=== PATIENT | male | born 1965 | race Hispanic/Latino ===

== ENCOUNTER 2018-01-03 14:11 | Emergency (ER) | payer SELFPAY ==
[2018-01-03 15:03] VITALS: RESP 20
--- NOTE | 2018-01-03 16:05 | C.PDOC ---
History Of Present Illness 52 year old male presents to ED with complaints of itchy rash to legs for 1 week and rash is now spreading up his legs and has some on right arm and back. He states had same rash to right leg 2 weeks ago was seen at clinic and treated with Prednisone for 5 days and rash had improved, but then came back. He states rash is very itchy. The past 2 days he noticed swelling and redness to lower leg and now has pain, feels "leg is balloon that may pop". Denies any fever. Time Seen by Provider: 01/03/18 15:23 Chief Complaint (Nursing): Abnormal Skin Integrity History Per: Patient History/Exam Limitations: no limitations Onset/Duration Of Symptoms: Days Current Symptoms Are (Timing): Still Present Past Medical History Reviewed: Historical Data, Nursing Documentation, Vital Signs Vital Signs: Last Vital Signs Temp 98.3 F 01/03/18 16:25 Pulse 77 01/03/18 16:25 Resp 20 01/03/18 16:25 BP 167/95 H 01/03/18 16:25 Pulse Ox 95 01/03/18 16:25 Family History: States: No Known Family Hx - Social History Hx Alcohol Use: No Hx Substance Use: No - Immunization History Hx Tetanus Toxoid Vaccination: No Hx Influenza Vaccination: No Hx Pneumococcal Vaccination: No Review Of Systems Constitutional: Negative for: Fever, Chills Respiratory: Negative for: Shortness of Breath Gastrointestinal: Negative for: Nausea, Vomiting Skin: Positive for: Rash (arms, back and leg) Physical Exam - Physical Exam Appears: Well, Non-toxic, No Acute Distress Skin: Rash (scaly annular lesions and patches to right upper back and arm, and to bilateral lower extremities. Right lower leg has swelling to anterior tibial and calf area with bright erythematous base and weeping. Left lower leg mild swelling and erythema. No foul odor. ) Neck: Normal ROM Chest: Symmetrical Cardiovascular: Rhythm Regular, No Murmur Respiratory: Normal Breath Sounds, No Accessory Muscle Use Extremity: Normal ROM Neurological/Psych: Oriented x3, Normal Speech ED Course And Treatment O2 Sat by Pulse Oximetry: 96 (RA) Pulse Ox Interpretation: Normal Medical Decision Making Medical Decision Making: Patient with rash that appears to be fungal and legs have superimposed cellulitis. Case discussed with attending who also examined patient and agrees, recommends antifungal and antibiotics. Patient treated with ketoconazole and Clindamycin. Patient remained afebrile and in no distress. Advised patient to continue with medications and can also take Benadryl for itching. Patient stable for discharge and recommend derm follow up if symptoms persist Disposition Counseled Patient/Family Regarding: Diagnosis, Need For Followup, Rx Given - Disposition Referrals: Rachel Lynn MD [Staff Provider] - Disposition: HOME/ ROUTINE Disposition Time: 16:08 Condition: STABLE Additional Instructions: You have fungal infection to your skin and your lower leg has early cellulitis which is skin infection Apply anti-fungal cream to area twice a day for 2-4 weeks Take antibiotic as prescribed 3x a day Take Benadryl for any itching you may have Follow up with clinic and dermatology if symptoms do not improve or worsen after 2 weeks Return to the Emergency Room if you develop fever, purulent drainage or foul odor from your leg, or other concern. Prescriptions: Clindamycin [Cleocin] 300 mg PO TID #21 cap Ketoconazole 2% Cr [Nizoral] 15 applic EXT BID #1 tube Instructions: Cellulitis (Skin Infection), Adult (DC), Ringworm Forms: [employer] (Swiss) - POA Present On Arrival: None - Clinical Impression Clinical Impression: Tinea corporis, Cellulitis of leg, right - Scribe Statement The provider has reviewed the documentation as recorded by the Scribe (Maryam Bruno) All medical record entries made by the Scribe were at my direction and personally dictated by me. I have reviewed the chart and agree that the record accurately reflects my personal performance of the history, physical exam, medical decision making, and the department course for this patient. I have also personally directed, reviewed, and agree with the discharge instructions and disposition.
[2018-01-03 16:31] VITALS: BP 167/95; PULSE 77; TEMP 98.3
[2018-01-03 17:49] VITALS: O2SAT 96
== END 2018-01-03 16:25 | disposition home or self-care (01) ==
LOC: C.ER 14:11
DX: B35.4 Tinea corporis (principal); L03.115 Cellulitis of right lower limb

== ENCOUNTER 2018-01-13 16:39 | Emergency (ER) | payer SELFPAY ==
[2018-01-13 17:09] VITALS: RESP 18
[2018-01-13] MEDS ORDERED: Vancomycin 1 gm/NS 200 ml 1 GM/200 ML BAG IVPB STA (18:08)
--- NOTE | 2018-01-13 18:08 | C.PDOC ---
History Of Present Illness 89 y/o male presents with redness, weeping to legs. pt reports problem x apprx 2 weeks in lower legs; was seen initially for rash and prescribed cream and prednisone; being treated for scabies. pt seen in this ED on 01/03, and was treated for sa fungal infeciton with overlying cellulitis with clindamycn. pt reports compliance with medication and competed it, however, legs continue to get more swollen, more red and painful and now right lower leg is also weeping fluids. pt denies fever. pt reports new lesions to lateral thighs. pt reports hx of pcn allergy, unsure what reaction is. pt sts he has had MRSA in the past. Time Seen by Provider: 01/13/18 17:38 Chief Complaint (Nursing): Abnormal Skin Integrity History Per: Patient History/Exam Limitations: no limitations Onset/Duration Of Symptoms: Days (7) Current Symptoms Are (Timing): Worse Location Of Injury: Right: Leg, Left: Leg Quality Of Symptoms: Painful, Itching, Swollen, Draining Severity: Moderate Past Medical History Reviewed: Historical Data, Nursing Documentation, Vital Signs Vital Signs: Last Vital Signs Temp 97.4 F L 01/13/18 17:06 Pulse 84 01/13/18 17:06 Resp 18 01/13/18 17:06 BP 159/88 H 01/13/18 17:06 Pulse Ox 97 01/13/18 19:17 - Medical History PMH: No Chronic Diseases Family History: States: Unknown Family Hx - Social History Hx Alcohol Use: No Hx Substance Use: No - Immunization History Hx Tetanus Toxoid Vaccination: No Hx Influenza Vaccination: No Hx Pneumococcal Vaccination: No Review Of Systems Constitutional: Negative for: Fever, Chills Cardiovascular: Negative for: Chest Pain Respiratory: Negative for: Cough Gastrointestinal: Negative for: Abdominal Pain Skin: Positive for: Rash, Lesions Neurological: Negative for: Weakness, Numbness Physical Exam - Physical Exam Appears: Non-toxic, No Acute Distress Skin: Other (multiple areas scaly patches to lateral thighs with no surrounding erythema. ) Head: Atraumatic, Normacephalic Eye(s): bilateral: Normal Inspection Cardiovascular: Rhythm Regular Respiratory: No Decreased Breath Sounds, No Wheezing Gastrointestinal/Abdominal: Soft, No Tenderness Extremity: Other ( bilateral distal lower extremities with pitting blanchable edema, on bright red base wiht multiple scaly lesions present both legs. both legs mildly warm, left greater than right. +bilateral lower leg tenderness. +2 b /l dp pulses. from at both knees. weeping fron anterior right lower leg. ) Neurological/Psych: Oriented x3, Normal Speech, Normal Cognition, Normal Motor, Normal Sensation ED Course And Treatment O2 Sat by Pulse Oximetry: 97 Medical Decision Making Medical Decision Making: pt has failed outpatient treatment for cellulitis; should be admitted, labs and bc to be drawn, will give first dose of iv vancomycin. pt adamantly sts he is unable to stay in hospital, will go home ama with po bactrim AND fu for wound check in 2 days. Disposition - Disposition Referrals: [facility] [Outside] Disposition: AGAINST MEDICAL ADVICE Disposition Time: 19:18 Condition: STABLE Additional Instructions: Take antibiotics as prescribed. Follow up wiht your pmd, in medical clinic or return to ED in 2 days for a wound check or worsening of symptoms. Prescriptions: Sulfamethoxazole/Trimethoprim [Bactrim DS 800 mg-160 mg] 1 tab PO BID #20 tab Instructions: Cellulitis (Skin Infection), Adult (DC) Forms: [employer] (Pashto), General Discharge Instructions - Clinical Impression Clinical Impression: Bilateral cellulitis of lower leg Physician Patient Turnover Patient Signed Over To: Randall Hou Handoff Comments: discharge/ama pt after he receives iv vancomycin; pt unable to be admitted.
[2018-01-13 20:04] LABS: BASO # 0.1 K/uL (0.0-0.2); BASO % 0.9 % (0.0-2.0); EOS # 0.3 K/uL (0.0-0.7); EOS % 3.9 % (0.0-4.0); HEMOGLOBIN 12.4 g/dL (12.0-18.0); LYMPH # 1.9 K/uL (1.0-4.3); LYMPH % 23.7 % (20.0-40.0); MEAN CELL VOLUME 84.5 fL (80.0-94.0); MEAN CORPUSCULAR HEMOGLOBIN 28.6 pg (27.0-31.0); MEAN CORPUSCULAR HGB CONC 33.8 g/dL (33.0-37.0); MEAN PLATELET VOLUME 6.6 fL (7.2-11.7); MONO # 0.9 K/uL (0.0-0.8); NEUT # 4.9 K/uL (1.8-7.0); NEUT % 60.5 % (50.0-75.0); NRBC % 0.1 % (0.0-2.0); RBC 4.33 Mil/uL (4.40-5.90); RED CELL DISTRIBUTION WIDTH 13.9 % (11.5-14.5); WHITE BLOOD COUNT 8.1 K/uL (4.8-10.8)
[2018-01-13 20:15] LABS: ALB/GLOB RATIO 0.8 (1.0-2.1); ALBUMIN 3.5 g/dL (3.5-5.0); CALCIUM 8.5 mg/dl (8.6-10.4)
[2018-01-13 21:52] VITALS: BP 172/105; PULSE 85; TEMP 97.5; O2SAT 95
== END 2018-01-13 21:51 | disposition left against medical advice (07) ==
LOC: C.ER 16:39
DX: L03.115 Cellulitis of right lower limb (principal); L03.116 Cellulitis of left lower limb
CPT/HCPCS: 80053; 85025; 87040; 96365; 96366; 99284; J3370

== ENCOUNTER 2018-02-05 10:35 | Observation (INO) | payer OTHER ==
[2018-02-05] MEDS ORDERED: Sodium Chloride 0.9% 1,000 ML IV ONE (11:52)
[2018-02-05 12:35] LABS: BASO % 0.4 % (0.0-2.0); EOS # 0.2 K/uL (0.0-0.7); EOS % 2.7 % (0.0-4.0); HEMOGLOBIN 12.3 g/dL (12.0-18.0); LYMPH # 1.5 K/uL (1.0-4.3); LYMPH % 18.5 % (20.0-40.0); MEAN CELL VOLUME 85.6 fL (80.0-94.0); MEAN CORPUSCULAR HEMOGLOBIN 28.1 pg (27.0-31.0); MEAN CORPUSCULAR HGB CONC 32.8 g/dL (33.0-37.0); MEAN PLATELET VOLUME 7.1 fL (7.2-11.7); MONO # 0.7 K/uL (0.0-0.8); MONO % 8.9 % (0.0-10.0); NEUT # 5.7 K/uL (1.8-7.0); NEUT % 69.5 % (50.0-75.0); NRBC % 0.2 % (0.0-2.0); RBC 4.38 Mil/uL (4.40-5.90); RED CELL DISTRIBUTION WIDTH 14.5 % (11.5-14.5); WHITE BLOOD COUNT 8.2 K/uL (4.8-10.8)
[2018-02-05 12:39] LABS: SQUAMOUS EPITHIAL < 1 /hpf (0-5); URINE BACTERIA RARE (<OCC); URINE BILIRUBIN NEGATIVE (NEGATIVE); URINE BLOOD NEGATIVE (NEGATIVE); URINE CLARITY Hazy (Clear); URINE COLOR Yellow (YELLOW); URINE GLUCOSE (UA) 1+ mg/dL (Normal); URINE LEUKOCYTE ESTERASE NEG Leu/uL (Negative); URINE PROTEIN 3+ mg/dL (NEGATIVE)
[2018-02-05 12:42] LABS: INR 1.1; PROTHROMBIN TIME 12.4 SECONDS (9.7-12.2)
[2018-02-05 12:50] LABS: ALB/GLOB RATIO 0.8 (1.0-2.1); ALBUMIN 3.5 g/dL (3.5-5.0); ALT/SGPT 23 U/L (21-72); AST/SGOT 25 U/L (17-59); BLOOD UREA NITROGEN 29 mg/dL (9-20); CALCIUM 8.7 mg/dl (8.6-10.4); GFR AFRICAN-AMERICAN > 60; GFR NON-AFRICAN AMERICAN 58
[2018-02-05 13:00] LABS: B-TYPE NATRIURETIC PEPTIDE 1770 pg/mL (0-900)
[2018-02-05] MEDS ORDERED: Clindamycin 300 MG in Sodium Chloride 0.9% 50 ML IVPB STA (13:03)
--- NOTE | 2018-02-05 13:07 | C.PDOC ---
History Of Present Illness 52 year old male presents to the ED for evaluation of an infection to his bilateral lower legs which began 2 weeks ago. Patient reports he initially had a rash on lower legs starting around 3 months ago, was evaluated at [facility] treated for scabies and prescribed Prednisone. His symptoms improved but then worsened after he finished the course. He was seen in this ED for same problem and recently finished a 10-day course of antibiotics one week ago. He reports pain and swelling to his legs and states his symptoms are worsening and spreading up his legs. He noticed leaking from legs. Patient reports chills. He denies recent trauma/injury or extremity numbness. Patient does not have a PMD. Time Seen by Provider: 02/05/18 11:16 Chief Complaint (Nursing): Abnormal Skin Integrity History Per: Patient History/Exam Limitations: no limitations Onset/Duration Of Symptoms: Other (around 3 months ) Current Symptoms Are (Timing): Worse Quality Of Symptoms: Painful, Swollen Additional History Per: Patient Past Medical History Reviewed: Historical Data, Nursing Documentation, Vital Signs Vital Signs: Last Vital Signs Temp 98.0 F 02/05/18 14:57 Pulse 70 02/05/18 14:57 Resp 20 02/05/18 14:57 BP 167/85 H 02/05/18 14:57 Pulse Ox 98 02/05/18 15:13 - Medical History PMH: No Chronic Diseases Surgical History: No Surg Hx Family History: States: Unknown Family Hx - Social History Hx Alcohol Use: No Hx Substance Use: No - Immunization History Hx Tetanus Toxoid Vaccination: No Hx Influenza Vaccination: No (patient allergic to it) Hx Pneumococcal Vaccination: No Review Of Systems Constitutional: Positive for: Chills Musculoskeletal: Positive for: Leg Pain Neurological: Negative for: Numbness Physical Exam - Physical Exam Appears: Non-toxic, No Acute Distress Skin: Warm, Dry, Other (scaly patches to lateral thighs with no surrounding erythema) Head: Atraumatic, Normacephalic Eye(s): bilateral: Normal Inspection Oral Mucosa: Moist Neck: Supple Chest: Symmetrical, No Deformity, No Tenderness Cardiovascular: Rhythm Regular, No Murmur Respiratory: Normal Breath Sounds, No Rales, No Rhonchi, No Wheezing Extremity: Normal ROM, Pedal Edema, Capillary Refill (less than 2 seconds ), Other (bilateral distal lower extremities with pitting edema, blanching bright erythema, tactile warmth, maceration, scabs and weeping ; right leg worse. no odor, no pus. ) Pulses: Left Dorsalis Pedis: Normal, Right Dorsalis Pedis: Normal Neurological/Psych: Oriented x3, Normal Speech Gait: Steady ED Course And Treatment - Laboratory Results Result Diagrams: 02/05/18 12:29 02/05/18 12:29 O2 Sat by Pulse Oximetry: 98 (on RA ) Pulse Ox Interpretation: Normal Medical Decision Making Medical Decision Making: Impression: 52 year old male with infection to bilateral legs Prior records reviewed, patient evaluated twice for leg redness and treated with Clindamycin and Bactrim. Has failed outpatient treatment. Plan: * bloodwork * urinalysis * Cleocin IVP * IV Fluids Progress: Bloodwork and UA ordered and reviewed. Cleocin IVP and IV Fluids administered. 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 - Scribe Statement The provider has reviewed the documentation as recorded by the Scribe (Yola Valdez) All medical record entries made by the Scribe were at my direction and personally dictated by me. I have reviewed the chart and agree that the record accurately reflects my personal performance of the history, physical exam, medical decision making, and the department course for this patient. I have also personally directed, reviewed, and agree with the discharge instructions and disposition. Decision To Admit - Pt Status Changed To: Hospital Disposition Of: Observation - . Bed Request Type: Regular Admitting Physician: Negro Valdez Patient Diagnosis: Bilateral cellulitis of lower leg
[2018-02-05] MEDS ORDERED: Clindamycin 300 MG in Sodium Chloride 0.9% 100 ML IVPB STA (13:14)
--- NOTE | 2018-02-05 15:24 | CP.PCM.HP ---
<José Manuel Maribel YOU - Last Filed: 02/05/18 15:14> History of Present Illness - History of Present Illness History of Present Illness: CC: my legs are swollen Patient is a 52 year old male who denies past medical history who presents to the ED after failed outpatient treatment for lower extremity cellulitis. Patient states that he first noticed erythematous circular lesions on his right ankle in mid-November. He states at that time he went to [facility] for evaluation and was given treatment for scabies along with PO prednisone. He states the prednisone significantly improved the rash but that it worsened after completion of the course of steroids. He came to the [facility] ED on for re-evaluation of his rash. He states at that time the rash had worsened and was now on both legs. Patient was discharged from the ER with PO cleocin and ketaconazole topical for treatment of possible ringworm. Patient states that treatment did not help his rash and then went back to [facility] and was given a Medrol dose pack which did help the rash a little but it then worsened again after completion of dose pack. Patient returned to [facility] ED on 01/13/18 and was offered inpatient admission due to failed outpatient therapy and patient declined as he needed to take care of his grandmother. Patient was discharged with bactrim which he completed without improvement in symptoms. Patient returned to [facility] ED today with complaint of bilateral lower extremity swelling, pain, erythema, skin breakdown with clear exudate. He also reports chills at night for the past few nights. He admits to chronic cough related to smoking history. He denies recent travel, recent illness. 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 absent: Fever, Weakness - EENT Eyes: absent: Blurred Vision - Cardiovascular Cardiovascular: Leg Edema. absent: Chest Pain, Chest Pain at Rest, Diaphoresis , Dyspnea - Respiratory Respiratory: Cough - Gastrointestinal Gastrointestinal: absent: Abdominal Pain, Belching, Bloating, Nausea, Vomiting - Genitourinary Genitourinary: absent: Dysuria - Musculoskeletal Musculoskeletal: absent: Arthralgias - Integumentary Integumentary: Dry Skin, Erythema, Sores, Swelling, Wounds - Neurological Neurological: absent: Confusion, Dizziness, Numbness, Weakness - Psychiatric Psychiatric: Anxiety - Endocrine Endocrine: absent: Palpitations Past Patient History - Infectious Disease Hx of Infectious Diseases: None - Past Social History Smoking Status: Heavy Smoker > 10 Cigarettes Daily - HEMATOLOGICAL/ONCOLOGICAL Other/Comment: hx of ca to left eye corrected to surgery. with tranplant with hxof mrsa to it. - PSYCHIATRIC Hx Substance Use: No - SURGICAL HISTORY Hx Surgeries: Yes Other/Comment: left knee surgery 1994. left eye surgery 3 years ago - ANESTHESIA Hx Anesthesia: Yes Hx Anesthesia Reactions: No Hx Malignant Hyperthermia: No Meds Allergies/Adverse Reactions: Allergies Allergy/AdvReac Type Severity Reaction Status Date / Time Penicillins Allergy Verified 02/05/18 11:02 Physical Exam - Constitutional Appears: Non-toxic, No Acute Distress - Head Exam Head Exam: ATRAUMATIC, NORMOCEPHALIC - Eye Exam Eye Exam: EOMI - ENT Exam ENT Exam: Mucous Membranes Moist - Respiratory Exam Respiratory Exam: Rhonchi, Wheezes, NORMAL BREATHING PATTERN. absent: Respiratory Distress - Cardiovascular Exam Cardiovascular Exam: REGULAR RHYTHM, +S1, +S2. absent: JVD - GI/Abdominal Exam GI & Abdominal Exam: Distended, Normal Bowel Sounds, Soft. absent: Firm, Tenderness - Extremities Exam Extremities exam: Positive for: pedal edema - Neurological Exam Neurological exam: Alert, Oriented x3 - Psychiatric Exam Psychiatric exam: Normal Affect - Skin Skin Exam: Warm Additional comments: bilateral lower extremity erythema to level just below the knee raised skin rash below knees that is erythematous with rough texture from mid-galvez down the skin is taut with weeping skin lesions- clear exudate 1+ pitting edema bilateral feet upper thighs and stomach with circular and erythematous skin lesions Results - Vital Signs Recent Vital Signs: Last Vital Signs Temp 98.0 F 02/05/18 14:57 Pulse 70 02/05/18 14:57 Resp 20 02/05/18 14:57 BP 167/85 H 02/05/18 14:57 Pulse Ox 98 02/05/18 15:13 - Labs Result Diagrams: 02/05/18 12:29 02/05/18 12:29 Labs: Laboratory Results - last 24 hr 02/05/18 02/05/18 02/05/18 12:15 12:29 12:29 WBC 8.2 RBC 4.38 L Hgb 12.3 Hct 37.5 MCV 85.6 MCH 28.1 MCHC 32.8 L RDW 14.5 Plt Count 257 MPV 7.1 L Neut % (Auto) 69.5 Lymph % (Auto) 18.5 L [place] % (Auto) 8.9 Eos % (Auto) 2.7 Baso % (Auto) 0.4 Neut # (Auto) 5.7 Lymph # (Auto) 1.5 [place] # (Auto) 0.7 Eos # (Auto) 0.2 Baso # (Auto) 0.0 PT 12.4 H INR 1.1 APTT 33 Sodium Potassium Chloride Carbon Dioxide Anion Gap BUN Creatinine Est GFR ( Amer) Est GFR (Non-Af Amer) Random Glucose Calcium Total Bilirubin AST ALT Alkaline Phosphatase NT-Pro-B Natriuret Pep Total Protein Albumin Globulin Albumin/Globulin Ratio Urine Color Yellow Urine Clarity Hazy Urine pH 5.0 Ur Specific [place] 1.028 Urine Protein 3+ H Urine Glucose (UA) 1+ H Urine Ketones Trace Urine Blood Negative Urine Nitrate Negative Urine Bilirubin Negative Urine Urobilinogen 2.0 Ur Leukocyte Esterase Neg Urine WBC (Auto) 1 Urine RBC (Auto) 6 H Ur Squamous Epith Cells < 1 Urine Bacteria Rare 02/05/18 12:29 WBC RBC Hgb Hct MCV MCH MCHC RDW Plt Count MPV Neut % (Auto) Lymph % (Auto) [place] % (Auto) Eos % (Auto) Baso % (Auto) Neut # (Auto) Lymph # (Auto) [place] # (Auto) Eos # (Auto) Baso # (Auto) PT INR APTT Sodium 141 Potassium 4.5 Chloride 103 Carbon Dioxide 26 Anion Gap 16 BUN 29 H Creatinine 1.3 Est GFR ( Amer) > 60 Est GFR (Non-Af Amer) 58 Random Glucose 132 H Calcium 8.7 Total Bilirubin 0.6 AST 25 ALT 23 Alkaline Phosphatase 74 NT-Pro-B Natriuret Pep 1770 H Total Protein 7.8 Albumin 3.5 Globulin 4.2 H Albumin/Globulin Ratio 0.8 L Urine Color Urine Clarity Urine pH Ur Specific [place] Urine Protein Urine Glucose (UA) Urine Ketones Urine Blood Urine Nitrate Urine Bilirubin Urine Urobilinogen Ur Leukocyte Esterase Urine WBC (Auto) Urine RBC (Auto) Ur Squamous Epith Cells Urine Bacteria Assessment & Plan - Assessment and Plan (Free Text) Assessment: Lower extremity cellulitis patient failed outpatient therapy no leukocytosis will start aztreonam 2g IV q8h, vancomycin 1g IV q12h patient received IV clindamycin in ER will check xrays b/l feet will check venous dopplers lower extremities wound care referral blood culture pending Elevated BNP 1770 on admission will check echo as patient also noted to have elevated BP 177/100, possible hypertensive heart disease will start lasix 40mg IV q12 will check chest xray to rule out pleural effusions will check EKG HTN will start lasix 40mg IV q12h will start metoprolol 12.5 PO BID will start lisinopril 10mg PO daily Elevated glucose will check A1c glucose also noted in urine on UA start moderate consistent carb diet Tobacco use cessation encouraged patient offered nicotine patch, declined Prophylactic measure heparin 5,000 SC q8h pepcid 20mg PO BID PT/ OT <Oc Gutierrez H - Last Filed: 02/05/18 16:01> Results - Vital Signs Recent Vital Signs: Last Vital Signs Temp 98.0 F 02/05/18 14:57 Pulse 70 02/05/18 14:57 Resp 20 02/05/18 14:57 BP 167/85 H 02/05/18 14:57 Pulse Ox 98 02/05/18 15:15 - Labs Result Diagrams: 02/05/18 12:29 02/05/18 12:29 Labs: Laboratory Results - last 24 hr 02/05/18 02/05/18 02/05/18 12:15 12:29 12:29 WBC 8.2 RBC 4.38 L Hgb 12.3 Hct 37.5 MCV 85.6 MCH 28.1 MCHC 32.8 L RDW 14.5 Plt Count 257 MPV 7.1 L Neut % (Auto) 69.5 Lymph % (Auto) 18.5 L [place] % (Auto) 8.9 Eos % (Auto) 2.7 Baso % (Auto) 0.4 Neut # (Auto) 5.7 Lymph # (Auto) 1.5 [place] # (Auto) 0.7 Eos # (Auto) 0.2 Baso # (Auto) 0.0 PT 12.4 H INR 1.1 APTT 33 Sodium Potassium Chloride Carbon Dioxide Anion Gap BUN Creatinine Est GFR ( Amer) Est GFR (Non-Af Amer) Random Glucose Calcium Total Bilirubin AST ALT Alkaline Phosphatase NT-Pro-B Natriuret Pep Total Protein Albumin Globulin Albumin/Globulin Ratio Urine Color Yellow Urine Clarity Hazy Urine pH 5.0 Ur Specific [place] 1.028 Urine Protein 3+ H Urine Glucose (UA) 1+ H Urine Ketones Trace Urine Blood Negative Urine Nitrate Negative Urine Bilirubin Negative Urine Urobilinogen 2.0 Ur Leukocyte Esterase Neg Urine WBC (Auto) 1 Urine RBC (Auto) 6 H Ur Squamous Epith Cells < 1 Urine Bacteria Rare 02/05/18 12:29 WBC RBC Hgb Hct MCV MCH MCHC RDW Plt Count MPV Neut % (Auto) Lymph % (Auto) [place] % (Auto) Eos % (Auto) Baso % (Auto) Neut # (Auto) Lymph # (Auto) [place] # (Auto) Eos # (Auto) Baso # (Auto) PT INR APTT Sodium 141 Potassium 4.5 Chloride 103 Carbon Dioxide 26 Anion Gap 16 BUN 29 H Creatinine 1.3 Est GFR ( Amer) > 60 Est GFR (Non-Af Amer) 58 Random Glucose 132 H Calcium 8.7 Total Bilirubin 0.6 AST 25 ALT 23 Alkaline Phosphatase 74 NT-Pro-B Natriuret Pep 1770 H Total Protein 7.8 Albumin 3.5 Globulin 4.2 H Albumin/Globulin Ratio 0.8 L Urine Color Urine Clarity Urine pH Ur Specific [place] Urine Protein Urine Glucose (UA) Urine Ketones Urine Blood Urine Nitrate Urine Bilirubin Urine Urobilinogen Ur Leukocyte Esterase Urine WBC (Auto) Urine RBC (Auto) Ur Squamous Epith Cells Urine Bacteria Attending/Attestation - Attestation I have personally seen and examined this patient.: Yes I have fully participated in the care of the patient.: Yes I have reviewed all pertinent clinical information: Yes Notes (Text): 02/05/18 15:50 Medical attending : Patient was seen and examined by me. Agree with the above note by the resident Patient has been comming back and forth between [facility] and here at [facility]. He has denied fever and chills Per exam, bilaterally anteioer mid galvez area with erethematous skin color, warm to touch as well as weeping seen. He will be on IV abx, IVF, as well as XRAY imaging of bilaterally extremities as well as Because of the elevated BNP as well as lower eztremity bilateral edema. Will also check 2 decho, CXRAY as well. Sammy SCHROEDER thank you Oc Gutierrez 02/05/18 15:59
[2018-02-05] MEDS ORDERED: Aztreonam 2 GM in Sodium Chloride 0.9% 100 ML IVPB SCH (16:00)
--- NOTE | 2018-02-05 16:49 | RAD ---
HISTORY: COMPARISON: No prior. TECHNIQUE: Chest PA and lateral FINDINGS: LINES AND TUBES: None. LUNG AND PLEURA: There is mild pulmonary hyperinflation and peribronchial cuffing. No focal consolidation. There are no pleural effusions or pneumothorax. HEART AND MEDIASTINUM: The heart is not enlarged. The hilar and mediastinal contours are within normal limits. SKELETAL STRUCTURES: The bony structures are within normal limits for the patient's age. VISUALIZED UPPER ABDOMEN: Normal. OTHER FINDINGS: None. IMPRESSION: No active pulmonary disease. COPD.
--- NOTE | 2018-02-05 17:08 | RAD ---
PROCEDURE: Bilateral Feet Radiographs. HISTORY: lower extremity swelling COMPARISON: None. FINDINGS: BONES: Right Foot: Plantar and Achilles Tendon insertion calcaneal spurs. Left Foot: Plantar and Achilles Tendon insertion calcaneal spurs. JOINTS: Right Foot: Normal. No osteoarthritis. Left Foot: Normal. No osteoarthritis. SOFT TISSUES: Right Foot: Normal. Left Foot: Normal. OTHER FINDINGS: None. IMPRESSION: No acute findings related to/accounting for the clinical presentation.
[2018-02-05 18:17] LABS: T3 1.42 nmol/L (1.49-2.60)
[2018-02-05] MEDS: Vancomycin 1 gm/NS 200 ml 1 GM/200 ML BAG IVPB SCH (20:14)
[2018-02-06 01:19] VITALS: RESP 20
[2018-02-06] MEDS: Vancomycin 1 gm/NS 200 ml 1 GM/200 ML BAG IVPB SCH ×2 (05:10→17:16)
[2018-02-06 07:44] LABS: BASO % 0.5 % (0.0-2.0); EOS # 0.3 K/uL (0.0-0.7); EOS % 3.7 % (0.0-4.0); HEMOGLOBIN 11.2 g/dL (12.0-18.0); LYMPH # 1.1 K/uL (1.0-4.3); LYMPH % 13.9 % (20.0-40.0); MEAN CORPUSCULAR HGB CONC 33.3 g/dL (33.0-37.0); MEAN PLATELET VOLUME 7.2 fL (7.2-11.7); MONO # 0.8 K/uL (0.0-0.8); NEUT # 5.6 K/uL (1.8-7.0); NEUT % 71.9 % (50.0-75.0); RBC 3.99 Mil/uL (4.40-5.90); RED CELL DISTRIBUTION WIDTH 14.2 % (11.5-14.5); WHITE BLOOD COUNT 7.9 K/uL (4.8-10.8)
[2018-02-06 08:20] LABS: ALB/GLOB RATIO 0.8 (1.0-2.1); ALBUMIN 2.9 g/dL (3.5-5.0); ALT/SGPT 21 U/L (21-72); AST/SGOT 13 U/L (17-59); BLOOD UREA NITROGEN 27 mg/dL (9-20); CALCIUM 8.2 mg/dl (8.6-10.4); GFR AFRICAN-AMERICAN > 60; GFR NON-AFRICAN AMERICAN 53; HDL CHOLESTEROL 29 mg/dL (30-70)
[2018-02-06 08:30] LABS: LDL CHOLESTEROL 128 mg/dL (0-129)
--- NOTE | 2018-02-06 09:08 | CP.PCM.PN ---
<Analy Wellington - Last Filed: 02/06/18 10:15> Subjective - Date & Time of Evaluation Date of Evaluation: 02/06/18 Time of Evaluation: 09:11 - Subjective Subjective: Progress note Patient states he has things to take care of tomorrow and wants to leave tomorrow. It was advised to wait for the results from today's exams to see what the updated plan is. Patient states he's had this problem for 2 months and it initially started as small raised lesions that were originally considered to be ringworm. Patient denies fever, chills, nausea vomiting, leg pain. With my attending, we had an extensive conversation with the patient who stated that he does not want any blood pressure medications and states that he will not be taking the blood pressure medication at home. Patient also denied blood thinner because he saw an advertisement on the television about warfarin. Patient was told heparin was ordered for him but he still refused Objective - Vital Signs/Intake and Output Vital Signs (last 24 hours): Temp Pulse Resp BP Pulse Ox 97.5 F L 81 20 158/92 H 97 02/06/18 08:00 02/06/18 08:00 02/06/18 08:00 02/06/18 08:00 02/06/18 08:00 Intake and Output: 02/06/18 02/06/18 06:59 18:59 Intake Total 500 440 Balance 500 440 - Medications Medications: Current Medications Famotidine (Pepcid) 20 mg PO BID [facility] Last Admin: 02/05/18 19:51 Dose: 20 mg Furosemide (Lasix) 40 mg IVP Q12 [facility] Last Admin: 02/05/18 22:43 Dose: 40 mg Heparin Sodium (Porcine) (Heparin) 5,000 units SC Q8 [facility] Last Admin: 02/05/18 22:42 Dose: 5,000 units Vancomycin/Sodium Chloride (Vancomycin 1 Gm/Ns 200 Ml) 1 gm in 200 mls @ 133.333 mls/hr IVPB Q12H [facility] PRN Reason: Protocol Stop: 02/10/18 17:31 Last Admin: 02/06/18 05:10 Dose: 133.333 mls/hr Aztreonam 2 gm/ Sodium (Chloride) 100 mls @ 200 mls/hr IVPB Q8H [facility] PRN Reason: Protocol Last Admin: 02/05/18 17:25 Dose: 200 mls/hr Lisinopril (Zestril) 10 mg PO DAILY [facility] Last Admin: 02/05/18 14:55 Dose: 10 mg Metoprolol Tartrate (Lopressor) 12.5 mg PO BID [facility] Last Admin: 02/05/18 19:52 Dose: 12.5 mg Pneumococcal Polyvalent Vaccine (Pneumovax 23 Vaccine) 0.5 ml IM .ONCE ONE Stop: 02/06/18 10:01 - Labs Labs: 02/06/18 07:18 02/06/18 07:18 PT 12.4 SECONDS (9.7-12.2) H 02/05/18 12:29 INR 1.1 02/05/18 12:29 APTT 33 SECONDS (21-34) 02/05/18 12:29 - Constitutional Appears: Non-toxic, No Acute Distress - Head Exam Head Exam: ATRAUMATIC, NORMAL INSPECTION, NORMOCEPHALIC - Eye Exam Eye Exam: EOMI, Normal appearance Pupil Exam: NORMAL ACCOMODATION - ENT Exam ENT Exam: Mucous Membranes Moist, Normal Exam - Respiratory Exam Respiratory Exam: Clear to Ausculation Bilateral, NORMAL BREATHING PATTERN - Cardiovascular Exam Cardiovascular Exam: REGULAR RHYTHM, +S1, +S2 - GI/Abdominal Exam GI & Abdominal Exam: Soft, Normal Bowel Sounds. absent: Tenderness - Extremities Exam Extremities Exam: Full ROM Additional comments: bilateral lower extremity erythema to 3/4 galvez bilateral. Raised skin rash below knees that is erythematous with rough texture, Weeping skin lesions- yellow, clear exudate, 1+ pitting edema bilateral feet, PT pulses palpated bilaterally upper thighs and stomach with circular and erythematous skin lesions - Back Exam Back Exam: Full ROM, NORMAL INSPECTION - Neurological Exam Neurological Exam: Alert, Awake, CN II-XII Intact, Oriented x3 - Psychiatric Exam Psychiatric exam: Normal Affect, Normal Mood - Skin Skin Exam: Dry, Intact, Normal Color, Warm Assessment and Plan - Assessment and Plan (Free Text) Assessment: Lower extremity cellulitis patient failed outpatient therapy no leukocytosis aztreonam 2g IV q8h 02/06/18 vancomycin 1g IV q12h 02/06/18 patient received IV clindamycin in ER and another stat dose today f/u xrays b/l feet f/u venous dopplers lower extremities blood culture pending wound care consult Elevated BNP 1770 on admission will check echo as patient also noted to have elevated BP 177/100, possible hypertensive heart disease will start lasix 40mg IV q12 CXR: COPD, no cardiomegaly will check EKG HTN will start lasix 40mg IV q12h will start metoprolol 12.5 PO BID will start lisinopril 10mg PO daily Elevated glucose A1c 7.5 glucose also noted in urine on UA start moderate consistent carb diet Tobacco use cessation encouraged patient offered nicotine patch, declined Prophylactic measure heparin 5,000 SC q8h pepcid 20mg PO BID PT/ OT Analy Wellington, DO PGY1 <Oc Gutierrez H - Last Filed: 02/06/18 12:01> Objective - Vital Signs/Intake and Output Vital Signs (last 24 hours): Temp Pulse Resp BP Pulse Ox 97.5 F L 81 20 158/92 H 97 02/06/18 08:00 02/06/18 08:00 02/06/18 08:00 02/06/18 09:45 02/06/18 08:00 Intake and Output: 02/06/18 02/06/18 06:59 18:59 Intake Total 500 440 Balance 500 440 - Medications Medications: Current Medications Famotidine (Pepcid) 20 mg PO BID [facility] Last Admin: 02/06/18 09:45 Dose: 20 mg Furosemide (Lasix) 40 mg IVP Q12 [facility] Last Admin: 02/06/18 09:45 Dose: 40 mg Heparin Sodium (Porcine) (Heparin) 5,000 units SC Q8 [facility] Last Admin: 02/05/18 22:42 Dose: 5,000 units Vancomycin/Sodium Chloride (Vancomycin 1 Gm/Ns 200 Ml) 1 gm in 200 mls @ 133.333 mls/hr IVPB Q12H [facility] PRN Reason: Protocol Stop: 02/10/18 17:31 Last Admin: 02/06/18 05:10 Dose: 133.333 mls/hr Aztreonam 2 gm/ Sodium (Chloride) 100 mls @ 200 mls/hr IVPB Q8H [facility] PRN Reason: Protocol Last Admin: 02/05/18 17:25 Dose: 200 mls/hr Lisinopril (Zestril) 10 mg PO DAILY [facility] Last Admin: 02/06/18 09:45 Dose: 10 mg Metoprolol Tartrate (Lopressor) 12.5 mg PO BID [facility] Last Admin: 02/06/18 09:45 Dose: Not Given - Labs Labs: 02/06/18 07:18 02/06/18 07:18 PT 12.4 SECONDS (9.7-12.2) H 02/05/18 12:29 INR 1.1 02/05/18 12:29 APTT 33 SECONDS (21-34) 02/05/18 12:29 Attending/Attestation - Attestation I have personally seen and examined this patient.: Yes I have fully participated in the care of the patient.: Yes I have reviewed all pertinent clinical information, including history, physical exam and plan: Yes Notes (Text): 02/06/18 12:01 Medical attending: Patient was seen and examined by me, agrees the above note by medical coding technician. Today when we saw the patient he was not in any acute distress. According to the patient he thinks that the legs looks somewhat better to him. There is still warm to palpation. He's been getting IV Lasix, were still pending a 2-D echo at this moment. And were also continue with IV antibiotics as well. The x- rays did not show any bony abnormality of his foot or ankles The patient did not want to get any Lovenox/heparin for DVT prophylaxis as he is concerned about bleeding risk. His blood pressure remains elevated, per my discussion with the patient he remains adamant that he does not want to take any blood pressure medication. He says he does not believe in blood pressure medication. So at this time were continue to monitor the patient's bilateral lower extremities, will continue with Lasix as well as IV antibiotics Thank you very much, Oc Gutierrez
[2018-02-06] MEDS ORDERED: Pneumococcal 23-Valent Vaccine IM ONE (10:00)
--- NOTE | 2018-02-06 23:32 | CARD ---
APPROVED REPORT EKG Measurement Heart [id number] <Conclusion> Normal sinus rhythm ST & T wave abnormality, consider inferolateral ischemia Prolonged QT Abnormal ECG
[2018-02-07] MEDS: Vancomycin 1 gm/NS 200 ml 1 GM/200 ML BAG IVPB SCH (05:17)
[2018-02-07 06:23] LABS: BASO % 0.6 % (0.0-2.0); EOS # 0.3 K/uL (0.0-0.7); EOS % 3.8 % (0.0-4.0); HEMOGLOBIN 11.4 g/dL (12.0-18.0); LYMPH # 1.1 K/uL (1.0-4.3); LYMPH % 14.8 % (20.0-40.0); MEAN CELL VOLUME 83.5 fL (80.0-94.0); MEAN CORPUSCULAR HEMOGLOBIN 27.8 pg (27.0-31.0); MEAN CORPUSCULAR HGB CONC 33.3 g/dL (33.0-37.0); MEAN PLATELET VOLUME 7.1 fL (7.2-11.7); MONO # 0.7 K/uL (0.0-0.8); MONO % 9.7 % (0.0-10.0); NEUT # 5.2 K/uL (1.8-7.0); NEUT % 71.1 % (50.0-75.0); RBC 4.09 Mil/uL (4.40-5.90); RED CELL DISTRIBUTION WIDTH 14.3 % (11.5-14.5); WHITE BLOOD COUNT 7.3 K/uL (4.8-10.8)
[2018-02-07 07:11] LABS: ALB/GLOB RATIO 0.8 (1.0-2.1); ALT/SGPT 22 U/L (21-72); AST/SGOT 12 U/L (17-59); BLOOD UREA NITROGEN 23 mg/dL (9-20); CALCIUM 8.3 mg/dl (8.6-10.4); GFR AFRICAN-AMERICAN > 60; GFR NON-AFRICAN AMERICAN 58
[2018-02-07 08:14] VITALS: BP 176/92; PULSE 81; TEMP 97.6; O2SAT 97
--- NOTE | 2018-02-07 11:22 | CP.PCM.DIS ---
<Rachid Scruggs - Last Filed: 02/07/18 13:10> Provider - Provider Date of Admission: 02/05/18 13:07 Attending physician: Oc Gutierrez DO Time Spent in preparation of Discharge (in minutes): 40 Diagnosis - Discharge Diagnosis (1) Bilateral cellulitis of lower leg Status: Acute Priority: High (2) Newly diagnosed diabetes Status: Acute Priority: High (3) Hypertension Status: Acute Priority: High Hospital Course - Lab Results Lab Results: Micro Results 02/05/18 12:30 Blood Blood Culture - Preliminary NO GROWTH AFTER 24 HOURS 02/05/18 12:15 Blood Blood Culture - Preliminary NO GROWTH AFTER 24 HOURS 02/05/18 11:52 Urine Urine Culture - Final No Growth (<1,000 CFU/ML) Most Recent Lab Values WBC 7.3 K/uL (4.8-10.8) 02/07/18 06:18 RBC 4.09 Mil/uL (4.40-5.90) L 02/07/18 06:18 Hgb 11.4 g/dL (12.0-18.0) L 02/07/18 06:18 Hct 34.1 % (35.0-51.0) L 02/07/18 06:18 MCV 83.5 fL (80.0-94.0) 02/07/18 06:18 MCH 27.8 pg (27.0-31.0) 02/07/18 06:18 MCHC 33.3 g/dL (33.0-37.0) 02/07/18 06:18 RDW 14.3 % (11.5-14.5) 02/07/18 06:18 Plt Count 253 K/uL (130-400) 02/07/18 06:18 MPV 7.1 fL (7.2-11.7) L 02/07/18 06:18 Neut % (Auto) 71.1 % (50.0-75.0) 02/07/18 06:18 Lymph % (Auto) 14.8 % (20.0-40.0) L 02/07/18 06:18 Meade % (Auto) 9.7 % (0.0-10.0) 02/07/18 06:18 Eos % (Auto) 3.8 % (0.0-4.0) 02/07/18 06:18 Baso % (Auto) 0.6 % (0.0-2.0) 02/07/18 06:18 Neut # (Auto) 5.2 K/uL (1.8-7.0) 02/07/18 06:18 Lymph # (Auto) 1.1 K/uL (1.0-4.3) 02/07/18 06:18 Meade # (Auto) 0.7 K/uL (0.0-0.8) 02/07/18 06:18 Eos # (Auto) 0.3 K/uL (0.0-0.7) 02/07/18 06:18 Baso # (Auto) 0.0 K/uL (0.0-0.2) 02/07/18 06:18 PT 12.4 SECONDS (9.7-12.2) H 02/05/18 12:29 INR 1.1 02/05/18 12:29 APTT 33 SECONDS (21-34) 02/05/18 12:29 Sodium 142 mmol/L (132-148) 02/07/18 06:18 Potassium 3.7 mmol/L (3.6-5.2) 02/07/18 06:18 Chloride 102 mmol/L (98-107) 02/07/18 06:18 Carbon Dioxide 28 mmol/L (22-30) 02/07/18 06:18 Anion Gap 15 (10-20) 02/07/18 06:18 BUN 23 mg/dL (9-20) H 02/07/18 06:18 Creatinine 1.3 mg/dL (0.8-1.5) 02/07/18 06:18 Est GFR ( Amer) > 60 02/07/18 06:18 Est GFR (Non-Af Amer) 58 02/07/18 06:18 Random Glucose 120 mg/dL (75-110) H 02/07/18 06:18 Hemoglobin A1c 7.5 % (4.2-6.5) H 02/05/18 17:13 Calcium 8.3 mg/dl (8.6-10.4) L 02/07/18 06:18 Phosphorus 3.7 mg/dL (2.5-4.5) 02/07/18 06:18 Magnesium 1.8 mg/dL (1.6-2.3) 02/07/18 06:18 Total Bilirubin 0.4 mg/dL (0.2-1.3) 02/07/18 06:18 AST 12 U/L (17-59) L 02/07/18 06:18 ALT 22 U/L (21-72) 02/07/18 06:18 Alkaline Phosphatase 70 U/L (38-126) 02/07/18 06:18 NT-Pro-B Natriuret Pep 1770 pg/mL (0-900) H 02/05/18 12:29 Total Protein 6.7 g/dL (6.3-8.3) 02/07/18 06:18 Albumin 3.0 g/dL (3.5-5.0) L 02/07/18 06:18 Globulin 3.6 gm/dL (2.2-3.9) 02/07/18 06:18 Albumin/Globulin Ratio 0.8 (1.0-2.1) L 02/07/18 06:18 Triglycerides 172 mg/dL (0-149) H 02/06/18 07:18 Cholesterol 180 mg/dL (0-199) 02/06/18 07:18 LDL Cholesterol Direct 128 mg/dL (0-129) 02/06/18 07:18 HDL Cholesterol 29 mg/dL (30-70) L 02/06/18 07:18 Total T3 1.42 nmol/L (1.49-2.60) L 02/05/18 17:13 TSH 3rd Generation 0.93 mIU/L (0.46-4.68) 02/05/18 17:13 Urine Color Yellow (YELLOW) 02/05/18 12:15 Urine Clarity Hazy (Clear) 02/05/18 12:15 Urine pH 5.0 (5.0-8.0) 02/05/18 12:15 Ur Specific [place] 1.028 (1.003-1.030) 02/05/18 12:15 Urine Protein 3+ mg/dL (NEGATIVE) H 02/05/18 12:15 Urine Glucose (UA) 1+ mg/dL (Normal) H 02/05/18 12:15 Urine Ketones Trace mg/dL (NEGATIVE) 02/05/18 12:15 Urine Blood Negative (NEGATIVE) 02/05/18 12:15 Urine Nitrate Negative (NEGATIVE) 02/05/18 12:15 Urine Bilirubin Negative (NEGATIVE) 02/05/18 12:15 Urine Urobilinogen 2.0 mg/dL (0.2-1.0) 02/05/18 12:15 Ur Leukocyte Esterase Neg Belinda/uL (Negative) 02/05/18 12:15 Urine WBC (Auto) 1 /hpf (0-5) 02/05/18 12:15 Urine RBC (Auto) 6 /hpf (0-3) H 02/05/18 12:15 Ur Squamous Epith Cells < 1 /hpf (0-5) 02/05/18 12:15 Urine Bacteria Rare (<OCC) 02/05/18 12:15 - Hospital Course Hospital Course: Initial note: "Patient is a 52 year old male who denies past medical history who presents to the ED after failed outpatient treatment for lower extremity cellulitis. Patient states that he first noticed erythematous circular lesions on his right ankle in mid-November. He states at that time he went to [place] ER for evaluation and was given treatment for scabies along with PO prednisone. He states the prednisone significantly improved the rash but that it worsened after completion of the course of steroids. He came to the [facility] ED on for re-evaluation of his rash. He states at that time the rash had worsened and was now on both legs. Patient was discharged from the ER with PO cleocin and ketaconazole topical for treatment of possible ringworm. Patient states that treatment did not help his rash and then went back to [place] ER and was given a Medrol dose pack which did help the rash a little but it then worsened again after completion of dose pack. Patient returned to [facility] ED on 01/13/18 and was offered inpatient admission due to failed outpatient therapy and patient declined as he needed to take care of his grandmother. Patient was discharged with bactrim which he completed without improvement in symptoms. Patient returned to [facility] ED today with complaint of bilateral lower extremity swelling, pain, erythema, skin breakdown with clear exudate. He also reports chills at night for the past few nights. He admits to chronic cough related to smoking history. He denies recent travel, recent illness." Hospital Course: Patient admitted for treatment of bilateral leg cellulitis. Blood cultures have been negative thus far. Bilateral venous dopplers negative for DVT per preliminary report; however, full assessment could not be obtained due to leg edema. Patient found to have hypertension and diabetes but refuses medications for both of these conditions despite carefully explaining the risks of uncontrolled disease. Patient initially treated with Aztreonam but then developed a rash. He was switched to Vancomycin after that. Patient discharged with instructions to follow up in the [facility] and was discharged on Clindamycin. On rounds, he walked with us without difficulty. Patient was amenable to a short course of oral Lasix to aid in the leg edema. This is a summary of the hospital course. For more information, refer to the medical records. Discharge Exam - Additional Findings Additional findings: - Constitutional Appears: Non-toxic, No Acute Distress - Head Exam Head Exam: ATRAUMATIC, NORMAL INSPECTION, NORMOCEPHALIC - Eye Exam Eye Exam: EOMI, Normal appearance Pupil Exam: NORMAL ACCOMODATION - ENT Exam ENT Exam: Mucous Membranes Moist, Normal Exam - Respiratory Exam Respiratory Exam: Clear to Ausculation Bilateral, NORMAL BREATHING PATTERN - Cardiovascular Exam Cardiovascular Exam: REGULAR RHYTHM, +S1, +S2 - GI/Abdominal Exam GI & Abdominal Exam: Soft, Normal Bowel Sounds. absent: Tenderness - Extremities Exam Extremities Exam: Full ROM Additional comments: bilateral lower extremity erythema to 3/4 galvez bilateral. Raised skin rash below knees that is erythematous with rough texture, Weeping skin lesions- yellow, clear exudate, 1+ pitting edema bilateral feet, PT pulses palpated bilaterally upper thighs and stomach with circular and erythematous skin lesions - Back Exam Back Exam: Full ROM, NORMAL INSPECTION - Neurological Exam Neurological Exam: Alert, Awake, CN II-XII Intact, Oriented x3 - Psychiatric Exam Psychiatric exam: Normal Affect, Normal Mood - Skin Skin Exam: Dry, Intact, Normal Color, Warm Discharge Plan - Discharge Medications Prescriptions: Clindamycin [Cleocin] 300 mg PO TID #21 cap Furosemide [Lasix] 20 mg PO DAILY #14 tab - Follow Up Plan Condition: STABLE Disposition: HOME/ ROUTINE Instructions: Heart Healthy Diet, Clindamycin (Systemic), Furosemide, Cellulitis (DC) Additional Instructions: Please take the antibiotic Clindamycin 300 mg three times daily for 1 week. Please purchase an over the counter pro-biotic and take this as well. Please take the water pill Lasix 20 mg once daily for the next 14 days. Please follow up in the [facility] within 1-2 weeks. If there are any new or worsening symptoms, please go to the nearest emergency room. Referrals: [facility] [Outside] <Oc Gutierrez - Last Filed: 02/07/18 15:49> Provider - Provider Date of Admission: 02/05/18 13:07 Attending physician: Oc Gutierrez DO Hospital Course - Lab Results Lab Results: Micro Results 02/05/18 12:30 Blood Blood Culture - Preliminary NO GROWTH AFTER 48 HOURS 02/05/18 12:15 Blood Blood Culture - Preliminary NO GROWTH AFTER 48 HOURS 02/05/18 11:52 Urine Urine Culture - Final No Growth (<1,000 CFU/ML) Most Recent Lab Values WBC 7.3 K/uL (4.8-10.8) 02/07/18 06:18 RBC 4.09 Mil/uL (4.40-5.90) L 02/07/18 06:18 Hgb 11.4 g/dL (12.0-18.0) L 02/07/18 06:18 Hct 34.1 % (35.0-51.0) L 02/07/18 06:18 MCV 83.5 fL (80.0-94.0) 02/07/18 06:18 MCH 27.8 pg (27.0-31.0) 02/07/18 06:18 MCHC 33.3 g/dL (33.0-37.0) 02/07/18 06:18 RDW 14.3 % (11.5-14.5) 02/07/18 06:18 Plt Count 253 K/uL (130-400) 02/07/18 06:18 MPV 7.1 fL (7.2-11.7) L 02/07/18 06:18 Neut % (Auto) 71.1 % (50.0-75.0) 02/07/18 06:18 Lymph % (Auto) 14.8 % (20.0-40.0) L 02/07/18 06:18 Meade % (Auto) 9.7 % (0.0-10.0) 02/07/18 06:18 Eos % (Auto) 3.8 % (0.0-4.0) 02/07/18 06:18 Baso % (Auto) 0.6 % (0.0-2.0) 02/07/18 06:18 Neut # (Auto) 5.2 K/uL (1.8-7.0) 02/07/18 06:18 Lymph # (Auto) 1.1 K/uL (1.0-4.3) 02/07/18 06:18 Meade # (Auto) 0.7 K/uL (0.0-0.8) 02/07/18 06:18 Eos # (Auto) 0.3 K/uL (0.0-0.7) 02/07/18 06:18 Baso # (Auto) 0.0 K/uL (0.0-0.2) 02/07/18 06:18 PT 12.4 SECONDS (9.7-12.2) H 02/05/18 12:29 INR 1.1 02/05/18 12:29 APTT 33 SECONDS (21-34) 02/05/18 12:29 Sodium 142 mmol/L (132-148) 02/07/18 06:18 Potassium 3.7 mmol/L (3.6-5.2) 02/07/18 06:18 Chloride 102 mmol/L (98-107) 02/07/18 06:18 Carbon Dioxide 28 mmol/L (22-30) 02/07/18 06:18 Anion Gap 15 (10-20) 02/07/18 06:18 BUN 23 mg/dL (9-20) H 02/07/18 06:18 Creatinine 1.3 mg/dL (0.8-1.5) 02/07/18 06:18 Est GFR ( Amer) > 60 02/07/18 06:18 Est GFR (Non-Af Amer) 58 02/07/18 06:18 Random Glucose 120 mg/dL (75-110) H 02/07/18 06:18 Hemoglobin A1c 7.5 % (4.2-6.5) H 02/05/18 17:13 Calcium 8.3 mg/dl (8.6-10.4) L 02/07/18 06:18 Phosphorus 3.7 mg/dL (2.5-4.5) 02/07/18 06:18 Magnesium 1.8 mg/dL (1.6-2.3) 02/07/18 06:18 Total Bilirubin 0.4 mg/dL (0.2-1.3) 02/07/18 06:18 AST 12 U/L (17-59) L 02/07/18 06:18 ALT 22 U/L (21-72) 02/07/18 06:18 Alkaline Phosphatase 70 U/L (38-126) 02/07/18 06:18 NT-Pro-B Natriuret Pep 1770 pg/mL (0-900) H 02/05/18 12:29 Total Protein 6.7 g/dL (6.3-8.3) 02/07/18 06:18 Albumin 3.0 g/dL (3.5-5.0) L 02/07/18 06:18 Globulin 3.6 gm/dL (2.2-3.9) 02/07/18 06:18 Albumin/Globulin Ratio 0.8 (1.0-2.1) L 02/07/18 06:18 Triglycerides 172 mg/dL (0-149) H 02/06/18 07:18 Cholesterol 180 mg/dL (0-199) 02/06/18 07:18 LDL Cholesterol Direct 128 mg/dL (0-129) 02/06/18 07:18 HDL Cholesterol 29 mg/dL (30-70) L 02/06/18 07:18 Total T3 1.42 nmol/L (1.49-2.60) L 02/05/18 17:13 TSH 3rd Generation 0.93 mIU/L (0.46-4.68) 02/05/18 17:13 Urine Color Yellow (YELLOW) 02/05/18 12:15 Urine Clarity Hazy (Clear) 02/05/18 12:15 Urine pH 5.0 (5.0-8.0) 02/05/18 12:15 Ur Specific [place] 1.028 (1.003-1.030) 02/05/18 12:15 Urine Protein 3+ mg/dL (NEGATIVE) H 02/05/18 12:15 Urine Glucose (UA) 1+ mg/dL (Normal) H 02/05/18 12:15 Urine Ketones Trace mg/dL (NEGATIVE) 02/05/18 12:15 Urine Blood Negative (NEGATIVE) 02/05/18 12:15 Urine Nitrate Negative (NEGATIVE) 02/05/18 12:15 Urine Bilirubin Negative (NEGATIVE) 02/05/18 12:15 Urine Urobilinogen 2.0 mg/dL (0.2-1.0) 02/05/18 12:15 Ur Leukocyte Esterase Neg Belinda/uL (Negative) 02/05/18 12:15 Urine WBC (Auto) 1 /hpf (0-5) 02/05/18 12:15 Urine RBC (Auto) 6 /hpf (0-3) H 02/05/18 12:15 Ur Squamous Epith Cells < 1 /hpf (0-5) 02/05/18 12:15 Urine Bacteria Rare (<OCC) 02/05/18 12:15 Attending/Attestation - Attestation I have personally seen and examined this patient.: Yes I have fully participated in the care of the patient.: Yes I have reviewed all pertinent clinical information, including history, physical exam and plan: Yes Notes (Text): 02/07/18 15:49 Medical attending: Patient was seen and examined by me, agrees the above note by the medical economics consultant. The patient was very insistent on being discharged today. He was not in any acute distress, we talked about his legs. He stated to us that he felt that the swelling of his legs has decreased significantly however it must be stated on exam that he still has edema there. The skin still appears to be read as well. He reports that the erythema has decreased substantially. It still appears to have a lot of dryness and flaky skin. However there is no weeping moisture like there were before. I explained to him that discharging him now would not twice a day all that I prefer that he wait a little bit longer however he reported that he felt well enough to go home and is very insistent on this. Were given discharge him on clindamycin as well as Lasix. With regards to his blood pressure his blood pressure is high, we told him this and that we are concerned about his blood pressure however he explained to us that he DOES NOT want to take any blood pressure medication even though it can contribute to heart problems that could lead to lower extremity swelling. So we had a long conversation about this and he was very polite about it but he does not want to take any blood pressure medication. We encouraged the patient to follow-up at [facility]. I can only hope that in the future a lot of changes mind with regards to blood pressure control and diabetes control - or that he'll make very radical lifestyle modifications to control his blood pressure and diabetes without medication Thank you very much, Oc Gutierrez
--- NOTE | 2018-02-07 11:32 | VASCLAB ---
PROCEDURE: Bilateral Lower Extremity Venous Duplex Exam. HISTORY: Lower extremity swelling PRIORS: None. TECHNIQUE: Bilateral common femoral, femoral, popliteal and posterior tibial, peroneal and great saphenous veins were evaluated. Flow was assessed with color Doppler, compressibility, assessment of phasic flow and augmentation response. Report prepared by HARMEET Cornelius FINDINGS: RIGHT: 1. Common Femoral Vein: 1.1. Compressibility - Fully compressible: Thrombus - None : Flow - Phasic: Augmentation -Normal: Reflux - None. 2. Femoral Vein: 2.1. Compressibility - Fully compressible: Thrombus - None : Flow - Phasic: Augmentation -Normal: Reflux - None. 3. Popliteal Vein: 3.1. Compressibility - Fully compressible: Thrombus - None : Flow - Phasic: Augmentation -Normal: Reflux - None. 4. Great Saphenous Vein: 4.1. Compressibility - Fully compressible: Thrombus - None: Flow - Phasic: Augmentation - Normal: Reflux - None. LEFT: 1. Common Femoral Vein: 1.1. Compressibility - Fully compressible: Thrombus - None: Flow - Phasic: Augmentation -Normal: Reflux - None. 2. Femoral Vein: 2.1. Compressibility - Fully compressible: Thrombus - None: Flow - Phasic: Augmentation -Normal: Reflux - None. 3. Popliteal Vein: 3.1. Compressibility - Fully compressible: Thrombus - None : Flow - Phasic: Augmentation -Normal: Reflux - None. 4. Great Saphenous Vein: 4.1. Compressibility - Fully compressible: Thrombus - None: Flow - Phasic: Augmentation - Normal: Reflux - None. OTHER FINDINGS: Multiple lymph nodes right groin. IMPRESSION: 1. Bilateral posterior tibial and peroneal veins were not visualized, due to edema. 2. No evidence of venous thrombosis in bilateral common femoral, femoral, popliteal and great saphenous veins, with normal phasic venous flow.
--- NOTE | 2018-02-08 00:47 | CARD ---
APPROVED REPORT EXAM: Two-dimensional and M-mode echocardiogram with Doppler and color Doppler. Other Information Quality : Good[employer] : INDICATION LEG EDEMA RISK FACTORS Hypertension 2D DIMENSIONS IVSd1.4 (0.7-1.1cm)LVDd5.5 (3.9-5.9cm) PWd1.4 (0.7-1.1cm)LVDs4.5 (2.5-4.0cm) FS (%) 19.1 %LVEF (%)45.0 (>50%) M-Mode DIMENSIONS Left Atrium (MM)5.63 (2.5-4.0cm)Aortic Root3.52 (2.2-3.7cm) Aortic Cusp Exc.2.23 (1.5-2.0cm) Mitral Valve MV E Smwraxeq802.1cm/sMV A Pgqsizhi44.1cm/sE/A ratio1.9 TDI E/Lateral E'0.0E/Medial E'0.0 Tricuspid Valve TR Peak Ntbsyszk759pb/sTR Peak Gr.8mmHg LEFT VENTRICLE The left ventricle is normal size. There is mild concentric left ventricular hypertrophy. Left ventricle systolic function is mildly impaired. The Ejection Fraction is 45-50%. There is mild global hypokinesis of the left ventricle. The left ventricular diastolic function is normal. RIGHT VENTRICLE The right ventricle is normal size. There is normal right ventricular wall thickness. Systolic function is mildly reduced. ATRIA The left atrium is moderately dilated. The right atrium size is normal. The interatrial septum is intact with no evidence for an atrial septal defect. AORTIC VALVE The aortic valve is normal in structure. No aortic regurgitation is present. There is no aortic valvular stenosis. MITRAL VALVE The mitral valve is normal in structure. There is no evidence of mitral valve prolapse. There is no mitral valve stenosis. Mitral regurgitation is mild. TRICUSPID VALVE The tricuspid valve is normal in structure. There is trace tricuspid regurgitation. Right ventricular systolic pressure is estimated at less than 30 mmHg. There is no pulmonary hypertension. PULMONIC VALVE The pulmonic valve is not well visualized. There is no pulmonic valvular regurgitation. GREAT VESSELS The aortic root is normal in size. PERICARDIAL EFFUSION There is no significant pericardial effusion. <Conclusion> Left ventricle systolic function is mildly impaired. The Ejection Fraction is 45-50%. Hypertensive heart disease. No aortic regurgitation is present. Mitral regurgitation is mild. There is trace tricuspid regurgitation. There is no pulmonary hypertension. There is no pulmonic valvular regurgitation.
== END 2018-02-07 10:15 | disposition home or self-care (01) ==
LOC: C.ER 10:35 → C.9E 13:07 → C.3T 13:35
PROVIDERS: ADMIT Hospitalist; ATTEND Hospitalist
DX: L03.116 Cellulitis of left lower limb (principal); L03.115 Cellulitis of right lower limb; I10 Essential (primary) hypertension; F17.210 Nicotine dependence, cigarettes, uncomplicated; E11.65 Type 2 diabetes mellitus with hyperglycemia; J44.9 Chronic obstructive pulmonary disease, unspecified; L25.8 Unspecified contact dermatitis due to other agents; T36.1X5A Adverse effect of cephalosporins and other beta-lactam antibiotics, initial encounter
CPT/HCPCS: 36415; 71046; 73630; 80053; 80061; 81001; 83036; 83735; 83880; 84100; 84443; 84480; 85025; 85610; 85730; 87040; 87086; 93005; 93306; 93970; 96360; 96365; 97116; 97162; 97165; 97530; 99284; G0378; G8978; G8979; G8987; G8988; G8989; J1644; J1940; J3370; J7040

== ENCOUNTER 2018-07-31 14:08 | Inpatient (IN) | payer OTHER ==
[2018-07-31] MEDS: Albuterol-Ipratrop 3 mg / 0.5 (3 ml) UD IH SCH ×3 (15:00→15:30)
--- NOTE | 2018-07-31 15:02 | C.PDOC ---
History Of Present Illness <Vianney Norton - Last Filed: 07/31/18 18:45> <HarmonyMaximo - Last Filed: 07/31/18 20:52> 52 year old male presents to the ER with new onset SOB, dyspnea on exertion, worsening pedal edema, increasing abdominal distention and weight gain, and increasing redness to the bilateral legs for the past week. Patient states he was on 10mg of prednisone for a skin condition but the Rx ran out and he has not been on it for 3 weeks. Patient is not compliant with his lasix and has a Hx of COPD but takes no medication for it. Denies chest pain or fever. (Vianney Norton ) History Per: Patient History/Exam Limitations: no limitations Onset/Duration Of Symptoms: Days Current Symptoms Are (Timing): Still Present Initiating Event: Other (Not known) Exacerbating Factor(s): Exertion Associated Symptoms: Other (SOB, dyspnea on exertion, worsening pedal edema, increasing abdominal distention and weight gain, and increasing redness to the bilateral legs). denies: Fever, Chills, Chest Pain Recent travel outside of the [place]: No <Vianney Norton - Last Filed: 07/31/18 18:45> <HarmonyMaximo - Last Filed: 07/31/18 20:52> Time Seen by Provider: 07/31/18 14:43 Chief Complaint (Nursing): Shortness Of Breath Past Medical History Reviewed: Historical Data, Nursing Documentation, Vital Signs - Medical History PMH: CHF, COPD Family History: States: Unknown Family Hx - Social History Hx Alcohol Use: No Hx Substance Use: No - Immunization History Hx Tetanus Toxoid Vaccination: No Hx Influenza Vaccination: No Hx Pneumococcal Vaccination: No <Vianney Norton - Last Filed: 07/31/18 18:45> Vital Signs: Last Vital Signs Temp 98.0 F 07/31/18 14:50 Pulse 112 H 07/31/18 20:00 Resp 16 07/31/18 19:56 BP 150/94 H 07/31/18 19:56 Pulse Ox 95 07/31/18 20:00 Review Of Systems Constitutional: Negative for: Fever Cardiovascular: Negative for: Chest Pain Respiratory: Positive for: Shortness of Breath, SOB with Excertion Gastrointestinal: Positive for: Other (Abdominal weight gain and distention) Genitourinary: Negative for: Dysuria, Hematuria Musculoskeletal: Positive for: Other (Worseing pedal edema) Skin: Positive for: Other (Bilateral leg redness) Neurological: Negative for: Weakness, Numbness <Vianney Norton - Last Filed: 07/31/18 18:45> Physical Exam - Physical Exam Appears: Non-toxic, Other (Mild distress) Skin: Warm, Dry, Other (Chronic skin changes to bilateral lower legs with mottled erythema extending above the knees. Skin weeping to bilateral lower legs ) Head: Atraumatic, Normacephalic Eye(s): bilateral: Normal Inspection Oral Mucosa: Moist Neck: Normal, Supple Chest: Symmetrical, No Tenderness Cardiovascular: Rhythm Irregular (Tachycardic) Respiratory: Accessory Muscle Use, Rales (Bilateral), Rhonchi (Bilateral), Other (Bronchocongestion) Gastrointestinal/Abdominal: Soft, No Tenderness, Distention (Moderate) Back: No CVA Tenderness Extremity: Other (1+ pitting edema up to mid thigh) Pulses: Left Dorsalis Pedis: Normal, Right Dorsalis Pedis: Normal Neurological/Psych: Oriented x3, Normal Speech, Normal Motor, Normal Sensation <Vianney Norton - Last Filed: 07/31/18 18:45> ED Course And Treatment - Laboratory Results Result Diagrams: 07/31/18 16:02 07/31/18 16:02 ECG: Interpreted By Me, Viewed By Me ECG Rhythm: Atrial Fibrillation (Rapid) Rate From EC O2 Sat by Pulse Oximetry: 94 (Room air) Pulse Ox Interpretation: Normal - Radiology CXR: Interpreted by Me, Viewed By Me CXR Interpretation: Yes: Other (CHF) <ErrolVianney - Last Filed: 07/31/18 18:45> - Laboratory Results Result Diagrams: 07/31/18 16:02 07/31/18 16:02 Pulse Ox Interpretation: Normal Progress Note: dr keenan, icu, accepted the pt for icu admit <Maximo Antunez - Last Filed: 07/31/18 20:52> Critical Care Time - Critical Care Note Total Time (in mins): 90 Documented critical care: time excludes all time spent performing seperately billable procedures. <Vianney Norton - Last Filed: 07/31/18 18:45> Progress - Data Reviewed Data Reviewed: Lab, Diagnostic imaging, EKG, Old records - Critical Care Citical Care: Excluding Proc Time Critical Care Time: 90 minutes <Vianney Norton - Last Filed: 07/31/18 18:45> <Maximo Antunez - Last Filed: 07/31/18 20:52> - Re-Evaluation Re-evaluation Note: 07/31/18 17:06 PERSIST RAPID AFIB SP CARDIZEM 10 MG BOLUS. NO CP. WILL CONT ADDL CARDIZEM, CONSIDER POSSIBLE DRIP. PENDING ICU CALLBACK. 07/31/18 17:25 D/W DR WILKES WILL EVAL IN ER D/W DR DIAMOND: ADMIT TO HOSP SINCE PT HAS [facility] CARE D/W DR BERGERON WILL ADMIT 07/31/18 17:35 PERSIST RAPID AFIB S/P CARDIZEM BOLUS X 2. EXAM UNCH. REPEAT EKG AFIB @ 110 07/31/18 18:44 PENDING ICU EVAL, TO BE EVAL BY DR CROFT AFTER [address] WILKES (ErrolVianney) Medical Decision Making <Vianney Norton - Last Filed: 07/31/18 18:45> <Maximo Antunez - Last Filed: 07/31/18 20:52> Medical Decision Making: Plan: * Blood work * EKG * CXR * Urinalysis * Cardizem * Duoneb * Lasix * Solumedrol (Vianney Norton) Disposition Counseled Patient/Family Regarding: Studies Performed, Diagnosis - Disposition Disposition Time: 17:08 - POA Present On Arrival: Poor Glycemic Control <ErrolVianney - Last Filed: 07/31/18 18:45> Discussed With DrBarbara: Shirin Gomes Comment: accepted the pt on her service and took over the care at 7 PM Doctor Will See Patient In The: ED Counseled Patient/Family Regarding: Studies Performed, Diagnosis - POA Present On Arrival: Poor Glycemic Control <Maximo Antunez - Last Filed: 07/31/18 20:52> - Disposition Disposition: HOSPITALIZED Condition: SERIOUS Forms: [facility] ([place]) - Clinical Impression Clinical Impression: New onset atrial fibrillation, Rapid atrial fibrillation, NSTEMI (non-ST elevated myocardial infarction), CHF exacerbation - Scribe Statement The provider has reviewed the documentation as recorded by the Scribe <ErrolVianney - Last Filed: 07/31/18 18:45> <Maximo Antunez - Last Filed: 07/31/18 20:52> - Scribe Statement Wilfredo Cronin All medical record entries made by the Scribe were at my direction and personally dictated by me. I have reviewed the chart and agree that the record accurately reflects my personal performance of the history, physical exam, medical decision making, and the department course for this patient. I have also personally directed, reviewed, and agree with the discharge instructions and disposition. (Vianney Norton) Physician Patient Turnover Patient Signed Over To: Maximo Antunez Handoff Comments: FU ICU, DISPO <Vianney Norton - Last Filed: 07/31/18 18:45> Decision To Admit <Vianney Norton - Last Filed: 07/31/18 18:45> - Pt Status Changed To: Hospital Disposition Of: Inpatient - Admit Certification Admit to Inpatient:: After my assessment, the patient will require hospitalization for at least two midnights. This is because of the severity of symptoms shown, intensity of services needed, and/or the medical risk in this patient being treated as an outpatient. - InPatient: Physician Admission Certification: I certify that this patient requires 2 or more midnights of care for the following reason:: After my assessment, the patient will require hospitalization for at least two midnights. This is because of the severity of symptoms shown, intensity of services needed, and/or the medical risk in this patient being treated as an outpatient. - . Bed Request Type: ICU Admitting Physician: Shirin Gomes <Maximo Antunez - Last Filed: 07/31/18 20:52> - . Patient Diagnosis: New onset atrial fibrillation, Rapid atrial fibrillation, NSTEMI (non-ST elevated myocardial infarction), CHF exacerbation
[2018-07-31 16:04] LABS: VENOUS BLOOD GAS BASE EXCESS 3.3 mmol/L (0.0-2.0); VENOUS BLOOD GAS PCO2 48 mmHg (40-60); VENOUS BLOOD GAS PO2 31 mm/Hg (30-55); VENOUS BLOOD PH 7.39 (7.32-7.43)
[2018-07-31 16:10] LABS: BASO # 0.1 K/uL (0.0-0.2); BASO % 0.7 % (0.0-2.0); EOS # 0.2 K/uL (0.0-0.7); EOS % 2.1 % (0.0-4.0); HEMOGLOBIN 11.9 g/dL (12.0-18.0); LYMPH # 0.9 K/uL (1.0-4.3); LYMPH % 13.1 % (20.0-40.0); MEAN CELL VOLUME 81.4 fL (80.0-94.0); MEAN CORPUSCULAR HEMOGLOBIN 27.5 pg (27.0-31.0); MEAN CORPUSCULAR HGB CONC 33.7 g/dL (33.0-37.0); MEAN PLATELET VOLUME 6.9 fL (7.2-11.7); MONO # 0.6 K/uL (0.0-0.8); MONO % 8.7 % (0.0-10.0); NEUT # 5.4 K/uL (1.8-7.0); NEUT % 75.4 % (50.0-75.0); NRBC % 0.1 % (0.0-2.0); RBC 4.33 Mil/uL (4.40-5.90); RED CELL DISTRIBUTION WIDTH 14.9 % (11.5-14.5); WHITE BLOOD COUNT 7.2 K/uL (4.8-10.8)
--- NOTE | 2018-07-31 16:13 | RAD ---
HISTORY: SOB COMPARISON: Chest x-ray performed 07/31/18 TECHNIQUE: Chest PA and lateral FINDINGS: LUNGS: Mild pulmonary venous congestion. Mild bibasilar atelectasis and probable tiny pleural effusions. No definite pneumothorax. Please note that chest x-ray has limited sensitivity for the detection of pulmonary masses. CARDIOVASCULAR: Cardiomegaly. OSSEOUS STRUCTURES: Degenerative changes. VISUALIZED UPPER ABDOMEN: Unremarkable. OTHER FINDINGS: None. IMPRESSION: Mild pulmonary venous congestion. Mild bibasilar atelectasis and probable tiny pleural effusions. No definite pneumothorax. Cardiomegaly. Study marked for PA review.
[2018-07-31 16:19] LABS: INR 1.4; PROTHROMBIN TIME 15.2 SECONDS (9.7-12.2)
[2018-07-31 16:20] LABS: ALB/GLOB RATIO 1.1 (1.0-2.1); ALBUMIN 3.3 g/dL (3.5-5.0); CALCIUM 8.9 mg/dl (8.6-10.4)
[2018-07-31] MEDS ORDERED: MethylPREDNISolone 40 mg Vial ONE ×2 (16:21→20:58)
[2018-07-31] MEDS ORDERED: Albuterol-Ipratrop 3 mg / 0.5 (3 ml) UD ONE ×2 (16:21→20:11)
[2018-07-31 17:00] LABS: TROPONIN I 0.306 ng/mL (0.00-0.120)
[2018-07-31] MEDS ORDERED: Enoxaparin 80 mg Syringe SC STA (17:04)
[2018-07-31] MEDS ORDERED: Heparin25000 units/250ml 1/2NS 25,000 UNITS/250 ML BAG IV PRN (17:37)
[2018-07-31] MEDS ORDERED: Enoxaparin 100 mg Syringe ONE (17:42)
[2018-07-31] MEDS ORDERED: Enoxaparin 60 mg Syringe ONE (17:42)
--- NOTE | 2018-07-31 18:01 | CP.PCM.HP ---
<Leah Bradley - Last Filed: 08/01/18 06:18> History of Present Illness - History of Present Illness History of Present Illness: Medicine Note for Hospitalist Service CC: shortness of breath, chest pain, lower leg swelling HPI: This is a 52 year old male with PMHx of HTN, T2DM, Systolic Heart Failure, COPD, Tobacco Use Disorder, Alcohol Use Disorder who presents to the ED with shortness of breath and chest pain x 2 weeks which has been getting progressively worse. He admits he was able to ambulate, lay down flat, walk up stairs, but up until the last 2 weeks, he was unable to perform these tasks. Patient now sleeps sitting in a chair due to the shortness of breath. On day of admission, the chest tightness and palpitations where the worst he's felt since their onset. He did not take any medications for the pain. Patient reports he has has bilateral lower extremity infections, swelling, and discoloration since November. He was admitted in January to our service for cellulitis but signed out AMA because he didn't want to miss work. He admits the past 1-2 weeks his legs have been wheeping, becoming more discolored, and painful to touch. Denied fever , chills, headache, n/v/d/c, or urinary symptoms. PMD: denies PMHx: HTN, T2DM, Systolic Heart Failure, COPD, Tobacco Use Disorder, Alcohol Use Disorder PSHx: right knee arthroscopy in 1993, left eye sarcoma 1994, left eye MRSA infection 2014, left eye lens transplant 2014 Meds: Lasix 40mg when he remembers to take it Allergies: penicillin- does not know reaction Social Hx: smokes 1 pack/day for 40+ years, occasional alcohol consumption, denies daily use; denies current drug use used to use cocaine >20 years ago; works as [employer] FamHx: mother had stroke age 40, grandmother with psoriasis Present on Admission - Present on Admission Any Indicators Present on Admission: No Past Patient History - Infectious Disease Hx of Infectious Diseases: None - Past Social History Smoking Status: Heavy Smoker > 10 Cigarettes Daily - CARDIAC Hx Congestive Heart Failure: Yes - PULMONARY Hx Chronic Obstructive Pulmonary Disease (COPD): Yes - HEMATOLOGICAL/ONCOLOGICAL Other/Comment: hx of ca to left eye corrected to surgery. with tranplant with hxof mrsa to it. - PSYCHIATRIC Hx Substance Use: No - SURGICAL HISTORY Hx Surgeries: Yes Hx Cataract Extraction: Yes Hx Eye Surgery: Yes Hx Orthopedic Surgery: Yes (right knee) - ANESTHESIA Hx Anesthesia: Yes Hx Anesthesia Reactions: No Hx Malignant Hyperthermia: No Meds Allergies/Adverse Reactions: Allergies Allergy/AdvReac Type Severity Reaction Status Date / Time aztreonam [From Azactam] Allergy RASH Verified 02/06/18 00:06 egg Allergy RASH Verified 02/06/18 00:06 Penicillins Allergy RASH Verified 02/06/18 00:06 Physical Exam - Constitutional Appears: No Acute Distress - Head Exam Head Exam: NORMAL INSPECTION, NORMOCEPHALIC - Eye Exam Eye Exam: EOMI, Normal appearance, PERRL. absent: Nystagmus, Scleral icterus Pupil Exam: NORMAL ACCOMODATION - ENT Exam ENT Exam: Mucous Membranes Moist, Normal Exam - Neck Exam Neck exam: Positive for: Normal Inspection. Negative for: Lymphadenopathy, Tenderness, Thyromegaly - Respiratory Exam Respiratory Exam: Rales (faint rales noted on bilateral lung bases ), Wheezes, NORMAL BREATHING PATTERN - Cardiovascular Exam Cardiovascular Exam: Tachycardia, Irregular Rhythm - GI/Abdominal Exam GI & Abdominal Exam: Distended, Firm, Normal Bowel Sounds. absent: Tenderness Additional comments: erthymatous skin changes noted on abdomen, obese abdomen, difficult to assess if fluid wave shift due to patient unable to lie flat - Rectal Exam Rectal Exam: Deferred - Extremities Exam Extremities exam: Positive for: pedal edema, tenderness, pedal pulses present Additional comments: bilateral lower extremity swelling, weeping, oozing, skin changes noted below both knees bilaterally. - Neurological Exam Neurological exam: Alert, CN II-XII Intact, Oriented x3 - Psychiatric Exam Psychiatric exam: Normal Affect, Normal Mood Results - Vital Signs Recent Vital Signs: Last Vital Signs Temp 98.0 F 07/31/18 14:50 Pulse 115 H 07/31/18 17:33 Resp 14 07/31/18 17:33 BP 142/91 H 07/31/18 17:33 Pulse Ox 94 L 07/31/18 17:45 - Labs Result Diagrams: 08/01/18 02:07 08/01/18 02:07 Labs: Laboratory Results - last 24 hr 07/31/18 07/31/18 07/31/18 15:50 16:02 16:02 WBC 7.2 RBC 4.33 L Hgb 11.9 L Hct 35.2 MCV 81.4 D MCH 27.5 MCHC 33.7 RDW 14.9 H Plt Count 299 MPV 6.9 L Neut % (Auto) 75.4 H Lymph % (Auto) 13.1 L Holt % (Auto) 8.7 Eos % (Auto) 2.1 Baso % (Auto) 0.7 Neut # (Auto) 5.4 Lymph # (Auto) 0.9 L Holt # (Auto) 0.6 Eos # (Auto) 0.2 Baso # (Auto) 0.1 PT INR APTT pO2 31 VBG pH 7.39 VBG pCO2 48 VBG HCO3 26.5 VBG Total CO2 30.6 H VBG O2 Sat (Calc) 59.4 VBG Base Excess 3.3 H VBG Potassium 3.9 Sodium 138.0 139 Chloride 102.0 98 Glucose 130 H Lactate 1.2 FiO2 21.0 Potassium 4.2 Carbon Dioxide 30 Anion Gap 15 BUN 29 H Creatinine 1.7 H Est GFR ( Amer) 51 Est GFR (Non-Af Amer) 43 Random Glucose 142 H Calcium 8.9 Magnesium 1.9 Total Bilirubin 0.7 AST 18 ALT 24 Alkaline Phosphatase 127 H D Troponin I 0.3060 H* NT-Pro-B Natriuret Pep 32573 H Total Protein 6.5 Albumin 3.3 L Globulin 3.1 Albumin/Globulin Ratio 1.1 Venous Blood Potassium 3.9 Blood Type Antibody Screen 07/31/18 07/31/18 16:02 16:02 WBC RBC Hgb Hct MCV MCH MCHC RDW Plt Count MPV Neut % (Auto) Lymph % (Auto) Holt % (Auto) Eos % (Auto) Baso % (Auto) Neut # (Auto) Lymph # (Auto) Holt # (Auto) Eos # (Auto) Baso # (Auto) PT 15.2 H INR 1.4 APTT 33 pO2 VBG pH VBG pCO2 VBG HCO3 VBG Total CO2 VBG O2 Sat (Calc) VBG Base Excess VBG Potassium Sodium Chloride Glucose Lactate FiO2 Potassium Carbon Dioxide Anion Gap BUN Creatinine Est GFR ( Amer) Est GFR (Non-Af Amer) Random Glucose Calcium Magnesium Total Bilirubin AST ALT Alkaline Phosphatase Troponin I NT-Pro-B Natriuret Pep Total Protein Albumin Globulin Albumin/Globulin Ratio Venous Blood Potassium Blood Type A POSITIVE Antibody Screen Negative Assessment & Plan - Assessment and Plan (Free Text) Assessment: This is a 52 year old male with PMHx of HTN, T2DM, Systolic Heart Failure, COPD , Tobacco Use Disorder, Alcohol Use Disorder who presents to the ED with shortness of breath and chest pain x 2 weeks which has been getting progressively worse. Patient admitted for New Onset Atriall Fibrillation, NSTEMI , Acute on Chronic Systolic Heart Failure Exacerbation, Bilateral Lower Extremity Cellulitis, and CINDY. Plan: DW Leah Alford DO, PGY2 <Shirin Gomes - Last Filed: 08/01/18 07:50> Results - Vital Signs Recent Vital Signs: Last Vital Signs Temp 97.9 F 08/01/18 04:00 Pulse 86 08/01/18 06:20 Resp 22 08/01/18 06:20 BP 111/77 08/01/18 05:58 Pulse Ox 92 L 07/31/18 23:20 - Labs Result Diagrams: 08/01/18 02:07 08/01/18 02:07 Labs: Laboratory Results - last 24 hr 07/31/18 07/31/18 07/31/18 15:50 16:02 16:02 WBC 7.2 RBC 4.33 L Hgb 11.9 L Hct 35.2 MCV 81.4 D MCH 27.5 MCHC 33.7 RDW 14.9 H Plt Count 299 MPV 6.9 L Neut % (Auto) 75.4 H Lymph % (Auto) 13.1 L Holt % (Auto) 8.7 Eos % (Auto) 2.1 Baso % (Auto) 0.7 Neut # (Auto) 5.4 Lymph # (Auto) 0.9 L Holt # (Auto) 0.6 Eos # (Auto) 0.2 Baso # (Auto) 0.1 Neutrophils % (Manual) Lymphocytes % (Manual) Monocytes % (Manual) Platelet Estimate Anisocytosis (manual) PT INR APTT pO2 31 VBG pH 7.39 VBG pCO2 48 VBG HCO3 26.5 VBG Total CO2 30.6 H VBG O2 Sat (Calc) 59.4 VBG Base Excess 3.3 H VBG Potassium 3.9 Sodium 138.0 139 Chloride 102.0 98 Glucose 130 H Lactate 1.2 FiO2 21.0 Potassium 4.2 Carbon Dioxide 30 Anion Gap 15 BUN 29 H Creatinine 1.7 H Est GFR ( Amer) 51 Est GFR (Non-Af Amer) 43 POC Glucose (mg/dL) Random Glucose 142 H Hemoglobin A1c Calcium 8.9 Phosphorus Magnesium 1.9 Total Bilirubin 0.7 AST 18 ALT 24 Alkaline Phosphatase 127 H D Total Creatine Kinase CK-MB (Mass) Troponin I 0.3060 H* NT-Pro-B Natriuret Pep 72775 H Total Protein 6.5 Albumin 3.3 L Globulin 3.1 Albumin/Globulin Ratio 1.1 Triglycerides Cholesterol LDL Cholesterol Direct HDL Cholesterol Free T4 TSH 3rd Generation Venous Blood Potassium 3.9 Urine Color Urine Clarity Urine pH Ur Specific [place] Urine Protein Urine Glucose (UA) Urine Ketones Urine Blood Urine Nitrate Urine Bilirubin Urine Urobilinogen Ur Leukocyte Esterase Urine WBC (Auto) Urine RBC (Auto) Random Vancomycin Urine Opiates Screen Urine Methadone Screen Ur Barbiturates Screen Ur Phencyclidine Scrn Ur Amphetamines Screen U Benzodiazepines Scrn U Oth Cocaine Metabols U Cannabinoids Screen Hepatitis A IgM Ab Hep Bs Antigen Hep B Core IgM Ab Hepatitis C Antibody Blood Type Antibody Screen 07/31/18 07/31/18 07/31/18 16:02 16:02 18:27 WBC RBC Hgb Hct MCV MCH MCHC RDW Plt Count MPV Neut % (Auto) Lymph % (Auto) Holt % (Auto) Eos % (Auto) Baso % (Auto) Neut # (Auto) Lymph # (Auto) Holt # (Auto) Eos # (Auto) Baso # (Auto) Neutrophils % (Manual) Lymphocytes % (Manual) Monocytes % (Manual) Platelet Estimate Anisocytosis (manual) PT 15.2 H INR 1.4 APTT 33 pO2 VBG pH VBG pCO2 VBG HCO3 VBG Total CO2 VBG O2 Sat (Calc) VBG Base Excess VBG Potassium Sodium Chloride Glucose Lactate FiO2 Potassium Carbon Dioxide Anion Gap BUN Creatinine Est GFR ( Amer) Est GFR (Non-Af Amer) POC Glucose (mg/dL) Random Glucose Hemoglobin A1c Calcium Phosphorus Magnesium Total Bilirubin AST ALT Alkaline Phosphatase Total Creatine Kinase CK-MB (Mass) Troponin I NT-Pro-B Natriuret Pep Total Protein Albumin Globulin Albumin/Globulin Ratio Triglycerides Cholesterol LDL Cholesterol Direct HDL Cholesterol Free T4 TSH 3rd Generation Venous Blood Potassium Urine Color Straw Urine Clarity Clear Urine pH 6.0 Ur Specific [place] 1.004 Urine Protein 1+ H Urine Glucose (UA) Normal Urine Ketones Negative Urine Blood Trace H Urine Nitrate Negative Urine Bilirubin Negative Urine Urobilinogen Normal Ur Leukocyte Esterase Neg Urine WBC (Auto) < 1 Urine RBC (Auto) < 1 Random Vancomycin Urine Opiates Screen Urine Methadone Screen Ur Barbiturates Screen Ur Phencyclidine Scrn Ur Amphetamines Screen U Benzodiazepines Scrn U Oth Cocaine Metabols U Cannabinoids Screen Hepatitis A IgM Ab Hep Bs Antigen Hep B Core IgM Ab Hepatitis C Antibody Blood Type A POSITIVE Antibody Screen Negative 07/31/18 07/31/18 07/31/18 18:27 18:46 18:46 WBC RBC Hgb Hct MCV MCH MCHC RDW Plt Count MPV Neut % (Auto) Lymph % (Auto) Holt % (Auto) Eos % (Auto) Baso % (Auto) Neut # (Auto) Lymph # (Auto) Holt # (Auto) Eos # (Auto) Baso # (Auto) Neutrophils % (Manual) Lymphocytes % (Manual) Monocytes % (Manual) Platelet Estimate Anisocytosis (manual) PT INR APTT pO2 VBG pH VBG pCO2 VBG HCO3 VBG Total CO2 VBG O2 Sat (Calc) VBG Base Excess VBG Potassium Sodium Chloride Glucose Lactate FiO2 Potassium Carbon Dioxide Anion Gap BUN Creatinine Est GFR ( Amer) Est GFR (Non-Af Amer) POC Glucose (mg/dL) Random Glucose Hemoglobin A1c 7.9 H Calcium Phosphorus Magnesium Total Bilirubin AST ALT Alkaline Phosphatase Total Creatine Kinase CK-MB (Mass) Troponin I NT-Pro-B Natriuret Pep Total Protein Albumin Globulin Albumin/Globulin Ratio Triglycerides 127 D Cholesterol 170 LDL Cholesterol Direct 110 HDL Cholesterol 36 Free T4 TSH 3rd Generation 0.98 Venous Blood Potassium Urine Color Urine Clarity Urine pH Ur Specific [place] Urine Protein Urine Glucose (UA) Urine Ketones Urine Blood Urine Nitrate Urine Bilirubin Urine Urobilinogen Ur Leukocyte Esterase Urine WBC (Auto) Urine RBC (Auto) Random Vancomycin Urine Opiates Screen Negative Urine Methadone Screen Negative Ur Barbiturates Screen Negative Ur Phencyclidine Scrn Negative Ur Amphetamines Screen Negative U Benzodiazepines Scrn Negative U Oth Cocaine Metabols Negative U Cannabinoids Screen Negative Hepatitis A IgM Ab Hep Bs Antigen Hep B Core IgM Ab Hepatitis C Antibody Blood Type Antibody Screen 07/31/18 07/31/18 08/01/18 18:46 20:48 02:07 WBC RBC Hgb Hct MCV MCH MCHC RDW Plt Count MPV Neut % (Auto) Lymph % (Auto) Holt % (Auto) Eos % (Auto) Baso % (Auto) Neut # (Auto) Lymph # (Auto) Holt # (Auto) Eos # (Auto) Baso # (Auto) Neutrophils % (Manual) Lymphocytes % (Manual) Monocytes % (Manual) Platelet Estimate Anisocytosis (manual) PT INR APTT pO2 VBG pH VBG pCO2 VBG HCO3 VBG Total CO2 VBG O2 Sat (Calc) VBG Base Excess VBG Potassium Sodium Chloride Glucose Lactate FiO2 Potassium Carbon Dioxide Anion Gap BUN Creatinine Est GFR ( Amer) Est GFR (Non-Af Amer) POC Glucose (mg/dL) 187 H Random Glucose Hemoglobin A1c Calcium Phosphorus Magnesium Total Bilirubin AST ALT Alkaline Phosphatase Total Creatine Kinase CK-MB (Mass) Troponin I NT-Pro-B Natriuret Pep Total Protein Albumin Globulin Albumin/Globulin Ratio Triglycerides Cholesterol LDL Cholesterol Direct HDL Cholesterol Free T4 1.55 TSH 3rd Generation Venous Blood Potassium Urine Color Urine Clarity Urine pH Ur Specific [place] Urine Protein Urine Glucose (UA) Urine Ketones Urine Blood Urine Nitrate Urine Bilirubin Urine Urobilinogen Ur Leukocyte Esterase Urine WBC (Auto) Urine RBC (Auto) Random Vancomycin 8.1 Urine Opiates Screen Urine Methadone Screen Ur Barbiturates Screen Ur Phencyclidine Scrn Ur Amphetamines Screen U Benzodiazepines Scrn U Oth Cocaine Metabols U Cannabinoids Screen Hepatitis A IgM Ab Hep Bs Antigen Hep B Core IgM Ab Hepatitis C Antibody Blood Type Antibody Screen 08/01/18 08/01/18 08/01/18 02:07 02:07 02:07 WBC 5.2 RBC 4.32 L Hgb 11.5 L Hct 35.7 MCV 82.6 MCH 26.7 L MCHC 32.3 L RDW 14.8 H Plt Count 286 MPV 7.5 Neut % (Auto) 93.9 H Lymph % (Auto) 4.5 L Holt % (Auto) 0.8 Eos % (Auto) 0.1 Baso % (Auto) 0.7 Neut # (Auto) 4.9 Lymph # (Auto) 0.2 L Holt # (Auto) 0.0 Eos # (Auto) 0.0 Baso # (Auto) 0.0 Neutrophils % (Manual) 92 H Lymphocytes % (Manual) 6 L Monocytes % (Manual) 2 Platelet Estimate Normal Anisocytosis (manual) Slight PT INR APTT pO2 VBG pH VBG pCO2 VBG HCO3 VBG Total CO2 VBG O2 Sat (Calc) VBG Base Excess VBG Potassium Sodium 139 Chloride 102 Glucose Lactate FiO2 Potassium 4.6 Carbon Dioxide 26 Anion Gap 16 BUN 33 H Creatinine 1.6 H Est GFR ( Amer) 55 Est GFR (Non-Af Amer) 46 POC Glucose (mg/dL) Random Glucose 265 H Hemoglobin A1c Calcium 8.8 Phosphorus 4.2 Magnesium 1.9 Total Bilirubin 0.4 AST 21 ALT 22 Alkaline Phosphatase 113 Total Creatine Kinase 202 H CK-MB (Mass) 2.14 Troponin I 0.3470 H* NT-Pro-B Natriuret Pep Total Protein 6.6 Albumin 3.4 L Globulin 3.2 Albumin/Globulin Ratio 1.1 Triglycerides Cholesterol LDL Cholesterol Direct HDL Cholesterol Free T4 TSH 3rd Generation Venous Blood Potassium Urine Color Urine Clarity Urine pH Ur Specific [place] Urine Protein Urine Glucose (UA) Urine Ketones Urine Blood Urine Nitrate Urine Bilirubin Urine Urobilinogen Ur Leukocyte Esterase Urine WBC (Auto) Urine RBC (Auto) Random Vancomycin Urine Opiates Screen Urine Methadone Screen Ur Barbiturates Screen Ur Phencyclidine Scrn Ur Amphetamines Screen U Benzodiazepines Scrn U Oth Cocaine Metabols U Cannabinoids Screen Hepatitis A IgM Ab Negative Hep Bs Antigen Negative Hep B Core IgM Ab Negative Hepatitis C Antibody Negative Blood Type Antibody Screen 08/01/18 02:07 WBC RBC Hgb Hct MCV MCH MCHC RDW Plt Count MPV Neut % (Auto) Lymph % (Auto) Holt % (Auto) Eos % (Auto) Baso % (Auto) Neut # (Auto) Lymph # (Auto) Holt # (Auto) Eos # (Auto) Baso # (Auto) Neutrophils % (Manual) Lymphocytes % (Manual) Monocytes % (Manual) Platelet Estimate Anisocytosis (manual) PT 15.8 H INR 1.4 APTT 75 H D pO2 VBG pH VBG pCO2 VBG HCO3 VBG Total CO2 VBG O2 Sat (Calc) VBG Base Excess VBG Potassium Sodium Chloride Glucose Lactate FiO2 Potassium Carbon Dioxide Anion Gap BUN Creatinine Est GFR ( Amer) Est GFR (Non-Af Amer) POC Glucose (mg/dL) Random Glucose Hemoglobin A1c Calcium Phosphorus Magnesium Total Bilirubin AST ALT Alkaline Phosphatase Total Creatine Kinase CK-MB (Mass) Troponin I NT-Pro-B Natriuret Pep Total Protein Albumin Globulin Albumin/Globulin Ratio Triglycerides Cholesterol LDL Cholesterol Direct HDL Cholesterol Free T4 TSH 3rd Generation Venous Blood Potassium Urine Color Urine Clarity Urine pH Ur Specific [place] Urine Protein Urine Glucose (UA) Urine Ketones Urine Blood Urine Nitrate Urine Bilirubin Urine Urobilinogen Ur Leukocyte Esterase Urine WBC (Auto) Urine RBC (Auto) Random Vancomycin Urine Opiates Screen Urine Methadone Screen Ur Barbiturates Screen Ur Phencyclidine Scrn Ur Amphetamines Screen U Benzodiazepines Scrn U Oth Cocaine Metabols U Cannabinoids Screen Hepatitis A IgM Ab Hep Bs Antigen Hep B Core IgM Ab Hepatitis C Antibody Blood Type Antibody Screen Attending/Attestation - Attestation I have personally seen and examined this patient.: Yes I have fully participated in the care of the patient.: Yes I have reviewed all pertinent clinical information: Yes Notes (Text): Patient was seen and examined by me with the resident. History taken from the patient. He is a obese 52 year old male with PMHx of HTN, T2DM, Systolic Heart Failure, COPD, Tobacco Use Disorder, Alcohol use came to ER for shortness of breath and chest pain x 2 weeks. He also noted increasing leg edema. Has bilateral cellulites and chronic dermatitis. Denies fever.In the ER he was in afib with RVR. 1. New Onset Rapid Atrial Fibrillation-on Cardizem drip for rate control Started on heparin. Treater Helper Dr Candelaria will be consulted 2.NSTEMI-Continue heparin,start on plavix,asprin and statin.follow vamp liner recommendation Follow troponin 3.Acute on Chronic Systolic Heart Failure Exacerbation ( ECHO 01/2018: Systolic Heart Failure with LVEF 45-50%, LVH, mild global hypokinesis Repeat ECHO. Had lasix at ER.Elevated creatinine ,Not congested.repeat ECHO and follow 4.Bilateral Lower Extremity Cellulitis Antibiotics and rule out dvt,wound care 5. CINDY-Monitor creatinine Lasix as needed,hold for now 6.HTN 7. T2DM 8.COPD-Mild wheezing 9.Tobacco Use Disorder -Nicotine Patchy daily 10.Alcohol Use Disorder-Cessation strongly encouraged 11.Distended abdomen(nontender)-US abdomen 12 Prophylactic Measures Assessment and the plan discussed with the resident in detail and I agree with the documentation Disposition: Pending ICU evaluation. He is on cardizem drip /afib with rvr
[2018-07-31] MEDS ORDERED: Glucagon Recombinant 1 mg Inj IM PRN (18:03)
[2018-07-31] MEDS ORDERED: Dextrose 50% SYRINGE Inj (50 ml) IV PRN (18:03)
[2018-07-31] MEDS ORDERED: Vancomycin 1 gm/NS 200 ml 1 GM/200 ML BAG IVPB STA (18:15)
[2018-07-31 18:38] LABS: URINE BILIRUBIN NEGATIVE (NEGATIVE); URINE CLARITY Clear (Clear); URINE COLOR Straw (YELLOW); URINE GLUCOSE (UA) NORMAL (Normal); URINE LEUKOCYTE ESTERASE NEG Leu/uL (Negative); URINE PROTEIN 1+ mg/dL (NEGATIVE); URINE UROBILINOGEN NORMAL mg/dL (0.2-1.0)
[2018-07-31 18:41] LABS: URINE BLOOD TRACE (NEGATIVE)
--- NOTE | 2018-07-31 19:16 | CP.PCM.CON ---
History of Present Illness - History of Present Illness History of Present Illness: Critical Care Consult Note CC: shortness of breath, chest pain, lower leg swelling HPI: This is a 52 year old male with PMHx of HTN, T2DM, Systolic Heart Failure, COPD, Tobacco Use Disorder, Alcohol Use Disorder who presents to the ED with shortness of breath and chest pain x 2 weeks which has been getting progressively worse. He admits he was able to ambulate, lay down flat, walk up stairs, but up until the last 2 weeks, he was unable to perform these tasks. Patient now sleeps sitting in a chair due to the shortness of breath. On day of admission, the chest tightness and palpitations where the worst he's felt since their onset. He did not take any medications for the pain. Patient reports he has has bilateral lower extremity infections, swelling, and discoloration since November. He was admitted in January to our service for cellulitis but signed out AMA because he didn't want to miss work. He admits the past 1-2 weeks his legs have been wheeping, becoming more discolored, and painful to touch. Denied fever , chills, headache, n/v/d/c, or urinary symptoms. 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 with tranplant with hxof mrsa to it. - PSYCHIATRIC Hx Substance Use: No - SURGICAL HISTORY Hx Surgeries: Yes Hx Cataract Extraction: Yes Hx Eye Surgery: Yes Hx Orthopedic Surgery: Yes (right knee) - ANESTHESIA Hx Anesthesia: Yes Hx Anesthesia Reactions: No Hx Malignant Hyperthermia: No Meds Allergies/Adverse Reactions: Allergies Allergy/AdvReac Type Severity Reaction Status Date / Time aztreonam [From Azactam] Allergy RASH Verified 02/06/18 00:06 egg Allergy RASH Verified 02/06/18 00:06 Penicillins Allergy RASH Verified 02/06/18 00:06 - Medications Medications: Current Medications Albuterol/Ipratropium (Duoneb 3 Mg/0.5 Mg (3 Ml) Ud) 3 ml INH RQ4 DANIE Aspirin (Aspirin Chewable) 81 mg PO DAILY DANIE Dextrose (Dextrose 50% Inj) 0 ml IV STAT PRN; Protocol PRN Reason: Hypoglycemia Protocol Dextrose (Glutose 15) 0 gm PO ONCE PRN; Protocol PRN Reason: Hypoglycemia Protocol Famotidine (Pepcid) 20 mg PO DAILY DANIE Glucagon (Glucagen Diagnostic Kit) 0 mg IM STAT PRN; Protocol PRN Reason: Hypoglycemia Protocol Diltiazem HCl 125 mg/ Sodium (Chloride) 125 mls @ 5 mls/hr IV .Q24H DANIE; 5 MG/ HR PRN Reason: Protocol Last Admin: 07/31/18 18:38 Dose: 5 mls/hr Heparin Sodium/Sodium Chloride (Heparin 08625 Units/250ml 1/2 Normal Saline) 25 ,000 units in 250 mls @ 14.152 mls/hr IV .[id number] PRN; Protocol; 12 UNITS/KG/HR PRN Reason: ADJUST RATE PER PROTOCOL Dextrose (Dextrose 5% In Water 1000 Ml) 1,000 mls @ 0 mls/hr IV .Q0M PRN; Protocol; Per Protocol PRN Reason: Hypoglycemia Protocol Vancomycin/Sodium Chloride (Vancomycin 1 Gm/Ns 200 Ml) 1 gm in 200 mls @ 133 mls/hr IVPB STAT STA PRN Reason: Protocol Stop: 07/31/18 19:45 Clindamycin Phosphate 300 mg/ (Sodium Chloride) 52 mls @ 104 mls/hr IVPB Q6H DANIE PRN Reason: Protocol Insulin Human Regular (Novolin R) 0 unit SC ACHS DANIE PRN Reason: Protocol Methylprednisolone (Solu-Medrol) 40 mg IVP Q12 DANIE Nicotine (Nicoderm Cq) 1 patch TD DAILY DANIE Rosuvastatin Calcium (Crestor) 10 mg PO HS DANIE Saccharomyces Boulardii (Florastor) 250 mg PO Q12 DANIE Physical Exam - Additional Findings Additional findings: - Constitutional Appears: No Acute Distress - Head Exam Head Exam: NORMAL INSPECTION, NORMOCEPHALIC - Eye Exam Eye Exam: EOMI, Normal appearance, PERRL. absent: Nystagmus, Scleral icterus Pupil Exam: NORMAL ACCOMODATION - ENT Exam ENT Exam: Mucous Membranes Moist, Normal Exam - Neck Exam Neck exam: Positive for: Normal Inspection. Negative for: Lymphadenopathy, Tenderness, Thyromegaly - Respiratory Exam Respiratory Exam: Rales (faint rales noted on bilateral lung bases ), Wheezes, NORMAL BREATHING PATTERN - Cardiovascular Exam Cardiovascular Exam: Tachycardia, Irregular Rhythm - GI/Abdominal Exam GI & Abdominal Exam: Distended, Firm, Normal Bowel Sounds. absent: Tenderness Additional comments: erthymatous skin changes noted on abdomen, obese abdomen, difficult to assess if fluid wave shift due to patient unable to lie flat - Rectal Exam Rectal Exam: Deferred - Extremities Exam Extremities exam: Positive for: pedal edema, tenderness, pedal pulses present Additional comments: bilateral lower extremity swelling, weeping, oozing, skin changes noted below both knees bilaterally. - Neurological Exam Neurological exam: Alert, CN II-XII Intact, Oriented x3 - Psychiatric Exam Psychiatric exam: Normal Affect, Normal Mood Results - Vital Signs Recent Vital Signs: Last Vital Signs Temp 98.0 F 07/31/18 14:50 Pulse 124 H 07/31/18 18:33 Resp 24 07/31/18 18:33 BP 135/93 H 07/31/18 18:33 Pulse Ox 94 L 07/31/18 18:45 - Labs Result Diagrams: 07/31/18 16:02 07/31/18 16:02 Labs: Laboratory Results - last 24 hr 07/31/18 07/31/18 07/31/18 15:50 16:02 16:02 WBC 7.2 RBC 4.33 L Hgb 11.9 L Hct 35.2 MCV 81.4 D MCH 27.5 MCHC 33.7 RDW 14.9 H Plt Count 299 MPV 6.9 L Neut % (Auto) 75.4 H Lymph % (Auto) 13.1 L [place] % (Auto) 8.7 Eos % (Auto) 2.1 Baso % (Auto) 0.7 Neut # (Auto) 5.4 Lymph # (Auto) 0.9 L [place] # (Auto) 0.6 Eos # (Auto) 0.2 Baso # (Auto) 0.1 PT INR APTT pO2 31 VBG pH 7.39 VBG pCO2 48 VBG HCO3 26.5 VBG Total CO2 30.6 H VBG O2 Sat (Calc) 59.4 VBG Base Excess 3.3 H VBG Potassium 3.9 Sodium 138.0 139 Chloride 102.0 98 Glucose 130 H Lactate 1.2 FiO2 21.0 Potassium 4.2 Carbon Dioxide 30 Anion Gap 15 BUN 29 H Creatinine 1.7 H Est GFR ( Amer) 51 Est GFR (Non-Af Amer) 43 Random Glucose 142 H Calcium 8.9 Magnesium 1.9 Total Bilirubin 0.7 AST 18 ALT 24 Alkaline Phosphatase 127 H D Troponin I 0.3060 H* NT-Pro-B Natriuret Pep 23282 H Total Protein 6.5 Albumin 3.3 L Globulin 3.1 Albumin/Globulin Ratio 1.1 Triglycerides Cholesterol HDL Cholesterol Venous Blood Potassium 3.9 Urine Color Urine Clarity Urine pH Ur Specific [place] Urine Protein Urine Glucose (UA) Urine Ketones Urine Blood Urine Nitrate Urine Bilirubin Urine Urobilinogen Ur Leukocyte Esterase Urine WBC (Auto) Urine RBC (Auto) Blood Type Antibody Screen 07/31/18 07/31/18 07/31/18 16:02 16:02 18:27 WBC RBC Hgb Hct MCV MCH MCHC RDW Plt Count MPV Neut % (Auto) Lymph % (Auto) [place] % (Auto) Eos % (Auto) Baso % (Auto) Neut # (Auto) Lymph # (Auto) [place] # (Auto) Eos # (Auto) Baso # (Auto) PT 15.2 H INR 1.4 APTT 33 pO2 VBG pH VBG pCO2 VBG HCO3 VBG Total CO2 VBG O2 Sat (Calc) VBG Base Excess VBG Potassium Sodium Chloride Glucose Lactate FiO2 Potassium Carbon Dioxide Anion Gap BUN Creatinine Est GFR ( Amer) Est GFR (Non-Af Amer) Random Glucose Calcium Magnesium Total Bilirubin AST ALT Alkaline Phosphatase Troponin I NT-Pro-B Natriuret Pep Total Protein Albumin Globulin Albumin/Globulin Ratio Triglycerides Cholesterol HDL Cholesterol Venous Blood Potassium Urine Color Straw Urine Clarity Clear Urine pH 6.0 Ur Specific [place] 1.004 Urine Protein 1+ H Urine Glucose (UA) Normal Urine Ketones Negative Urine Blood Trace H Urine Nitrate Negative Urine Bilirubin Negative Urine Urobilinogen Normal Ur Leukocyte Esterase Neg Urine WBC (Auto) < 1 Urine RBC (Auto) < 1 Blood Type A POSITIVE Antibody Screen Negative 07/31/18 18:46 WBC RBC Hgb Hct MCV MCH MCHC RDW Plt Count MPV Neut % (Auto) Lymph % (Auto) [place] % (Auto) Eos % (Auto) Baso % (Auto) Neut # (Auto) Lymph # (Auto) [place] # (Auto) Eos # (Auto) Baso # (Auto) PT INR APTT pO2 VBG pH VBG pCO2 VBG HCO3 VBG Total CO2 VBG O2 Sat (Calc) VBG Base Excess VBG Potassium Sodium Chloride Glucose Lactate FiO2 Potassium Carbon Dioxide Anion Gap BUN Creatinine Est GFR ( Amer) Est GFR (Non-Af Amer) Random Glucose Calcium Magnesium Total Bilirubin AST ALT Alkaline Phosphatase Troponin I NT-Pro-B Natriuret Pep Total Protein Albumin Globulin Albumin/Globulin Ratio Triglycerides 127 D Cholesterol 170 HDL Cholesterol 36 Venous Blood Potassium Urine Color Urine Clarity Urine pH Ur Specific [place] Urine Protein Urine Glucose (UA) Urine Ketones Urine Blood Urine Nitrate Urine Bilirubin Urine Urobilinogen Ur Leukocyte Esterase Urine WBC (Auto) Urine RBC (Auto) Blood Type Antibody Screen Assessment & Plan - Assessment and Plan (Free Text) Assessment: This is a 52 year old male with PMHx of HTN, T2DM, Systolic Heart Failure, COPD , Tobacco Use Disorder, Alcohol Use Disorder who presents to the ED with shortness of breath and chest pain x 2 weeks which has been getting progressively worse. Patient admitted for New Onset Atriall Fibrillation, NSTEMI , Acute on Chronic Systolic Heart Failure Exacerbation, Bilateral Lower Extremity Cellulitis, and CINDY. Plan: New Onset Rapid Atrial Fibrillation ---Cardiology consulted - Dr. Krause - Initial EKG: rapid atrial fibrillation @ 122 - Refractory to Cardizem IVP, started on Cardizem drip NSTEMI ---Cardiology consulted - Dr. Krause - Initial troponin: 0.3060, f/u serial troponins - Initial EKG: rapid atrial fibrillation @ 122, f/u serial EKGs - Pending Cardio reccs - Started heparin drip, Plavix daily, no aspirin as per Cardio Acute on Chronic Systolic Heart Failure Exacerbation ---Cardiology consulted - Dr. Krause - Previous ECHO 01/2018: Systolic Heart Failure with LVEF 45-50%, LVH, mild global hypokinesis - Pending Cardio reccs - Pending repeat ECHO Management: - Started Coreg 3.125mg PO BID, Crestor - Pending CINDY to resolve to start lasix Bilateral Lower Extremity Cellulitis - Previous admission 01/2018 treated with Vanco and Clinda Imaging: - Venous dopplers to rule out DVTs - May need arterial dopplers, underlying PVD? Management: - Vanco x 1 dose (due to CINDY), f/u random vanco level - Started Clinda 300mg Q6H, Florastor - Wound care to follow patient - F/U wound culture, blood culture CINDY - New onset, baseline is normal - 1.7 on admission - Will hold ACEi and Lasix and other nephrotoxic agents - Continue to monitor HTN - Started Coreg due to Hx of Systolic HF - Will add Lisinopril 10mg once CINDY resolves - Will adjust accordingly as patient will also need to be placed on Lasix once renal function improves T2DM - Accuchecks - ISS - medium, will DC with metformin (not during admission) - Last A1C in 01/2018 was 7.5 - Lipid panel - WNL - F/U A1C COPD - Audible wheezing on physical exam - Duonebs Q4H, Solumedrol 40mg Q12 (will taper as patient clinically improves) Tobacco Use Disorder Alcohol Use Disorder - Cessation strongly encouraged - Nicotine Patchy daily - UDS negative - Concern for ascites/ ?? cirrhosis - abdominal ultrasound ordered - F/U hepatitis panel, HIV Prophylactic Measures - GI PPX: Pepcid daily - DVT PPX: Heparin Drip, SCDs c/i due to cellulitis - PT Eval - [employer] Coordinator and Diabetic Referrals - Wound Care Disposition: Pending ICU EVAL for admission, patient is currently on Cardizem drip. Will discuss case with Dr. Lemus, Leah Bradley DO, PGY2
[2018-07-31 19:17] LABS: BARBITURATES, UR NEGATIVE (NEGATIVE); BENZODIAZEPINES, UR NEGATIVE (NEGATIVE); OPIATES, UR NEGATIVE (NEGATIVE); PHENCYCLIDINE, UR NEGATIVE (NEGATIVE)
--- NOTE | 2018-07-31 19:58 | CP.PCM.CON ---
History of Present Illness - History of Present Illness History of Present Illness: I was asked to evaluate patient by the medical team. Patient is a 52 year old male with PMH HTN, hypercholesteroelmia, venous insufficiency who presents with dyspnea. Symptoms have occurred over the last 2 weeks,and have gotten progressively worse.The patient states he has developed orthopnea. He was found to be in atrial fibrillation with rapid ventricular response. He denies chest pain. Review of Systems - Constitutional Constitutional: absent: As Per HPI, Anorexia, Chills, Daytime Sleepiness, Excessive Sweating, Fatigue, Fever, Frequent Falls, Headache, Increased Appetite , Lethargy, Malaise, Night Sweats, Snoring, Sleep Apnea, Weight Gain, Weight Loss, Weakness, Other - EENT Eyes: absent: As Per HPI, Blind Spots, Blurred Vision, Change in Vision, Decreased Night Vision, Diplopia, Discharge, Dry Eye, Exophthalmos, Floaters, Irritation, Itchy Eyes, Loss of Peripheral Vision, Pain, Photophobia, Requires Corrective Lenses, Sees Flashes, Spots in Vision, Tunnel Vision, Other Visual Disturbances, Loss of Vision, Other Ears: absent: As Per HPI, Decreased Hearing, Ear Discharge, Ear Pain, Tinnitus, Abnormal Hearing, Disequilibrium, Dizziness, Other Nose/Mouth/Throat: absent: As Per HPI, Epistaxis, Nasal Congestion, Nasal Discharge, Nasal Obstruction, Nasal Trauma, Nose Pain, Post Nasal Drip, Sinus Pain, Sinus Pressure, Bleeding Gums, Change in Voice, Dental Pain, Dry Mouth, Dysphagia, Halitosis, Hoarsness, Lip Swelling, Mouth Lesions, Mouth Pain, Odynophagia, Sore Throat, Throat Swelling, Tongue Swelling, Facial Pain, Neck Pain, Neck Mass, Other - Cardiovascular Cardiovascular: Dyspnea, Pedal Edema - Respiratory Respiratory: Dyspnea - Gastrointestinal Gastrointestinal: absent: As Per HPI, Abdominal Pain, Belching, Bloating, Change in Bowel Habits, Change in Stool Character, Coffee Ground Emesis, Constipation, Cramping, Diarrhea, Dyspepsia, Dysphagia, Early Satiety, Excessive Flatus, Fecal Incontinence, Heartburn, Hematemesis, Hematochezia, Loose Stools, Melena, Nausea, Odynophagia, Temesmus, Vomiting, Other - Genitourinary Genitourinary: absent: As Per HPI, Change in Urinary Stream, Difficulty Urinating, Dysuria, Flank Pain, Hematuria, Pyuria, Nocturia, Urinary Incontinence, Urinary Frequency, Urinary Hesitance, Urinary Urgency, Voiding Freq/Small Amts, Freq UTI, Hx Renal/Bladder Calculi, Hx /Renal Surgery, Bladder Distension, Other - Musculoskeletal Musculoskeletal: absent: As Per HPI, Abnormal Gait, Arthralgias, Atrophy, Back Pain, Deformity, Joint Swelling, Limited Range of Motion, Loss of Height, Muscle Cramps, Muscle Weakness, Myalgias, Neck Pain, Numbness, Radiating Pain into Limb, Stiffness, Tingling, Other - Integumentary Integumentary: absent: As Per HPI, Acne, Alopecia, Bleeding Lesions, Change in Hair, Change in Nails, Change in Pigmentation, Changing Lesions, Dry Skin, Erythema, Furuncle, Hirsutism, Lesions, New Lesions, Non-Healing Lesions, Photosensitivity, Pruritus, Rash, Skin Pain, Skin Ulcer, Sores, Striae, Swelling , Unusual Bruising, Wounds, Jaundice, Other - Neurological Neurological: absent: As Per HPI, Abnormal Gait, Abnormal Hearing, Abnormal Movements, Abnormal Speech, Behavioral Changes, Burning Sensations, Confusion, Convulsions, Disequilibrium, Dizziness, Numbness, Focal Weakness, Frequent Falls , Headaches, Lack of Coordination, Loss of Vision, Memory Loss, Paresthesias, Radicular Pain, Restless Legs, Sensory Deficit, Syncope, Tingling, Tremor, Vertigo, Weakness, Other Visual Disturbances, Other - Psychiatric Psychiatric: absent: As Per HPI, Abnormal Sleep Pattern, Anhedonia, Anxiety, Auditory Hallucinations, Behavioral Changes, Change in Appetite, Change in Libido, Confusion, Depression, Difficulty Concentrating, Hallucinations, Homicidal Ideation, Hopelessness, Irritability, Memory Loss, Mood Swings, Panic Attacks, Paranoia, Suicidal Ideation, Visual Hallucinations, Tactile Hallucinations, Other - Endocrine Endocrine: absent: As Per HPI, Change in Body Appearance, Change in Libido, Cold Intolorance, Deepening of Voice, Excessive Sweating, Fatigue, Flushing, Heat Intolorance, Increase in Ring/Shoe/Hat Size, Palpitations, Polydipsia, Polyphagia, Polyuria, Other - Hematologic/Lymphatic Hematologic: absent: As Per HPI, Easy Bleeding, Easy Bruising, Lymphadenopathy, Other Past Patient History - Infectious Disease Hx of Infectious Diseases: None - Past Social History Smoking Status: Heavy Smoker > 10 Cigarettes Daily - CARDIAC Hx Congestive Heart Failure: Yes - PULMONARY Hx Chronic Obstructive Pulmonary Disease (COPD): Yes - HEMATOLOGICAL/ONCOLOGICAL Other/Comment: hx of ca to left eye corrected to surgery. with tranplant with hxof mrsa to it. - PSYCHIATRIC Hx Substance Use: No - SURGICAL HISTORY Hx Surgeries: Yes Hx Cataract Extraction: Yes Hx Eye Surgery: Yes Hx Orthopedic Surgery: Yes (right knee) - ANESTHESIA Hx Anesthesia: Yes Hx Anesthesia Reactions: No Hx Malignant Hyperthermia: No Meds Allergies/Adverse Reactions: Allergies Allergy/AdvReac Type Severity Reaction Status Date / Time aztreonam [From Azactam] Allergy RASH Verified 02/06/18 00:06 egg Allergy RASH Verified 02/06/18 00:06 Penicillins Allergy RASH Verified 02/06/18 00:06 - Medications Medications: Current Medications Albuterol/Ipratropium (Duoneb 3 Mg/0.5 Mg (3 Ml) Ud) 3 ml INH RQ4 DANIE Carvedilol (Coreg) 3.125 mg PO BID DANIE Clopidogrel Bisulfate (Plavix) 75 mg PO DAILY [facility] Dextrose (Dextrose 50% Inj) 0 ml IV STAT PRN; Protocol PRN Reason: Hypoglycemia Protocol Dextrose (Glutose 15) 0 gm PO ONCE PRN; Protocol PRN Reason: Hypoglycemia Protocol Famotidine (Pepcid) 20 mg PO DAILY DANIE Glucagon (Glucagen Diagnostic Kit) 0 mg IM STAT PRN; Protocol PRN Reason: Hypoglycemia Protocol Diltiazem HCl 125 mg/ Sodium (Chloride) 125 mls @ 5 mls/hr IV .Q24H DANIE; 5 MG/ HR PRN Reason: Protocol Last Admin: 07/31/18 18:38 Dose: 5 mls/hr Heparin Sodium/Sodium Chloride (Heparin 09097 Units/250ml 1/2 Normal Saline) 25 ,000 units in 250 mls @ 14.152 mls/hr IV .[id number] PRN; Protocol; 12 UNITS/KG/HR PRN Reason: ADJUST RATE PER PROTOCOL Dextrose (Dextrose 5% In Water 1000 Ml) 1,000 mls @ 0 mls/hr IV .Q0M PRN; Protocol; Per Protocol PRN Reason: Hypoglycemia Protocol Clindamycin Phosphate 300 mg/ (Sodium Chloride) 52 mls @ 104 mls/hr IVPB Q6H DANIE PRN Reason: Protocol Insulin Human Regular (Novolin R) 0 unit SC ACHS DANIE PRN Reason: Protocol Methylprednisolone (Solu-Medrol) 40 mg IVP Q12 DANIE Nicotine (Nicoderm Cq) 1 patch TD DAILY DANIE Rosuvastatin Calcium (Crestor) 10 mg PO HS DANIE Saccharomyces Boulardii (Florastor) 250 mg PO Q12 DANIE Physical Exam - Constitutional Appears: Non-toxic - Head Exam Head Exam: NORMAL INSPECTION - Eye Exam Eye Exam: Normal appearance - ENT Exam ENT Exam: Mucous Membranes Moist - Neck Exam Neck exam: Positive for: Full Rom - Respiratory Exam Respiratory Exam: Decreased Breath Sounds - Cardiovascular Exam Cardiovascular Exam: Irregular Rhythm - GI/Abdominal Exam GI & Abdominal Exam: Normal Bowel Sounds - Rectal Exam Rectal Exam: Deferred - Extremities Exam Extremities exam: Positive for: pedal edema - Back Exam Back exam: NORMAL INSPECTION - Neurological Exam Neurological exam: Alert, Oriented x3 - Psychiatric Exam Psychiatric exam: Normal Affect - Skin Skin Exam: Normal Color Results - Vital Signs Recent Vital Signs: Last Vital Signs Temp 98.0 F 07/31/18 14:50 Pulse 124 H 07/31/18 18:33 Resp 24 07/31/18 18:33 BP 135/93 H 07/31/18 18:33 Pulse Ox 94 L 07/31/18 18:45 - Labs Result Diagrams: 07/31/18 16:02 07/31/18 16:02 Labs: Laboratory Results - last 24 hr 07/31/18 07/31/18 07/31/18 15:50 16:02 16:02 WBC 7.2 RBC 4.33 L Hgb 11.9 L Hct 35.2 MCV 81.4 D MCH 27.5 MCHC 33.7 RDW 14.9 H Plt Count 299 MPV 6.9 L Neut % (Auto) 75.4 H Lymph % (Auto) 13.1 L [place] % (Auto) 8.7 Eos % (Auto) 2.1 Baso % (Auto) 0.7 Neut # (Auto) 5.4 Lymph # (Auto) 0.9 L [place] # (Auto) 0.6 Eos # (Auto) 0.2 Baso # (Auto) 0.1 PT INR APTT pO2 31 VBG pH 7.39 VBG pCO2 48 VBG HCO3 26.5 VBG Total CO2 30.6 H VBG O2 Sat (Calc) 59.4 VBG Base Excess 3.3 H VBG Potassium 3.9 Sodium 138.0 139 Chloride 102.0 98 Glucose 130 H Lactate 1.2 FiO2 21.0 Potassium 4.2 Carbon Dioxide 30 Anion Gap 15 BUN 29 H Creatinine 1.7 H Est GFR ( Amer) 51 Est GFR (Non-Af Amer) 43 Random Glucose 142 H Calcium 8.9 Magnesium 1.9 Total Bilirubin 0.7 AST 18 ALT 24 Alkaline Phosphatase 127 H D Troponin I 0.3060 H* NT-Pro-B Natriuret Pep 15823 H Total Protein 6.5 Albumin 3.3 L Globulin 3.1 Albumin/Globulin Ratio 1.1 Triglycerides Cholesterol LDL Cholesterol Direct HDL Cholesterol Free T4 Venous Blood Potassium 3.9 Urine Color Urine Clarity Urine pH Ur Specific [place] Urine Protein Urine Glucose (UA) Urine Ketones Urine Blood Urine Nitrate Urine Bilirubin Urine Urobilinogen Ur Leukocyte Esterase Urine WBC (Auto) Urine RBC (Auto) Urine Opiates Screen Urine Methadone Screen Ur Barbiturates Screen Ur Phencyclidine Scrn Ur Amphetamines Screen U Benzodiazepines Scrn U Oth Cocaine Metabols U Cannabinoids Screen Blood Type Antibody Screen 07/31/18 07/31/18 07/31/18 16:02 16:02 18:27 WBC RBC Hgb Hct MCV MCH MCHC RDW Plt Count MPV Neut % (Auto) Lymph % (Auto) [place] % (Auto) Eos % (Auto) Baso % (Auto) Neut # (Auto) Lymph # (Auto) [place] # (Auto) Eos # (Auto) Baso # (Auto) PT 15.2 H INR 1.4 APTT 33 pO2 VBG pH VBG pCO2 VBG HCO3 VBG Total CO2 VBG O2 Sat (Calc) VBG Base Excess VBG Potassium Sodium Chloride Glucose Lactate FiO2 Potassium Carbon Dioxide Anion Gap BUN Creatinine Est GFR ( Amer) Est GFR (Non-Af Amer) Random Glucose Calcium Magnesium Total Bilirubin AST ALT Alkaline Phosphatase Troponin I NT-Pro-B Natriuret Pep Total Protein Albumin Globulin Albumin/Globulin Ratio Triglycerides Cholesterol LDL Cholesterol Direct HDL Cholesterol Free T4 Venous Blood Potassium Urine Color Straw Urine Clarity Clear Urine pH 6.0 Ur Specific [place] 1.004 Urine Protein 1+ H Urine Glucose (UA) Normal Urine Ketones Negative Urine Blood Trace H Urine Nitrate Negative Urine Bilirubin Negative Urine Urobilinogen Normal Ur Leukocyte Esterase Neg Urine WBC (Auto) < 1 Urine RBC (Auto) < 1 Urine Opiates Screen Urine Methadone Screen Ur Barbiturates Screen Ur Phencyclidine Scrn Ur Amphetamines Screen U Benzodiazepines Scrn U Oth Cocaine Metabols U Cannabinoids Screen Blood Type A POSITIVE Antibody Screen Negative 07/31/18 07/31/18 07/31/18 18:27 18:46 18:46 WBC RBC Hgb Hct MCV MCH MCHC RDW Plt Count MPV Neut % (Auto) Lymph % (Auto) [place] % (Auto) Eos % (Auto) Baso % (Auto) Neut # (Auto) Lymph # (Auto) [place] # (Auto) Eos # (Auto) Baso # (Auto) PT INR APTT pO2 VBG pH VBG pCO2 VBG HCO3 VBG Total CO2 VBG O2 Sat (Calc) VBG Base Excess VBG Potassium Sodium Chloride Glucose Lactate FiO2 Potassium Carbon Dioxide Anion Gap BUN Creatinine Est GFR ( Amer) Est GFR (Non-Af Amer) Random Glucose Calcium Magnesium Total Bilirubin AST ALT Alkaline Phosphatase Troponin I NT-Pro-B Natriuret Pep Total Protein Albumin Globulin Albumin/Globulin Ratio Triglycerides 127 D Cholesterol 170 LDL Cholesterol Direct 110 HDL Cholesterol 36 Free T4 1.55 Venous Blood Potassium Urine Color Urine Clarity Urine pH Ur Specific [place] Urine Protein Urine Glucose (UA) Urine Ketones Urine Blood Urine Nitrate Urine Bilirubin Urine Urobilinogen Ur Leukocyte Esterase Urine WBC (Auto) Urine RBC (Auto) Urine Opiates Screen Negative Urine Methadone Screen Negative Ur Barbiturates Screen Negative Ur Phencyclidine Scrn Negative Ur Amphetamines Screen Negative U Benzodiazepines Scrn Negative U Oth Cocaine Metabols Negative U Cannabinoids Screen Negative Blood Type Antibody Screen - EKG Data EKG Interpreted by: Myself Assessment & Plan - Assessment and Plan (Free Text) Assessment: atrial fibrillation new onset. recommend cardizem for rate control. recommend anticoagulation, can give lovenox 1 mg/kg BID. check echocardiogram to assess LV function. I discussed risk of CVA with the patient.
[2018-07-31] MEDS: Albuterol-Ipratrop 3 mg / 0.5 (3 ml) UD INH SCH (20:35)
[2018-07-31] MEDS: MethylPREDNISolone 40 mg Vial IVP SCH (21:22)
[2018-07-31] MEDS: (Novolin R) Insulin Human Regular 100 units/ml vial SC SCH (21:27)
[2018-07-31] MEDS ORDERED: (Novolin R) Insulin Human Regular 100 units/ml vial ONE (21:29)
[2018-07-31] MEDS: Clindamycin 300 MG in Sodium Chloride 0.9% 50 ML IVPB SCH (22:03)
[2018-07-31] MEDS: Saccharomyces Boulardi 250 mg Cap PO SCH (22:12)
[2018-08-01] MEDS: Albuterol-Ipratrop 3 mg / 0.5 (3 ml) UD INH SCH ×7 (01:49→23:55)
[2018-08-01 02:13] LABS: BASO % 0.7 % (0.0-2.0); EOS % 0.1 % (0.0-4.0); HEMOGLOBIN 11.5 g/dL (12.0-18.0); LYMPH # 0.2 K/uL (1.0-4.3); LYMPH % 4.5 % (20.0-40.0); MEAN CELL VOLUME 82.6 fL (80.0-94.0); MEAN CORPUSCULAR HEMOGLOBIN 26.7 pg (27.0-31.0); MEAN CORPUSCULAR HGB CONC 32.3 g/dL (33.0-37.0); MEAN PLATELET VOLUME 7.5 fL (7.2-11.7); MONO % 0.8 % (0.0-10.0); NEUT # 4.9 K/uL (1.8-7.0); NEUT % 93.9 % (50.0-75.0); PLATELET COUNT 286 K/uL (130-400); RBC 4.32 Mil/uL (4.40-5.90); RED CELL DISTRIBUTION WIDTH 14.8 % (11.5-14.5); WHITE BLOOD COUNT 5.2 K/uL (4.8-10.8)
[2018-08-01] MEDS: Heparin25000 units/250ml 1/2NS 25,000 UNITS/250 ML BAG IV PRN ×2 (02:15→11:48)
[2018-08-01 02:20] LABS: INR 1.4; PROTHROMBIN TIME 15.8 SECONDS (9.7-12.2)
[2018-08-01] MEDS ORDERED: Heparin25000 units/250ml 1/2NS 25,000 UNITS/250 ML BAG IV PRN (02:22)
[2018-08-01 02:28] LABS: ALB/GLOB RATIO 1.1 (1.0-2.1); ALBUMIN 3.4 g/dL (3.5-5.0); CALCIUM 8.8 mg/dl (8.6-10.4)
[2018-08-01 02:41] LABS: ANISOCYTOSIS SLIGHT; LYMPHOCYTE 6 % (20-40); MONOCYTE 2 % (0-10); NEUTROPHIL 92 % (50-75); PLATELET ESTIMATE NORMAL (NORMAL); TOTAL CELLS COUNTED 100
[2018-08-01 02:59] LABS: HEPATITIS B SURFACE AG Negative (NEGATIVE)
[2018-08-01] MEDS: Clindamycin 300 MG in Sodium Chloride 0.9% 50 ML IVPB SCH ×4 (03:00→21:30)
[2018-08-01 03:05] LABS: HEPATITIS A IGM NEGATIVE (NEGATIVE); HEPATITIS B CORE AB NEGATIVE (NEGATIVE)
[2018-08-01 03:16] LABS: CK-MB 2.14 ng/mL (0.0-3.38); HEPATITIS C ANTIBODY NEGATIVE (NEGATIVE); TROPONIN I 0.347 ng/mL (0.00-0.120)
[2018-08-01] MEDS: (Novolin R) Insulin Human Regular 100 units/ml vial SC SCH ×4 (08:09→22:00)
[2018-08-01 08:59] LABS: CK-MB 1.98 ng/mL (0.0-3.38); TROPONIN I 0.369 ng/mL (0.00-0.120)
[2018-08-01] MEDS: MethylPREDNISolone 40 mg Vial IVP SCH ×2 (09:27→22:39)
[2018-08-01] MEDS: Saccharomyces Boulardi 250 mg Cap PO SCH ×2 (09:27→22:39)
--- NOTE | 2018-08-01 10:04 | CP.PCM.PN ---
Subjective - Date & Time of Evaluation Date of Evaluation: 08/01/18 Time of Evaluation: 09:50 - Subjective Subjective: Medical Attending Note: Patient reports he needs to sit upright. He reports choking sensation. Patient reports he feels short of breathe at rest and exertion. patient reports he can only tolerate a block. Patient reports he has gained 3 pant sizes in 3 weeks. 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 Patient reports history of venous insuffiency used to see Dr. Barrera (does not have insurance) and improved with steroids. Patient denies prior medical history except for 40 year smoking history. Objective - Vital Signs/Intake and Output Vital Signs (last 24 hours): Temp Pulse Resp BP Pulse Ox 97.9 F 100 H 18 130/76 92 L 08/01/18 04:00 08/01/18 09:30 08/01/18 09:30 08/01/18 08:58 07/31/18 23:20 Intake and Output: 08/01/18 08/01/18 06:59 18:59 Intake Total 284.1 173.9 Output Total 1000 Balance -715.9 173.9 - Medications Medications: Current Medications Albuterol/Ipratropium (Duoneb 3 Mg/0.5 Mg (3 Ml) Ud) 3 ml INH RQ4 [facility] Last Admin: 08/01/18 08:00 Dose: 3 ml Clopidogrel Bisulfate (Plavix) 75 mg PO DAILY [facility] Last Admin: 08/01/18 09:26 Dose: 75 mg Dextrose (Dextrose 50% Inj) 0 ml IV STAT PRN; Protocol PRN Reason: Hypoglycemia Protocol Dextrose (Glutose 15) 0 gm PO ONCE PRN; Protocol PRN Reason: Hypoglycemia Protocol Famotidine (Pepcid) 20 mg PO DAILY [facility] Last Admin: 08/01/18 09:26 Dose: 20 mg Glucagon (Glucagen Diagnostic Kit) 0 mg IM STAT PRN; Protocol PRN Reason: Hypoglycemia Protocol Dextrose (Dextrose 5% In Water 1000 Ml) 1,000 mls @ 0 mls/hr IV .Q0M PRN; Protocol; Per Protocol PRN Reason: Hypoglycemia Protocol Clindamycin Phosphate 300 mg/ (Sodium Chloride) 52 mls @ 104 mls/hr IVPB Q6H DANIE PRN Reason: Protocol Last Admin: 08/01/18 09:52 Dose: 104 mls/hr Diltiazem HCl 125 mg/ Sodium (Chloride) 125 mls @ 5 mls/hr IV .Q24H PRN; 5 MG/ HR PRN Reason: Protocol Last Admin: 08/01/18 06:45 Dose: 10 mg/hr, 10 mls/hr Heparin Sodium/Sodium Chloride (Heparin 13316 Units/250ml 1/2 Normal Saline) 25 ,000 units in 250 mls @ 16.356 mls/hr IV .[id number] PRN; Protocol; 12 UNITS/KG/HR PRN Reason: PROTOCOL Last Admin: 08/01/18 02:15 Dose: 12 units/kg/hr, 16.356 mls/hr Insulin Human Regular (Novolin R) 0 unit SC ACHS DANIE PRN Reason: Protocol Last Admin: 08/01/18 08:09 Dose: 3 units Methylprednisolone (Solu-Medrol) 40 mg IVP Q12 [facility] Last Admin: 08/01/18 09:27 Dose: 40 mg Nicotine (Nicoderm Cq) 1 patch TD DAILY [facility] Last Admin: 08/01/18 09:53 Dose: 1 patch Nicotine (Nicoderm Cq) 1 patch TD DAILY [facility] Rosuvastatin Calcium (Crestor) 5 mg PO HS [facility] Last Admin: 07/31/18 21:22 Dose: 5 mg Saccharomyces Boulardii (Florastor) 250 mg PO Q12 [facility] Last Admin: 08/01/18 09:27 Dose: 250 mg - Labs Labs: 08/01/18 02:07 08/01/18 02:07 PT 15.8 SECONDS (9.7-12.2) H 08/01/18 02:07 INR 1.4 08/01/18 02:07 APTT 60 SECONDS (21-34) H D 08/01/18 08:19 - Constitutional Appears: Non-toxic, No Acute Distress, Unkempt - Head Exam Head Exam: NORMAL INSPECTION - Eye Exam Eye Exam: EOMI Pupil Exam: NORMAL ACCOMODATION - ENT Exam ENT Exam: Mucous Membranes Moist - Respiratory Exam Respiratory Exam: Decreased Breath Sounds, NORMAL BREATHING PATTERN. absent: Rales, Rhonchi, Wheezes - Cardiovascular Exam Cardiovascular Exam: REGULAR RHYTHM, +S1, +S2 - GI/Abdominal Exam GI & Abdominal Exam: Firm, Soft, Normal Bowel Sounds. absent: Distended, Guarding, Rigid, Tenderness, Mass, Rebound Additional comments: obese habitus, +firm, mild pitting edema - Extremities Exam Extremities Exam: Pedal Edema, Tenderness Additional comments: wrapped in stuart bandage bilateral, edema - Back Exam Back Exam: absent: CVA tenderness (L), CVA tenderness (R), rash noted - Neurological Exam Neurological Exam: Alert, Awake, Oriented x3 - Psychiatric Exam Psychiatric exam: Anxious, Normal Affect, Normal Mood - Skin Skin Exam: Intact, Normal Color, Rash, Warm Assessment and Plan (1) CHF exacerbation Status: Acute (2) NSTEMI (non-ST elevated myocardial infarction) Status: Acute (3) New onset atrial fibrillation Status: Acute (4) Bilateral cellulitis of lower leg Status: Acute (5) Hypertension Status: Acute (6) Newly diagnosed diabetes Status: Acute (7) Prophylactic measure Status: Acute Attending/Attestation - Attestation I have personally seen and examined this patient.: Yes I have fully participated in the care of the patient.: Yes I have reviewed all pertinent clinical information, including history, physical exam and plan: Yes Notes (Text): 1) Shortness of breathe * Contributing factors: morbid obesity, new onset atrial fibrillation, suspected congestive heart failure, [facility] smoker 2) Possible Congestive Heart Failure Exacerbation Nonstemi * Risk factor: DM, obesity * Patient is on Cardizem Drip * Pending echocardiogram * Fluid restriction * Record intake and output * Lasix 20mg PO daily for diuresis * Patient reports shortness of breathe at rest and on exertion * Dr. Krause (Cardiology) correctional treatment specialist-->help appreciated * Crestor 5mg PoqHS * Patient has mild renal insuffiency 3) New onset Atrial fibrillation * CHADSVASC:3 (if CHF is confirmed then 4) * HASBLED: 1 * Patient is presently on Heparin Drip and cardizem drip * pending echocardiogram * pending V/Q to rule out PE 4) History of b/l lower extremity edema * suspected chf * venous doppler pending * patient is on low dose diuretic 5) history of weeping leg wounds * wound care on board * Patient is on Clinadmycin * pending wound culture and gram stain 6) Tobacco abuse * Patient counselled at bedside to stop smoking * Nicoderm patch 7) Diabetes, newly diagnosed * influencing factor steroids, morbidly obese * Hgba1c: 7.9 * Will need aspirin as cardioprotective * Will need stuart/arb pending renal function for renoprotection from diabetes * Stranding Machine Operator referral * diabetic education 8) prolonged QT * QTC: 463? * monitor K and mg2+ 9) Prophylactic measure * on heparin drip * fluid restriction * record in and out I have indicated to him that he needs to stop smoking. I have indicated to him pending echocardiogram will let us know in regards to cardiac status. Patient reports he wants to go home and back to work by Sunday irregardless to his status. I have told him if we do not medically optimize him he is at risk for heart attack, cardiac arrest to name a few adverse/unwanted events in addition to stroke risk from his atrial fibrillation.
--- NOTE | 2018-08-01 11:07 | RAD ---
Date of service: 08/01/2018 HISTORY: shortness of breathe COMPARISON: 07/31/2018 FINDINGS: LUNGS: Interval increase bibasilar low-density opacity - interval increased bilateral pleural effusions with bibasilar associated compressive atelectasis inferred. An element concomitant bibasilar infiltrates not excluded. Probable concomitant granulomatous disease PLEURA: Interval increased bilateral pleural effusions. No pneumothorax. CARDIOVASCULAR: Cardiomegaly an mild pulmonary venous congestion. OSSEOUS STRUCTURES: Thoraco lumbar spondylosis. Limited visualization of the thoraco lumbar spine. VISUALIZED UPPER ABDOMEN: Normal. OTHER FINDINGS: None. IMPRESSION: Interval increased bilateral pleural effusions with interval increase bibasilar compressive subsegmental atelectasis. Concomitant bibasilar infiltrates not excluded. Cardiomegaly and mild pulmonary venous congestion - CHF inferred
[2018-08-01 12:49] LABS: LEGIONELLA AG URINE NEGATIVE (NEGATIVE)
--- NOTE | 2018-08-01 12:56 | US ---
HISTORY: concern for ascites/ cirrhosis COMPARISON: None available. TECHNIQUE: Sonographic evaluation of the abdomen. FINDINGS: LIVER: Measures 22.7 cm in sagittal dimension. Nodular hepatic contour. Echogenic liver may be seen in setting of hepatic parenchymal disease or fatty infiltration. No focal hepatic mass identified. The main portal vein appears patent with normal directional flow. No intrahepatic bile duct dilatation. GALLBLADDER: Gallbladder appears contracted. Cholelithiasis. Gallbladder wall thickening/ edema measuring approximately 8 mm. Negative sonographic Doe's sign as assessed by the manager long term care. COMMON BILE DUCT: Measures 6 mm. PANCREAS: Not well visualized. RIGHT KIDNEY: Measures 10.5 x 5.6 x 6.0 cm. No obstructing calculus or hydronephrosis identified. LEFT KIDNEY: Measures 12.2 x 4.9 x 6.2 cm. No obstructing calculus or hydronephrosis identified. SPLEEN: Measures approximately 11.4 cm. AORTA: Not well-visualized. IVC: Not well-visualized. OTHER FINDINGS: None. IMPRESSION: Limited study. Hepatic contour nodularity. Echogenic liver may be seen in setting of hepatic parenchymal disease or fatty infiltration. Hepatomegaly. Right pleural effusion. The gallbladder appears contracted. Cholelithiasis. Gallbladder wall thickening/edema. Negative sonographic Doe's sign as assessed by the manager long term care. Correlate clinically.
--- NOTE | 2018-08-01 13:07 | CP.CCUPN ---
<Akira Segura - Last Filed: 08/01/18 15:31> CCU Objective - Vital Signs / Intake & Output Vital Signs (Last 4 hours): Vital Signs Pulse Resp BP 08/01/18 14:50 98 H 19 08/01/18 14:20 78 16 08/01/18 14:02 84 27 H 101/71 08/01/18 14:00 84 15 08/01/18 13:30 84 21 08/01/18 13:02 102 H 18 122/94 H 08/01/18 12:30 84 26 H 08/01/18 12:20 97 H 22 08/01/18 12:10 104 H 24 08/01/18 12:02 102 H 25 H 113/76 08/01/18 12:00 102 H 27 H 08/01/18 11:50 95 H 14 08/01/18 11:30 96 H 29 H Intake and Output (Last 8hrs): Intake & Output 08/01/18 08/01/18 08/01/18 06:59 14:59 22:59 Intake Total 284.1 610.4 16.3 Output Total 100 Balance 284.1 510.4 16.3 Intake: IV 290 Intake, IV Amount 284.1 170.4 16.3 Left Antecubital 114.1 130.4 16.3 Right Antecubital 70 40 Right Forearm 100 Oral 150 Output: Urine 100 Urine, Voided 100 Other: # Voids Urine, Voided 3 1 # Bowel Movements 1 - Medications Active Medications: Active Medications Generic Name Dose Route Start Last Admin Trade Name Freq PRN Reason Stop Dose Admin Albuterol/Ipratropium 3 ml 07/31/18 20:00 08/01/18 12:00 Duoneb 3 Mg/0.5 Mg (3 Ml) Ud INH 3 ml RQ4 DANIE Administration Clopidogrel Bisulfate 75 mg 08/01/18 10:00 08/01/18 09:26 Plavix PO 75 mg DAILY DANIE Administration Dextrose 0 ml 07/31/18 18:03 Dextrose 50% Inj IV STAT PRN Hypoglycemia Protocol Protocol Dextrose 0 gm 07/31/18 18:03 Glutose 15 PO ONCE PRN Hypoglycemia Protocol Protocol Dextrose 0 ml 08/01/18 15:02 Dextrose 50% Inj IV STAT PRN Hypoglycemia Protocol Protocol Dextrose 0 gm 08/01/18 15:02 Glutose 15 PO ONCE PRN Hypoglycemia Protocol Protocol Famotidine 20 mg 08/01/18 10:00 08/01/18 09:26 Pepcid PO 20 mg DAILY DANIE Administration Furosemide 40 mg 08/01/18 11:00 08/01/18 10:41 Lasix PO 40 mg BID DANIE Administration Glucagon 0 mg 07/31/18 18:03 Glucagen Diagnostic Kit IM STAT PRN Hypoglycemia Protocol Protocol Glucagon 0 mg 08/01/18 15:02 Glucagen Diagnostic Kit IM STAT PRN Hypoglycemia Protocol Protocol Dextrose 1,000 mls @ 0 mls/hr 07/31/18 18:03 Dextrose 5% In Water 1000 Ml IV .Q0M PRN Hypoglycemia Protocol Protocol Per Protocol Clindamycin Phosphate 300 mg/ 52 mls @ 104 mls/hr 07/31/18 21:00 08/01/18 09: 52 Sodium Chloride IVPB 104 mls/hr Q6H DANIE Administration Protocol Heparin Sodium/Sodium Chloride 25,000 units in 250 mls @ 16.356 mls/hr 04:16 08/01/18 11:48 Heparin 12745 Units/250ml 1/2 Normal Saline IV 12 units/kg/hr .[id number] PRN 16.356 mls/hr PROTOCOL Administration Protocol 12 UNITS/KG/HR Dextrose 1,000 mls @ 0 mls/hr 08/01/18 15:02 Dextrose 5% In Water 1000 Ml IV .Q0M PRN Hypoglycemia Protocol Protocol Per Protocol Insulin Human Regular 0 unit 07/31/18 22:00 08/01/18 11:51 Novolin R SC 4 units ACHS DANIE Administration Protocol Lisinopril 2.5 mg 08/01/18 16:00 Zestril PO DAILY DANIE Methylprednisolone 40 mg 07/31/18 22:00 08/01/18 09:27 Solu-Medrol IVP 40 mg Q12 DANIE Administration Metoprolol Tartrate 25 mg 08/01/18 10:30 08/01/18 10:42 Lopressor PO 25 mg BID DANIE Administration Nicotine 1 patch 08/01/18 10:00 08/01/18 10:36 Nicoderm Cq TD Not Given DAILY DANIE Rosuvastatin Calcium 5 mg 07/31/18 22:00 07/31/18 21:22 Crestor PO 5 mg HS DANIE Administration Saccharomyces Boulardii 250 mg 07/31/18 22:00 08/01/18 09:27 Florastor PO 250 mg Q12 DANIE Administration Spironolactone 12.5 mg 08/01/18 10:30 08/01/18 10:59 Aldactone PO 12.5 mg DAILY DANIE Administration - Patient Studies Lab Studies: Microbiology Studies 07/31/18 18:29 Gram Stain - Final Leg - Left Lab Studies 08/01/18 08/01/18 08/01/18 Range/Units 11:16 11:14 08:19 WBC (4.8-10.8) K/uL RBC (4.40-5.90) Mil/uL Hgb (12.0-18.0) g/dL Hct (35.0-51.0) % MCV (80.0-94.0) fL MCH (27.0-31.0) pg MCHC (33.0-37.0) g/dL RDW (11.5-14.5) % Plt Count (130-400) K/uL MPV (7.2-11.7) fL Neut % (Auto) (50.0-75.0) % Lymph % (Auto) (20.0-40.0) % Cannon % (Auto) (0.0-10.0) % Eos % (Auto) (0.0-4.0) % Baso % (Auto) (0.0-2.0) % Neut # (Auto) (1.8-7.0) K/uL Lymph # (Auto) (1.0-4.3) K/uL Cannon # (Auto) (0.0-0.8) K/uL Eos # (Auto) (0.0-0.7) K/uL Baso # (Auto) (0.0-0.2) K/uL Neutrophils % (Manual) (50-75) % Lymphocytes % (Manual) (20-40) % Monocytes % (Manual) (0-10) % Platelet Estimate (NORMAL) Anisocytosis (manual) PT (9.7-12.2) SECONDS INR APTT (21-34) SECONDS pO2 (30-55) mm/Hg VBG pH (7.32-7.43) VBG pCO2 (40-60) mmHg VBG HCO3 mmol/L VBG Total CO2 (22-28) mmol/L VBG O2 Sat (Calc) (40-65) % VBG Base Excess (0.0-2.0) mmol/L VBG Potassium (3.6-5.2) mmol/L Sodium (132-148) mmol/l Chloride (98-107) mmol/L Glucose (75-110) mg/dl Lactate (0.7-2.1) mmol/L FiO2 % Potassium (3.6-5.2) mmol/L Carbon Dioxide (22-30) mmol/L Anion Gap (10-20) BUN (9-20) mg/dL Creatinine (0.8-1.5) mg/dL Est GFR ( Amer) Est GFR (Non-Af Amer) POC Glucose (mg/dL) 269 H (65-110) mg/dL Random Glucose (75-110) mg/dL Hemoglobin A1c (4.2-6.5) % Calcium (8.6-10.4) mg/dl Phosphorus (2.5-4.5) mg/dL Magnesium (1.6-2.3) mg/dL Total Bilirubin (0.2-1.3) mg/dL AST (17-59) U/L ALT (21-72) U/L Alkaline Phosphatase (38-126) U/L Total Creatine Kinase 214 H (55-170) U/L CK-MB (Mass) 1.98 (0.0-3.38) ng/mL Troponin I 0.3690 H* (0.00-0.120) ng/mL NT-Pro-B Natriuret Pep (0-900) pg/mL Total Protein (6.3-8.3) g/dL Albumin (3.5-5.0) g/dL Globulin (2.2-3.9) gm/dL Albumin/Globulin Ratio (1.0-2.1) Triglycerides (0-149) mg/dL Cholesterol (0-199) mg/dL LDL Cholesterol Direct (0-129) mg/dL HDL Cholesterol (30-70) mg/dL Free T4 (0.78-2.19) ng/dL TSH 3rd Generation (0.46-4.68) mIU/L Venous Blood Potassium (3.6-5.2) mmol/L Urine Color (YELLOW) Urine Clarity (Clear) Urine pH (5.0-8.0) Ur Specific [place] (1.003-1.030) Urine Protein (NEGATIVE) mg/dL Urine Glucose (UA) (Normal) mg/dL Urine Ketones (NEGATIVE) mg/dL Urine Blood (NEGATIVE) Urine Nitrate (NEGATIVE) Urine Bilirubin (NEGATIVE) Urine Urobilinogen (0.2-1.0) mg/dL Ur Leukocyte Esterase (Negative) Belinda/uL Urine WBC (Auto) (0-5) /hpf Urine RBC (Auto) (0-3) /hpf Random Vancomycin ug/mL Urine Opiates Screen (NEGATIVE) Urine Methadone Screen (NEGATIVE) Ur Barbiturates Screen (NEGATIVE) Ur Phencyclidine Scrn (NEGATIVE) Ur Amphetamines Screen (NEGATIVE) U Benzodiazepines Scrn (NEGATIVE) U Oth Cocaine Metabols (NEGATIVE) U Cannabinoids Screen (NEGATIVE) Hepatitis A IgM Ab (NEGATIVE) Hep Bs Antigen (NEGATIVE) Hep B Core IgM Ab (NEGATIVE) Hepatitis C Antibody (NEGATIVE) H.influenzae Type B Ag Negative (NEGATIVE) Ur L.pneumophila Ag Negative (NEGATIVE) N.meningitidis ACY/W135 Negative (NEGATIVE) N.meningi B/E.coli K1 Ag Negative (NEGATIVE) Group B Strep Antigen Negative (NEGATIVE) S. pneumoniae Antigen Negative (NEGATIVE) Blood Type Antibody Screen 08/01/18 08/01/18 08/01/18 Range/Units 08:19 07:29 02:07 WBC (4.8-10.8) K/uL RBC (4.40-5.90) Mil/uL Hgb (12.0-18.0) g/dL Hct (35.0-51.0) % MCV (80.0-94.0) fL MCH (27.0-31.0) pg MCHC (33.0-37.0) g/dL RDW (11.5-14.5) % Plt Count (130-400) K/uL MPV (7.2-11.7) fL Neut % (Auto) (50.0-75.0) % Lymph % (Auto) (20.0-40.0) % Cannon % (Auto) (0.0-10.0) % Eos % (Auto) (0.0-4.0) % Baso % (Auto) (0.0-2.0) % Neut # (Auto) (1.8-7.0) K/uL Lymph # (Auto) (1.0-4.3) K/uL Cannon # (Auto) (0.0-0.8) K/uL Eos # (Auto) (0.0-0.7) K/uL Baso # (Auto) (0.0-0.2) K/uL Neutrophils % (Manual) (50-75) % Lymphocytes % (Manual) (20-40) % Monocytes % (Manual) (0-10) % Platelet Estimate (NORMAL) Anisocytosis (manual) PT 15.8 H (9.7-12.2) SECONDS INR 1.4 APTT 60 H D 75 H D (21-34) SECONDS pO2 (30-55) mm/Hg VBG pH (7.32-7.43) VBG pCO2 (40-60) mmHg VBG HCO3 mmol/L VBG Total CO2 (22-28) mmol/L VBG O2 Sat (Calc) (40-65) % VBG Base Excess (0.0-2.0) mmol/L VBG Potassium (3.6-5.2) mmol/L Sodium (132-148) mmol/l Chloride (98-107) mmol/L Glucose (75-110) mg/dl Lactate (0.7-2.1) mmol/L FiO2 % Potassium (3.6-5.2) mmol/L Carbon Dioxide (22-30) mmol/L Anion Gap (10-20) BUN (9-20) mg/dL Creatinine (0.8-1.5) mg/dL Est GFR ( Amer) Est GFR (Non-Af Amer) POC Glucose (mg/dL) 226 H (65-110) mg/dL Random Glucose (75-110) mg/dL Hemoglobin A1c (4.2-6.5) % Calcium (8.6-10.4) mg/dl Phosphorus (2.5-4.5) mg/dL Magnesium (1.6-2.3) mg/dL Total Bilirubin (0.2-1.3) mg/dL AST (17-59) U/L ALT (21-72) U/L Alkaline Phosphatase (38-126) U/L Total Creatine Kinase (55-170) U/L CK-MB (Mass) (0.0-3.38) ng/mL Troponin I (0.00-0.120) ng/mL NT-Pro-B Natriuret Pep (0-900) pg/mL Total Protein (6.3-8.3) g/dL Albumin (3.5-5.0) g/dL Globulin (2.2-3.9) gm/dL Albumin/Globulin Ratio (1.0-2.1) Triglycerides (0-149) mg/dL Cholesterol (0-199) mg/dL LDL Cholesterol Direct (0-129) mg/dL HDL Cholesterol (30-70) mg/dL Free T4 (0.78-2.19) ng/dL TSH 3rd Generation (0.46-4.68) mIU/L Venous Blood Potassium (3.6-5.2) mmol/L Urine Color (YELLOW) Urine Clarity (Clear) Urine pH (5.0-8.0) Ur Specific [place] (1.003-1.030) Urine Protein (NEGATIVE) mg/dL Urine Glucose (UA) (Normal) mg/dL Urine Ketones (NEGATIVE) mg/dL Urine Blood (NEGATIVE) Urine Nitrate (NEGATIVE) Urine Bilirubin (NEGATIVE) Urine Urobilinogen (0.2-1.0) mg/dL Ur Leukocyte Esterase (Negative) Belinda/uL Urine WBC (Auto) (0-5) /hpf Urine RBC (Auto) (0-3) /hpf Random Vancomycin ug/mL Urine Opiates Screen (NEGATIVE) Urine Methadone Screen (NEGATIVE) Ur Barbiturates Screen (NEGATIVE) Ur Phencyclidine Scrn (NEGATIVE) Ur Amphetamines Screen (NEGATIVE) U Benzodiazepines Scrn (NEGATIVE) U Oth Cocaine Metabols (NEGATIVE) U Cannabinoids Screen (NEGATIVE) Hepatitis A IgM Ab (NEGATIVE) Hep Bs Antigen (NEGATIVE) Hep B Core IgM Ab (NEGATIVE) Hepatitis C Antibody (NEGATIVE) H.influenzae Type B Ag (NEGATIVE) Ur L.pneumophila Ag (NEGATIVE) N.meningitidis ACY/W135 (NEGATIVE) N.meningi B/E.coli K1 Ag (NEGATIVE) Group B Strep Antigen (NEGATIVE) S. pneumoniae Antigen (NEGATIVE) Blood Type Antibody Screen 08/01/18 08/01/18 08/01/18 Range/Units 02:07 02:07 02:07 WBC 5.2 (4.8-10.8) K/uL RBC 4.32 L (4.40-5.90) Mil/uL Hgb 11.5 L (12.0-18.0) g/dL Hct 35.7 (35.0-51.0) % MCV 82.6 (80.0-94.0) fL MCH 26.7 L (27.0-31.0) pg MCHC 32.3 L (33.0-37.0) g/dL RDW 14.8 H (11.5-14.5) % Plt Count 286 (130-400) K/uL MPV 7.5 (7.2-11.7) fL Neut % (Auto) 93.9 H (50.0-75.0) % Lymph % (Auto) 4.5 L (20.0-40.0) % Cannon % (Auto) 0.8 (0.0-10.0) % Eos % (Auto) 0.1 (0.0-4.0) % Baso % (Auto) 0.7 (0.0-2.0) % Neut # (Auto) 4.9 (1.8-7.0) K/uL Lymph # (Auto) 0.2 L (1.0-4.3) K/uL Cannon # (Auto) 0.0 (0.0-0.8) K/uL Eos # (Auto) 0.0 (0.0-0.7) K/uL Baso # (Auto) 0.0 (0.0-0.2) K/uL Neutrophils % (Manual) 92 H (50-75) % Lymphocytes % (Manual) 6 L (20-40) % Monocytes % (Manual) 2 (0-10) % Platelet Estimate Normal (NORMAL) Anisocytosis (manual) Slight PT (9.7-12.2) SECONDS INR APTT (21-34) SECONDS pO2 (30-55) mm/Hg VBG pH (7.32-7.43) VBG pCO2 (40-60) mmHg VBG HCO3 mmol/L VBG Total CO2 (22-28) mmol/L VBG O2 Sat (Calc) (40-65) % VBG Base Excess (0.0-2.0) mmol/L VBG Potassium (3.6-5.2) mmol/L Sodium 139 (132-148) mmol/l Chloride 102 (98-107) mmol/L Glucose (75-110) mg/dl Lactate (0.7-2.1) mmol/L FiO2 % Potassium 4.6 (3.6-5.2) mmol/L Carbon Dioxide 26 (22-30) mmol/L Anion Gap 16 (10-20) BUN 33 H (9-20) mg/dL Creatinine 1.6 H (0.8-1.5) mg/dL Est GFR ( Amer) 55 Est GFR (Non-Af Amer) 46 POC Glucose (mg/dL) (65-110) mg/dL Random Glucose 265 H (75-110) mg/dL Hemoglobin A1c (4.2-6.5) % Calcium 8.8 (8.6-10.4) mg/dl Phosphorus 4.2 (2.5-4.5) mg/dL Magnesium 1.9 (1.6-2.3) mg/dL Total Bilirubin 0.4 (0.2-1.3) mg/dL AST 21 (17-59) U/L ALT 22 (21-72) U/L Alkaline Phosphatase 113 (38-126) U/L Total Creatine Kinase 202 H (55-170) U/L CK-MB (Mass) 2.14 (0.0-3.38) ng/mL Troponin I 0.3470 H* (0.00-0.120) ng/mL NT-Pro-B Natriuret Pep (0-900) pg/mL Total Protein 6.6 (6.3-8.3) g/dL Albumin 3.4 L (3.5-5.0) g/dL Globulin 3.2 (2.2-3.9) gm/dL Albumin/Globulin Ratio 1.1 (1.0-2.1) Triglycerides (0-149) mg/dL Cholesterol (0-199) mg/dL LDL Cholesterol Direct (0-129) mg/dL HDL Cholesterol (30-70) mg/dL Free T4 (0.78-2.19) ng/dL TSH 3rd Generation (0.46-4.68) mIU/L Venous Blood Potassium (3.6-5.2) mmol/L Urine Color (YELLOW) Urine Clarity (Clear) Urine pH (5.0-8.0) Ur Specific [place] (1.003-1.030) Urine Protein (NEGATIVE) mg/dL Urine Glucose (UA) (Normal) mg/dL Urine Ketones (NEGATIVE) mg/dL Urine Blood (NEGATIVE) Urine Nitrate (NEGATIVE) Urine Bilirubin (NEGATIVE) Urine Urobilinogen (0.2-1.0) mg/dL Ur Leukocyte Esterase (Negative) Belinda/uL Urine WBC (Auto) (0-5) /hpf Urine RBC (Auto) (0-3) /hpf Random Vancomycin ug/mL Urine Opiates Screen (NEGATIVE) Urine Methadone Screen (NEGATIVE) Ur Barbiturates Screen (NEGATIVE) Ur Phencyclidine Scrn (NEGATIVE) Ur Amphetamines Screen (NEGATIVE) U Benzodiazepines Scrn (NEGATIVE) U Oth Cocaine Metabols (NEGATIVE) U Cannabinoids Screen (NEGATIVE) Hepatitis A IgM Ab Negative (NEGATIVE) Hep Bs Antigen Negative (NEGATIVE) Hep B Core IgM Ab Negative (NEGATIVE) Hepatitis C Antibody Negative (NEGATIVE) H.influenzae Type B Ag (NEGATIVE) Ur L.pneumophila Ag (NEGATIVE) N.meningitidis ACY/W135 (NEGATIVE) N.meningi B/E.coli K1 Ag (NEGATIVE) Group B Strep Antigen (NEGATIVE) S. pneumoniae Antigen (NEGATIVE) Blood Type Antibody Screen 08/01/18 07/31/18 07/31/18 Range/Units 02:07 20:48 18:46 WBC (4.8-10.8) K/uL RBC (4.40-5.90) Mil/uL Hgb (12.0-18.0) g/dL Hct (35.0-51.0) % MCV (80.0-94.0) fL MCH (27.0-31.0) pg MCHC (33.0-37.0) g/dL RDW (11.5-14.5) % Plt Count (130-400) K/uL MPV (7.2-11.7) fL Neut % (Auto) (50.0-75.0) % Lymph % (Auto) (20.0-40.0) % Cannon % (Auto) (0.0-10.0) % Eos % (Auto) (0.0-4.0) % Baso % (Auto) (0.0-2.0) % Neut # (Auto) (1.8-7.0) K/uL Lymph # (Auto) (1.0-4.3) K/uL Cannon # (Auto) (0.0-0.8) K/uL Eos # (Auto) (0.0-0.7) K/uL Baso # (Auto) (0.0-0.2) K/uL Neutrophils % (Manual) (50-75) % Lymphocytes % (Manual) (20-40) % Monocytes % (Manual) (0-10) % Platelet Estimate (NORMAL) Anisocytosis (manual) PT (9.7-12.2) SECONDS INR APTT (21-34) SECONDS pO2 (30-55) mm/Hg VBG pH (7.32-7.43) VBG pCO2 (40-60) mmHg VBG HCO3 mmol/L VBG Total CO2 (22-28) mmol/L VBG O2 Sat (Calc) (40-65) % VBG Base Excess (0.0-2.0) mmol/L VBG Potassium (3.6-5.2) mmol/L Sodium (132-148) mmol/l Chloride (98-107) mmol/L Glucose (75-110) mg/dl Lactate (0.7-2.1) mmol/L FiO2 % Potassium (3.6-5.2) mmol/L Carbon Dioxide (22-30) mmol/L Anion Gap (10-20) BUN (9-20) mg/dL Creatinine (0.8-1.5) mg/dL Est GFR ( Amer) Est GFR (Non-Af Amer) POC Glucose (mg/dL) 187 H (65-110) mg/dL Random Glucose (75-110) mg/dL Hemoglobin A1c (4.2-6.5) % Calcium (8.6-10.4) mg/dl Phosphorus (2.5-4.5) mg/dL Magnesium (1.6-2.3) mg/dL Total Bilirubin (0.2-1.3) mg/dL AST (17-59) U/L ALT (21-72) U/L Alkaline Phosphatase (38-126) U/L Total Creatine Kinase (55-170) U/L CK-MB (Mass) (0.0-3.38) ng/mL Troponin I (0.00-0.120) ng/mL NT-Pro-B Natriuret Pep (0-900) pg/mL Total Protein (6.3-8.3) g/dL Albumin (3.5-5.0) g/dL Globulin (2.2-3.9) gm/dL Albumin/Globulin Ratio (1.0-2.1) Triglycerides (0-149) mg/dL Cholesterol (0-199) mg/dL LDL Cholesterol Direct (0-129) mg/dL HDL Cholesterol (30-70) mg/dL Free T4 1.55 (0.78-2.19) ng/dL TSH 3rd Generation (0.46-4.68) mIU/L Venous Blood Potassium (3.6-5.2) mmol/L Urine Color (YELLOW) Urine Clarity (Clear) Urine pH (5.0-8.0) Ur Specific [place] (1.003-1.030) Urine Protein (NEGATIVE) mg/dL Urine Glucose (UA) (Normal) mg/dL Urine Ketones (NEGATIVE) mg/dL Urine Blood (NEGATIVE) Urine Nitrate (NEGATIVE) Urine Bilirubin (NEGATIVE) Urine Urobilinogen (0.2-1.0) mg/dL Ur Leukocyte Esterase (Negative) Belinda/uL Urine WBC (Auto) (0-5) /hpf Urine RBC (Auto) (0-3) /hpf Random Vancomycin 8.1 ug/mL Urine Opiates Screen (NEGATIVE) Urine Methadone Screen (NEGATIVE) Ur Barbiturates Screen (NEGATIVE) Ur Phencyclidine Scrn (NEGATIVE) Ur Amphetamines Screen (NEGATIVE) U Benzodiazepines Scrn (NEGATIVE) U Oth Cocaine Metabols (NEGATIVE) U Cannabinoids Screen (NEGATIVE) Hepatitis A IgM Ab (NEGATIVE) Hep Bs Antigen (NEGATIVE) Hep B Core IgM Ab (NEGATIVE) Hepatitis C Antibody (NEGATIVE) H.influenzae Type B Ag (NEGATIVE) Ur L.pneumophila Ag (NEGATIVE) N.meningitidis ACY/W135 (NEGATIVE) N.meningi B/E.coli K1 Ag (NEGATIVE) Group B Strep Antigen (NEGATIVE) S. pneumoniae Antigen (NEGATIVE) Blood Type Antibody Screen 07/31/18 07/31/18 07/31/18 Range/Units 18:46 18:46 18:27 WBC (4.8-10.8) K/uL RBC (4.40-5.90) Mil/uL Hgb (12.0-18.0) g/dL Hct (35.0-51.0) % MCV (80.0-94.0) fL MCH (27.0-31.0) pg MCHC (33.0-37.0) g/dL RDW (11.5-14.5) % Plt Count (130-400) K/uL MPV (7.2-11.7) fL Neut % (Auto) (50.0-75.0) % Lymph % (Auto) (20.0-40.0) % Cannon % (Auto) (0.0-10.0) % Eos % (Auto) (0.0-4.0) % Baso % (Auto) (0.0-2.0) % Neut # (Auto) (1.8-7.0) K/uL Lymph # (Auto) (1.0-4.3) K/uL Cannon # (Auto) (0.0-0.8) K/uL Eos # (Auto) (0.0-0.7) K/uL Baso # (Auto) (0.0-0.2) K/uL Neutrophils % (Manual) (50-75) % Lymphocytes % (Manual) (20-40) % Monocytes % (Manual) (0-10) % Platelet Estimate (NORMAL) Anisocytosis (manual) PT (9.7-12.2) SECONDS INR APTT (21-34) SECONDS pO2 (30-55) mm/Hg VBG pH (7.32-7.43) VBG pCO2 (40-60) mmHg VBG HCO3 mmol/L VBG Total CO2 (22-28) mmol/L VBG O2 Sat (Calc) (40-65) % VBG Base Excess (0.0-2.0) mmol/L VBG Potassium (3.6-5.2) mmol/L Sodium (132-148) mmol/l Chloride (98-107) mmol/L Glucose (75-110) mg/dl Lactate (0.7-2.1) mmol/L FiO2 % Potassium (3.6-5.2) mmol/L Carbon Dioxide (22-30) mmol/L Anion Gap (10-20) BUN (9-20) mg/dL Creatinine (0.8-1.5) mg/dL Est GFR ( Amer) Est GFR (Non-Af Amer) POC Glucose (mg/dL) (65-110) mg/dL Random Glucose (75-110) mg/dL Hemoglobin A1c 7.9 H (4.2-6.5) % Calcium (8.6-10.4) mg/dl Phosphorus (2.5-4.5) mg/dL Magnesium (1.6-2.3) mg/dL Total Bilirubin (0.2-1.3) mg/dL AST (17-59) U/L ALT (21-72) U/L Alkaline Phosphatase (38-126) U/L Total Creatine Kinase (55-170) U/L CK-MB (Mass) (0.0-3.38) ng/mL Troponin I (0.00-0.120) ng/mL NT-Pro-B Natriuret Pep (0-900) pg/mL Total Protein (6.3-8.3) g/dL Albumin (3.5-5.0) g/dL Globulin (2.2-3.9) gm/dL Albumin/Globulin Ratio (1.0-2.1) Triglycerides 127 D (0-149) mg/dL Cholesterol 170 (0-199) mg/dL LDL Cholesterol Direct 110 (0-129) mg/dL HDL Cholesterol 36 (30-70) mg/dL Free T4 (0.78-2.19) ng/dL TSH 3rd Generation 0.98 (0.46-4.68) mIU/L Venous Blood Potassium (3.6-5.2) mmol/L Urine Color (YELLOW) Urine Clarity (Clear) Urine pH (5.0-8.0) Ur Specific [place] (1.003-1.030) Urine Protein (NEGATIVE) mg/dL Urine Glucose (UA) (Normal) mg/dL Urine Ketones (NEGATIVE) mg/dL Urine Blood (NEGATIVE) Urine Nitrate (NEGATIVE) Urine Bilirubin (NEGATIVE) Urine Urobilinogen (0.2-1.0) mg/dL Ur Leukocyte Esterase (Negative) Belinda/uL Urine WBC (Auto) (0-5) /hpf Urine RBC (Auto) (0-3) /hpf Random Vancomycin ug/mL Urine Opiates Screen Negative (NEGATIVE) Urine Methadone Screen Negative (NEGATIVE) Ur Barbiturates Screen Negative (NEGATIVE) Ur Phencyclidine Scrn Negative (NEGATIVE) Ur Amphetamines Screen Negative (NEGATIVE) U Benzodiazepines Scrn Negative (NEGATIVE) U Oth Cocaine Metabols Negative (NEGATIVE) U Cannabinoids Screen Negative (NEGATIVE) Hepatitis A IgM Ab (NEGATIVE) Hep Bs Antigen (NEGATIVE) Hep B Core IgM Ab (NEGATIVE) Hepatitis C Antibody (NEGATIVE) H.influenzae Type B Ag (NEGATIVE) Ur L.pneumophila Ag (NEGATIVE) N.meningitidis ACY/W135 (NEGATIVE) N.meningi B/E.coli K1 Ag (NEGATIVE) Group B Strep Antigen (NEGATIVE) S. pneumoniae Antigen (NEGATIVE) Blood Type Antibody Screen 07/31/18 07/31/18 07/31/18 Range/Units 18:27 16:02 16:02 WBC (4.8-10.8) K/uL RBC (4.40-5.90) Mil/uL Hgb (12.0-18.0) g/dL Hct (35.0-51.0) % MCV (80.0-94.0) fL MCH (27.0-31.0) pg MCHC (33.0-37.0) g/dL RDW (11.5-14.5) % Plt Count (130-400) K/uL MPV (7.2-11.7) fL Neut % (Auto) (50.0-75.0) % Lymph % (Auto) (20.0-40.0) % Cannon % (Auto) (0.0-10.0) % Eos % (Auto) (0.0-4.0) % Baso % (Auto) (0.0-2.0) % Neut # (Auto) (1.8-7.0) K/uL Lymph # (Auto) (1.0-4.3) K/uL Cannon # (Auto) (0.0-0.8) K/uL Eos # (Auto) (0.0-0.7) K/uL Baso # (Auto) (0.0-0.2) K/uL Neutrophils % (Manual) (50-75) % Lymphocytes % (Manual) (20-40) % Monocytes % (Manual) (0-10) % Platelet Estimate (NORMAL) Anisocytosis (manual) PT 15.2 H (9.7-12.2) SECONDS INR 1.4 APTT 33 (21-34) SECONDS pO2 (30-55) mm/Hg VBG pH (7.32-7.43) VBG pCO2 (40-60) mmHg VBG HCO3 mmol/L VBG Total CO2 (22-28) mmol/L VBG O2 Sat (Calc) (40-65) % VBG Base Excess (0.0-2.0) mmol/L VBG Potassium (3.6-5.2) mmol/L Sodium (132-148) mmol/l Chloride (98-107) mmol/L Glucose (75-110) mg/dl Lactate (0.7-2.1) mmol/L FiO2 % Potassium (3.6-5.2) mmol/L Carbon Dioxide (22-30) mmol/L Anion Gap (10-20) BUN (9-20) mg/dL Creatinine (0.8-1.5) mg/dL Est GFR ( Amer) Est GFR (Non-Af Amer) POC Glucose (mg/dL) (65-110) mg/dL Random Glucose (75-110) mg/dL Hemoglobin A1c (4.2-6.5) % Calcium (8.6-10.4) mg/dl Phosphorus (2.5-4.5) mg/dL Magnesium (1.6-2.3) mg/dL Total Bilirubin (0.2-1.3) mg/dL AST (17-59) U/L ALT (21-72) U/L Alkaline Phosphatase (38-126) U/L Total Creatine Kinase (55-170) U/L CK-MB (Mass) (0.0-3.38) ng/mL Troponin I (0.00-0.120) ng/mL NT-Pro-B Natriuret Pep (0-900) pg/mL Total Protein (6.3-8.3) g/dL Albumin (3.5-5.0) g/dL Globulin (2.2-3.9) gm/dL Albumin/Globulin Ratio (1.0-2.1) Triglycerides (0-149) mg/dL Cholesterol (0-199) mg/dL LDL Cholesterol Direct (0-129) mg/dL HDL Cholesterol (30-70) mg/dL Free T4 (0.78-2.19) ng/dL TSH 3rd Generation (0.46-4.68) mIU/L Venous Blood Potassium (3.6-5.2) mmol/L Urine Color Straw (YELLOW) Urine Clarity Clear (Clear) Urine pH 6.0 (5.0-8.0) Ur Specific [place] 1.004 (1.003-1.030) Urine Protein 1+ H (NEGATIVE) mg/dL Urine Glucose (UA) Normal (Normal) mg/dL Urine Ketones Negative (NEGATIVE) mg/dL Urine Blood Trace H (NEGATIVE) Urine Nitrate Negative (NEGATIVE) Urine Bilirubin Negative (NEGATIVE) Urine Urobilinogen Normal (0.2-1.0) mg/dL Ur Leukocyte Esterase Neg (Negative) Bel[place]/uL Urine WBC (Auto) < 1 (0-5) /hpf Urine RBC (Auto) < 1 (0-3) /hpf Random Vancomycin ug/mL Urine Opiates Screen (NEGATIVE) Urine Methadone Screen (NEGATIVE) Ur Barbiturates Screen (NEGATIVE) Ur Phencyclidine Scrn (NEGATIVE) Ur Amphetamines Screen (NEGATIVE) U Benzodiazepines Scrn (NEGATIVE) U Oth Cocaine Metabols (NEGATIVE) U Cannabinoids Screen (NEGATIVE) Hepatitis A IgM Ab (NEGATIVE) Hep Bs Antigen (NEGATIVE) Hep B Core IgM Ab (NEGATIVE) Hepatitis C Antibody (NEGATIVE) H.influenzae Type B Ag (NEGATIVE) Ur L.pneumophila Ag (NEGATIVE) N.meningitidis ACY/W135 (NEGATIVE) N.meningi B/E.coli K1 Ag (NEGATIVE) Group B Strep Antigen (NEGATIVE) S. pneumoniae Antigen (NEGATIVE) Blood Type A POSITIVE Antibody Screen Negative 07/31/18 07/31/18 07/31/18 Range/Units 16:02 16:02 15:50 WBC 7.2 (4.8-10.8) K/uL RBC 4.33 L (4.40-5.90) Mil/uL Hgb 11.9 L (12.0-18.0) g/dL Hct 35.2 (35.0-51.0) % MCV 81.4 D (80.0-94.0) fL MCH 27.5 (27.0-31.0) pg MCHC 33.7 (33.0-37.0) g/dL RDW 14.9 H (11.5-14.5) % Plt Count 299 (130-400) K/uL MPV 6.9 L (7.2-11.7) fL Neut % (Auto) 75.4 H (50.0-75.0) % Lymph % (Auto) 13.1 L (20.0-40.0) % Cannon % (Auto) 8.7 (0.0-10.0) % Eos % (Auto) 2.1 (0.0-4.0) % Baso % (Auto) 0.7 (0.0-2.0) % Neut # (Auto) 5.4 (1.8-7.0) K/uL Lymph # (Auto) 0.9 L (1.0-4.3) K/uL Cannon # (Auto) 0.6 (0.0-0.8) K/uL Eos # (Auto) 0.2 (0.0-0.7) K/uL Baso # (Auto) 0.1 (0.0-0.2) K/uL Neutrophils % (Manual) (50-75) % Lymphocytes % (Manual) (20-40) % Monocytes % (Manual) (0-10) % Platelet Estimate (NORMAL) Anisocytosis (manual) PT (9.7-12.2) SECONDS INR APTT (21-34) SECONDS pO2 31 (30-55) mm/Hg VBG pH 7.39 (7.32-7.43) VBG pCO2 48 (40-60) mmHg VBG HCO3 26.5 mmol/L VBG Total CO2 30.6 H (22-28) mmol/L VBG O2 Sat (Calc) 59.4 (40-65) % VBG Base Excess 3.3 H (0.0-2.0) mmol/L VBG Potassium 3.9 (3.6-5.2) mmol/L Sodium 139 138.0 (132-148) mmol/l Chloride 98 102.0 (98-107) mmol/L Glucose 130 H (75-110) mg/dl Lactate 1.2 (0.7-2.1) mmol/L FiO2 21.0 % Potassium 4.2 (3.6-5.2) mmol/L Carbon Dioxide 30 (22-30) mmol/L Anion Gap 15 (10-20) BUN 29 H (9-20) mg/dL Creatinine 1.7 H (0.8-1.5) mg/dL Est GFR ( Amer) 51 Est GFR (Non-Af Amer) 43 POC Glucose (mg/dL) (65-110) mg/dL Random Glucose 142 H (75-110) mg/dL Hemoglobin A1c (4.2-6.5) % Calcium 8.9 (8.6-10.4) mg/dl Phosphorus (2.5-4.5) mg/dL Magnesium 1.9 (1.6-2.3) mg/dL Total Bilirubin 0.7 (0.2-1.3) mg/dL AST 18 (17-59) U/L ALT 24 (21-72) U/L Alkaline Phosphatase 127 H D (38-126) U/L Total Creatine Kinase (55-170) U/L CK-MB (Mass) (0.0-3.38) ng/mL Troponin I 0.3060 H* (0.00-0.120) ng/mL NT-Pro-B Natriuret Pep 03678 H (0-900) pg/mL Total Protein 6.5 (6.3-8.3) g/dL Albumin 3.3 L (3.5-5.0) g/dL Globulin 3.1 (2.2-3.9) gm/dL Albumin/Globulin Ratio 1.1 (1.0-2.1) Triglycerides (0-149) mg/dL Cholesterol (0-199) mg/dL LDL Cholesterol Direct (0-129) mg/dL HDL Cholesterol (30-70) mg/dL Free T4 (0.78-2.19) ng/dL TSH 3rd Generation (0.46-4.68) mIU/L Venous Blood Potassium 3.9 (3.6-5.2) mmol/L Urine Color (YELLOW) Urine Clarity (Clear) Urine pH (5.0-8.0) Ur Specific [place] (1.003-1.030) Urine Protein (NEGATIVE) mg/dL Urine Glucose (UA) (Normal) mg/dL Urine Ketones (NEGATIVE) mg/dL Urine Blood (NEGATIVE) Urine Nitrate (NEGATIVE) Urine Bilirubin (NEGATIVE) Urine Urobilinogen (0.2-1.0) mg/dL Ur Leukocyte Esterase (Negative) Belinda/uL Urine WBC (Auto) (0-5) /hpf Urine RBC (Auto) (0-3) /hpf Random Vancomycin ug/mL Urine Opiates Screen (NEGATIVE) Urine Methadone Screen (NEGATIVE) Ur Barbiturates Screen (NEGATIVE) Ur Phencyclidine Scrn (NEGATIVE) Ur Amphetamines Screen (NEGATIVE) U Benzodiazepines Scrn (NEGATIVE) U Oth Cocaine Metabols (NEGATIVE) U Cannabinoids Screen (NEGATIVE) Hepatitis A IgM Ab (NEGATIVE) Hep Bs Antigen (NEGATIVE) Hep B Core IgM Ab (NEGATIVE) Hepatitis C Antibody (NEGATIVE) H.influenzae Type B Ag (NEGATIVE) Ur L.pneumophila Ag (NEGATIVE) N.meningitidis ACY/W135 (NEGATIVE) N.meningi B/E.coli K1 Ag (NEGATIVE) Group B Strep Antigen (NEGATIVE) S. pneumoniae Antigen (NEGATIVE) Blood Type Antibody Screen Laboratory Results - last 24 hr 07/31/18 07/31/18 07/31/18 15:50 16:02 16:02 WBC 7.2 RBC 4.33 L Hgb 11.9 L Hct 35.2 MCV 81.4 D MCH 27.5 MCHC 33.7 RDW 14.9 H Plt Count 299 MPV 6.9 L Neut % (Auto) 75.4 H Lymph % (Auto) 13.1 L Cannon % (Auto) 8.7 Eos % (Auto) 2.1 Baso % (Auto) 0.7 Neut # (Auto) 5.4 Lymph # (Auto) 0.9 L Cannon # (Auto) 0.6 Eos # (Auto) 0.2 Baso # (Auto) 0.1 Neutrophils % (Manual) Lymphocytes % (Manual) Monocytes % (Manual) Platelet Estimate Anisocytosis (manual) PT INR APTT pO2 31 VBG pH 7.39 VBG pCO2 48 VBG HCO3 26.5 VBG Total CO2 30.6 H VBG O2 Sat (Calc) 59.4 VBG Base Excess 3.3 H VBG Potassium 3.9 Sodium 138.0 139 Chloride 102.0 98 Glucose 130 H Lactate 1.2 FiO2 21.0 Potassium 4.2 Carbon Dioxide 30 Anion Gap 15 BUN 29 H Creatinine 1.7 H Est GFR ( Amer) 51 Est GFR (Non-Af Amer) 43 POC Glucose (mg/dL) Random Glucose 142 H Hemoglobin A1c Calcium 8.9 Phosphorus Magnesium 1.9 Total Bilirubin 0.7 AST 18 ALT 24 Alkaline Phosphatase 127 H D Total Creatine Kinase CK-MB (Mass) Troponin I 0.3060 H* NT-Pro-B Natriuret Pep 93049 H Total Protein 6.5 Albumin 3.3 L Globulin 3.1 Albumin/Globulin Ratio 1.1 Triglycerides Cholesterol LDL Cholesterol Direct HDL Cholesterol Free T4 TSH 3rd Generation Venous Blood Potassium 3.9 Urine Color Urine Clarity Urine pH Ur Specific [place] Urine Protein Urine Glucose (UA) Urine Ketones Urine Blood Urine Nitrate Urine Bilirubin Urine Urobilinogen Ur Leukocyte Esterase Urine WBC (Auto) Urine RBC (Auto) Random Vancomycin Urine Opiates Screen Urine Methadone Screen Ur Barbiturates Screen Ur Phencyclidine Scrn Ur Amphetamines Screen U Benzodiazepines Scrn U Oth Cocaine Metabols U Cannabinoids Screen Hepatitis A IgM Ab Hep Bs Antigen Hep B Core IgM Ab Hepatitis C Antibody H.influenzae Type B Ag Ur L.pneumophila Ag N.meningitidis ACY/W135 N.meningi B/E.coli K1 Ag Group B Strep Antigen S. pneumoniae Antigen Blood Type Antibody Screen 07/31/18 07/31/18 07/31/18 16:02 16:02 18:27 WBC RBC Hgb Hct MCV MCH MCHC RDW Plt Count MPV Neut % (Auto) Lymph % (Auto) Cannon % (Auto) Eos % (Auto) Baso % (Auto) Neut # (Auto) Lymph # (Auto) Cannon # (Auto) Eos # (Auto) Baso # (Auto) Neutrophils % (Manual) Lymphocytes % (Manual) Monocytes % (Manual) Platelet Estimate Anisocytosis (manual) PT 15.2 H INR 1.4 APTT 33 pO2 VBG pH VBG pCO2 VBG HCO3 VBG Total CO2 VBG O2 Sat (Calc) VBG Base Excess VBG Potassium Sodium Chloride Glucose Lactate FiO2 Potassium Carbon Dioxide Anion Gap BUN Creatinine Est GFR ( Amer) Est GFR (Non-Af Amer) POC Glucose (mg/dL) Random Glucose Hemoglobin A1c Calcium Phosphorus Magnesium Total Bilirubin AST ALT Alkaline Phosphatase Total Creatine Kinase CK-MB (Mass) Troponin I NT-Pro-B Natriuret Pep Total Protein Albumin Globulin Albumin/Globulin Ratio Triglycerides Cholesterol LDL Cholesterol Direct HDL Cholesterol Free T4 TSH 3rd Generation Venous Blood Potassium Urine Color Straw Urine Clarity Clear Urine pH 6.0 Ur Specific [place] 1.004 Urine Protein 1+ H Urine Glucose (UA) Normal Urine Ketones Negative Urine Blood Trace H Urine Nitrate Negative Urine Bilirubin Negative Urine Urobilinogen Normal Ur Leukocyte Esterase Neg Urine WBC (Auto) < 1 Urine RBC (Auto) < 1 Random Vancomycin Urine Opiates Screen Urine Methadone Screen Ur Barbiturates Screen Ur Phencyclidine Scrn Ur Amphetamines Screen U Benzodiazepines Scrn U Oth Cocaine Metabols U Cannabinoids Screen Hepatitis A IgM Ab Hep Bs Antigen Hep B Core IgM Ab Hepatitis C Antibody H.influenzae Type B Ag Ur L.pneumophila Ag N.meningitidis ACY/W135 N.meningi B/E.coli K1 Ag Group B Strep Antigen S. pneumoniae Antigen Blood Type A POSITIVE Antibody Screen Negative 07/31/18 07/31/18 07/31/18 18:27 18:46 18:46 WBC RBC Hgb Hct MCV MCH MCHC RDW Plt Count MPV Neut % (Auto) Lymph % (Auto) Cannon % (Auto) Eos % (Auto) Baso % (Auto) Neut # (Auto) Lymph # (Auto) Cannon # (Auto) Eos # (Auto) Baso # (Auto) Neutrophils % (Manual) Lymphocytes % (Manual) Monocytes % (Manual) Platelet Estimate Anisocytosis (manual) PT INR APTT pO2 VBG pH VBG pCO2 VBG HCO3 VBG Total CO2 VBG O2 Sat (Calc) VBG Base Excess VBG Potassium Sodium Chloride Glucose Lactate FiO2 Potassium Carbon Dioxide Anion Gap BUN Creatinine Est GFR ( Amer) Est GFR (Non-Af Amer) POC Glucose (mg/dL) Random Glucose Hemoglobin A1c 7.9 H Calcium Phosphorus Magnesium Total Bilirubin AST ALT Alkaline Phosphatase Total Creatine Kinase CK-MB (Mass) Troponin I NT-Pro-B Natriuret Pep Total Protein Albumin Globulin Albumin/Globulin Ratio Triglycerides 127 D Cholesterol 170 LDL Cholesterol Direct 110 HDL Cholesterol 36 Free T4 TSH 3rd Generation 0.98 Venous Blood Potassium Urine Color Urine Clarity Urine pH Ur Specific [place] Urine Protein Urine Glucose (UA) Urine Ketones Urine Blood Urine Nitrate Urine Bilirubin Urine Urobilinogen Ur Leukocyte Esterase Urine WBC (Auto) Urine RBC (Auto) Random Vancomycin Urine Opiates Screen Negative Urine Methadone Screen Negative Ur Barbiturates Screen Negative Ur Phencyclidine Scrn Negative Ur Amphetamines Screen Negative U Benzodiazepines Scrn Negative U Oth Cocaine Metabols Negative U Cannabinoids Screen Negative Hepatitis A IgM Ab Hep Bs Antigen Hep B Core IgM Ab Hepatitis C Antibody H.influenzae Type B Ag Ur L.pneumophila Ag N.meningitidis ACY/W135 N.meningi B/E.coli K1 Ag Group B Strep Antigen S. pneumoniae Antigen Blood Type Antibody Screen 07/31/18 07/31/18 08/01/18 18:46 20:48 02:07 WBC RBC Hgb Hct MCV MCH MCHC RDW Plt Count MPV Neut % (Auto) Lymph % (Auto) Cannon % (Auto) Eos % (Auto) Baso % (Auto) Neut # (Auto) Lymph # (Auto) Cannon # (Auto) Eos # (Auto) Baso # (Auto) Neutrophils % (Manual) Lymphocytes % (Manual) Monocytes % (Manual) Platelet Estimate Anisocytosis (manual) PT INR APTT pO2 VBG pH VBG pCO2 VBG HCO3 VBG Total CO2 VBG O2 Sat (Calc) VBG Base Excess VBG Potassium Sodium Chloride Glucose Lactate FiO2 Potassium Carbon Dioxide Anion Gap BUN Creatinine Est GFR ( Amer) Est GFR (Non-Af Amer) POC Glucose (mg/dL) 187 H Random Glucose Hemoglobin A1c Calcium Phosphorus Magnesium Total Bilirubin AST ALT Alkaline Phosphatase Total Creatine Kinase CK-MB (Mass) Troponin I NT-Pro-B Natriuret Pep Total Protein Albumin Globulin Albumin/Globulin Ratio Triglycerides Cholesterol LDL Cholesterol Direct HDL Cholesterol Free T4 1.55 TSH 3rd Generation Venous Blood Potassium Urine Color Urine Clarity Urine pH Ur Specific [place] Urine Protein Urine Glucose (UA) Urine Ketones Urine Blood Urine Nitrate Urine Bilirubin Urine Urobilinogen Ur Leukocyte Esterase Urine WBC (Auto) Urine RBC (Auto) Random Vancomycin 8.1 Urine Opiates Screen Urine Methadone Screen Ur Barbiturates Screen Ur Phencyclidine Scrn Ur Amphetamines Screen U Benzodiazepines Scrn U Oth Cocaine Metabols U Cannabinoids Screen Hepatitis A IgM Ab Hep Bs Antigen Hep B Core IgM Ab Hepatitis C Antibody H.influenzae Type B Ag Ur L.pneumophila Ag N.meningitidis ACY/W135 N.meningi B/E.coli K1 Ag Group B Strep Antigen S. pneumoniae Antigen Blood Type Antibody Screen 08/01/18 08/01/18 08/01/18 02:07 02:07 02:07 WBC 5.2 RBC 4.32 L Hgb 11.5 L Hct 35.7 MCV 82.6 MCH 26.7 L MCHC 32.3 L RDW 14.8 H Plt Count 286 MPV 7.5 Neut % (Auto) 93.9 H Lymph % (Auto) 4.5 L Cannon % (Auto) 0.8 Eos % (Auto) 0.1 Baso % (Auto) 0.7 Neut # (Auto) 4.9 Lymph # (Auto) 0.2 L Cannon # (Auto) 0.0 Eos # (Auto) 0.0 Baso # (Auto) 0.0 Neutrophils % (Manual) 92 H Lymphocytes % (Manual) 6 L Monocytes % (Manual) 2 Platelet Estimate Normal Anisocytosis (manual) Slight PT INR APTT pO2 VBG pH VBG pCO2 VBG HCO3 VBG Total CO2 VBG O2 Sat (Calc) VBG Base Excess VBG Potassium Sodium 139 Chloride 102 Glucose Lactate FiO2 Potassium 4.6 Carbon Dioxide 26 Anion Gap 16 BUN 33 H Creatinine 1.6 H Est GFR ( Amer) 55 Est GFR (Non-Af Amer) 46 POC Glucose (mg/dL) Random Glucose 265 H Hemoglobin A1c Calcium 8.8 Phosphorus 4.2 Magnesium 1.9 Total Bilirubin 0.4 AST 21 ALT 22 Alkaline Phosphatase 113 Total Creatine Kinase 202 H CK-MB (Mass) 2.14 Troponin I 0.3470 H* NT-Pro-B Natriuret Pep Total Protein 6.6 Albumin 3.4 L Globulin 3.2 Albumin/Globulin Ratio 1.1 Triglycerides Cholesterol LDL Cholesterol Direct HDL Cholesterol Free T4 TSH 3rd Generation Venous Blood Potassium Urine Color Urine Clarity Urine pH Ur Specific [place] Urine Protein Urine Glucose (UA) Urine Ketones Urine Blood Urine Nitrate Urine Bilirubin Urine Urobilinogen Ur Leukocyte Esterase Urine WBC (Auto) Urine RBC (Auto) Random Vancomycin Urine Opiates Screen Urine Methadone Screen Ur Barbiturates Screen Ur Phencyclidine Scrn Ur Amphetamines Screen U Benzodiazepines Scrn U Oth Cocaine Metabols U Cannabinoids Screen Hepatitis A IgM Ab Negative Hep Bs Antigen Negative Hep B Core IgM Ab Negative Hepatitis C Antibody Negative H.influenzae Type B Ag Ur L.pneumophila Ag N.meningitidis ACY/W135 N.meningi B/E.coli K1 Ag Group B Strep Antigen S. pneumoniae Antigen Blood Type Antibody Screen 08/01/18 08/01/18 08/01/18 02:07 07:29 08:19 WBC RBC Hgb Hct MCV MCH MCHC RDW Plt Count MPV Neut % (Auto) Lymph % (Auto) Cannon % (Auto) Eos % (Auto) Baso % (Auto) Neut # (Auto) Lymph # (Auto) Cannon # (Auto) Eos # (Auto) Baso # (Auto) Neutrophils % (Manual) Lymphocytes % (Manual) Monocytes % (Manual) Platelet Estimate Anisocytosis (manual) PT 15.8 H INR 1.4 APTT 75 H D 60 H D pO2 VBG pH VBG pCO2 VBG HCO3 VBG Total CO2 VBG O2 Sat (Calc) VBG Base Excess VBG Potassium Sodium Chloride Glucose Lactate FiO2 Potassium Carbon Dioxide Anion Gap BUN Creatinine Est GFR ( Amer) Est GFR (Non-Af Amer) POC Glucose (mg/dL) 226 H Random Glucose Hemoglobin A1c Calcium Phosphorus Magnesium Total Bilirubin AST ALT Alkaline Phosphatase Total Creatine Kinase CK-MB (Mass) Troponin I NT-Pro-B Natriuret Pep Total Protein Albumin Globulin Albumin/Globulin Ratio Triglycerides Cholesterol LDL Cholesterol Direct HDL Cholesterol Free T4 TSH 3rd Generation Venous Blood Potassium Urine Color Urine Clarity Urine pH Ur Specific [place] Urine Protein Urine Glucose (UA) Urine Ketones Urine Blood Urine Nitrate Urine Bilirubin Urine Urobilinogen Ur Leukocyte Esterase Urine WBC (Auto) Urine RBC (Auto) Random Vancomycin Urine Opiates Screen Urine Methadone Screen Ur Barbiturates Screen Ur Phencyclidine Scrn Ur Amphetamines Screen U Benzodiazepines Scrn U Oth Cocaine Metabols U Cannabinoids Screen Hepatitis A IgM Ab Hep Bs Antigen Hep B Core IgM Ab Hepatitis C Antibody H.influenzae Type B Ag Ur L.pneumophila Ag N.meningitidis ACY/W135 N.meningi B/E.coli K1 Ag Group B Strep Antigen S. pneumoniae Antigen Blood Type Antibody Screen 08/01/18 08/01/18 08/01/18 08:19 11:14 11:16 WBC RBC Hgb Hct MCV MCH MCHC RDW Plt Count MPV Neut % (Auto) Lymph % (Auto) Cannon % (Auto) Eos % (Auto) Baso % (Auto) Neut # (Auto) Lymph # (Auto) Cannon # (Auto) Eos # (Auto) Baso # (Auto) Neutrophils % (Manual) Lymphocytes % (Manual) Monocytes % (Manual) Platelet Estimate Anisocytosis (manual) PT INR APTT pO2 VBG pH VBG pCO2 VBG HCO3 VBG Total CO2 VBG O2 Sat (Calc) VBG Base Excess VBG Potassium Sodium Chloride Glucose Lactate FiO2 Potassium Carbon Dioxide Anion Gap BUN Creatinine Est GFR ( Amer) Est GFR (Non-Af Amer) POC Glucose (mg/dL) 269 H Random Glucose Hemoglobin A1c Calcium Phosphorus Magnesium Total Bilirubin AST ALT Alkaline Phosphatase Total Creatine Kinase 214 H CK-MB (Mass) 1.98 Troponin I 0.3690 H* NT-Pro-B Natriuret Pep Total Protein Albumin Globulin Albumin/Globulin Ratio Triglycerides Cholesterol LDL Cholesterol Direct HDL Cholesterol Free T4 TSH 3rd Generation Venous Blood Potassium Urine Color Urine Clarity Urine pH Ur Specific [place] Urine Protein Urine Glucose (UA) Urine Ketones Urine Blood Urine Nitrate Urine Bilirubin Urine Urobilinogen Ur Leukocyte Esterase Urine WBC (Auto) Urine RBC (Auto) Random Vancomycin Urine Opiates Screen Urine Methadone Screen Ur Barbiturates Screen Ur Phencyclidine Scrn Ur Amphetamines Screen U Benzodiazepines Scrn U Oth Cocaine Metabols U Cannabinoids Screen Hepatitis A IgM Ab Hep Bs Antigen Hep B Core IgM Ab Hepatitis C Antibody H.influenzae Type B Ag Negative Ur L.pneumophila Ag Negative N.meningitidis ACY/W135 Negative N.meningi B/E.coli K1 Ag Negative Group B Strep Antigen Negative S. pneumoniae Antigen Negative Blood Type Antibody Screen EKG/Cardiology Studies: Cardiology / EKG Studies 07/31/18 14:40 ELECTROCARDIOGRAM Stat Comment: Mode Of Transportation: BED Reason For Exam: SOB 07/31/18 14:58 ELECTROCARDIOGRAM Stat Comment: Mode Of Transportation: BED Reason For Exam: SOB 07/31/18 17:04 ELECTROCARDIOGRAM Stat Comment: Mode Of Transportation: BED Reason For Exam: repeat 07/31/18 18:50 EKG [ELECTROCARDIOGRAM] Q8H Comment: Mode Of Transportation: Reason For Exam: rapid atrial fibrillation, NSTEMI 08/01/18 02:50 EKG [ELECTROCARDIOGRAM] Q8H Comment: Mode Of Transportation: Reason For Exam: rapid atrial fibrillation, NSTEMI Critical Care Progress Note - Nutrition Nutrition: Nutrition Category Date Time Status Consistent Carbohydrate [DIET] Diets 07/31/18 Dinner Active Attending/Attestation - Attestation I have personally seen and examined this patient.: Yes I have fully participated in the care of the patient.: Yes I have reviewed all pertinent clinical information: Yes Notes (Text): 08/01/18 15:28 I have seen and examined the patient. Medical records, lab studies, and imaging were reviewed by me and a management plan was formulated on multidisciplinary rounds with resident Dr. Christiansen. I agree with their documented assessment and plan. Patient most likely has worsening systolic HF, echo pending. Started on metoprolol for rate control of afib, lisinopril and spironolactone for CHF. Clinically stable for downgrade to telemetry. Critical Care Time 35 minutes. Multi-disciplinary rounds were performed with house staff, nursing, speech therapy, respiratory therapy, pharmacy and nutrition with integrated input from the primary team/attending and other consulting services. The documented time is cumulative and includes review of patient data/exams/labs/chart review and examination of the patient on rounds and throughout the day; time is exclusive of any procedures or teaching time. <Jose Luis Christiansen - Last Filed: 08/01/18 16:04> CCU Subjective - Physician Review Subjective (Free Text): Critical care progress note: Pt seen and examined at bedside. No acute events overnight. Patient still complains of some sob, worse when lying flat. No chest pain. No other complaints. 12 Point ROS performed and neg other than stated above. CCU Objective - Vital Signs / Intake & Output Vital Signs (Last 4 hours): Vital Signs Pulse Resp BP 08/01/18 12:20 97 H 22 08/01/18 12:10 104 H 24 08/01/18 12:02 102 H 25 H 113/76 08/01/18 12:00 102 H 27 H 08/01/18 11:50 95 H 14 08/01/18 11:30 96 H 29 H 08/01/18 11:10 96 H 22 08/01/18 10:58 101 H 22 116/78 08/01/18 10:42 124/84 08/01/18 10:41 124/84 08/01/18 10:00 106 H 21 08/01/18 09:57 106 H 21 124/84 08/01/18 09:50 99 H 25 H 08/01/18 09:40 109 H 17 08/01/18 09:30 100 H 18 08/01/18 09:10 96 H 21 Intake and Output (Last 8hrs): Intake & Output 07/31/18 08/01/18 08/01/18 22:59 06:59 14:59 Intake Total 284.1 556.5 Output Total 1900 100 Balance -1900 284.1 456.5 Weight 300 lb 7.841 oz Intake: IV 290 Intake, IV Amount 284.1 116.5 Left Antecubital 114.1 81.5 Right Antecubital 70 35 Right Forearm 100 Oral 150 Output: Urine 1900 100 Urine, Voided 100 Other: # Voids Urine, Voided 3 - Physical Exam Head: Positive for: Atraumatic, Normocephalic Pupils: Positive for: PERRL Extroacular Muscles: Positive for: EOMI Mouth: Positive for: Moist Mucous Membranes Neck: Positive for: Normal Range of Motion Respiratory/Chest: Positive for: Clear to Auscultation, Good Air Exchange. Negative for: Respiratory Distress, Wheezes, Rales Cardiovascular: Positive for: Normal S1, S2, Irregular Rhythm, Tachycardic. Negative for: Murmurs Abdomen: Positive for: Normal Bowel Sounds. Negative for: Tenderness, Distention Upper Extremity: Positive for: Normal Inspection. Negative for: Cyanosis, Edema Lower Extremity: Positive for: Edema, Erythema. Negative for: CALF TENDERNESS Neurological: Positive for: CN II-XII Intact Skin: Positive for: Warm, Dry Psychiatric: Positive for: Alert, Oriented x 3 - Medications Active Medications: Active Medications Generic Name Dose Route Start Last Admin Trade Name Freq PRN Reason Stop Dose Admin Albuterol/Ipratropium 3 ml 07/31/18 20:00 08/01/18 08:00 Duoneb 3 Mg/0.5 Mg (3 Ml) Ud INH 3 ml RQ4 DANIE Administration Clopidogrel Bisulfate 75 mg 08/01/18 10:00 08/01/18 09:26 Plavix PO 75 mg DAILY DANIE Administration Dextrose 0 ml 07/31/18 18:03 Dextrose 50% Inj IV STAT PRN Hypoglycemia Protocol Protocol Dextrose 0 gm 07/31/18 18:03 Glutose 15 PO ONCE PRN Hypoglycemia Protocol Protocol Famotidine 20 mg 08/01/18 10:00 08/01/18 09:26 Pepcid PO 20 mg DAILY DANIE Administration Furosemide 40 mg 08/01/18 11:00 08/01/18 10:41 Lasix PO 40 mg BID DANIE Administration Glucagon 0 mg 07/31/18 18:03 Glucagen Diagnostic Kit IM STAT PRN Hypoglycemia Protocol Protocol Dextrose 1,000 mls @ 0 mls/hr 07/31/18 18:03 Dextrose 5% In Water 1000 Ml IV .Q0M PRN Hypoglycemia Protocol Protocol Per Protocol Clindamycin Phosphate 300 mg/ 52 mls @ 104 mls/hr 07/31/18 21:00 08/01/18 09: 52 Sodium Chloride IVPB 104 mls/hr Q6H DANIE Administration Protocol Diltiazem HCl 125 mg/ Sodium 125 mls @ 5 mls/hr 07/31/18 20:45 08/01/18 09:00 Chloride IV 5 mg/hr .Q24H PRN 5 mls/hr Protocol Titration 5 MG/HR Heparin Sodium/Sodium Chloride 25,000 units in 250 mls @ 16.356 mls/hr 04:16 08/01/18 11:48 Heparin 18665 Units/250ml 1/2 Normal Saline IV 12 units/kg/hr .[id number] PRN 16.356 mls/hr PROTOCOL Administration Protocol 12 UNITS/KG/HR Insulin Human Regular 0 unit 07/31/18 22:00 08/01/18 11:51 Novolin R SC 4 units ACHS DANIE Administration Protocol Lisinopril 2.5 mg 08/01/18 16:00 Zestril PO DAILY DANIE Methylprednisolone 40 mg 07/31/18 22:00 08/01/18 09:27 Solu-Medrol IVP 40 mg Q12 DANIE Administration Metoprolol Tartrate 25 mg 08/01/18 10:30 08/01/18 10:42 Lopressor PO 25 mg BID DANIE Administration Nicotine 1 patch 08/01/18 10:00 08/01/18 10:36 Nicoderm Cq TD Not Given DAILY DANIE Rosuvastatin Calcium 5 mg 07/31/18 22:00 07/31/18 21:22 Crestor PO 5 mg HS DANIE Administration Saccharomyces Boulardii 250 mg 07/31/18 22:00 08/01/18 09:27 Florastor PO 250 mg Q12 DANIE Administration Spironolactone 12.5 mg 08/01/18 10:30 08/01/18 10:59 Aldactone PO 12.5 mg DAILY DANIE Administration - Patient Studies Lab Studies: Microbiology Studies 07/31/18 18:29 Gram Stain - Final Leg - Left Lab Studies 08/01/18 08/01/18 08/01/18 Range/Units 11:14 08:19 08:19 WBC (4.8-10.8) K/uL RBC (4.40-5.90) Mil/uL Hgb (12.0-18.0) g/dL Hct (35.0-51.0) % MCV (80.0-94.0) fL MCH (27.0-31.0) pg MCHC (33.0-37.0) g/dL RDW (11.5-14.5) % Plt Count (130-400) K/uL MPV (7.2-11.7) fL Neut % (Auto) (50.0-75.0) % Lymph % (Auto) (20.0-40.0) % Cannon % (Auto) (0.0-10.0) % Eos % (Auto) (0.0-4.0) % Baso % (Auto) (0.0-2.0) % Neut # (Auto) (1.8-7.0) K/uL Lymph # (Auto) (1.0-4.3) K/uL Cannon # (Auto) (0.0-0.8) K/uL Eos # (Auto) (0.0-0.7) K/uL Baso # (Auto) (0.0-0.2) K/uL Neutrophils % (Manual) (50-75) % Lymphocytes % (Manual) (20-40) % Monocytes % (Manual) (0-10) % Platelet Estimate (NORMAL) Anisocytosis (manual) PT (9.7-12.2) SECONDS INR APTT 60 H D (21-34) SECONDS pO2 (30-55) mm/Hg VBG pH (7.32-7.43) VBG pCO2 (40-60) mmHg VBG HCO3 mmol/L VBG Total CO2 (22-28) mmol/L VBG O2 Sat (Calc) (40-65) % VBG Base Excess (0.0-2.0) mmol/L VBG Potassium (3.6-5.2) mmol/L Sodium (132-148) mmol/l Chloride (98-107) mmol/L Glucose (75-110) mg/dl Lactate (0.7-2.1) mmol/L FiO2 % Potassium (3.6-5.2) mmol/L Carbon Dioxide (22-30) mmol/L Anion Gap (10-20) BUN (9-20) mg/dL Creatinine (0.8-1.5) mg/dL Est GFR ( Amer) Est GFR (Non-Af Amer) POC Glucose (mg/dL) (65-110) mg/dL Random Glucose (75-110) mg/dL Hemoglobin A1c (4.2-6.5) % Calcium (8.6-10.4) mg/dl Phosphorus (2.5-4.5) mg/dL Magnesium (1.6-2.3) mg/dL Total Bilirubin (0.2-1.3) mg/dL AST (17-59) U/L ALT (21-72) U/L Alkaline Phosphatase (38-126) U/L Total Creatine Kinase 214 H (55-170) U/L CK-MB (Mass) 1.98 (0.0-3.38) ng/mL Troponin I 0.3690 H* (0.00-0.120) ng/mL NT-Pro-B Natriuret Pep (0-900) pg/mL Total Protein (6.3-8.3) g/dL Albumin (3.5-5.0) g/dL Globulin (2.2-3.9) gm/dL Albumin/Globulin Ratio (1.0-2.1) Triglycerides (0-149) mg/dL Cholesterol (0-199) mg/dL LDL Cholesterol Direct (0-129) mg/dL HDL Cholesterol (30-70) mg/dL Free T4 (0.78-2.19) ng/dL TSH 3rd Generation (0.46-4.68) mIU/L Venous Blood Potassium (3.6-5.2) mmol/L Urine Color (YELLOW) Urine Clarity (Clear) Urine pH (5.0-8.0) Ur Specific [place] (1.003-1.030) Urine Protein (NEGATIVE) mg/dL Urine Glucose (UA) (Normal) mg/dL Urine Ketones (NEGATIVE) mg/dL Urine Blood (NEGATIVE) Urine Nitrate (NEGATIVE) Urine Bilirubin (NEGATIVE) Urine Urobilinogen (0.2-1.0) mg/dL Ur Leukocyte Esterase (Negative) Belinda/uL Urine WBC (Auto) (0-5) /hpf Urine RBC (Auto) (0-3) /hpf Random Vancomycin ug/mL Urine Opiates Screen (NEGATIVE) Urine Methadone Screen (NEGATIVE) Ur Barbiturates Screen (NEGATIVE) Ur Phencyclidine Scrn (NEGATIVE) Ur Amphetamines Screen (NEGATIVE) U Benzodiazepines Scrn (NEGATIVE) U Oth Cocaine Metabols (NEGATIVE) U Cannabinoids Screen (NEGATIVE) Hepatitis A IgM Ab (NEGATIVE) Hep Bs Antigen (NEGATIVE) Hep B Core IgM Ab (NEGATIVE) Hepatitis C Antibody (NEGATIVE) Ur L.pneumophila Ag Negative (NEGATIVE) Blood Type Antibody Screen 08/01/18 08/01/18 08/01/18 Range/Units 02:07 02:07 02:07 WBC 5.2 (4.8-10.8) K/uL RBC 4.32 L (4.40-5.90) Mil/uL Hgb 11.5 L (12.0-18.0) g/dL Hct 35.7 (35.0-51.0) % MCV 82.6 (80.0-94.0) fL MCH 26.7 L (27.0-31.0) pg MCHC 32.3 L (33.0-37.0) g/dL RDW 14.8 H (11.5-14.5) % Plt Count 286 (130-400) K/uL MPV 7.5 (7.2-11.7) fL Neut % (Auto) 93.9 H (50.0-75.0) % Lymph % (Auto) 4.5 L (20.0-40.0) % Cannon % (Auto) 0.8 (0.0-10.0) % Eos % (Auto) 0.1 (0.0-4.0) % Baso % (Auto) 0.7 (0.0-2.0) % Neut # (Auto) 4.9 (1.8-7.0) K/uL Lymph # (Auto) 0.2 L (1.0-4.3) K/uL Cannon # (Auto) 0.0 (0.0-0.8) K/uL Eos # (Auto) 0.0 (0.0-0.7) K/uL Baso # (Auto) 0.0 (0.0-0.2) K/uL Neutrophils % (Manual) 92 H (50-75) % Lymphocytes % (Manual) 6 L (20-40) % Monocytes % (Manual) 2 (0-10) % Platelet Estimate Normal (NORMAL) Anisocytosis (manual) Slight PT 15.8 H (9.7-12.2) SECONDS INR 1.4 APTT 75 H D (21-34) SECONDS pO2 (30-55) mm/Hg VBG pH (7.32-7.43) VBG pCO2 (40-60) mmHg VBG HCO3 mmol/L VBG Total CO2 (22-28) mmol/L VBG O2 Sat (Calc) (40-65) % VBG Base Excess (0.0-2.0) mmol/L VBG Potassium (3.6-5.2) mmol/L Sodium 139 (132-148) mmol/l Chloride 102 (98-107) mmol/L Glucose (75-110) mg/dl Lactate (0.7-2.1) mmol/L FiO2 % Potassium 4.6 (3.6-5.2) mmol/L Carbon Dioxide 26 (22-30) mmol/L Anion Gap 16 (10-20) BUN 33 H (9-20) mg/dL Creatinine 1.6 H (0.8-1.5) mg/dL Est GFR ( Amer) 55 Est GFR (Non-Af Amer) 46 POC Glucose (mg/dL) (65-110) mg/dL Random Glucose 265 H (75-110) mg/dL Hemoglobin A1c (4.2-6.5) % Calcium 8.8 (8.6-10.4) mg/dl Phosphorus 4.2 (2.5-4.5) mg/dL Magnesium 1.9 (1.6-2.3) mg/dL Total Bilirubin 0.4 (0.2-1.3) mg/dL AST 21 (17-59) U/L ALT 22 (21-72) U/L Alkaline Phosphatase 113 (38-126) U/L Total Creatine Kinase 202 H (55-170) U/L CK-MB (Mass) 2.14 (0.0-3.38) ng/mL Troponin I 0.3470 H* (0.00-0.120) ng/mL NT-Pro-B Natriuret Pep (0-900) pg/mL Total Protein 6.6 (6.3-8.3) g/dL Albumin 3.4 L (3.5-5.0) g/dL Globulin 3.2 (2.2-3.9) gm/dL Albumin/Globulin Ratio 1.1 (1.0-2.1) Triglycerides (0-149) mg/dL Cholesterol (0-199) mg/dL LDL Cholesterol Direct (0-129) mg/dL HDL Cholesterol (30-70) mg/dL Free T4 (0.78-2.19) ng/dL TSH 3rd Generation (0.46-4.68) mIU/L Venous Blood Potassium (3.6-5.2) mmol/L Urine Color (YELLOW) Urine Clarity (Clear) Urine pH (5.0-8.0) Ur Specific [place] (1.003-1.030) Urine Protein (NEGATIVE) mg/dL Urine Glucose (UA) (Normal) mg/dL Urine Ketones (NEGATIVE) mg/dL Urine Blood (NEGATIVE) Urine Nitrate (NEGATIVE) Urine Bilirubin (NEGATIVE) Urine Urobilinogen (0.2-1.0) mg/dL Ur Leukocyte Esterase (Negative) Belinda/uL Urine WBC (Auto) (0-5) /hpf Urine RBC (Auto) (0-3) /hpf Random Vancomycin ug/mL Urine Opiates Screen (NEGATIVE) Urine Methadone Screen (NEGATIVE) Ur Barbiturates Screen (NEGATIVE) Ur Phencyclidine Scrn (NEGATIVE) Ur Amphetamines Screen (NEGATIVE) U Benzodiazepines Scrn (NEGATIVE) U Oth Cocaine Metabols (NEGATIVE) U Cannabinoids Screen (NEGATIVE) Hepatitis A IgM Ab (NEGATIVE) Hep Bs Antigen (NEGATIVE) Hep B Core IgM Ab (NEGATIVE) Hepatitis C Antibody (NEGATIVE) Ur L.pneumophila Ag (NEGATIVE) Blood Type Antibody Screen 08/01/18 08/01/18 07/31/18 Range/Units 02:07 02:07 20:48 WBC (4.8-10.8) K/uL RBC (4.40-5.90) Mil/uL Hgb (12.0-18.0) g/dL Hct (35.0-51.0) % MCV (80.0-94.0) fL MCH (27.0-31.0) pg MCHC (33.0-37.0) g/dL RDW (11.5-14.5) % Plt Count (130-400) K/uL MPV (7.2-11.7) fL Neut % (Auto) (50.0-75.0) % Lymph % (Auto) (20.0-40.0) % Cannon % (Auto) (0.0-10.0) % Eos % (Auto) (0.0-4.0) % Baso % (Auto) (0.0-2.0) % Neut # (Auto) (1.8-7.0) K/uL Lymph # (Auto) (1.0-4.3) K/uL Cannon # (Auto) (0.0-0.8) K/uL Eos # (Auto) (0.0-0.7) K/uL Baso # (Auto) (0.0-0.2) K/uL Neutrophils % (Manual) (50-75) % Lymphocytes % (Manual) (20-40) % Monocytes % (Manual) (0-10) % Platelet Estimate (NORMAL) Anisocytosis (manual) PT (9.7-12.2) SECONDS INR APTT (21-34) SECONDS pO2 (30-55) mm/Hg VBG pH (7.32-7.43) VBG pCO2 (40-60) mmHg VBG HCO3 mmol/L VBG Total CO2 (22-28) mmol/L VBG O2 Sat (Calc) (40-65) % VBG Base Excess (0.0-2.0) mmol/L VBG Potassium (3.6-5.2) mmol/L Sodium (132-148) mmol/l Chloride (98-107) mmol/L Glucose (75-110) mg/dl Lactate (0.7-2.1) mmol/L FiO2 % Potassium (3.6-5.2) mmol/L Carbon Dioxide (22-30) mmol/L Anion Gap (10-20) BUN (9-20) mg/dL Creatinine (0.8-1.5) mg/dL Est GFR ( Amer) Est GFR (Non-Af Amer) POC Glucose (mg/dL) 187 H (65-110) mg/dL Random Glucose (75-110) mg/dL Hemoglobin A1c (4.2-6.5) % Calcium (8.6-10.4) mg/dl Phosphorus (2.5-4.5) mg/dL Magnesium (1.6-2.3) mg/dL Total Bilirubin (0.2-1.3) mg/dL AST (17-59) U/L ALT (21-72) U/L Alkaline Phosphatase (38-126) U/L Total Creatine Kinase (55-170) U/L CK-MB (Mass) (0.0-3.38) ng/mL Troponin I (0.00-0.120) ng/mL NT-Pro-B Natriuret Pep (0-900) pg/mL Total Protein (6.3-8.3) g/dL Albumin (3.5-5.0) g/dL Globulin (2.2-3.9) gm/dL Albumin/Globulin Ratio (1.0-2.1) Triglycerides (0-149) mg/dL Cholesterol (0-199) mg/dL LDL Cholesterol Direct (0-129) mg/dL HDL Cholesterol (30-70) mg/dL Free T4 (0.78-2.19) ng/dL TSH 3rd Generation (0.46-4.68) mIU/L Venous Blood Potassium (3.6-5.2) mmol/L Urine Color (YELLOW) Urine Clarity (Clear) Urine pH (5.0-8.0) Ur Specific [place] (1.003-1.030) Urine Protein (NEGATIVE) mg/dL Urine Glucose (UA) (Normal) mg/dL Urine Ketones (NEGATIVE) mg/dL Urine Blood (NEGATIVE) Urine Nitrate (NEGATIVE) Urine Bilirubin (NEGATIVE) Urine Urobilinogen (0.2-1.0) mg/dL Ur Leukocyte Esterase (Negative) Belinda/uL Urine WBC (Auto) (0-5) /hpf Urine RBC (Auto) (0-3) /hpf Random Vancomycin 8.1 ug/mL Urine Opiates Screen (NEGATIVE) Urine Methadone Screen (NEGATIVE) Ur Barbiturates Screen (NEGATIVE) Ur Phencyclidine Scrn (NEGATIVE) Ur Amphetamines Screen (NEGATIVE) U Benzodiazepines Scrn (NEGATIVE) U Oth Cocaine Metabols (NEGATIVE) U Cannabinoids Screen (NEGATIVE) Hepatitis A IgM Ab Negative (NEGATIVE) Hep Bs Antigen Negative (NEGATIVE) Hep B Core IgM Ab Negative (NEGATIVE) Hepatitis C Antibody Negative (NEGATIVE) Ur L.pneumophila Ag (NEGATIVE) Blood Type Antibody Screen 07/31/18 07/31/18 07/31/18 Range/Units 18:46 18:46 18:46 WBC (4.8-10.8) K/uL RBC (4.40-5.90) Mil/uL Hgb (12.0-18.0) g/dL Hct (35.0-51.0) % MCV (80.0-94.0) fL MCH (27.0-31.0) pg MCHC (33.0-37.0) g/dL RDW (11.5-14.5) % Plt Count (130-400) K/uL MPV (7.2-11.7) fL Neut % (Auto) (50.0-75.0) % Lymph % (Auto) (20.0-40.0) % Cannon % (Auto) (0.0-10.0) % Eos % (Auto) (0.0-4.0) % Baso % (Auto) (0.0-2.0) % Neut # (Auto) (1.8-7.0) K/uL Lymph # (Auto) (1.0-4.3) K/uL Cannon # (Auto) (0.0-0.8) K/uL Eos # (Auto) (0.0-0.7) K/uL Baso # (Auto) (0.0-0.2) K/uL Neutrophils % (Manual) (50-75) % Lymphocytes % (Manual) (20-40) % Monocytes % (Manual) (0-10) % Platelet Estimate (NORMAL) Anisocytosis (manual) PT (9.7-12.2) SECONDS INR APTT (21-34) SECONDS pO2 (30-55) mm/Hg VBG pH (7.32-7.43) VBG pCO2 (40-60) mmHg VBG HCO3 mmol/L VBG Total CO2 (22-28) mmol/L VBG O2 Sat (Calc) (40-65) % VBG Base Excess (0.0-2.0) mmol/L VBG Potassium (3.6-5.2) mmol/L Sodium (132-148) mmol/l Chloride (98-107) mmol/L Glucose (75-110) mg/dl Lactate (0.7-2.1) mmol/L FiO2 % Potassium (3.6-5.2) mmol/L Carbon Dioxide (22-30) mmol/L Anion Gap (10-20) BUN (9-20) mg/dL Creatinine (0.8-1.5) mg/dL Est GFR ( Amer) Est GFR (Non-Af Amer) POC Glucose (mg/dL) (65-110) mg/dL Random Glucose (75-110) mg/dL Hemoglobin A1c 7.9 H (4.2-6.5) % Calcium (8.6-10.4) mg/dl Phosphorus (2.5-4.5) mg/dL Magnesium (1.6-2.3) mg/dL Total Bilirubin (0.2-1.3) mg/dL AST (17-59) U/L ALT (21-72) U/L Alkaline Phosphatase (38-126) U/L Total Creatine Kinase (55-170) U/L CK-MB (Mass) (0.0-3.38) ng/mL Troponin I (0.00-0.120) ng/mL NT-Pro-B Natriuret Pep (0-900) pg/mL Total Protein (6.3-8.3) g/dL Albumin (3.5-5.0) g/dL Globulin (2.2-3.9) gm/dL Albumin/Globulin Ratio (1.0-2.1) Triglycerides 127 D (0-149) mg/dL Cholesterol 170 (0-199) mg/dL LDL Cholesterol Direct 110 (0-129) mg/dL HDL Cholesterol 36 (30-70) mg/dL Free T4 1.55 (0.78-2.19) ng/dL TSH 3rd Generation 0.98 (0.46-4.68) mIU/L Venous Blood Potassium (3.6-5.2) mmol/L Urine Color (YELLOW) Urine Clarity (Clear) Urine pH (5.0-8.0) Ur Specific [place] (1.003-1.030) Urine Protein (NEGATIVE) mg/dL Urine Glucose (UA) (Normal) mg/dL Urine Ketones (NEGATIVE) mg/dL Urine Blood (NEGATIVE) Urine Nitrate (NEGATIVE) Urine Bilirubin (NEGATIVE) Urine Urobilinogen (0.2-1.0) mg/dL Ur Leukocyte Esterase (Negative) Belinda/uL Urine WBC (Auto) (0-5) /hpf Urine RBC (Auto) (0-3) /hpf Random Vancomycin ug/mL Urine Opiates Screen (NEGATIVE) Urine Methadone Screen (NEGATIVE) Ur Barbiturates Screen (NEGATIVE) Ur Phencyclidine Scrn (NEGATIVE) Ur Amphetamines Screen (NEGATIVE) U Benzodiazepines Scrn (NEGATIVE) U Oth Cocaine Metabols (NEGATIVE) U Cannabinoids Screen (NEGATIVE) Hepatitis A IgM Ab (NEGATIVE) Hep Bs Antigen (NEGATIVE) Hep B Core IgM Ab (NEGATIVE) Hepatitis C Antibody (NEGATIVE) Ur L.pneumophila Ag (NEGATIVE) Blood Type Antibody Screen 07/31/18 07/31/18 07/31/18 Range/Units 18:27 18:27 16:02 WBC (4.8-10.8) K/uL RBC (4.40-5.90) Mil/uL Hgb (12.0-18.0) g/dL Hct (35.0-51.0) % MCV (80.0-94.0) fL MCH (27.0-31.0) pg MCHC (33.0-37.0) g/dL RDW (11.5-14.5) % Plt Count (130-400) K/uL MPV (7.2-11.7) fL Neut % (Auto) (50.0-75.0) % Lymph % (Auto) (20.0-40.0) % Cannon % (Auto) (0.0-10.0) % Eos % (Auto) (0.0-4.0) % Baso % (Auto) (0.0-2.0) % Neut # (Auto) (1.8-7.0) K/uL Lymph # (Auto) (1.0-4.3) K/uL Cannon # (Auto) (0.0-0.8) K/uL Eos # (Auto) (0.0-0.7) K/uL Baso # (Auto) (0.0-0.2) K/uL Neutrophils % (Manual) (50-75) % Lymphocytes % (Manual) (20-40) % Monocytes % (Manual) (0-10) % Platelet Estimate (NORMAL) Anisocytosis (manual) PT (9.7-12.2) SECONDS INR APTT (21-34) SECONDS pO2 (30-55) mm/Hg VBG pH (7.32-7.43) VBG pCO2 (40-60) mmHg VBG HCO3 mmol/L VBG Total CO2 (22-28) mmol/L VBG O2 Sat (Calc) (40-65) % VBG Base Excess (0.0-2.0) mmol/L VBG Potassium (3.6-5.2) mmol/L Sodium (132-148) mmol/l Chloride (98-107) mmol/L Glucose (75-110) mg/dl Lactate (0.7-2.1) mmol/L FiO2 % Potassium (3.6-5.2) mmol/L Carbon Dioxide (22-30) mmol/L Anion Gap (10-20) BUN (9-20) mg/dL Creatinine (0.8-1.5) mg/dL Est GFR ( Amer) Est GFR (Non-Af Amer) POC Glucose (mg/dL) (65-110) mg/dL Random Glucose (75-110) mg/dL Hemoglobin A1c (4.2-6.5) % Calcium (8.6-10.4) mg/dl Phosphorus (2.5-4.5) mg/dL Magnesium (1.6-2.3) mg/dL Total Bilirubin (0.2-1.3) mg/dL AST (17-59) U/L ALT (21-72) U/L Alkaline Phosphatase (38-126) U/L Total Creatine Kinase (55-170) U/L CK-MB (Mass) (0.0-3.38) ng/mL Troponin I (0.00-0.120) ng/mL NT-Pro-B Natriuret Pep (0-900) pg/mL Total Protein (6.3-8.3) g/dL Albumin (3.5-5.0) g/dL Globulin (2.2-3.9) gm/dL Albumin/Globulin Ratio (1.0-2.1) Triglycerides (0-149) mg/dL Cholesterol (0-199) mg/dL LDL Cholesterol Direct (0-129) mg/dL HDL Cholesterol (30-70) mg/dL Free T4 (0.78-2.19) ng/dL TSH 3rd Generation (0.46-4.68) mIU/L Venous Blood Potassium (3.6-5.2) mmol/L Urine Color Straw (YELLOW) Urine Clarity Clear (Clear) Urine pH 6.0 (5.0-8.0) Ur Specific [place] 1.004 (1.003-1.030) Urine Protein 1+ H (NEGATIVE) mg/dL Urine Glucose (UA) Normal (Normal) mg/dL Urine Ketones Negative (NEGATIVE) mg/dL Urine Blood Trace H (NEGATIVE) Urine Nitrate Negative (NEGATIVE) Urine Bilirubin Negative (NEGATIVE) Urine Urobilinogen Normal (0.2-1.0) mg/dL Ur Leukocyte Esterase Neg (Negative) Belinda/uL Urine WBC (Auto) < 1 (0-5) /hpf Urine RBC (Auto) < 1 (0-3) /hpf Random Vancomycin ug/mL Urine Opiates Screen Negative (NEGATIVE) Urine Methadone Screen Negative (NEGATIVE) Ur Barbiturates Screen Negative (NEGATIVE) Ur Phencyclidine Scrn Negative (NEGATIVE) Ur Amphetamines Screen Negative (NEGATIVE) U Benzodiazepines Scrn Negative (NEGATIVE) U Oth Cocaine Metabols Negative (NEGATIVE) U Cannabinoids Screen Negative (NEGATIVE) Hepatitis A IgM Ab (NEGATIVE) Hep Bs Antigen (NEGATIVE) Hep B Core IgM Ab (NEGATIVE) Hepatitis C Antibody (NEGATIVE) Ur L.pneumophila Ag (NEGATIVE) Blood Type A POSITIVE Antibody Screen Negative 07/31/18 07/31/18 07/31/18 Range/Units 16:02 16:02 16:02 WBC 7.2 (4.8-10.8) K/uL RBC 4.33 L (4.40-5.90) Mil/uL Hgb 11.9 L (12.0-18.0) g/dL Hct 35.2 (35.0-51.0) % MCV 81.4 D (80.0-94.0) fL MCH 27.5 (27.0-31.0) pg MCHC 33.7 (33.0-37.0) g/dL RDW 14.9 H (11.5-14.5) % Plt Count 299 (130-400) K/uL MPV 6.9 L (7.2-11.7) fL Neut % (Auto) 75.4 H (50.0-75.0) % Lymph % (Auto) 13.1 L (20.0-40.0) % Cannon % (Auto) 8.7 (0.0-10.0) % Eos % (Auto) 2.1 (0.0-4.0) % Baso % (Auto) 0.7 (0.0-2.0) % Neut # (Auto) 5.4 (1.8-7.0) K/uL Lymph # (Auto) 0.9 L (1.0-4.3) K/uL Cannon # (Auto) 0.6 (0.0-0.8) K/uL Eos # (Auto) 0.2 (0.0-0.7) K/uL Baso # (Auto) 0.1 (0.0-0.2) K/uL Neutrophils % (Manual) (50-75) % Lymphocytes % (Manual) (20-40) % Monocytes % (Manual) (0-10) % Platelet Estimate (NORMAL) Anisocytosis (manual) PT 15.2 H (9.7-12.2) SECONDS INR 1.4 APTT 33 (21-34) SECONDS pO2 (30-55) mm/Hg VBG pH (7.32-7.43) VBG pCO2 (40-60) mmHg VBG HCO3 mmol/L VBG Total CO2 (22-28) mmol/L VBG O2 Sat (Calc) (40-65) % VBG Base Excess (0.0-2.0) mmol/L VBG Potassium (3.6-5.2) mmol/L Sodium 139 (132-148) mmol/l Chloride 98 (98-107) mmol/L Glucose (75-110) mg/dl Lactate (0.7-2.1) mmol/L FiO2 % Potassium 4.2 (3.6-5.2) mmol/L Carbon Dioxide 30 (22-30) mmol/L Anion Gap 15 (10-20) BUN 29 H (9-20) mg/dL Creatinine 1.7 H (0.8-1.5) mg/dL Est GFR ( Amer) 51 Est GFR (Non-Af Amer) 43 POC Glucose (mg/dL) (65-110) mg/dL Random Glucose 142 H (75-110) mg/dL Hemoglobin A1c (4.2-6.5) % Calcium 8.9 (8.6-10.4) mg/dl Phosphorus (2.5-4.5) mg/dL Magnesium 1.9 (1.6-2.3) mg/dL Total Bilirubin 0.7 (0.2-1.3) mg/dL AST 18 (17-59) U/L ALT 24 (21-72) U/L Alkaline Phosphatase 127 H D (38-126) U/L Total Creatine Kinase (55-170) U/L CK-MB (Mass) (0.0-3.38) ng/mL Troponin I 0.3060 H* (0.00-0.120) ng/mL NT-Pro-B Natriuret Pep 71285 H (0-900) pg/mL Total Protein 6.5 (6.3-8.3) g/dL Albumin 3.3 L (3.5-5.0) g/dL Globulin 3.1 (2.2-3.9) gm/dL Albumin/Globulin Ratio 1.1 (1.0-2.1) Triglycerides (0-149) mg/dL Cholesterol (0-199) mg/dL LDL Cholesterol Direct (0-129) mg/dL HDL Cholesterol (30-70) mg/dL Free T4 (0.78-2.19) ng/dL TSH 3rd Generation (0.46-4.68) mIU/L Venous Blood Potassium (3.6-5.2) mmol/L Urine Color (YELLOW) Urine Clarity (Clear) Urine pH (5.0-8.0) Ur Specific [place] (1.003-1.030) Urine Protein (NEGATIVE) mg/dL Urine Glucose (UA) (Normal) mg/dL Urine Ketones (NEGATIVE) mg/dL Urine Blood (NEGATIVE) Urine Nitrate (NEGATIVE) Urine Bilirubin (NEGATIVE) Urine Urobilinogen (0.2-1.0) mg/dL Ur Leukocyte Esterase (Negative) Belinda/uL Urine WBC (Auto) (0-5) /hpf Urine RBC (Auto) (0-3) /hpf Random Vancomycin ug/mL Urine Opiates Screen (NEGATIVE) Urine Methadone Screen (NEGATIVE) Ur Barbiturates Screen (NEGATIVE) Ur Phencyclidine Scrn (NEGATIVE) Ur Amphetamines Screen (NEGATIVE) U Benzodiazepines Scrn (NEGATIVE) U Oth Cocaine Metabols (NEGATIVE) U Cannabinoids Screen (NEGATIVE) Hepatitis A IgM Ab (NEGATIVE) Hep Bs Antigen (NEGATIVE) Hep B Core IgM Ab (NEGATIVE) Hepatitis C Antibody (NEGATIVE) Ur L.pneumophila Ag (NEGATIVE) Blood Type Antibody Screen 07/31/18 Range/Units 15:50 WBC (4.8-10.8) K/uL RBC (4.40-5.90) Mil/uL Hgb (12.0-18.0) g/dL Hct (35.0-51.0) % MCV (80.0-94.0) fL MCH (27.0-31.0) pg MCHC (33.0-37.0) g/dL RDW (11.5-14.5) % Plt Count (130-400) K/uL MPV (7.2-11.7) fL Neut % (Auto) (50.0-75.0) % Lymph % (Auto) (20.0-40.0) % Cannon % (Auto) (0.0-10.0) % Eos % (Auto) (0.0-4.0) % Baso % (Auto) (0.0-2.0) % Neut # (Auto) (1.8-7.0) K/uL Lymph # (Auto) (1.0-4.3) K/uL Cannon # (Auto) (0.0-0.8) K/uL Eos # (Auto) (0.0-0.7) K/uL Baso # (Auto) (0.0-0.2) K/uL Neutrophils % (Manual) (50-75) % Lymphocytes % (Manual) (20-40) % Monocytes % (Manual) (0-10) % Platelet Estimate (NORMAL) Anisocytosis (manual) PT (9.7-12.2) SECONDS INR APTT (21-34) SECONDS pO2 31 (30-55) mm/Hg VBG pH 7.39 (7.32-7.43) VBG pCO2 48 (40-60) mmHg VBG HCO3 26.5 mmol/L VBG Total CO2 30.6 H (22-28) mmol/L VBG O2 Sat (Calc) 59.4 (40-65) % VBG Base Excess 3.3 H (0.0-2.0) mmol/L VBG Potassium 3.9 (3.6-5.2) mmol/L Sodium 138.0 (132-148) mmol/l Chloride 102.0 (98-107) mmol/L Glucose 130 H (75-110) mg/dl Lactate 1.2 (0.7-2.1) mmol/L FiO2 21.0 % Potassium (3.6-5.2) mmol/L Carbon Dioxide (22-30) mmol/L Anion Gap (10-20) BUN (9-20) mg/dL Creatinine (0.8-1.5) mg/dL Est GFR ( Amer) Est GFR (Non-Af Amer) POC Glucose (mg/dL) (65-110) mg/dL Random Glucose (75-110) mg/dL Hemoglobin A1c (4.2-6.5) % Calcium (8.6-10.4) mg/dl Phosphorus (2.5-4.5) mg/dL Magnesium (1.6-2.3) mg/dL Total Bilirubin (0.2-1.3) mg/dL AST (17-59) U/L ALT (21-72) U/L Alkaline Phosphatase (38-126) U/L Total Creatine Kinase (55-170) U/L CK-MB (Mass) (0.0-3.38) ng/mL Troponin I (0.00-0.120) ng/mL NT-Pro-B Natriuret Pep (0-900) pg/mL Total Protein (6.3-8.3) g/dL Albumin (3.5-5.0) g/dL Globulin (2.2-3.9) gm/dL Albumin/Globulin Ratio (1.0-2.1) Triglycerides (0-149) mg/dL Cholesterol (0-199) mg/dL LDL Cholesterol Direct (0-129) mg/dL HDL Cholesterol (30-70) mg/dL Free T4 (0.78-2.19) ng/dL TSH 3rd Generation (0.46-4.68) mIU/L Venous Blood Potassium 3.9 (3.6-5.2) mmol/L Urine Color (YELLOW) Urine Clarity (Clear) Urine pH (5.0-8.0) Ur Specific [place] (1.003-1.030) Urine Protein (NEGATIVE) mg/dL Urine Glucose (UA) (Normal) mg/dL Urine Ketones (NEGATIVE) mg/dL Urine Blood (NEGATIVE) Urine Nitrate (NEGATIVE) Urine Bilirubin (NEGATIVE) Urine Urobilinogen (0.2-1.0) mg/dL Ur Leukocyte Esterase (Negative) Belinda/uL Urine WBC (Auto) (0-5) /hpf Urine RBC (Auto) (0-3) /hpf Random Vancomycin ug/mL Urine Opiates Screen (NEGATIVE) Urine Methadone Screen (NEGATIVE) Ur Barbiturates Screen (NEGATIVE) Ur Phencyclidine Scrn (NEGATIVE) Ur Amphetamines Screen (NEGATIVE) U Benzodiazepines Scrn (NEGATIVE) U Oth Cocaine Metabols (NEGATIVE) U Cannabinoids Screen (NEGATIVE) Hepatitis A IgM Ab (NEGATIVE) Hep Bs Antigen (NEGATIVE) Hep B Core IgM Ab (NEGATIVE) Hepatitis C Antibody (NEGATIVE) Ur L.pneumophila Ag (NEGATIVE) Blood Type Antibody Screen Laboratory Results - last 24 hr 07/31/18 07/31/18 07/31/18 15:50 16:02 16:02 WBC 7.2 RBC 4.33 L Hgb 11.9 L Hct 35.2 MCV 81.4 D MCH 27.5 MCHC 33.7 RDW 14.9 H Plt Count 299 MPV 6.9 L Neut % (Auto) 75.4 H Lymph % (Auto) 13.1 L Cannon % (Auto) 8.7 Eos % (Auto) 2.1 Baso % (Auto) 0.7 Neut # (Auto) 5.4 Lymph # (Auto) 0.9 L Cannon # (Auto) 0.6 Eos # (Auto) 0.2 Baso # (Auto) 0.1 Neutrophils % (Manual) Lymphocytes % (Manual) Monocytes % (Manual) Platelet Estimate Anisocytosis (manual) PT INR APTT pO2 31 VBG pH 7.39 VBG pCO2 48 VBG HCO3 26.5 VBG Total CO2 30.6 H VBG O2 Sat (Calc) 59.4 VBG Base Excess 3.3 H VBG Potassium 3.9 Sodium 138.0 139 Chloride 102.0 98 Glucose 130 H Lactate 1.2 FiO2 21.0 Potassium 4.2 Carbon Dioxide 30 Anion Gap 15 BUN 29 H Creatinine 1.7 H Est GFR ( Amer) 51 Est GFR (Non-Af Amer) 43 POC Glucose (mg/dL) Random Glucose 142 H Hemoglobin A1c Calcium 8.9 Phosphorus Magnesium 1.9 Total Bilirubin 0.7 AST 18 ALT 24 Alkaline Phosphatase 127 H D Total Creatine Kinase CK-MB (Mass) Troponin I 0.3060 H* NT-Pro-B Natriuret Pep 20741 H Total Protein 6.5 Albumin 3.3 L Globulin 3.1 Albumin/Globulin Ratio 1.1 Triglycerides Cholesterol LDL Cholesterol Direct HDL Cholesterol Free T4 TSH 3rd Generation Venous Blood Potassium 3.9 Urine Color Urine Clarity Urine pH Ur Specific [place] Urine Protein Urine Glucose (UA) Urine Ketones Urine Blood Urine Nitrate Urine Bilirubin Urine Urobilinogen Ur Leukocyte Esterase Urine WBC (Auto) Urine RBC (Auto) Random Vancomycin Urine Opiates Screen Urine Methadone Screen Ur Barbiturates Screen Ur Phencyclidine Scrn Ur Amphetamines Screen U Benzodiazepines Scrn U Oth Cocaine Metabols U Cannabinoids Screen Hepatitis A IgM Ab Hep Bs Antigen Hep B Core IgM Ab Hepatitis C Antibody Ur L.pneumophila Ag Blood Type Antibody Screen 07/31/18 07/31/18 07/31/18 16:02 16:02 18:27 WBC RBC Hgb Hct MCV MCH MCHC RDW Plt Count MPV Neut % (Auto) Lymph % (Auto) Cannon % (Auto) Eos % (Auto) Baso % (Auto) Neut # (Auto) Lymph # (Auto) Cannon # (Auto) Eos # (Auto) Baso # (Auto) Neutrophils % (Manual) Lymphocytes % (Manual) Monocytes % (Manual) Platelet Estimate Anisocytosis (manual) PT 15.2 H INR 1.4 APTT 33 pO2 VBG pH VBG pCO2 VBG HCO3 VBG Total CO2 VBG O2 Sat (Calc) VBG Base Excess VBG Potassium Sodium Chloride Glucose Lactate FiO2 Potassium Carbon Dioxide Anion Gap BUN Creatinine Est GFR ( Amer) Est GFR (Non-Af Amer) POC Glucose (mg/dL) Random Glucose Hemoglobin A1c Calcium Phosphorus Magnesium Total Bilirubin AST ALT Alkaline Phosphatase Total Creatine Kinase CK-MB (Mass) Troponin I NT-Pro-B Natriuret Pep Total Protein Albumin Globulin Albumin/Globulin Ratio Triglycerides Cholesterol LDL Cholesterol Direct HDL Cholesterol Free T4 TSH 3rd Generation Venous Blood Potassium Urine Color Straw Urine Clarity Clear Urine pH 6.0 Ur Specific [place] 1.004 Urine Protein 1+ H Urine Glucose (UA) Normal Urine Ketones Negative Urine Blood Trace H Urine Nitrate Negative Urine Bilirubin Negative Urine Urobilinogen Normal Ur Leukocyte Esterase Neg Urine WBC (Auto) < 1 Urine RBC (Auto) < 1 Random Vancomycin Urine Opiates Screen Urine Methadone Screen Ur Barbiturates Screen Ur Phencyclidine Scrn Ur Amphetamines Screen U Benzodiazepines Scrn U Oth Cocaine Metabols U Cannabinoids Screen Hepatitis A IgM Ab Hep Bs Antigen Hep B Core IgM Ab Hepatitis C Antibody Ur L.pneumophila Ag Blood Type A POSITIVE Antibody Screen Negative 07/31/18 07/31/18 07/31/18 18:27 18:46 18:46 WBC RBC Hgb Hct MCV MCH MCHC RDW Plt Count MPV Neut % (Auto) Lymph % (Auto) Cannon % (Auto) Eos % (Auto) Baso % (Auto) Neut # (Auto) Lymph # (Auto) Cannon # (Auto) Eos # (Auto) Baso # (Auto) Neutrophils % (Manual) Lymphocytes % (Manual) Monocytes % (Manual) Platelet Estimate Anisocytosis (manual) PT INR APTT pO2 VBG pH VBG pCO2 VBG HCO3 VBG Total CO2 VBG O2 Sat (Calc) VBG Base Excess VBG Potassium Sodium Chloride Glucose Lactate FiO2 Potassium Carbon Dioxide Anion Gap BUN Creatinine Est GFR ( Amer) Est GFR (Non-Af Amer) POC Glucose (mg/dL) Random Glucose Hemoglobin A1c 7.9 H Calcium Phosphorus Magnesium Total Bilirubin AST ALT Alkaline Phosphatase Total Creatine Kinase CK-MB (Mass) Troponin I NT-Pro-B Natriuret Pep Total Protein Albumin Globulin Albumin/Globulin Ratio Triglycerides 127 D Cholesterol 170 LDL Cholesterol Direct 110 HDL Cholesterol 36 Free T4 TSH 3rd Generation 0.98 Venous Blood Potassium Urine Color Urine Clarity Urine pH Ur Specific [place] Urine Protein Urine Glucose (UA) Urine Ketones Urine Blood Urine Nitrate Urine Bilirubin Urine Urobilinogen Ur Leukocyte Esterase Urine WBC (Auto) Urine RBC (Auto) Random Vancomycin Urine Opiates Screen Negative Urine Methadone Screen Negative Ur Barbiturates Screen Negative Ur Phencyclidine Scrn Negative Ur Amphetamines Screen Negative U Benzodiazepines Scrn Negative U Oth Cocaine Metabols Negative U Cannabinoids Screen Negative Hepatitis A IgM Ab Hep Bs Antigen Hep B Core IgM Ab Hepatitis C Antibody Ur L.pneumophila Ag Blood Type Antibody Screen 07/31/18 07/31/18 08/01/18 18:46 20:48 02:07 WBC RBC Hgb Hct MCV MCH MCHC RDW Plt Count MPV Neut % (Auto) Lymph % (Auto) Cannon % (Auto) Eos % (Auto) Baso % (Auto) Neut # (Auto) Lymph # (Auto) Cannon # (Auto) Eos # (Auto) Baso # (Auto) Neutrophils % (Manual) Lymphocytes % (Manual) Monocytes % (Manual) Platelet Estimate Anisocytosis (manual) PT INR APTT pO2 VBG pH VBG pCO2 VBG HCO3 VBG Total CO2 VBG O2 Sat (Calc) VBG Base Excess VBG Potassium Sodium Chloride Glucose Lactate FiO2 Potassium Carbon Dioxide Anion Gap BUN Creatinine Est GFR ( Amer) Est GFR (Non-Af Amer) POC Glucose (mg/dL) 187 H Random Glucose Hemoglobin A1c Calcium Phosphorus Magnesium Total Bilirubin AST ALT Alkaline Phosphatase Total Creatine Kinase CK-MB (Mass) Troponin I NT-Pro-B Natriuret Pep Total Protein Albumin Globulin Albumin/Globulin Ratio Triglycerides Cholesterol LDL Cholesterol Direct HDL Cholesterol Free T4 1.55 TSH 3rd Generation Venous Blood Potassium Urine Color Urine Clarity Urine pH Ur Specific [place] Urine Protein Urine Glucose (UA) Urine Ketones Urine Blood Urine Nitrate Urine Bilirubin Urine Urobilinogen Ur Leukocyte Esterase Urine WBC (Auto) Urine RBC (Auto) Random Vancomycin 8.1 Urine Opiates Screen Urine Methadone Screen Ur Barbiturates Screen Ur Phencyclidine Scrn Ur Amphetamines Screen U Benzodiazepines Scrn U Oth Cocaine Metabols U Cannabinoids Screen Hepatitis A IgM Ab Hep Bs Antigen Hep B Core IgM Ab Hepatitis C Antibody Ur L.pneumophila Ag Blood Type Antibody Screen 08/01/18 08/01/18 08/01/18 02:07 02:07 02:07 WBC 5.2 RBC 4.32 L Hgb 11.5 L Hct 35.7 MCV 82.6 MCH 26.7 L MCHC 32.3 L RDW 14.8 H Plt Count 286 MPV 7.5 Neut % (Auto) 93.9 H Lymph % (Auto) 4.5 L Cannon % (Auto) 0.8 Eos % (Auto) 0.1 Baso % (Auto) 0.7 Neut # (Auto) 4.9 Lymph # (Auto) 0.2 L [place] # (Auto) 0.0 Eos # (Auto) 0.0 Baso # (Auto) 0.0 Neutrophils % (Manual) 92 H Lymphocytes % (Manual) 6 L Monocytes % (Manual) 2 Platelet Estimate Normal Anisocytosis (manual) Slight PT INR APTT pO2 VBG pH VBG pCO2 VBG HCO3 VBG Total CO2 VBG O2 Sat (Calc) VBG Base Excess VBG Potassium Sodium 139 Chloride 102 Glucose Lactate FiO2 Potassium 4.6 Carbon Dioxide 26 Anion Gap 16 BUN 33 H Creatinine 1.6 H Est GFR ( Amer) 55 Est GFR (Non-Af Amer) 46 POC Glucose (mg/dL) Random Glucose 265 H Hemoglobin A1c Calcium 8.8 Phosphorus 4.2 Magnesium 1.9 Total Bilirubin 0.4 AST 21 ALT 22 Alkaline Phosphatase 113 Total Creatine Kinase 202 H CK-MB (Mass) 2.14 Troponin I 0.3470 H* NT-Pro-B Natriuret Pep Total Protein 6.6 Albumin 3.4 L Globulin 3.2 Albumin/Globulin Ratio 1.1 Triglycerides Cholesterol LDL Cholesterol Direct HDL Cholesterol Free T4 TSH 3rd Generation Venous Blood Potassium Urine Color Urine Clarity Urine pH Ur Specific [place] Urine Protein Urine Glucose (UA) Urine Ketones Urine Blood Urine Nitrate Urine Bilirubin Urine Urobilinogen Ur Leukocyte Esterase Urine WBC (Auto) Urine RBC (Auto) Random Vancomycin Urine Opiates Screen Urine Methadone Screen Ur Barbiturates Screen Ur Phencyclidine Scrn Ur Amphetamines Screen U Benzodiazepines Scrn U Oth Cocaine Metabols U Cannabinoids Screen Hepatitis A IgM Ab Negative Hep Bs Antigen Negative Hep B Core IgM Ab Negative Hepatitis C Antibody Negative Ur L.pneumophila Ag Blood Type Antibody Screen 08/01/18 08/01/18 08/01/18 02:07 08:19 08:19 WBC RBC Hgb Hct MCV MCH MCHC RDW Plt Count MPV Neut % (Auto) Lymph % (Auto) Cannon % (Auto) Eos % (Auto) Baso % (Auto) Neut # (Auto) Lymph # (Auto) Cannon # (Auto) Eos # (Auto) Baso # (Auto) Neutrophils % (Manual) Lymphocytes % (Manual) Monocytes % (Manual) Platelet Estimate Anisocytosis (manual) PT 15.8 H INR 1.4 APTT 75 H D 60 H D pO2 VBG pH VBG pCO2 VBG HCO3 VBG Total CO2 VBG O2 Sat (Calc) VBG Base Excess VBG Potassium Sodium Chloride Glucose Lactate FiO2 Potassium Carbon Dioxide Anion Gap BUN Creatinine Est GFR ( Amer) Est GFR (Non-Af Amer) POC Glucose (mg/dL) Random Glucose Hemoglobin A1c Calcium Phosphorus Magnesium Total Bilirubin AST ALT Alkaline Phosphatase Total Creatine Kinase 214 H CK-MB (Mass) 1.98 Troponin I 0.3690 H* NT-Pro-B Natriuret Pep Total Protein Albumin Globulin Albumin/Globulin Ratio Triglycerides Cholesterol LDL Cholesterol Direct HDL Cholesterol Free T4 TSH 3rd Generation Venous Blood Potassium Urine Color Urine Clarity Urine pH Ur Specific [place] Urine Protein Urine Glucose (UA) Urine Ketones Urine Blood Urine Nitrate Urine Bilirubin Urine Urobilinogen Ur Leukocyte Esterase Urine WBC (Auto) Urine RBC (Auto) Random Vancomycin Urine Opiates Screen Urine Methadone Screen Ur Barbiturates Screen Ur Phencyclidine Scrn Ur Amphetamines Screen U Benzodiazepines Scrn U Oth Cocaine Metabols U Cannabinoids Screen Hepatitis A IgM Ab Hep Bs Antigen Hep B Core IgM Ab Hepatitis C Antibody Ur L.pneumophila Ag Blood Type Antibody Screen 08/01/18 11:14 WBC RBC Hgb Hct MCV MCH MCHC RDW Plt Count MPV Neut % (Auto) Lymph % (Auto) Cannon % (Auto) Eos % (Auto) Baso % (Auto) Neut # (Auto) Lymph # (Auto) Cannon # (Auto) Eos # (Auto) Baso # (Auto) Neutrophils % (Manual) Lymphocytes % (Manual) Monocytes % (Manual) Platelet Estimate Anisocytosis (manual) PT INR APTT pO2 VBG pH VBG pCO2 VBG HCO3 VBG Total CO2 VBG O2 Sat (Calc) VBG Base Excess VBG Potassium Sodium Chloride Glucose Lactate FiO2 Potassium Carbon Dioxide Anion Gap BUN Creatinine Est GFR ( Amer) Est GFR (Non-Af Amer) POC Glucose (mg/dL) Random Glucose Hemoglobin A1c Calcium Phosphorus Magnesium Total Bilirubin AST ALT Alkaline Phosphatase Total Creatine Kinase CK-MB (Mass) Troponin I NT-Pro-B Natriuret Pep Total Protein Albumin Globulin Albumin/Globulin Ratio Triglycerides Cholesterol LDL Cholesterol Direct HDL Cholesterol Free T4 TSH 3rd Generation Venous Blood Potassium Urine Color Urine Clarity Urine pH Ur Specific [place] Urine Protein Urine Glucose (UA) Urine Ketones Urine Blood Urine Nitrate Urine Bilirubin Urine Urobilinogen Ur Leukocyte Esterase Urine WBC (Auto) Urine RBC (Auto) Random Vancomycin Urine Opiates Screen Urine Methadone Screen Ur Barbiturates Screen Ur Phencyclidine Scrn Ur Amphetamines Screen U Benzodiazepines Scrn U Oth Cocaine Metabols U Cannabinoids Screen Hepatitis A IgM Ab Hep Bs Antigen Hep B Core IgM Ab Hepatitis C Antibody Ur L.pneumophila Ag Negative Blood Type Antibody Screen EKG/Cardiology Studies: Cardiology / EKG Studies 07/31/18 14:40 ELECTROCARDIOGRAM Stat Comment: Mode Of Transportation: BED Reason For Exam: SOB 07/31/18 14:58 ELECTROCARDIOGRAM Stat Comment: Mode Of Transportation: BED Reason For Exam: SOB 07/31/18 17:04 ELECTROCARDIOGRAM Stat Comment: Mode Of Transportation: BED Reason For Exam: repeat 07/31/18 18:50 EKG [ELECTROCARDIOGRAM] Q8H Comment: Mode Of Transportation: Reason For Exam: rapid atrial fibrillation, NSTEMI 08/01/18 02:50 EKG [ELECTROCARDIOGRAM] Q8H Comment: Mode Of Transportation: Reason For Exam: rapid atrial fibrillation, NSTEMI Fingerstick Blood Sugar Results: 269 Review of Systems - Review of Systems All systems: reviewed and no additional remarkable complaints except Critical Care Progress Note - Nutrition Nutrition: Nutrition Category Date Time Status Consistent Carbohydrate [DIET] Diets 07/31/18 Dinner Active Assessment/Plan - Assessment and Plan (Free Text) Assessment: 52 M with PMHx of HTN, T2DM, Systolic Heart Failure, COPD, Tobacco Use Disorder , Alcohol Use Disorder who presents to the ED with shortness of breath 2 weeks. Patient admitted for New Onset Atriall Fibrillation, NSTEMI, Acute on Chronic Systolic Heart Failure Exacerbation, Bilateral Lower Extremity Cellulitis, and CINDY. Neuro: - Stable - AAo x 3 Pulm: - NC as needed - maintain SPO2 > 90% - CXR inc b/l pleural effusion and inc atalectasis, possible infiltrate no excluded - Cont duoneb and Solumedrol 40mg Q12 CV: - Currently hemodynamically stable, and rate controlled with HR in the 90's - D/karmen cardizem ggt - Currently on Heparin ggt - Started on metoprolol 25 BID, Lisnopril 5 mg daily, and Aldactone - Lasix 40mg PO BID - Echo is pending - Echo 02/05: showed EF of 45% - Maintain MAP > 65 - Cont Plavix - F/u cardiology recommendations - Monitor PTT GI: - Consistent carb diet - Abd US reviewed - hepatitis panel neg - Monitor LFTs - Pepcid for Gi ppx Endo: - maintain euglycemia 140-180 Renal: - Replete electrolytes as needed - Monitor I and O ID: - No leukocytosis, afebrile - Cont clinda for lower extremity cellulites - Cont Florestor - Monitor for any other sign of infection - Wound consult - F/u septic work up Heme: - Stable with Hb of 11.5 - Monitor H/H GI/DVT ppx Case and plan was reviewed and discussed with Dr Segura.
[2018-08-01 14:11] LABS: N MENINGITIS ACY/W135 NEGATIVE (NEGATIVE); N MENINGITIS B/ECOLI K1 NEGATIVE (NEGATIVE); STREP PNEUMONIAE NEGATIVE (NEGATIVE); STREPTOCOCCUS B NEGATIVE (NEGATIVE)
[2018-08-01] MEDS ORDERED: Dextrose 50% SYRINGE Inj (50 ml) IV PRN (15:02)
[2018-08-01] MEDS ORDERED: Glucagon Recombinant 1 mg Inj IM PRN (15:02)
[2018-08-01] MEDS ORDERED: (Novolog) Insulin Aspart, Recombinant 100 u/ml 10 ml vial SC SCH (16:30)
--- NOTE | 2018-08-01 17:53 | CP.PCM.PN ---
Subjective - Date & Time of Evaluation Date of Evaluation: 08/01/18 Time of Evaluation: 17:30 - Subjective Subjective: patient has dyspnea at rest. He denies chest pain. Objective - Vital Signs/Intake and Output Vital Signs (last 24 hours): Temp Pulse Resp BP Pulse Ox 97.9 F 102 H 16 118/67 92 L 08/01/18 04:00 08/01/18 17:21 08/01/18 17:21 08/01/18 17:21 07/31/18 23:20 Intake and Output: 08/01/18 08/01/18 06:59 18:59 Intake Total 284.1 709.3 Output Total 1000 100 Balance -715.9 609.3 - Medications Medications: Current Medications Albuterol/Ipratropium (Duoneb 3 Mg/0.5 Mg (3 Ml) Ud) 3 ml INH RQ4 [facility] Last Admin: 08/01/18 12:00 Dose: 3 ml Clopidogrel Bisulfate (Plavix) 75 mg PO DAILY [facility] Last Admin: 08/01/18 09:26 Dose: 75 mg Dextrose (Dextrose 50% Inj) 0 ml IV STAT PRN; Protocol PRN Reason: Hypoglycemia Protocol Dextrose (Glutose 15) 0 gm PO ONCE PRN; Protocol PRN Reason: Hypoglycemia Protocol Dextrose (Dextrose 50% Inj) 0 ml IV STAT PRN; Protocol PRN Reason: Hypoglycemia Protocol Dextrose (Glutose 15) 0 gm PO ONCE PRN; Protocol PRN Reason: Hypoglycemia Protocol Famotidine (Pepcid) 20 mg PO DAILY [facility] Last Admin: 08/01/18 09:26 Dose: 20 mg Furosemide (Lasix) 40 mg PO BID [facility] Last Admin: 08/01/18 10:41 Dose: 40 mg Glucagon (Glucagen Diagnostic Kit) 0 mg IM STAT PRN; Protocol PRN Reason: Hypoglycemia Protocol Glucagon (Glucagen Diagnostic Kit) 0 mg IM STAT PRN; Protocol PRN Reason: Hypoglycemia Protocol Dextrose (Dextrose 5% In Water 1000 Ml) 1,000 mls @ 0 mls/hr IV .Q0M PRN; Protocol; Per Protocol PRN Reason: Hypoglycemia Protocol Clindamycin Phosphate 300 mg/ (Sodium Chloride) 52 mls @ 104 mls/hr IVPB Q6H DANIE PRN Reason: Protocol Last Admin: 08/01/18 15:52 Dose: 104 mls/hr Heparin Sodium/Sodium Chloride (Heparin 99000 Units/250ml 1/2 Normal Saline) 25 ,000 units in 250 mls @ 16.356 mls/hr IV .[id number] PRN; Protocol; 12 UNITS/KG/HR PRN Reason: PROTOCOL Last Admin: 08/01/18 11:48 Dose: 12 units/kg/hr, 16.356 mls/hr Dextrose (Dextrose 5% In Water 1000 Ml) 1,000 mls @ 0 mls/hr IV .Q0M PRN; Protocol; Per Protocol PRN Reason: Hypoglycemia Protocol Insulin Human Regular (Novolin R) 0 unit SC ACHS [facility] PRN Reason: Protocol Last Admin: 08/01/18 16:20 Dose: Not Given Lisinopril (Zestril) 2.5 mg PO DAILY [facility] Last Admin: 08/01/18 16:23 Dose: 2.5 mg Methylprednisolone (Solu-Medrol) 40 mg IVP Q12 [facility] Last Admin: 08/01/18 09:27 Dose: 40 mg Metoprolol Tartrate (Lopressor) 25 mg PO BID [facility] Last Admin: 08/01/18 10:42 Dose: 25 mg Nicotine (Nicoderm Cq) 1 patch TD DAILY [facility] Last Admin: 08/01/18 10:36 Dose: Not Given Rosuvastatin Calcium (Crestor) 5 mg PO HS [facility] Last Admin: 07/31/18 21:22 Dose: 5 mg Saccharomyces Boulardii (Florastor) 250 mg PO Q12 [facility] Last Admin: 08/01/18 09:27 Dose: 250 mg Spironolactone (Aldactone) 12.5 mg PO DAILY [facility] Last Admin: 08/01/18 10:59 Dose: 12.5 mg - Labs Labs: 08/01/18 02:07 08/01/18 02:07 PT 15.8 SECONDS (9.7-12.2) H 08/01/18 02:07 INR 1.4 08/01/18 02:07 APTT 60 SECONDS (21-34) H D 08/01/18 08:19 - Constitutional Appears: Non-toxic - Head Exam Head Exam: NORMAL INSPECTION - Eye Exam Eye Exam: Normal appearance - ENT Exam ENT Exam: Mucous Membranes Moist - Neck Exam Neck Exam: Full ROM - Respiratory Exam Respiratory Exam: Decreased Breath Sounds - Cardiovascular Exam Cardiovascular Exam: Irregular Rhythm - GI/Abdominal Exam GI & Abdominal Exam: Normal Bowel Sounds - Rectal Exam Rectal Exam: Deferred - Extremities Exam Extremities Exam: Pedal Edema - Back Exam Back Exam: NORMAL INSPECTION - Neurological Exam Neurological Exam: Alert - Psychiatric Exam Psychiatric exam: Normal Affect - Skin Skin Exam: Normal Color Assessment and Plan (1) CHF exacerbation Assessment & Plan: the patient has progressive LV dysfunction. The patient states symptoms have been for the last 2 weeks. 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 he has risk factor for CAD. recommend cardiac cath Status: Acute (2) NSTEMI (non-ST elevated myocardial infarction) Assessment & Plan: as above Status: Acute (3) New onset atrial fibrillation Assessment & Plan: will stp heparin at midnight Status: Acute
[2018-08-01] MEDS: Acetylcysteine 20% Inhal Soln (4ml) INH SCH ×2 (19:16→19:17)
[2018-08-01 19:24] LABS: MYCOPLASMA PNEUMONIAE IGM NEGATIVE (NEGATIVE)
[2018-08-01] MEDS: Acetylcysteine 20% Inhal Soln (4ml) PO SCH (20:02)
[2018-08-02] MEDS: Albuterol-Ipratrop 3 mg / 0.5 (3 ml) UD INH SCH ×5 (03:00→19:49)
[2018-08-02] MEDS: Acetylcysteine 20% Inhal Soln (4ml) INH SCH (03:00)
[2018-08-02] MEDS: Clindamycin 300 MG in Sodium Chloride 0.9% 50 ML IVPB SCH ×2 (03:30→08:34)
[2018-08-02 06:19] LABS: BASO % 0.3 % (0.0-2.0); EOS % 0.1 % (0.0-4.0); HEMOGLOBIN 11.6 g/dL (12.0-18.0); LYMPH # 0.4 K/uL (1.0-4.3); LYMPH % 4.9 % (20.0-40.0); MEAN CELL VOLUME 82.9 fL (80.0-94.0); MEAN CORPUSCULAR HEMOGLOBIN 26.8 pg (27.0-31.0); MEAN CORPUSCULAR HGB CONC 32.3 g/dL (33.0-37.0); MEAN PLATELET VOLUME 7.7 fL (7.2-11.7); MONO # 0.4 K/uL (0.0-0.8); MONO % 4.3 % (0.0-10.0); NEUT % 90.4 % (50.0-75.0); PLATELET COUNT 340 K/uL (130-400); RBC 4.32 Mil/uL (4.40-5.90); RED CELL DISTRIBUTION WIDTH 15.2 % (11.5-14.5); WHITE BLOOD COUNT 8.8 K/uL (4.8-10.8)
[2018-08-02 06:47] LABS: IRON 27 ug/dL (49-181)
[2018-08-02 06:56] LABS: % IRON SATURATION 7 (20-55); TOTAL IRON BINDING CAPACITY 374 ug/dL (250-450)
[2018-08-02] MEDS: Acetylcysteine 20% Inhal Soln (4ml) PO SCH ×2 (07:00→19:39)
[2018-08-02 07:09] LABS: ALB/GLOB RATIO 1.1 (1.0-2.1); ALBUMIN 3.4 g/dL (3.5-5.0); CALCIUM 8.7 mg/dl (8.6-10.4); FERRITIN 30.1 ng/mL
[2018-08-02] MEDS: (Novolin R) Insulin Human Regular 100 units/ml vial SC SCH ×4 (07:30→22:01)
[2018-08-02 08:37] LABS: NEUTROPHIL 92 % (50-75); PLATELET ESTIMATE NORMAL (NORMAL); TOTAL CELLS COUNTED 100
[2018-08-02 08:38] LABS: ANISOCYTOSIS SLIGHT; HYPOCHROMIC SLIGHT; LYMPHOCYTE 5 % (20-40); MONOCYTE 3 % (0-10); POIKILOCYTOSIS SLIGHT
[2018-08-02 08:39] LABS: OVALOCYTES SLIGHT
--- NOTE | 2018-08-02 08:46 | CP.CCUPN ---
<Jose Luis Christiansen - Last Filed: 08/02/18 12:20> CCU Subjective - Physician Review Subjective (Free Text): Critical care progress note: Pt seen and examined at bedside. No acute events overnight. Pt was NPO for cardiac cath however it was cancelled since the patient gets increasing sob upon laying down and his creatnine increased 1.7-->2.2. He currently denies any chest pain and mild sob. 12 Point ROS performed and neg other than stated above. CCU Objective - Vital Signs / Intake & Output Vital Signs (Last 4 hours): Vital Signs Pulse Resp BP Pulse Ox 08/02/18 06:50 122 H 97 08/02/18 06:43 121 H 91/65 L 08/02/18 06:39 114 H 08/02/18 06:10 118 H 21 08/02/18 05:33 102 H 115/83 Intake and Output (Last 8hrs): Intake & Output 08/01/18 08/02/18 08/02/18 22:59 06:59 14:59 Intake Total 525.4 512.6 0 Output Total 0 300 300 Balance 525.4 212.6 -300 Intake: IV 190 Intake, IV Amount 280.4 82.6 Left Antecubital 130.4 32.6 Right Forearm 150 50 Oral 245 240 0 Output: Urine 0 300 300 Urine, Voided 0 300 300 Other: # Voids Urine, Voided 1 1 # Bowel Movements 1 - Physical Exam Head: Positive for: Atraumatic, Normocephalic Pupils: Positive for: PERRL Extroacular Muscles: Positive for: EOMI Mouth: Positive for: Moist Mucous Membranes Neck: Positive for: Normal Range of Motion Respiratory/Chest: Positive for: Clear to Auscultation, Good Air Exchange, Rales (Bases ). Negative for: Respiratory Distress, Wheezes Cardiovascular: Positive for: Normal S1, S2, Irregular Rhythm, Tachycardic. Negative for: Murmurs Abdomen: Positive for: Normal Bowel Sounds. Negative for: Tenderness, Distention Upper Extremity: Positive for: Normal Inspection. Negative for: Cyanosis, Edema Lower Extremity: Positive for: Edema, Erythema. Negative for: CALF TENDERNESS Neurological: Positive for: CN II-XII Intact Skin: Positive for: Warm, Dry Psychiatric: Positive for: Alert, Oriented x 3 - Medications Active Medications: Active Medications Generic Name Dose Route Start Last Admin Trade Name Freq PRN Reason Stop Dose Admin Acetylcysteine 6 ml 08/01/18 19:00 08/01/18 20:02 Acetylcysteine 20% PO 08/03/18 07:01 6 ml Q12H DANIE Administration Albuterol/Ipratropium 3 ml 07/31/18 20:00 08/02/18 08:07 Duoneb 3 Mg/0.5 Mg (3 Ml) Ud INH 3 ml RQ4 DANIE Administration Clopidogrel Bisulfate 75 mg 08/01/18 10:00 08/01/18 09:26 Plavix PO 75 mg DAILY DANIE Administration Dextrose 0 ml 07/31/18 18:03 Dextrose 50% Inj IV STAT PRN Hypoglycemia Protocol Protocol Dextrose 0 gm 07/31/18 18:03 Glutose 15 PO ONCE PRN Hypoglycemia Protocol Protocol Dextrose 0 ml 08/01/18 15:02 Dextrose 50% Inj IV STAT PRN Hypoglycemia Protocol Protocol Dextrose 0 gm 08/01/18 15:02 Glutose 15 PO ONCE PRN Hypoglycemia Protocol Protocol Famotidine 20 mg 08/01/18 10:00 08/01/18 09:26 Pepcid PO 20 mg DAILY DANIE Administration Furosemide 40 mg 08/01/18 11:00 08/01/18 18:37 Lasix PO 40 mg BID DANIE Administration Glucagon 0 mg 07/31/18 18:03 Glucagen Diagnostic Kit IM STAT PRN Hypoglycemia Protocol Protocol Glucagon 0 mg 08/01/18 15:02 Glucagen Diagnostic Kit IM STAT PRN Hypoglycemia Protocol Protocol Dextrose 1,000 mls @ 0 mls/hr 07/31/18 18:03 Dextrose 5% In Water 1000 Ml IV .Q0M PRN Hypoglycemia Protocol Protocol Per Protocol Clindamycin Phosphate 300 mg/ 52 mls @ 104 mls/hr 07/31/18 21:00 08/02/18 08: 34 Sodium Chloride IVPB 104 mls/hr Q6H DANIE Administration Protocol Heparin Sodium/Sodium Chloride 25,000 units in 250 mls @ 16.356 mls/hr 04:16 08/02/18 00:00 Heparin 89341 Units/250ml 1/2 Normal Saline IV 0 units/kg/hr .[id number] PRN 0 mls/hr PROTOCOL Titration Protocol 12 UNITS/KG/HR Dextrose 1,000 mls @ 0 mls/hr 08/01/18 15:02 Dextrose 5% In Water 1000 Ml IV .Q0M PRN Hypoglycemia Protocol Protocol Per Protocol Insulin Human Regular 0 unit 07/31/18 22:00 08/01/18 22:00 Novolin R SC Not Given ACHS DANIE Protocol Methylprednisolone 40 mg 07/31/18 22:00 08/01/18 22:39 Solu-Medrol IVP 40 mg Q12 DANIE Administration Metoprolol Tartrate 25 mg 08/01/18 10:30 08/01/18 18:37 Lopressor PO 25 mg BID DANIE Administration Nicotine 1 patch 08/01/18 10:00 08/01/18 10:36 Nicoderm Cq TD Not Given DAILY DANIE Rosuvastatin Calcium 5 mg 07/31/18 22:00 08/01/18 22:38 Crestor PO 5 mg HS DANIE Administration Saccharomyces Boulardii 250 mg 07/31/18 22:00 08/01/18 22:39 Florastor PO 250 mg Q12 DANIE Administration Spironolactone 12.5 mg 08/01/18 10:30 08/01/18 10:59 Aldactone PO 12.5 mg DAILY DANIE Administration - Patient Studies Lab Studies: Microbiology Studies 07/31/18 21:21 Blood Culture - Preliminary Blood NO GROWTH AFTER 24 HOURS 07/31/18 21:21 Blood Culture - Preliminary Blood NO GROWTH AFTER 24 HOURS 07/31/18 18:29 Gram Stain - Final Leg - Left Wound Culture - Preliminary Gram Pos Cocci In Clusters 07/31/18 18:27 Urine Culture - Final Urine,[place] No Growth (<1,000 CFU/ML) Lab Studies 08/02/18 08/02/18 08/02/18 Range/Units 06:12 06:12 06:12 WBC 8.8 D (4.8-10.8) K/uL RBC 4.32 L (4.40-5.90) Mil/uL Hgb 11.6 L (12.0-18.0) g/dL Hct 35.8 (35.0-51.0) % MCV 82.9 (80.0-94.0) fL MCH 26.8 L (27.0-31.0) pg MCHC 32.3 L (33.0-37.0) g/dL RDW 15.2 H (11.5-14.5) % Plt Count 340 (130-400) K/uL MPV 7.7 (7.2-11.7) fL Neut % (Auto) 90.4 H (50.0-75.0) % Lymph % (Auto) 4.9 L (20.0-40.0) % [place] % (Auto) 4.3 (0.0-10.0) % Eos % (Auto) 0.1 (0.0-4.0) % Baso % (Auto) 0.3 (0.0-2.0) % Neut # (Auto) 8.0 H (1.8-7.0) K/uL Lymph # (Auto) 0.4 L (1.0-4.3) K/uL [place] # (Auto) 0.4 (0.0-0.8) K/uL Eos # (Auto) 0.0 (0.0-0.7) K/uL Baso # (Auto) 0.0 (0.0-0.2) K/uL Neutrophils % (Manual) 92 H (50-75) % Lymphocytes % (Manual) 5 L (20-40) % Monocytes % (Manual) 3 (0-10) % Platelet Estimate Normal (NORMAL) Hypochromasia (manual) Slight Poikilocytosis (manual Slight Anisocytosis (manual) Slight Ovalocytes Slight Sodium 139 (132-148) mmol/L Potassium 5.1 (3.6-5.2) mmol/L Chloride 99 (98-107) mmol/L Carbon Dioxide 29 (22-30) mmol/L Anion Gap 15 (10-20) BUN 53 H (9-20) mg/dL Creatinine 2.2 H (0.8-1.5) mg/dL Est GFR ( Amer) 38 Est GFR (Non-Af Amer) 32 POC Glucose (mg/dL) (65-110) mg/dL Random Glucose 247 H (75-110) mg/dL Calcium 8.7 (8.6-10.4) mg/dl Phosphorus 5.2 H (2.5-4.5) mg/dL Magnesium 2.2 (1.6-2.3) mg/dL Iron 27 L (49-181) ug/dL TIBC 374 (250-450) ug/dL % Saturation 7 L (20-55) Ferritin 30.1 ng/mL Total Bilirubin 0.3 (0.2-1.3) mg/dL AST 13 L D (17-59) U/L ALT 24 (21-72) U/L Alkaline Phosphatase 94 (38-126) U/L Total Creatine Kinase (55-170) U/L CK-MB (Mass) (0.0-3.38) ng/mL Troponin I (0.00-0.120) ng/mL Total Protein 6.5 (6.3-8.3) g/dL Albumin 3.4 L (3.5-5.0) g/dL Globulin 3.0 (2.2-3.9) gm/dL Albumin/Globulin Ratio 1.1 (1.0-2.1) H.influenzae Type B Ag (NEGATIVE) Ur L.pneumophila Ag (NEGATIVE) Mycoplasma pneumon IgM (NEGATIVE) N.meningitidis ACY/W135 (NEGATIVE) N.meningi B/E.coli K1 Ag (NEGATIVE) Group B Strep Antigen (NEGATIVE) S. pneumoniae Antigen (NEGATIVE) 08/01/18 08/01/18 08/01/18 Range/Units 21:26 11:16 11:14 WBC (4.8-10.8) K/uL RBC (4.40-5.90) Mil/uL Hgb (12.0-18.0) g/dL Hct (35.0-51.0) % MCV (80.0-94.0) fL MCH (27.0-31.0) pg MCHC (33.0-37.0) g/dL RDW (11.5-14.5) % Plt Count (130-400) K/uL MPV (7.2-11.7) fL Neut % (Auto) (50.0-75.0) % Lymph % (Auto) (20.0-40.0) % [place] % (Auto) (0.0-10.0) % Eos % (Auto) (0.0-4.0) % Baso % (Auto) (0.0-2.0) % Neut # (Auto) (1.8-7.0) K/uL Lymph # (Auto) (1.0-4.3) K/uL [place] # (Auto) (0.0-0.8) K/uL Eos # (Auto) (0.0-0.7) K/uL Baso # (Auto) (0.0-0.2) K/uL Neutrophils % (Manual) (50-75) % Lymphocytes % (Manual) (20-40) % Monocytes % (Manual) (0-10) % Platelet Estimate (NORMAL) Hypochromasia (manual) Poikilocytosis (manual Anisocytosis (manual) Ovalocytes Sodium (132-148) mmol/L Potassium (3.6-5.2) mmol/L Chloride (98-107) mmol/L Carbon Dioxide (22-30) mmol/L Anion Gap (10-20) BUN (9-20) mg/dL Creatinine (0.8-1.5) mg/dL Est GFR ( Amer) Est GFR (Non-Af Amer) POC Glucose (mg/dL) 270 H 269 H (65-110) mg/dL Random Glucose (75-110) mg/dL Calcium (8.6-10.4) mg/dl Phosphorus (2.5-4.5) mg/dL Magnesium (1.6-2.3) mg/dL Iron (49-181) ug/dL TIBC (250-450) ug/dL % Saturation (20-55) Ferritin ng/mL Total Bilirubin (0.2-1.3) mg/dL AST (17-59) U/L ALT (21-72) U/L Alkaline Phosphatase (38-126) U/L Total Creatine Kinase (55-170) U/L CK-MB (Mass) (0.0-3.38) ng/mL Troponin I (0.00-0.120) ng/mL Total Protein (6.3-8.3) g/dL Albumin (3.5-5.0) g/dL Globulin (2.2-3.9) gm/dL Albumin/Globulin Ratio (1.0-2.1) H.influenzae Type B Ag Negative (NEGATIVE) Ur L.pneumophila Ag Negative (NEGATIVE) Mycoplasma pneumon IgM Negative (NEGATIVE) N.meningitidis ACY/W135 Negative (NEGATIVE) N.meningi B/E.coli K1 Ag Negative (NEGATIVE) Group B Strep Antigen Negative (NEGATIVE) S. pneumoniae Antigen Negative (NEGATIVE) 09/13/18 09/13/18 Range/Units 08:19 07:29 WBC (4.8-10.8) K/uL RBC (4.40-5.90) Mil/uL Hgb (12.0-18.0) g/dL Hct (35.0-51.0) % MCV (80.0-94.0) fL MCH (27.0-31.0) pg MCHC (33.0-37.0) g/dL RDW (11.5-14.5) % Plt Count (130-400) K/uL MPV (7.2-11.7) fL Neut % (Auto) (50.0-75.0) % Lymph % (Auto) (20.0-40.0) % [place] % (Auto) (0.0-10.0) % Eos % (Auto) (0.0-4.0) % Baso % (Auto) (0.0-2.0) % Neut # (Auto) (1.8-7.0) K/uL Lymph # (Auto) (1.0-4.3) K/uL [place] # (Auto) (0.0-0.8) K/uL Eos # (Auto) (0.0-0.7) K/uL Baso # (Auto) (0.0-0.2) K/uL Neutrophils % (Manual) (50-75) % Lymphocytes % (Manual) (20-40) % Monocytes % (Manual) (0-10) % Platelet Estimate (NORMAL) Hypochromasia (manual) Poikilocytosis (manual Anisocytosis (manual) Ovalocytes Sodium (132-148) mmol/L Potassium (3.6-5.2) mmol/L Chloride (98-107) mmol/L Carbon Dioxide (22-30) mmol/L Anion Gap (10-20) BUN (9-20) mg/dL Creatinine (0.8-1.5) mg/dL Est GFR ( Amer) Est GFR (Non-Af Amer) POC Glucose (mg/dL) 226 H (65-110) mg/dL Random Glucose (75-110) mg/dL Calcium (8.6-10.4) mg/dl Phosphorus (2.5-4.5) mg/dL Magnesium (1.6-2.3) mg/dL Iron (49-181) ug/dL TIBC (250-450) ug/dL % Saturation (20-55) Ferritin ng/mL Total Bilirubin (0.2-1.3) mg/dL AST (17-59) U/L ALT (21-72) U/L Alkaline Phosphatase (38-126) U/L Total Creatine Kinase 214 H (55-170) U/L CK-MB (Mass) 1.98 (0.0-3.38) ng/mL Troponin I 0.3690 H* (0.00-0.120) ng/mL Total Protein (6.3-8.3) g/dL Albumin (3.5-5.0) g/dL Globulin (2.2-3.9) gm/dL Albumin/Globulin Ratio (1.0-2.1) H.influenzae Type B Ag (NEGATIVE) Ur L.pneumophila Ag (NEGATIVE) Mycoplasma pneumon IgM (NEGATIVE) N.meningitidis ACY/W135 (NEGATIVE) N.meningi B/E.coli K1 Ag (NEGATIVE) Group B Strep Antigen (NEGATIVE) S. pneumoniae Antigen (NEGATIVE) Laboratory Results - last 24 hr 08/01/18 08/01/18 08/01/18 07:29 08:19 11:14 WBC RBC Hgb Hct MCV MCH MCHC RDW Plt Count MPV Neut % (Auto) Lymph % (Auto) [place] % (Auto) Eos % (Auto) Baso % (Auto) Neut # (Auto) Lymph # (Auto) [place] # (Auto) Eos # (Auto) Baso # (Auto) Neutrophils % (Manual) Lymphocytes % (Manual) Monocytes % (Manual) Platelet Estimate Hypochromasia (manual) Poikilocytosis (manual Anisocytosis (manual) Ovalocytes Sodium Potassium Chloride Carbon Dioxide Anion Gap BUN Creatinine Est GFR ( Amer) Est GFR (Non-Af Amer) POC Glucose (mg/dL) 226 H Random Glucose Calcium Phosphorus Magnesium Iron TIBC % Saturation Ferritin Total Bilirubin AST ALT Alkaline Phosphatase Total Creatine Kinase 214 H CK-MB (Mass) 1.98 Troponin I 0.3690 H* Total Protein Albumin Globulin Albumin/Globulin Ratio H.influenzae Type B Ag Negative Ur L.pneumophila Ag Negative Mycoplasma pneumon IgM Negative N.meningitidis ACY/W135 Negative N.meningi B/E.coli K1 Ag Negative Group B Strep Antigen Negative S. pneumoniae Antigen Negative 08/01/18 08/01/18 08/02/18 11:16 21:26 06:12 WBC 8.8 D RBC 4.32 L Hgb 11.6 L Hct 35.8 MCV 82.9 MCH 26.8 L MCHC 32.3 L RDW 15.2 H Plt Count 340 MPV 7.7 Neut % (Auto) 90.4 H Lymph % (Auto) 4.9 L [place] % (Auto) 4.3 Eos % (Auto) 0.1 Baso % (Auto) 0.3 Neut # (Auto) 8.0 H Lymph # (Auto) 0.4 L [place] # (Auto) 0.4 Eos # (Auto) 0.0 Baso # (Auto) 0.0 Neutrophils % (Manual) 92 H Lymphocytes % (Manual) 5 L Monocytes % (Manual) 3 Platelet Estimate Normal Hypochromasia (manual) Slight Poikilocytosis (manual Slight Anisocytosis (manual) Slight Ovalocytes Slight Sodium Potassium Chloride Carbon Dioxide Anion Gap BUN Creatinine Est GFR ( Amer) Est GFR (Non-Af Amer) POC Glucose (mg/dL) 269 H 270 H Random Glucose Calcium Phosphorus Magnesium Iron TIBC % Saturation Ferritin Total Bilirubin AST ALT Alkaline Phosphatase Total Creatine Kinase CK-MB (Mass) Troponin I Total Protein Albumin Globulin Albumin/Globulin Ratio H.influenzae Type B Ag Ur L.pneumophila Ag Mycoplasma pneumon IgM N.meningitidis ACY/W135 N.meningi B/E.coli K1 Ag Group B Strep Antigen S. pneumoniae Antigen 08/02/18 08/02/18 06:12 06:12 WBC RBC Hgb Hct MCV MCH MCHC RDW Plt Count MPV Neut % (Auto) Lymph % (Auto) [place] % (Auto) Eos % (Auto) Baso % (Auto) Neut # (Auto) Lymph # (Auto) [place] # (Auto) Eos # (Auto) Baso # (Auto) Neutrophils % (Manual) Lymphocytes % (Manual) Monocytes % (Manual) Platelet Estimate Hypochromasia (manual) Poikilocytosis (manual Anisocytosis (manual) Ovalocytes Sodium 139 Potassium 5.1 Chloride 99 Carbon Dioxide 29 Anion Gap 15 BUN 53 H Creatinine 2.2 H Est GFR ( Amer) 38 Est GFR (Non-Af Amer) 32 POC Glucose (mg/dL) Random Glucose 247 H Calcium 8.7 Phosphorus 5.2 H Magnesium 2.2 Iron 27 L TIBC 374 % Saturation 7 L Ferritin 30.1 Total Bilirubin 0.3 AST 13 L D ALT 24 Alkaline Phosphatase 94 Total Creatine Kinase CK-MB (Mass) Troponin I Total Protein 6.5 Albumin 3.4 L Globulin 3.0 Albumin/Globulin Ratio 1.1 H.influenzae Type B Ag Ur L.pneumophila Ag Mycoplasma pneumon IgM N.meningitidis ACY/W135 N.meningi B/E.coli K1 Ag Group B Strep Antigen S. pneumoniae Antigen Fingerstick Blood Sugar Results: 270 Review of Systems - Review of Systems All systems: reviewed and no additional remarkable complaints except (HPI) Critical Care Progress Note - Nutrition Nutrition: Nutrition Category Date Time Status Heart Healthy Diet [DIET] Diets 08/02/18 Breakfast Active Assessment/Plan - Assessment and Plan (Free Text) Assessment: 52 M with PMHx of HTN, T2DM, Systolic Heart Failure, COPD, Tobacco Use Disorder , Alcohol Use Disorder who presents to the ED with shortness of breath 2 weeks. Patient admitted for New Onset Atriall Fibrillation, NSTEMI, Acute on Chronic Systolic Heart Failure Exacerbation, Bilateral Lower Extremity Cellulitis, and CINDY. Patient planned for cardiac cath today however it was cancelled due to inc orthopnea and CINDY. Neuro: - Stable - AAo x 3 Pulm: - NC as needed - maintain SPO2 > 90% - CXR inc b/l pleural effusion and inc atalectasis, possible infiltrate no excluded - F/u todays CXR - Cont duoneb and Solumedrol 40mg Q12 CV: - Currently hemodynamically stable, and rate controlled with HR in the 100-110 - Started on albumin to aid in diuresis - Currently on Heparin ggt - Cont metoprolol 25 BID, and Aldactone - D/c Lisinopril 2/2 cindy - Lasix 40mg PO BID d/karmen - Echo is pending offical read - Echo 02/05: showed EF of 45% - Maintain MAP > 65 - Cont Plavix - F/u cardiology further recommendations - Monitor PTT GI: - Consistent carb diet - Abd US reviewed - hepatitis panel neg - Monitor LFTs - Pepcid for Gi ppx Endo: - maintain euglycemia 140-180 Renal: - Cr 1.7-->2.2 - D/karmen Lisinopril and Lasix - Replete electrolytes as needed - Monitor I and O ID: - No leukocytosis, afebrile - Cont clinda for lower extremity cellulites - Cont Florestor - Monitor for any other sign of infection - Wound consult - F/u septic work up Heme: - Stable with Hb of 11.5 - Monitor H/H GI/DVT ppx Case and plan was reviewed and discussed with Dr Segura. <Akira Segura - Last Filed: 08/02/18 16:04> CCU Objective - Vital Signs / Intake & Output Vital Signs (Last 4 hours): Vital Signs Pulse Resp BP Pulse Ox 08/02/18 14:58 118 H 25 H 95 08/02/18 13:42 106 H 21 127/86 90 L 08/02/18 13:07 102 H 24 118/76 94 L 08/02/18 13:00 100 H 25 H 95 08/02/18 12:00 103 H 16 99 08/02/18 11:42 100 H 18 116/77 95 Intake and Output (Last 8hrs): Intake & Output 08/02/18 08/02/18 08/02/18 06:59 14:59 22:59 Intake Total 512.6 660 Output Total 300 500 Balance 212.6 160 Intake: IV 190 60 Intake, IV Amount 82.6 Left Antecubital 32.6 Right Forearm 50 Oral 240 600 Output: Urine 300 500 Urine, Voided 300 500 Other: # Voids Urine, Voided 1 - Medications Active Medications: Active Medications Generic Name Dose Route Start Last Admin Trade Name Freq PRN Reason Stop Dose Admin Acetylcysteine 6 ml 08/01/18 19:00 08/02/18 07:00 Acetylcysteine 20% PO 08/03/18 07:01 Not Given Q12H DANIE Albuterol/Ipratropium 3 ml 07/31/18 20:00 08/02/18 14:06 Duoneb 3 Mg/0.5 Mg (3 Ml) Ud INH 3 ml RQ4 DANIE Administration Aspirin 81 mg 08/03/18 10:00 Aspirin Chewable PO DAILY DANIE Bumetanide 2 mg 08/02/18 09:30 08/02/18 09:40 Bumex IVP 2 mg Q12H DANIE Administration Ciprofloxacin 500 mg 08/02/18 18:00 Cipro PO BID [facility] Protocol Clopidogrel Bisulfate 75 mg 08/01/18 10:00 08/02/18 09:35 Plavix PO 75 mg DAILY DANIE Administration Dextrose 0 ml 07/31/18 18:03 Dextrose 50% Inj IV STAT PRN Hypoglycemia Protocol Protocol Dextrose 0 gm 07/31/18 18:03 Glutose 15 PO ONCE PRN Hypoglycemia Protocol Protocol Dextrose 0 ml 08/01/18 15:02 Dextrose 50% Inj IV STAT PRN Hypoglycemia Protocol Protocol Dextrose 0 gm 08/01/18 15:02 Glutose 15 PO ONCE PRN Hypoglycemia Protocol Protocol Famotidine 20 mg 08/01/18 10:00 08/02/18 09:37 Pepcid PO 20 mg DAILY DANIE Administration Glucagon 0 mg 07/31/18 18:03 Glucagen Diagnostic Kit IM STAT PRN Hypoglycemia Protocol Protocol Glucagon 0 mg 08/01/18 15:02 Glucagen Diagnostic Kit IM STAT PRN Hypoglycemia Protocol Protocol Dextrose 1,000 mls @ 0 mls/hr 07/31/18 18:03 Dextrose 5% In Water 1000 Ml IV .Q0M PRN Hypoglycemia Protocol Protocol Per Protocol Heparin Sodium/Sodium Chloride 25,000 units in 250 mls @ 16.356 mls/hr 04:16 08/02/18 13:28 Heparin 73151 Units/250ml 1/2 Normal Saline IV 12 units/kg/hr .[id number] PRN 16.356 mls/hr PROTOCOL Administration Protocol 12 UNITS/KG/HR Dextrose 1,000 mls @ 0 mls/hr 08/01/18 15:02 Dextrose 5% In Water 1000 Ml IV .Q0M PRN Hypoglycemia Protocol Protocol Per Protocol Albumin Human 250 mls @ 50 mls/hr 08/02/18 10:00 08/02/18 10:44 Albumin Human 5% (12.5 Gm/250 Ml) IV 08/02/18 19:59 50 mls/hr Q5H DANIE Administration Insulin Human Regular 0 unit 07/31/18 22:00 08/02/18 11:50 Novolin R SC 4 units ACHS DANIE Administration Protocol Methylprednisolone 40 mg 07/31/18 22:00 08/02/18 09:37 Solu-Medrol IVP 40 mg Q12 DANIE Administration Metoprolol Tartrate 5 mg 08/02/18 10:30 08/02/18 10:45 Lopressor IVP 5 mg Q6H DANIE Administration Nicotine 1 patch 08/01/18 10:00 08/02/18 09:35 Nicoderm Cq TD 1 patch DAILY DANIE Administration Rosuvastatin Calcium 5 mg 07/31/18 22:00 08/01/18 22:38 Crestor PO 5 mg HS DANIE Administration Saccharomyces Boulardii 250 mg 07/31/18 22:00 08/02/18 09:37 Florastor PO 250 mg Q12 DANIE Administration Spironolactone 12.5 mg 08/01/18 10:30 08/02/18 09:36 Aldactone PO 12.5 mg DAILY DANIE Administration - Patient Studies Lab Studies: Microbiology Studies 07/31/18 18:29 Gram Stain - Final Leg - Left Wound 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 07/31/18 21:21 Blood Culture - Preliminary Blood NO GROWTH AFTER 24 HOURS 07/31/18 21:21 Blood Culture - Preliminary Blood NO GROWTH AFTER 24 HOURS 07/31/18 18:27 Urine Culture - Final Urine,[place] No Growth (<1,000 CFU/ML) Lab Studies 08/02/18 08/02/18 08/02/18 Range/Units 11:32 06:12 06:12 WBC (4.8-10.8) K/uL RBC (4.40-5.90) Mil/uL Hgb (12.0-18.0) g/dL Hct (35.0-51.0) % MCV (80.0-94.0) fL MCH (27.0-31.0) pg MCHC (33.0-37.0) g/dL RDW (11.5-14.5) % Plt Count (130-400) K/uL MPV (7.2-11.7) fL Neut % (Auto) (50.0-75.0) % Lymph % (Auto) (20.0-40.0) % [place] % (Auto) (0.0-10.0) % Eos % (Auto) (0.0-4.0) % Baso % (Auto) (0.0-2.0) % Neut # (Auto) (1.8-7.0) K/uL Lymph # (Auto) (1.0-4.3) K/uL [place] # (Auto) (0.0-0.8) K/uL Eos # (Auto) (0.0-0.7) K/uL Baso # (Auto) (0.0-0.2) K/uL Neutrophils % (Manual) (50-75) % Lymphocytes % (Manual) (20-40) % Monocytes % (Manual) (0-10) % Platelet Estimate (NORMAL) Hypochromasia (manual) Poikilocytosis (manual Anisocytosis (manual) Ovalocytes Sodium 139 (132-148) mmol/L Potassium 5.1 (3.6-5.2) mmol/L Chloride 99 (98-107) mmol/L Carbon Dioxide 29 (22-30) mmol/L Anion Gap 15 (10-20) BUN 53 H (9-20) mg/dL Creatinine 2.2 H (0.8-1.5) mg/dL Est GFR ( Amer) 38 Est GFR (Non-Af Amer) 32 POC Glucose (mg/dL) 271 H (65-110) mg/dL Random Glucose 247 H (75-110) mg/dL Calcium 8.7 (8.6-10.4) mg/dl Phosphorus 5.2 H (2.5-4.5) mg/dL Magnesium 2.2 (1.6-2.3) mg/dL Iron 27 L (49-181) ug/dL TIBC 374 (250-450) ug/dL % Saturation 7 L (20-55) Ferritin 30.1 ng/mL Total Bilirubin 0.3 (0.2-1.3) mg/dL AST 13 L D (17-59) U/L ALT 24 (21-72) U/L Alkaline Phosphatase 94 (38-126) U/L Total Protein 6.5 (6.3-8.3) g/dL Albumin 3.4 L (3.5-5.0) g/dL Globulin 3.0 (2.2-3.9) gm/dL Albumin/Globulin Ratio 1.1 (1.0-2.1) Mycoplasma pneumon IgM (NEGATIVE) 08/02/18 08/01/18 08/01/18 Range/Units 06:12 21:26 16:14 WBC 8.8 D (4.8-10.8) K/uL RBC 4.32 L (4.40-5.90) Mil/uL Hgb 11.6 L (12.0-18.0) g/dL Hct 35.8 (35.0-51.0) % MCV 82.9 (80.0-94.0) fL MCH 26.8 L (27.0-31.0) pg MCHC 32.3 L (33.0-37.0) g/dL RDW 15.2 H (11.5-14.5) % Plt Count 340 (130-400) K/uL MPV 7.7 (7.2-11.7) fL Neut % (Auto) 90.4 H (50.0-75.0) % Lymph % (Auto) 4.9 L (20.0-40.0) % [place] % (Auto) 4.3 (0.0-10.0) % Eos % (Auto) 0.1 (0.0-4.0) % Baso % (Auto) 0.3 (0.0-2.0) % Neut # (Auto) 8.0 H (1.8-7.0) K/uL Lymph # (Auto) 0.4 L (1.0-4.3) K/uL [place] # (Auto) 0.4 (0.0-0.8) K/uL Eos # (Auto) 0.0 (0.0-0.7) K/uL Baso # (Auto) 0.0 (0.0-0.2) K/uL Neutrophils % (Manual) 92 H (50-75) % Lymphocytes % (Manual) 5 L (20-40) % Monocytes % (Manual) 3 (0-10) % Platelet Estimate Normal (NORMAL) Hypochromasia (manual) Slight Poikilocytosis (manual Slight Anisocytosis (manual) Slight Ovalocytes Slight Sodium (132-148) mmol/L Potassium (3.6-5.2) mmol/L Chloride (98-107) mmol/L Carbon Dioxide (22-30) mmol/L Anion Gap (10-20) BUN (9-20) mg/dL Creatinine (0.8-1.5) mg/dL Est GFR ( Amer) Est GFR (Non-Af Amer) POC Glucose (mg/dL) 270 H 150 H (65-110) mg/dL Random Glucose (75-110) mg/dL Calcium (8.6-10.4) mg/dl Phosphorus (2.5-4.5) mg/dL Magnesium (1.6-2.3) mg/dL Iron (49-181) ug/dL TIBC (250-450) ug/dL % Saturation (20-55) Ferritin ng/mL Total Bilirubin (0.2-1.3) mg/dL AST (17-59) U/L ALT (21-72) U/L Alkaline Phosphatase (38-126) U/L Total Protein (6.3-8.3) g/dL Albumin (3.5-5.0) g/dL Globulin (2.2-3.9) gm/dL Albumin/Globulin Ratio (1.0-2.1) Mycoplasma pneumon IgM (NEGATIVE) 08/01/18 Range/Units 11:14 WBC (4.8-10.8) K/uL RBC (4.40-5.90) Mil/uL Hgb (12.0-18.0) g/dL Hct (35.0-51.0) % MCV (80.0-94.0) fL MCH (27.0-31.0) pg MCHC (33.0-37.0) g/dL RDW (11.5-14.5) % Plt Count (130-400) K/uL MPV (7.2-11.7) fL Neut % (Auto) (50.0-75.0) % Lymph % (Auto) (20.0-40.0) % [place] % (Auto) (0.0-10.0) % Eos % (Auto) (0.0-4.0) % Baso % (Auto) (0.0-2.0) % Neut # (Auto) (1.8-7.0) K/uL Lymph # (Auto) (1.0-4.3) K/uL [place] # (Auto) (0.0-0.8) K/uL Eos # (Auto) (0.0-0.7) K/uL Baso # (Auto) (0.0-0.2) K/uL Neutrophils % (Manual) (50-75) % Lymphocytes % (Manual) (20-40) % Monocytes % (Manual) (0-10) % Platelet Estimate (NORMAL) Hypochromasia (manual) Poikilocytosis (manual Anisocytosis (manual) Ovalocytes Sodium (132-148) mmol/L Potassium (3.6-5.2) mmol/L Chloride (98-107) mmol/L Carbon Dioxide (22-30) mmol/L Anion Gap (10-20) BUN (9-20) mg/dL Creatinine (0.8-1.5) mg/dL Est GFR ( Amer) Est GFR (Non-Af Amer) POC Glucose (mg/dL) (65-110) mg/dL Random Glucose (75-110) mg/dL Calcium (8.6-10.4) mg/dl Phosphorus (2.5-4.5) mg/dL Magnesium (1.6-2.3) mg/dL Iron (49-181) ug/dL TIBC (250-450) ug/dL % Saturation (20-55) Ferritin ng/mL Total Bilirubin (0.2-1.3) mg/dL AST (17-59) U/L ALT (21-72) U/L Alkaline Phosphatase (38-126) U/L Total Protein (6.3-8.3) g/dL Albumin (3.5-5.0) g/dL Globulin (2.2-3.9) gm/dL Albumin/Globulin Ratio (1.0-2.1) Mycoplasma pneumon IgM Negative (NEGATIVE) Laboratory Results - last 24 hr 08/01/18 08/01/18 08/01/18 11:14 16:14 21:26 WBC RBC Hgb Hct MCV MCH MCHC RDW Plt Count MPV Neut % (Auto) Lymph % (Auto) [place] % (Auto) Eos % (Auto) Baso % (Auto) Neut # (Auto) Lymph # (Auto) [place] # (Auto) Eos # (Auto) Baso # (Auto) Neutrophils % (Manual) Lymphocytes % (Manual) Monocytes % (Manual) Platelet Estimate Hypochromasia (manual) Poikilocytosis (manual Anisocytosis (manual) Ovalocytes Sodium Potassium Chloride Carbon Dioxide Anion Gap BUN Creatinine Est GFR ( Amer) Est GFR (Non-Af Amer) POC Glucose (mg/dL) 150 H 270 H Random Glucose Calcium Phosphorus Magnesium Iron TIBC % Saturation Ferritin Total Bilirubin AST ALT Alkaline Phosphatase Total Protein Albumin Globulin Albumin/Globulin Ratio Mycoplasma pneumon IgM Negative 08/02/18 08/02/18 08/02/18 06:12 06:12 06:12 WBC 8.8 D RBC 4.32 L Hgb 11.6 L Hct 35.8 MCV 82.9 MCH 26.8 L MCHC 32.3 L RDW 15.2 H Plt Count 340 MPV 7.7 Neut % (Auto) 90.4 H Lymph % (Auto) 4.9 L [place] % (Auto) 4.3 Eos % (Auto) 0.1 Baso % (Auto) 0.3 Neut # (Auto) 8.0 H Lymph # (Auto) 0.4 L [place] # (Auto) 0.4 Eos # (Auto) 0.0 Baso # (Auto) 0.0 Neutrophils % (Manual) 92 H Lymphocytes % (Manual) 5 L Monocytes % (Manual) 3 Platelet Estimate Normal Hypochromasia (manual) Slight Poikilocytosis (manual Slight Anisocytosis (manual) Slight Ovalocytes Slight Sodium 139 Potassium 5.1 Chloride 99 Carbon Dioxide 29 Anion Gap 15 BUN 53 H Creatinine 2.2 H Est GFR ( Amer) 38 Est GFR (Non-Af Amer) 32 POC Glucose (mg/dL) Random Glucose 247 H Calcium 8.7 Phosphorus 5.2 H Magnesium 2.2 Iron 27 L TIBC 374 % Saturation 7 L Ferritin 30.1 Total Bilirubin 0.3 AST 13 L D ALT 24 Alkaline Phosphatase 94 Total Protein 6.5 Albumin 3.4 L Globulin 3.0 Albumin/Globulin Ratio 1.1 Mycoplasma pneumon IgM 08/02/18 11:32 WBC RBC Hgb Hct MCV MCH MCHC RDW Plt Count MPV Neut % (Auto) Lymph % (Auto) [place] % (Auto) Eos % (Auto) Baso % (Auto) Neut # (Auto) Lymph # (Auto) [place] # (Auto) Eos # (Auto) Baso # (Auto) Neutrophils % (Manual) Lymphocytes % (Manual) Monocytes % (Manual) Platelet Estimate Hypochromasia (manual) Poikilocytosis (manual Anisocytosis (manual) Ovalocytes Sodium Potassium Chloride Carbon Dioxide Anion Gap BUN Creatinine Est GFR ( Amer) Est GFR (Non-Af Amer) POC Glucose (mg/dL) 271 H Random Glucose Calcium Phosphorus Magnesium Iron TIBC % Saturation Ferritin Total Bilirubin AST ALT Alkaline Phosphatase Total Protein Albumin Globulin Albumin/Globulin Ratio Mycoplasma pneumon IgM Critical Care Progress Note - Nutrition Nutrition: Nutrition Category Date Time Status Heart Healthy Diet [DIET] Diets 08/02/18 Breakfast Active Attending/Attestation - Attestation I have personally seen and examined this patient.: Yes I have fully participated in the care of the patient.: Yes I have reviewed all pertinent clinical information: Yes Notes (Text): 08/02/18 15:19 I have seen and examined the patient. Medical records, lab studies, and imaging were reviewed by me and a management plan was formulated on multidisciplinary rounds with resident Dr. Christiansen. I agree with their documented assessment and plan. patient is still in acute on chronic exacerbation of worsening systolic congestive heart failure. Started on albumin drip with bumex, may have to add lasix drip. Patient has worsening CINDY, still needs cardiac cath, which now might be delayed with rising creatinine. Critical Care Time 35 minutes. Multi-disciplinary rounds were performed with house staff, nursing, speech therapy, respiratory therapy, pharmacy and nutrition with integrated input from the primary team/attending and other consulting services. The documented time is cumulative and includes review of patient data/exams/labs/chart review and examination of the patient on rounds and throughout the day; time is exclusive of any procedures or teaching time.
[2018-08-02] MEDS ORDERED: Albumin Human 5% (12.5 gm/250 ml) IV SCH (09:15)
--- NOTE | 2018-08-02 09:26 | CP.PCM.PN ---
<Adam Tan - Last Filed: 08/02/18 13:22> Subjective - Date & Time of Evaluation Date of Evaluation: 08/02/18 Time of Evaluation: 09:23 - Subjective Subjective: Adam Tan D.O. PGY-3, Internal Medicine Resident, Nephrology Progress Note 52 year old male with a PMH of HTN, DM2, HFrEF, COPD, tobacco and alcohol abuse who presented to ER with shortness of breath for 2 weeks, found to have new onset afib and acute on chronic CHF exacerbation with BL lower extremity cellulitis and now CINDY. Nephrology consultation was requested for his CINDY. Patient was seen and examined at bedside. States that his SOB continues to be present as well as swelling in the legs. Patient was supposed to go for cardiac cath today but will not because not only can he not lie flat on the table without SOB he also had a worsening of his renal function. Objective - Vital Signs/Intake and Output Vital Signs (last 24 hours): Temp Pulse Resp BP Pulse Ox 98.7 F 122 H 21 91/65 L 97 08/02/18 04:00 08/02/18 06:50 08/02/18 06:10 08/02/18 06:43 08/02/18 06:50 Intake and Output: 08/02/18 08/02/18 06:59 18:59 Intake Total 797.8 0 Output Total 300 300 Balance 497.8 -300 - Medications Medications: Current Medications Acetylcysteine (Acetylcysteine 20%) 6 ml PO Q12H [facility] Stop: 08/03/18 07:01 Last Admin: 08/01/18 20:02 Dose: 6 ml Albuterol/Ipratropium (Duoneb 3 Mg/0.5 Mg (3 Ml) Ud) 3 ml INH RQ4 [facility] Last Admin: 08/02/18 08:07 Dose: 3 ml Bumetanide (Bumex) 2 mg IVP Q12H [facility] Clopidogrel Bisulfate (Plavix) 75 mg PO DAILY [facility] Last Admin: 08/01/18 09:26 Dose: 75 mg Dextrose (Dextrose 50% Inj) 0 ml IV STAT PRN; Protocol PRN Reason: Hypoglycemia Protocol Dextrose (Glutose 15) 0 gm PO ONCE PRN; Protocol PRN Reason: Hypoglycemia Protocol Dextrose (Dextrose 50% Inj) 0 ml IV STAT PRN; Protocol PRN Reason: Hypoglycemia Protocol Dextrose (Glutose 15) 0 gm PO ONCE PRN; Protocol PRN Reason: Hypoglycemia Protocol Famotidine (Pepcid) 20 mg PO DAILY [facility] Last Admin: 08/01/18 09:26 Dose: 20 mg Glucagon (Glucagen Diagnostic Kit) 0 mg IM STAT PRN; Protocol PRN Reason: Hypoglycemia Protocol Glucagon (Glucagen Diagnostic Kit) 0 mg IM STAT PRN; Protocol PRN Reason: Hypoglycemia Protocol Dextrose (Dextrose 5% In Water 1000 Ml) 1,000 mls @ 0 mls/hr IV .Q0M PRN; Protocol; Per Protocol PRN Reason: Hypoglycemia Protocol Clindamycin Phosphate 300 mg/ (Sodium Chloride) 52 mls @ 104 mls/hr IVPB Q6H [facility] PRN Reason: Protocol Last Admin: 08/02/18 08:34 Dose: 104 mls/hr Heparin Sodium/Sodium Chloride (Heparin 12731 Units/250ml 1/2 Normal Saline) 25 ,000 units in 250 mls @ 16.356 mls/hr IV .[id number] PRN; Protocol; 12 UNITS/KG/HR PRN Reason: PROTOCOL Last Titration: 08/02/18 00:00 Dose: 0 units/kg/hr, 0 mls/hr Dextrose (Dextrose 5% In Water 1000 Ml) 1,000 mls @ 0 mls/hr IV .Q0M PRN; Protocol; Per Protocol PRN Reason: Hypoglycemia Protocol Albumin Human (Albumin Human 5% (12.5 Gm/250 Ml)) 250 mls @ 50 mls/hr IV Q5H [facility] Stop: 08/02/18 19:59 Insulin Human Regular (Novolin R) 0 unit SC ACHS [facility] PRN Reason: Protocol Last Admin: 08/01/18 22:00 Dose: Not Given Methylprednisolone (Solu-Medrol) 40 mg IVP Q12 [facility] Last Admin: 08/01/18 22:39 Dose: 40 mg Metoprolol Tartrate (Lopressor) 25 mg PO BID [facility] Last Admin: 08/01/18 18:37 Dose: 25 mg Nicotine (Nicoderm Cq) 1 patch TD DAILY [facility] Last Admin: 08/01/18 10:36 Dose: Not Given Rosuvastatin Calcium (Crestor) 5 mg PO HS [facility] Last Admin: 08/01/18 22:38 Dose: 5 mg Saccharomyces Boulardii (Florastor) 250 mg PO Q12 [facility] Last Admin: 08/01/18 22:39 Dose: 250 mg Spironolactone (Aldactone) 12.5 mg PO DAILY [facility] Last Admin: 08/01/18 10:59 Dose: 12.5 mg - Labs Labs: 08/02/18 06:12 08/02/18 06:12 PT 15.8 SECONDS (9.7-12.2) H 08/01/18 02:07 INR 1.4 08/01/18 02:07 APTT 60 SECONDS (21-34) H D 08/01/18 08:19 - Constitutional Appears: No Acute Distress, Chronically Ill - Head Exam Head Exam: ATRAUMATIC, NORMOCEPHALIC - Eye Exam Eye Exam: EOMI, PERRL. absent: Scleral icterus - ENT Exam ENT Exam: Mucous Membranes Moist, Normal Oropharynx - Neck Exam Neck Exam: absent: Lymphadenopathy, Thyromegaly - Respiratory Exam Respiratory Exam: Rhonchi (bibasilar). absent: Rales, Wheezes - Cardiovascular Exam Cardiovascular Exam: Tachycardia, +S1, +S2 - GI/Abdominal Exam GI & Abdominal Exam: Soft Additional comments: obese - Extremities Exam Extremities Exam: Pedal Edema (+2 edema up to thighs). absent: Tenderness - Neurological Exam Neurological Exam: Alert, Awake, Oriented x3 - Psychiatric Exam Psychiatric exam: Anxious - Skin Skin Exam: Dry, Intact, Warm Assessment and Plan (1) CINDY (acute kidney injury) Status: Acute (2) CHF exacerbation Status: Acute (3) NSTEMI (non-ST elevated myocardial infarction) Status: Acute (4) New onset atrial fibrillation Status: Acute (5) Hypertension Status: Acute - Assessment and Plan (Free Text) Assessment: 52 year old male with a PMH of HTN, DM2, HFrEF, COPD, tobacco and alcohol abuse who presented to ER with shortness of breath for 2 weeks, found to have new onset afib and acute on chronic CHF exacerbation with BL lower extremity cellulitis and now CINDY. Nephrology consultation was requested for his CINDY. Plan: Was receiving mucomust pre cardiac cath for today which is now cancelled Cr worsened Previous echo in 01/2018 showed EF of 45%, review of echo done yesterday shows no official read although EF approximately 5% Review of chart shows he already had a CKD of stage 3A in january, likely combination of his DM, HTN, and HFrEF Now with his worsened EF this is CINDY KDIGO II on CKD stage 3A likely pre-renal from severely worsened EF cause decreased renal perfusion Needs optimization of his cardiac function if we are to have improvements in his renal function, may benefit from ionotrope infusion in order to help diurese Monitor IxOs Patient was seen and examined and case was discussed at length with attending physician Dr. Pascual Thank you for the pleasure of participating in the care of this interesting patient <Silvio Pascual - Last Filed: 08/03/18 07:50> Objective - Vital Signs/Intake and Output Vital Signs (last 24 hours): Temp Pulse Resp BP Pulse Ox 98.7 F 119 H 21 110/66 95 08/03/18 04:00 08/03/18 07:35 08/03/18 07:35 08/03/18 07:35 08/02/18 23:01 Intake and Output: 08/03/18 08/03/18 06:59 18:59 Intake Total 1668.1 100 Output Total 2050 Balance -381.9 100 - Medications Medications: Current Medications Albuterol/Ipratropium (Duoneb 3 Mg/0.5 Mg (3 Ml) Ud) 3 ml INH RQ4 [facility] Last Admin: 08/03/18 03:25 Dose: Not Given Aspirin (Aspirin Chewable) 81 mg PO DAILY [facility] Bumetanide (Bumex) 2 mg IVP Q8H [facility] Last Admin: 08/03/18 05:10 Dose: 2 mg Carvedilol (Coreg) 12.5 mg PO BID [facility] Ciprofloxacin (Cipro) 500 mg PO BID [facility] PRN Reason: Protocol Last Admin: 08/02/18 18:21 Dose: 500 mg Clopidogrel Bisulfate (Plavix) 75 mg PO DAILY [facility] Last Admin: 08/02/18 09:35 Dose: 75 mg Dextrose (Dextrose 50% Inj) 0 ml IV STAT PRN; Protocol PRN Reason: Hypoglycemia Protocol Dextrose (Glutose 15) 0 gm PO ONCE PRN; Protocol PRN Reason: Hypoglycemia Protocol Dextrose (Dextrose 50% Inj) 0 ml IV STAT PRN; Protocol PRN Reason: Hypoglycemia Protocol Dextrose (Glutose 15) 0 gm PO ONCE PRN; Protocol PRN Reason: Hypoglycemia Protocol Famotidine (Pepcid) 20 mg PO DAILY [facility] Last Admin: 08/02/18 09:37 Dose: 20 mg Glucagon (Glucagen Diagnostic Kit) 0 mg IM STAT PRN; Protocol PRN Reason: Hypoglycemia Protocol Glucagon (Glucagen Diagnostic Kit) 0 mg IM STAT PRN; Protocol PRN Reason: Hypoglycemia Protocol Dextrose (Dextrose 5% In Water 1000 Ml) 1,000 mls @ 0 mls/hr IV .Q0M PRN; Protocol; Per Protocol PRN Reason: Hypoglycemia Protocol Heparin Sodium/Sodium Chloride (Heparin 14451 Units/250ml 1/2 Normal Saline) 25 ,000 units in 250 mls @ 16.356 mls/hr IV .[id number] PRN; Protocol; 12 UNITS/KG/HR PRN Reason: PROTOCOL Last Admin: 08/03/18 05:10 Dose: 14 units/kg/hr, 19.082 mls/hr Dextrose (Dextrose 5% In Water 1000 Ml) 1,000 mls @ 0 mls/hr IV .Q0M PRN; Protocol; Per Protocol PRN Reason: Hypoglycemia Protocol Milrinone Lactate/Dextrose 20 (mg/ Dextrose) 100 mls @ 15.33 mls/hr IV .Q6H32M [facility]; 0.375 MCG/KG/MIN PRN Reason: Protocol Last Admin: 08/03/18 07:35 Dose: 0.375 mcg/kg/min, 15.33 mls/hr Insulin Human Regular (Novolin R) 0 unit SC ACHS [facility] PRN Reason: Protocol Last Admin: 08/02/18 22:01 Dose: Not Given Methylprednisolone (Solu-Medrol) 40 mg IVP Q12 [facility] Last Admin: 08/02/18 21:58 Dose: 40 mg Metoprolol Tartrate (Lopressor) 5 mg IVP Q6H [facility] Last Admin: 08/03/18 05:23 Dose: 5 mg Nicotine (Nicoderm Cq) 1 patch TD DAILY [facility] Last Admin: 08/02/18 09:35 Dose: 1 patch Rosuvastatin Calcium (Crestor) 5 mg PO HS [facility] Saccharomyces Boulardii (Florastor) 250 mg PO Q12 [facility] Last Admin: 08/02/18 21:57 Dose: 250 mg Spironolactone (Aldactone) 12.5 mg PO DAILY [facility] Last Admin: 08/02/18 09:36 Dose: 12.5 mg - Labs Labs: 08/03/18 06:18 08/03/18 06:13 PT 15.8 SECONDS (9.7-12.2) H 08/01/18 02:07 INR 1.4 08/01/18 02:07 APTT 42 SECONDS (21-34) H D 08/02/18 22:11 Attending/Attestation - Attestation I have personally seen and examined this patient.: Yes I have fully participated in the care of the patient.: Yes I have reviewed all pertinent clinical information, including history, physical exam and plan: Yes Notes (Text): Patient with htn, dm, CHF w/ systolic dysfunction, COPD, admitted with severe acutely decompensated systolic CHF, CINDY, NSTEMI; Was for cardiac cath this morning but cancelled as patient could not lie flat; CINDY with oliguria; consistent with cardiorenal etiology; urine output improving with higher doses of IV diuretics; stable electrolyte status; no need for [employer]GE [employer]ER at this time; Case discussed with cardiology; concern for ongoing ischemia as cause for decompensation; will give trial of milrinone for inotropic support to help with diuresis and to improve renal function; -starting milrinone at 0.375 mcg/kg/min -increase bumex to 2 mg q8h; -recommend to hold off on further IV albumin -limit PO/IV intake; need to achieve at least 1-1.5L net neg daily balance; -avoid nephrotoxic agents; -recommend to delay cath until renal function stabilizes unless considered urgent (will cause further decompensation of CHF by causing CINDY); Critical care time assessing patient and discussing with PMD, CCM team and cardiology > 35 minutes.
[2018-08-02] MEDS: MethylPREDNISolone 40 mg Vial IVP SCH ×2 (09:37→21:58)
[2018-08-02] MEDS: Saccharomyces Boulardi 250 mg Cap PO SCH ×2 (09:37→21:57)
--- NOTE | 2018-08-02 09:39 | RAD ---
Date of service: 08/02/2018 HISTORY: sob COMPARISON: No prior. FINDINGS: LUNGS: The lungs are clear. There is mild pulmonary venous congestion PLEURA: Question of small pleural effusions. No pneumothorax apparent. CARDIOVASCULAR: Persistent moderate cardiomegaly. OSSEOUS STRUCTURES: No significant abnormalities. VISUALIZED UPPER ABDOMEN: Normal. OTHER FINDINGS: None. IMPRESSION: Moderate cardiomegaly and mild pulmonary venous congestion. Suspect small pleural effusions. No active pulmonary disease.
[2018-08-02] MEDS: Metoprolol 1 mg/ml Inj IVP SCH ×3 (10:45→23:06)
--- NOTE | 2018-08-02 10:52 | CON ---
DATE: 08/01/2018 NEPHROLOGY CONSULTATION LOCATION: [facility]. HISTORY OF PRESENT ILLNESS: The patient is a 52-year-old male with past medical history of hypertension, diabetes, CHF with systolic dysfunction, COPD, presented to ED yesterday with shortness of breath and chest pain. Nephrology is being consulted for renal insufficiency. The patient reports that he was ambulating well without dyspnea up until about three weeks ago. Now, the patient cannot lie down without getting short of breath. Had been sleeping in a chair due to his dyspnea. The patient on the day of presentation had increased chest tightness and palpitations. Found to be in AFib with RVR. The patient reports taking only Lasix 40 mg once a day. This is the only home medication, but does not take that regularly as he feels that it has not helped him to urinate. He reports increasing leg swelling, extending to upper thighs as well as increased abdominal girth and tightness. The patient denies any history of diabetes. Denies any history of renal insufficiency. The patient otherwise denies any difficulty urinating. No dysuria. Gets up only once at night to urinate. No urgency. PAST MEDICAL HISTORY: As above. 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 SOCIAL HISTORY: Quit smoking three weeks ago. FAMILY HISTORY: Mother with stroke. Denies history of any kidney problems in the family. REVIEW OF SYSTEMS: CONSTITUTIONAL: Denies any fevers or chills. Appetite has been well. HEENT: Denies any sore throat. RESPIRATORY: As per HPI. Increased dyspnea. CARDIOVASCULAR: As per HPI. GASTROINTESTINAL: Denies any nausea, vomiting, or diarrhea. GENITOURINARY: As per HPI. The patient is also reporting frothy urine in the mornings. MUSCULOSKELETAL: Denies any aches or pain. Does not take any pain medication, but does state that if he takes Advil, urination decreases. NEURO: The patient with tingling in his feet. PHYSICAL EXAMINATION: VITAL SIGNS: This evening, blood pressure 122/96, heart rate 106, respirations 25, temperature 97.9, O2 sat 92% on room air. GENERAL: No distress. Conversing coherently full sentences. HEENT: Elevated JVP. No cervical lymphadenopathy. RESPIRATORY: Decreased breath sounds at bases bilaterally. Otherwise, no rales, no rhonchi, no wheezes. CARDIOVASCULAR: Heart sounds S1, S2 normal. No murmurs, no gallops, no rubs. GASTROINTESTINAL: Abdomen is soft, nontender, nondistended. GENITOURINARY: No bladder distention. EXTREMITIES: Tight edema of bilateral lower legs, edema extending till upper thighs and lower back. SKIN: With weeping of bilateral lower legs. No cyanosis of distal hands. PSYCHIATRIC: Normal mood. Normal affect. NEURO: No tremor of outstretched hands. LABORATORY DATA: CBC: WBC 5.2, hemoglobin 11.5, hematocrit 35.7, platelets 286. Chemistry panel: Sodium 139, potassium 4.6, chloride 102, bicarb 26, BUN 33, creatinine 1.6, glucose 265, calcium 8.8, phosphorus 4.2, magnesium 1.9. AST 21, ALT 22. CK 202. Troponin 0.347. Albumin 3.4. Urine studies: UA, 1+ protein. Chest x-ray carefully visualized showing increased pulmonary vascular congestion. Abdominal ultrasound report reviewed, with asymmetry of kidneys. ASSESSMENT AND PLAN: 1. Acute decompensated systolic congestive heart failure. The patient volume overloaded with anasarca on examination in the setting of systolic dysfunction with [id number] myocardial infarction and concerned for obstructive coronary artery disease. The patient currently remains symptomatic, cannot lie flat without becoming short of breath. Currently on Lasix 40 mg orally twice a day and Aldactone 12.5 mg orally daily. Agree with holding off on intravenous diuretics until cardiac tests. Should start following cardiac catheterization in order to attempt to achieve euvolemia. Can increase Lasix dose to 40 mg intravenously three times a day and Aldactone 25 mg daily after catheterization. 2. Renal insufficiency. The patient with baseline serum creatinine of 1.3 in 01/2018. Does have 1+ proteinuria on urinalysis. Concern for underlying diabetic kidney disease. However, the patient also with renal asymmetry in the setting of severe congestive heart failure. Should consider underlying renal artery stenosis as possible contributory cause. We will obtain workup for proteinuric kidney disease. Checking random urine for total protein, microalbumin, and creatinine. We will recommend renal artery duplex after cardiac catheterization is done. 3. [id number] myocardial infarction. The patient in need of urgent cardiac catheterization to be done tomorrow. He is at increased risk of contrast nephropathy. Cannot give intravenous fluids for prophylaxis as the patient is already having dyspnea and cannot lie flat. We will give acetylcysteine 1200 mg orally every 12 hours as a second line agent to try to protect from contrast nephropathy. 4. Anemia, relatively mild. We will obtain iron studies. Thank you for this referral. We will be following up closely. Silvio Pascual MD
--- NOTE | 2018-08-02 13:10 | CP.PCM.PN ---
Subjective - Date & Time of Evaluation Date of Evaluation: 08/02/18 Time of Evaluation: 13:00 - Subjective Subjective: Medical Attending note: Patient seen and examined at beside. Patient reports orthopnea, reports choking sensation unable to lie flat, denies chest pain, reports dypspnea on exertion and at rest, denies abdominal pain, denies nausea, reports leg swelling. He understands he has heart problems and he understands that his kidneys are affected and thats why his cath was cancelled. He understands his heart is in a weakened state. Objective - Vital Signs/Intake and Output Vital Signs (last 24 hours): Temp Pulse Resp BP Pulse Ox 98.7 F 103 H 16 116/77 99 08/02/18 04:00 08/02/18 12:00 08/02/18 12:00 08/02/18 11:42 08/02/18 12:00 Intake and Output: 08/02/18 08/02/18 06:59 18:59 Intake Total 797.8 600 Output Total 300 500 Balance 497.8 100 - Medications Medications: Current Medications Acetylcysteine (Acetylcysteine 20%) 6 ml PO Q12H [facility] Stop: 08/03/18 07:01 Last Admin: 08/02/18 07:00 Dose: Not Given Albuterol/Ipratropium (Duoneb 3 Mg/0.5 Mg (3 Ml) Ud) 3 ml INH RQ4 [facility] Last Admin: 08/02/18 08:07 Dose: 3 ml Bumetanide (Bumex) 2 mg IVP Q12H [facility] Last Admin: 08/02/18 09:40 Dose: 2 mg Clopidogrel Bisulfate (Plavix) 75 mg PO DAILY [facility] Last Admin: 08/02/18 09:35 Dose: 75 mg Dextrose (Dextrose 50% Inj) 0 ml IV STAT PRN; Protocol PRN Reason: Hypoglycemia Protocol Dextrose (Glutose 15) 0 gm PO ONCE PRN; Protocol PRN Reason: Hypoglycemia Protocol Dextrose (Dextrose 50% Inj) 0 ml IV STAT PRN; Protocol PRN Reason: Hypoglycemia Protocol Dextrose (Glutose 15) 0 gm PO ONCE PRN; Protocol PRN Reason: Hypoglycemia Protocol Famotidine (Pepcid) 20 mg PO DAILY [facility] Last Admin: 08/02/18 09:37 Dose: 20 mg Glucagon (Glucagen Diagnostic Kit) 0 mg IM STAT PRN; Protocol PRN Reason: Hypoglycemia Protocol Glucagon (Glucagen Diagnostic Kit) 0 mg IM STAT PRN; Protocol PRN Reason: Hypoglycemia Protocol Dextrose (Dextrose 5% In Water 1000 Ml) 1,000 mls @ 0 mls/hr IV .Q0M PRN; Protocol; Per Protocol PRN Reason: Hypoglycemia Protocol Clindamycin Phosphate 300 mg/ (Sodium Chloride) 52 mls @ 104 mls/hr IVPB Q6H [facility] PRN Reason: Protocol Last Admin: 08/02/18 08:34 Dose: 104 mls/hr Heparin Sodium/Sodium Chloride (Heparin 91643 Units/250ml 1/2 Normal Saline) 25 ,000 units in 250 mls @ 16.356 mls/hr IV .[id number] PRN; Protocol; 12 UNITS/KG/HR PRN Reason: PROTOCOL Last Titration: 08/02/18 08:30 Dose: 12 units/kg/hr, 16.356 mls/hr Dextrose (Dextrose 5% In Water 1000 Ml) 1,000 mls @ 0 mls/hr IV .Q0M PRN; Protocol; Per Protocol PRN Reason: Hypoglycemia Protocol Albumin Human (Albumin Human 5% (12.5 Gm/250 Ml)) 250 mls @ 50 mls/hr IV Q5H [facility] Stop: 08/02/18 19:59 Last Admin: 08/02/18 10:44 Dose: 50 mls/hr Insulin Human Regular (Novolin R) 0 unit SC ACHS [facility] PRN Reason: Protocol Last Admin: 08/02/18 11:50 Dose: 4 units Methylprednisolone (Solu-Medrol) 40 mg IVP Q12 [facility] Last Admin: 08/02/18 09:37 Dose: 40 mg Metoprolol Tartrate (Lopressor) 5 mg IVP Q6H [facility] Last Admin: 08/02/18 10:45 Dose: 5 mg Nicotine (Nicoderm Cq) 1 patch TD DAILY [facility] Last Admin: 08/02/18 09:35 Dose: 1 patch Rosuvastatin Calcium (Crestor) 5 mg PO HS [facility] Last Admin: 08/01/18 22:38 Dose: 5 mg Saccharomyces Boulardii (Florastor) 250 mg PO Q12 [facility] Last Admin: 08/02/18 09:37 Dose: 250 mg Spironolactone (Aldactone) 12.5 mg PO DAILY [facility] Last Admin: 08/02/18 09:36 Dose: 12.5 mg - Labs Labs: 08/02/18 06:12 08/02/18 06:12 PT 15.8 SECONDS (9.7-12.2) H 08/01/18 02:07 INR 1.4 08/01/18 02:07 APTT 60 SECONDS (21-34) H D 08/01/18 08:19 - Constitutional Appears: Non-toxic, No Acute Distress - Head Exam Head Exam: NORMAL INSPECTION - Eye Exam Eye Exam: EOMI - ENT Exam ENT Exam: Mucous Membranes Moist - Respiratory Exam Respiratory Exam: Decreased Breath Sounds, NORMAL BREATHING PATTERN. absent: Respiratory Distress, Stridor - Cardiovascular Exam Cardiovascular Exam: +S1, +S2, +S4. absent: Tachycardia - GI/Abdominal Exam GI & Abdominal Exam: Distended, Firm, Soft, Normal Bowel Sounds. absent: Guarding, Rigid, Tenderness, Rebound Additional comments: obese habitus - Extremities Exam Extremities Exam: Pedal Edema. absent: Tenderness - Neurological Exam Neurological Exam: Alert, Awake, Oriented x3 - Skin Skin Exam: Dry, Normal Color, Warm Additional comments: except for legs; mild erythema, weeping Assessment and Plan (1) CHF exacerbation Status: Acute (2) NSTEMI (non-ST elevated myocardial infarction) Status: Acute (3) New onset atrial fibrillation Status: Acute (4) Bilateral cellulitis of lower leg Status: Acute (5) Hypertension Status: Acute (6) Newly diagnosed diabetes Status: Acute (7) Prophylactic measure Status: Acute Attending/Attestation - Attestation I have personally seen and examined this patient.: Yes I have fully participated in the care of the patient.: Yes I have reviewed all pertinent clinical information, including history, physical exam and plan: Yes Notes (Text): 1) Shortness of breathe * Contributing factors: morbid obesity, new onset atrial fibrillation, suspected congestive heart failure, intermediate frame tender smoker * Solumderol 40mg IVP Q12H 2) Possible Congestive Heart Failure Exacerbation Nonstemi * Risk factor: DM, obesity * Pending echocardiogram-->pending official read * Resume Heparin Drip * Lopressor 5mg IVP Q6H * Fluid restriction * Record intake and output * Switched to Bumex today * Patient reports shortness of breathe at rest and on exertion * Dr. Krause (Cardiology) sectionizer-->help appreciated * Dr. Flannery (nephrology) on case-->help appreciated * Discussion for possible Milirone for the patient if remains orthopneic * Crestor 5mg PoqHS * Patient has mild renal insufficiency * Plavix 75mg PO daily * Crestor 5mg POqHS * Aldactone 12.5mg PO daily * Aspirin 81mg PO daily 3) New onset Atrial fibrillation * CHADSVASC:3 (if CHF is confirmed then 4) * HASBLED: 1 * pending echocardiogram--> official * pending V/Q to rule out PE-->patient unable to lie flat * Lopressor 5mg IVP Q6H * Resume Heparin Drip 4) History of b/l lower extremity edema * suspected chf * venous doppler: negative for DVT * patient is on low dose diuretic 5) history of weeping leg wounds * wound care on board * Patient is on Clinadmycin-->resistant * Wound culture: MRSA * discontinue Clindamycin 200mg IV Q12H * Start Cipro 500mg PO BID for MRSA * Contact isolation 6) Tobacco abuse * Patient counselled at bedside to stop smoking * Nicoderm patch 7) Diabetes, newly diagnosed * influencing factor steroids, morbidly obese * Hgba1c: 7.9 * Will need aspirin as cardioprotective * Will need stuart/arb pending renal function for renoprotection from diabetes * Pot Reliner referral * diabetic education 8) prolonged QT * QTC: 463? * monitor K and mg2+ 9) Acute Renal Insufficiency * Nephrology (Dr. Pascual) on case-->help appreciated * Creatinine coming up * Discussed between nephro and cardiology, regards milirone * Unable to perform cath today secondary to creatinine rise 10) Prophylactic measure * on heparin drip for Atrial fib/nonstemi * fluid restriction * record in and out * pepcid 20mg PO daily * Bladder scan qshift I have indicated to him that he needs to stop smoking. Patient had reported he wants to go home and back to work by Sunday irregardless to his status. I have told him if we do not medically optimize him he is at risk for heart attack, cardiac arrest to name a few adverse/unwanted events in addition to stroke risk from his atrial fibrillation. I have spoken with him again, he understands why needs to be at the hospital. He reports he spoken with boss and understands that he was having a heart attack in front of him. He is hopeful he will only need a cardiac cath and nothing like angioplasty. He understands we are awaiting renal function to normalize prior to contrast based cath
[2018-08-02] MEDS: Heparin25000 units/250ml 1/2NS 25,000 UNITS/250 ML BAG IV PRN (13:28)
--- NOTE | 2018-08-02 13:37 | VASCLAB ---
Date of service: 08/01/2018 PROCEDURE: Lower Extremity Venous Duplex Exam. HISTORY: bilateral lower extremity swelling PRIORS: None. TECHNIQUE: Bilateral common femoral, femoral, popliteal and posterior tibial, peroneal and great saphenous veins were evaluated. Flow was assessed with color Doppler, compressibility, assessment of phasic flow and augmentation response. Report prepared by Wilfredo Khan, HUNTER, RVT FINDINGS: RIGHT: 1. Common Femoral Vein: 1.1. Compressibility - Fully compressible: Thrombus - None : Flow - Phasic: Augmentation -Normal: Reflux - None. 2. Femoral Vein: 2.1. Compressibility - Fully compressible: Thrombus - None : Flow - Phasic: Augmentation -Normal: Reflux - None. 3. Popliteal Vein: 3.1. Compressibility - Fully compressible: Thrombus - None : Flow - Phasic: Augmentation -Normal: Reflux - None. 4. Posterior Tibial Vein: 4.1. Compressibility - : Thrombus - : Flow - : Augmentation -: Reflux - . 5. Peroneal Vein: 5.1. Compressibility - : Thrombus - : Flow - : Augmentation -: Reflux - . 6. Great Saphenous Vein: 6.1. Compressibility - Fully compressible: Thrombus - None: Flow - Phasic: Augmentation - Normal: Reflux - None. LEFT: 1. Common Femoral Vein: 1.1. Compressibility - Fully compressible: Thrombus - None: Flow - Phasic: Augmentation -Normal: Reflux - None. 2. Femoral Vein: 2.1. Compressibility - Fully compressible: Thrombus - None: Flow - Phasic: Augmentation -Normal: Reflux - None. 3. Popliteal Vein: 3.1. Compressibility - Fully compressible: Thrombus - None : Flow - Phasic: Augmentation -Normal: Reflux - None. 4. Posterior Tibial Vein: 4.1. Compressibility - : Thrombus - : Flow - : Augmentation -: Reflux - . 5. Peroneal Vein: 5.1. Compressibility - : Thrombus - : Flow - : Augmentation -: Reflux - . 6. Great Saphenous Vein: 6.1. Compressibility - Fully compressible: Thrombus - None: Flow - Phasic: Augmentation - Normal: Reflux - None. OTHER FINDINGS: Due to severe swelling at the calves, bilateral posterior tibial and peroneal veins were not visualized. IMPRESSION: Right: No evidence of deep or superficial vein thrombosis of the right lower extremity. Normal valve function noted of the right side. Left: No evidence of deep or superficial vein thrombosis of the left lower extremity. Normal valve function noted of the left side.
[2018-08-02] MEDS: Ammonium Lactate 12% Lotion (225 g) EXT SCH (14:30)
--- NOTE | 2018-08-02 17:49 | CP.PCM.PN ---
Subjective - Date & Time of Evaluation Date of Evaluation: 08/02/18 Time of Evaluation: 17:40 - Subjective Subjective: patient was unable to lie flat today. renal function noted Objective - Vital Signs/Intake and Output Vital Signs (last 24 hours): Temp Pulse Resp BP Pulse Ox 98.7 F 108 H 24 111/82 95 08/02/18 04:00 08/02/18 17:04 08/02/18 17:04 08/02/18 17:04 08/02/18 14:58 Intake and Output: 08/02/18 08/02/18 06:59 18:59 Intake Total 797.8 860 Output Total 300 1300 Balance 497.8 -440 - Medications Medications: Current Medications Acetylcysteine (Acetylcysteine 20%) 6 ml PO Q12H [facility] Stop: 08/03/18 07:01 Last Admin: 08/02/18 07:00 Dose: Not Given Albuterol/Ipratropium (Duoneb 3 Mg/0.5 Mg (3 Ml) Ud) 3 ml INH RQ4 [facility] Last Admin: 08/02/18 16:10 Dose: 3 ml Aspirin (Aspirin Chewable) 81 mg PO DAILY [facility] Bumetanide (Bumex) 2 mg IVP Q12H [facility] Last Admin: 08/02/18 09:40 Dose: 2 mg Ciprofloxacin (Cipro) 500 mg PO BID [facility] PRN Reason: Protocol Clopidogrel Bisulfate (Plavix) 75 mg PO DAILY [facility] Last Admin: 08/02/18 09:35 Dose: 75 mg Dextrose (Dextrose 50% Inj) 0 ml IV STAT PRN; Protocol PRN Reason: Hypoglycemia Protocol Dextrose (Glutose 15) 0 gm PO ONCE PRN; Protocol PRN Reason: Hypoglycemia Protocol Dextrose (Dextrose 50% Inj) 0 ml IV STAT PRN; Protocol PRN Reason: Hypoglycemia Protocol Dextrose (Glutose 15) 0 gm PO ONCE PRN; Protocol PRN Reason: Hypoglycemia Protocol Famotidine (Pepcid) 20 mg PO DAILY [facility] Last Admin: 08/02/18 09:37 Dose: 20 mg Glucagon (Glucagen Diagnostic Kit) 0 mg IM STAT PRN; Protocol PRN Reason: Hypoglycemia Protocol Glucagon (Glucagen Diagnostic Kit) 0 mg IM STAT PRN; Protocol PRN Reason: Hypoglycemia Protocol Dextrose (Dextrose 5% In Water 1000 Ml) 1,000 mls @ 0 mls/hr IV .Q0M PRN; Protocol; Per Protocol PRN Reason: Hypoglycemia Protocol Heparin Sodium/Sodium Chloride (Heparin 58779 Units/250ml 1/2 Normal Saline) 25 ,000 units in 250 mls @ 16.356 mls/hr IV .[id number] PRN; Protocol; 12 UNITS/KG/HR PRN Reason: PROTOCOL Last Admin: 08/02/18 13:28 Dose: 12 units/kg/hr, 16.356 mls/hr Dextrose (Dextrose 5% In Water 1000 Ml) 1,000 mls @ 0 mls/hr IV .Q0M PRN; Protocol; Per Protocol PRN Reason: Hypoglycemia Protocol Albumin Human (Albumin Human 5% (12.5 Gm/250 Ml)) 250 mls @ 50 mls/hr IV Q5H [facility] Stop: 08/02/18 19:59 Last Admin: 08/02/18 15:55 Dose: 50 mls/hr Milrinone Lactate/Dextrose 20 (mg/ Dextrose) 100 mls @ 15.33 mls/hr IV .Q6H32M [facility]; 0.375 MCG/KG/MIN PRN Reason: Protocol Insulin Human Regular (Novolin R) 0 unit SC ACHS [facility] PRN Reason: Protocol Last Admin: 08/02/18 17:19 Dose: 3 units Methylprednisolone (Solu-Medrol) 40 mg IVP Q12 [facility] Last Admin: 08/02/18 09:37 Dose: 40 mg Metoprolol Tartrate (Lopressor) 5 mg IVP Q6H [facility] Last Admin: 08/02/18 17:24 Dose: 5 mg Nicotine (Nicoderm Cq) 1 patch TD DAILY [facility] Last Admin: 08/02/18 09:35 Dose: 1 patch Rosuvastatin Calcium (Crestor) 5 mg PO HS [facility] Last Admin: 08/01/18 22:38 Dose: 5 mg Saccharomyces Boulardii (Florastor) 250 mg PO Q12 [facility] Last Admin: 08/02/18 09:37 Dose: 250 mg Spironolactone (Aldactone) 12.5 mg PO DAILY [facility] Last Admin: 08/02/18 09:36 Dose: 12.5 mg - Labs Labs: 08/02/18 06:12 08/02/18 06:12 PT 15.8 SECONDS (9.7-12.2) H 08/01/18 02:07 INR 1.4 08/01/18 02:07 APTT 50 SECONDS (21-34) H D 08/02/18 15:04 - Constitutional Appears: Non-toxic - Head Exam Head Exam: NORMAL INSPECTION - Eye Exam Eye Exam: Normal appearance - ENT Exam ENT Exam: Mucous Membranes Moist - Neck Exam Neck Exam: Full ROM. absent: Lymphadenopathy, Tenderness, Thyromegaly - Respiratory Exam Respiratory Exam: Decreased Breath Sounds, Rales - Cardiovascular Exam Cardiovascular Exam: Irregular Rhythm - GI/Abdominal Exam GI & Abdominal Exam: Normal Bowel Sounds - Rectal Exam Rectal Exam: Deferred - Extremities Exam Extremities Exam: Pedal Edema - Back Exam Back Exam: absent: NORMAL INSPECTION - Neurological Exam Neurological Exam: Alert, Oriented x3 - Psychiatric Exam Psychiatric exam: Normal Affect - Skin Skin Exam: Normal Color Assessment and Plan (1) CHF exacerbation Assessment & Plan: likely decompensated acute systolic dsyfunction. recommend milrinone. continue diuresis. Status: Acute (2) NSTEMI (non-ST elevated myocardial infarction) Status: Acute (3) New onset atrial fibrillation Status: Acute
[2018-08-02] MEDS: Milrinone 20 MG in Dextrose 5% In Water 80 ML IV SCH (18:00)
[2018-08-03] MEDS: Albuterol-Ipratrop 3 mg / 0.5 (3 ml) UD INH SCH ×7 (00:26→23:46)
[2018-08-03] MEDS: Milrinone 20 MG in Dextrose 5% In Water 80 ML IV SCH ×6 (00:56→23:00)
[2018-08-03] MEDS: Heparin25000 units/250ml 1/2NS 25,000 UNITS/250 ML BAG IV PRN (05:10)
[2018-08-03] MEDS: Metoprolol 1 mg/ml Inj IVP SCH ×4 (05:23→22:00)
[2018-08-03 06:28] LABS: BASO % 0.1 % (0.0-2.0); HEMOGLOBIN 11.1 g/dL (12.0-18.0); LYMPH # 0.5 K/uL (1.0-4.3); LYMPH % 4.4 % (20.0-40.0); MEAN CELL VOLUME 83.2 fL (80.0-94.0); MEAN CORPUSCULAR HEMOGLOBIN 27.1 pg (27.0-31.0); MEAN CORPUSCULAR HGB CONC 32.5 g/dL (33.0-37.0); MEAN PLATELET VOLUME 7.8 fL (7.2-11.7); MONO # 0.4 K/uL (0.0-0.8); MONO % 3.6 % (0.0-10.0); NEUT # 9.5 K/uL (1.8-7.0); NEUT % 91.9 % (50.0-75.0); NRBC % 0.1 % (0.0-2.0); PLATELET COUNT 312 K/uL (130-400); RBC 4.09 Mil/uL (4.40-5.90); RED CELL DISTRIBUTION WIDTH 15.4 % (11.5-14.5); WHITE BLOOD COUNT 10.3 K/uL (4.8-10.8)
[2018-08-03 06:45] LABS: ALB/GLOB RATIO 1.2 (1.0-2.1); ALBUMIN 3.4 g/dL (3.5-5.0); CALCIUM 8.7 mg/dl (8.6-10.4)
--- NOTE | 2018-08-03 07:11 | CP.PCM.PN ---
Subjective - Date & Time of Evaluation Date of Evaluation: 08/03/18 Time of Evaluation: 06:45 - Subjective Subjective: patient has less dyspnea Objective - Vital Signs/Intake and Output Vital Signs (last 24 hours): Temp Pulse Resp BP Pulse Ox 98.7 F 109 H 17 117/73 95 08/03/18 04:00 08/03/18 05:25 08/03/18 05:25 08/03/18 05:25 08/02/18 23:01 Intake and Output: 08/03/18 08/03/18 06:59 18:59 Intake Total 1668.1 Output Total 2050 Balance -381.9 - Medications Medications: Current Medications Albuterol/Ipratropium (Duoneb 3 Mg/0.5 Mg (3 Ml) Ud) 3 ml INH RQ4 [facility] Last Admin: 08/03/18 03:25 Dose: Not Given Aspirin (Aspirin Chewable) 81 mg PO DAILY [facility] Bumetanide (Bumex) 2 mg IVP Q8H [facility] Last Admin: 08/03/18 05:10 Dose: 2 mg Carvedilol (Coreg) 12.5 mg PO BID [facility] Ciprofloxacin (Cipro) 500 mg PO BID [facility] PRN Reason: Protocol Last Admin: 08/02/18 18:21 Dose: 500 mg Clopidogrel Bisulfate (Plavix) 75 mg PO DAILY [facility] Last Admin: 08/02/18 09:35 Dose: 75 mg Dextrose (Dextrose 50% Inj) 0 ml IV STAT PRN; Protocol PRN Reason: Hypoglycemia Protocol Dextrose (Glutose 15) 0 gm PO ONCE PRN; Protocol PRN Reason: Hypoglycemia Protocol Dextrose (Dextrose 50% Inj) 0 ml IV STAT PRN; Protocol PRN Reason: Hypoglycemia Protocol Dextrose (Glutose 15) 0 gm PO ONCE PRN; Protocol PRN Reason: Hypoglycemia Protocol Famotidine (Pepcid) 20 mg PO DAILY [facility] Last Admin: 08/02/18 09:37 Dose: 20 mg Glucagon (Glucagen Diagnostic Kit) 0 mg IM STAT PRN; Protocol PRN Reason: Hypoglycemia Protocol Glucagon (Glucagen Diagnostic Kit) 0 mg IM STAT PRN; Protocol PRN Reason: Hypoglycemia Protocol Dextrose (Dextrose 5% In Water 1000 Ml) 1,000 mls @ 0 mls/hr IV .Q0M PRN; Protocol; Per Protocol PRN Reason: Hypoglycemia Protocol Heparin Sodium/Sodium Chloride (Heparin 60273 Units/250ml 1/2 Normal Saline) 25 ,000 units in 250 mls @ 16.356 mls/hr IV .[id number] PRN; Protocol; 12 UNITS/KG/HR PRN Reason: PROTOCOL Last Admin: 08/03/18 05:10 Dose: 14 units/kg/hr, 19.082 mls/hr Dextrose (Dextrose 5% In Water 1000 Ml) 1,000 mls @ 0 mls/hr IV .Q0M PRN; Protocol; Per Protocol PRN Reason: Hypoglycemia Protocol Milrinone Lactate/Dextrose 20 (mg/ Dextrose) 100 mls @ 15.33 mls/hr IV .Q6H32M [facility]ANIE; 0.375 MCG/KG/MIN PRN Reason: Protocol Last Admin: 08/03/18 06:05 Dose: Not Given Insulin Human Regular (Novolin R) 0 unit SC ACHS [facility] PRN Reason: Protocol Last Admin: 08/02/18 22:01 Dose: Not Given Methylprednisolone (Solu-Medrol) 40 mg IVP Q12 [facility] Last Admin: 08/02/18 21:58 Dose: 40 mg Metoprolol Tartrate (Lopressor) 5 mg IVP Q6H [facility] Last Admin: 08/03/18 05:23 Dose: 5 mg Nicotine (Nicoderm Cq) 1 patch TD DAILY [facility] Last Admin: 08/02/18 09:35 Dose: 1 patch Rosuvastatin Calcium (Crestor) 5 mg PO HS [facility] Last Admin: 08/02/18 21:57 Dose: 5 mg Saccharomyces Boulardii (Florastor) 250 mg PO Q12 [facility] Last Admin: 08/02/18 21:57 Dose: 250 mg Spironolactone (Aldactone) 12.5 mg PO DAILY [facility] Last Admin: 08/02/18 09:36 Dose: 12.5 mg - Labs Labs: 08/03/18 06:18 08/03/18 06:13 PT 15.8 SECONDS (9.7-12.2) H 08/01/18 02:07 INR 1.4 08/01/18 02:07 APTT 42 SECONDS (21-34) H D 08/02/18 22:11 - Constitutional Appears: Non-toxic - Head Exam Head Exam: NORMAL INSPECTION - Eye Exam Eye Exam: Normal appearance - ENT Exam ENT Exam: Mucous Membranes Moist - Neck Exam Neck Exam: Full ROM - Respiratory Exam Respiratory Exam: Decreased Breath Sounds - Cardiovascular Exam Cardiovascular Exam: Irregular Rhythm - GI/Abdominal Exam GI & Abdominal Exam: Normal Bowel Sounds - Rectal Exam Rectal Exam: Deferred - Extremities Exam Extremities Exam: Pedal Edema - Back Exam Back Exam: NORMAL INSPECTION - Neurological Exam Neurological Exam: Alert - Psychiatric Exam Psychiatric exam: Normal Affect - Skin Skin Exam: Normal Color Assessment and Plan (1) CHF exacerbation Assessment & Plan: will continue milrinone. start Coreg Status: Acute (2) NSTEMI (non-ST elevated myocardial infarction) Assessment & Plan: defer cath due to worsening renal function Status: Acute (3) New onset atrial fibrillation Assessment & Plan: will add Coreg. restart heparin. consider MADI cardioversion Status: Acute
[2018-08-03] MEDS: Acetylcysteine 20% Inhal Soln (4ml) PO SCH (08:00)
[2018-08-03] MEDS: (Novolin R) Insulin Human Regular 100 units/ml vial SC SCH ×4 (08:02→21:42)
--- NOTE | 2018-08-03 08:35 | CP.CCUPN ---
CCU Subjective - Physician Review Subjective (Free Text): 08/03/18 13:25 Pt seen and examined at bedside in the ICU. No acute events reported overnight. Cardiac cath remains deferred due to elevated Cr, which remains unchanged at Pt was NPO for cardiac cath however it was cancelled since the patient gets increasing sob upon laying down and his creatnine increased 1.7--> 2.2. He currently denies any chest pain and mild sob. 12 Point ROS performed and neg other than stated above. CCU Objective - Vital Signs / Intake & Output Vital Signs (Last 4 hours): Vital Signs Pulse Resp BP 08/03/18 08:12 132 H 14 155/94 H 08/03/18 08:00 126 H 17 08/03/18 07:37 122 H 22 110/66 08/03/18 07:35 119 H 21 110/66 08/03/18 07:00 107 H 16 08/03/18 06:00 118 H 18 08/03/18 05:25 109 H 17 117/73 08/03/18 05:14 118 H 18 119/63 08/03/18 04:43 122 H 18 111/63 Intake and Output (Last 8hrs): Intake & Output 08/02/18 08/03/18 08/03/18 22:59 06:59 14:59 Intake Total 1326.9 921.7 288.6 Output Total 1500 1350 500 Balance -173.1 -428.3 -211.4 Intake: IV 350 100 Intake, IV Amount 606.9 271.7 68.6 Left Antecubital 130.4 149.3 38 Right Antecubital 76.5 122.4 30.6 Right Forearm 400 Oral 720 300 120 Output: Urine 1500 1350 500 Urine, Voided 1100 1350 500 Other: # Bowel Movements 1 - Physical Exam Head: Positive for: Atraumatic, Normocephalic Pupils: Positive for: PERRL Extroacular Muscles: Positive for: EOMI Mouth: Positive for: Moist Mucous Membranes Neck: Positive for: Normal Range of Motion Respiratory/Chest: Positive for: Clear to Auscultation, Good Air Exchange, Rales (Bases ). Negative for: Respiratory Distress, Wheezes Cardiovascular: Positive for: Normal S1, S2, Irregular Rhythm, Tachycardic. Negative for: Murmurs Abdomen: Positive for: Normal Bowel Sounds. Negative for: Tenderness, Distention Upper Extremity: Positive for: Normal Inspection. Negative for: Cyanosis, Edema Lower Extremity: Positive for: Edema, Erythema. Negative for: CALF TENDERNESS Neurological: Positive for: CN II-XII Intact Skin: Positive for: Warm, Dry Psychiatric: Positive for: Alert, Oriented x 3 - Medications Active Medications: Active Medications Generic Name Dose Route Start Last Admin Trade Name Freq PRN Reason Stop Dose Admin Albuterol/Ipratropium 3 ml 07/31/18 20:00 08/03/18 07:43 Duoneb 3 Mg/0.5 Mg (3 Ml) Ud INH Not Given RQ4 DANIE Aspirin 81 mg 08/03/18 10:00 Aspirin Chewable PO DAILY DANIE Bumetanide 2 mg 08/02/18 20:15 08/03/18 05:10 Bumex IVP 2 mg Q8H DANIE Administration Carvedilol 12.5 mg 08/03/18 10:00 Coreg PO BID DANIE Ciprofloxacin 500 mg 08/02/18 18:00 08/02/18 18:21 Cipro PO 500 mg BID DANIE Administration Protocol Clopidogrel Bisulfate 75 mg 08/01/18 10:00 08/02/18 09:35 Plavix PO 75 mg DAILY DANIE Administration Dextrose 0 ml 07/31/18 18:03 Dextrose 50% Inj IV STAT PRN Hypoglycemia Protocol Protocol Dextrose 0 gm 07/31/18 18:03 Glutose 15 PO ONCE PRN Hypoglycemia Protocol Protocol Dextrose 0 ml 08/01/18 15:02 Dextrose 50% Inj IV STAT PRN Hypoglycemia Protocol Protocol Dextrose 0 gm 08/01/18 15:02 Glutose 15 PO ONCE PRN Hypoglycemia Protocol Protocol Famotidine 20 mg 08/01/18 10:00 08/02/18 09:37 Pepcid PO 20 mg DAILY DANIE Administration Glucagon 0 mg 07/31/18 18:03 Glucagen Diagnostic Kit IM STAT PRN Hypoglycemia Protocol Protocol Glucagon 0 mg 08/01/18 15:02 Glucagen Diagnostic Kit IM STAT PRN Hypoglycemia Protocol Protocol Dextrose 1,000 mls @ 0 mls/hr 07/31/18 18:03 Dextrose 5% In Water 1000 Ml IV .Q0M PRN Hypoglycemia Protocol Protocol Per Protocol Heparin Sodium/Sodium Chloride 25,000 units in 250 mls @ 16.356 mls/hr 04:16 08/03/18 05:10 Heparin 20705 Units/250ml 1/2 Normal Saline IV 14 units/kg/hr .[id number] PRN 19.082 mls/hr PROTOCOL Administration Protocol 12 UNITS/KG/HR Dextrose 1,000 mls @ 0 mls/hr 08/01/18 15:02 Dextrose 5% In Water 1000 Ml IV .Q0M PRN Hypoglycemia Protocol Protocol Per Protocol Milrinone Lactate/Dextrose 20 100 mls @ 15.33 mls/hr 08/02/18 17:00 08/03/18 07:35 mg/ Dextrose IV 0.375 mcg/kg/min .[id number] DANIE 15.33 mls/hr Protocol Administration 0.375 MCG/KG/MIN Albumin Human 250 mls @ 50 mls/hr 08/03/18 08:30 Albumin Human 5% (12.5 Gm/250 Ml) IVPB 08/03/18 18:29 Q5H DANIE Insulin Human Regular 0 unit 07/31/18 22:00 08/03/18 08:02 Novolin R SC 6 units ACHS DANIE Administration Protocol Methylprednisolone 40 mg 07/31/18 22:00 08/02/18 21:58 Solu-Medrol IVP 40 mg Q12 DANIE Administration Metoprolol Tartrate 5 mg 08/02/18 10:30 08/03/18 05:23 Lopressor IVP 5 mg Q6H DANIE Administration Nicotine 1 patch 08/01/18 10:00 08/02/18 09:35 Nicoderm Cq TD 1 patch DAILY DANIE Administration Rosuvastatin Calcium 5 mg 08/03/18 22:00 Crestor PO HS DANIE Saccharomyces Boulardii 250 mg 07/31/18 22:00 08/02/18 21:57 Florastor PO 250 mg Q12 DANIE Administration Spironolactone 12.5 mg 08/01/18 10:30 08/02/18 09:36 Aldactone PO 12.5 mg DAILY DANIE Administration - Patient Studies Lab Studies: Microbiology Studies 07/31/18 21:21 Blood Culture - Preliminary Blood NO GROWTH AFTER 48 HOURS 07/31/18 21:21 Blood Culture - Preliminary Blood NO GROWTH AFTER 48 HOURS 08/01/18 07:01 MRSA Culture (Admit) - Final Nose MRSA NOT DETECTED 07/31/18 18:29 Gram Stain - Final Leg - Left Wound 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 Lab Studies 08/03/18 08/03/18 08/03/18 Range/Units 07:42 07:26 06:18 WBC 10.3 (4.8-10.8) K/uL RBC 4.09 L (4.40-5.90) Mil/uL Hgb 11.1 L (12.0-18.0) g/dL Hct 34.0 L (35.0-51.0) % MCV 83.2 (80.0-94.0) fL MCH 27.1 (27.0-31.0) pg MCHC 32.5 L (33.0-37.0) g/dL RDW 15.4 H (11.5-14.5) % Plt Count 312 (130-400) K/uL MPV 7.8 (7.2-11.7) fL Neut % (Auto) 91.9 H (50.0-75.0) % Lymph % (Auto) 4.4 L (20.0-40.0) % Estill % (Auto) 3.6 (0.0-10.0) % Eos % (Auto) 0.0 (0.0-4.0) % Baso % (Auto) 0.1 (0.0-2.0) % Neut # (Auto) 9.5 H (1.8-7.0) K/uL Lymph # (Auto) 0.5 L (1.0-4.3) K/uL [place] # (Auto) 0.4 (0.0-0.8) K/uL Eos # (Auto) 0.0 (0.0-0.7) K/uL Baso # (Auto) 0.0 (0.0-0.2) K/uL Neutrophils % (Manual) (50-75) % Lymphocytes % (Manual) (20-40) % Monocytes % (Manual) (0-10) % Platelet Estimate (NORMAL) Hypochromasia (manual) Poikilocytosis (manual Anisocytosis (manual) Ovalocytes APTT 65 H D (21-34) SECONDS Sodium (132-148) mmol/L Potassium (3.6-5.2) mmol/L Chloride (98-107) mmol/L Carbon Dioxide (22-30) mmol/L Anion Gap (10-20) BUN (9-20) mg/dL Creatinine (0.8-1.5) mg/dL Est GFR ( Amer) Est GFR (Non-Af Amer) POC Glucose (mg/dL) 317 H (65-110) mg/dL Random Glucose (75-110) mg/dL Calcium (8.6-10.4) mg/dl Phosphorus (2.5-4.5) mg/dL Magnesium (1.6-2.3) mg/dL Total Bilirubin (0.2-1.3) mg/dL AST (17-59) U/L ALT (21-72) U/L Alkaline Phosphatase (38-126) U/L Total Protein (6.3-8.3) g/dL Albumin (3.5-5.0) g/dL Globulin (2.2-3.9) gm/dL Albumin/Globulin Ratio (1.0-2.1) U Random Total Protein (22-128) mg/g creat Urine Creatinine (20-370) mg/dL 08/03/18 08/02/18 08/02/18 Range/Units 06:13 22:11 21:11 WBC (4.8-10.8) K/uL RBC (4.40-5.90) Mil/uL Hgb (12.0-18.0) g/dL Hct (35.0-51.0) % MCV (80.0-94.0) fL MCH (27.0-31.0) pg MCHC (33.0-37.0) g/dL RDW (11.5-14.5) % Plt Count (130-400) K/uL MPV (7.2-11.7) fL Neut % (Auto) (50.0-75.0) % Lymph % (Auto) (20.0-40.0) % [place] % (Auto) (0.0-10.0) % Eos % (Auto) (0.0-4.0) % Baso % (Auto) (0.0-2.0) % Neut # (Auto) (1.8-7.0) K/uL Lymph # (Auto) (1.0-4.3) K/uL Est[place] # (Auto) (0.0-0.8) K/uL Eos # (Auto) (0.0-0.7) K/uL Baso # (Auto) (0.0-0.2) K/uL Neutrophils % (Manual) (50-75) % Lymphocytes % (Manual) (20-40) % Monocytes % (Manual) (0-10) % Platelet Estimate (NORMAL) Hypochromasia (manual) Poikilocytosis (manual Anisocytosis (manual) Ovalocytes APTT 42 H D (21-34) SECONDS Sodium 139 (132-148) mmol/L Potassium 4.5 (3.6-5.2) mmol/L Chloride 100 (98-107) mmol/L Carbon Dioxide 29 (22-30) mmol/L Anion Gap 15 (10-20) BUN 61 H (9-20) mg/dL Creatinine 2.2 H (0.8-1.5) mg/dL Est GFR ( Amer) 38 Est GFR (Non-Af Amer) 32 POC Glucose (mg/dL) 262 H (65-110) mg/dL Random Glucose 309 H (75-110) mg/dL Calcium 8.7 (8.6-10.4) mg/dl Phosphorus 4.7 H (2.5-4.5) mg/dL Magnesium 2.2 (1.6-2.3) mg/dL Total Bilirubin 0.3 (0.2-1.3) mg/dL AST 89 H D (17-59) U/L ALT 36 (21-72) U/L Alkaline Phosphatase 83 (38-126) U/L Total Protein 6.4 (6.3-8.3) g/dL Albumin 3.4 L (3.5-5.0) g/dL Globulin 2.9 (2.2-3.9) gm/dL Albumin/Globulin Ratio 1.2 (1.0-2.1) U Random Total Protein (22-128) mg/g creat Urine Creatinine (20-370) mg/dL 08/02/18 08/02/18 08/02/18 Range/Units 16:07 15:04 11:32 WBC (4.8-10.8) K/uL RBC (4.40-5.90) Mil/uL Hgb (12.0-18.0) g/dL Hct (35.0-51.0) % MCV (80.0-94.0) fL MCH (27.0-31.0) pg MCHC (33.0-37.0) g/dL RDW (11.5-14.5) % Plt Count (130-400) K/uL MPV (7.2-11.7) fL Neut % (Auto) (50.0-75.0) % Lymph % (Auto) (20.0-40.0) % [place] % (Auto) (0.0-10.0) % Eos % (Auto) (0.0-4.0) % Baso % (Auto) (0.0-2.0) % Neut # (Auto) (1.8-7.0) K/uL Lymph # (Auto) (1.0-4.3) K/uL Est[place] # (Auto) (0.0-0.8) K/uL Eos # (Auto) (0.0-0.7) K/uL Baso # (Auto) (0.0-0.2) K/uL Neutrophils % (Manual) (50-75) % Lymphocytes % (Manual) (20-40) % Monocytes % (Manual) (0-10) % Platelet Estimate (NORMAL) Hypochromasia (manual) Poikilocytosis (manual Anisocytosis (manual) Ovalocytes APTT 50 H D (21-34) SECONDS Sodium (132-148) mmol/L Potassium (3.6-5.2) mmol/L Chloride (98-107) mmol/L Carbon Dioxide (22-30) mmol/L Anion Gap (10-20) BUN (9-20) mg/dL Creatinine (0.8-1.5) mg/dL Est GFR ( Amer) Est GFR (Non-Af Amer) POC Glucose (mg/dL) 230 H 271 H (65-110) mg/dL Random Glucose (75-110) mg/dL Calcium (8.6-10.4) mg/dl Phosphorus (2.5-4.5) mg/dL Magnesium (1.6-2.3) mg/dL Total Bilirubin (0.2-1.3) mg/dL AST (17-59) U/L ALT (21-72) U/L Alkaline Phosphatase (38-126) U/L Total Protein (6.3-8.3) g/dL Albumin (3.5-5.0) g/dL Globulin (2.2-3.9) gm/dL Albumin/Globulin Ratio (1.0-2.1) U Random Total Protein (22-128) mg/g creat Urine Creatinine (20-370) mg/dL 08/02/18 08/01/18 08/01/18 Range/Units 06:12 16:14 08:18 WBC (4.8-10.8) K/uL RBC (4.40-5.90) Mil/uL Hgb (12.0-18.0) g/dL Hct (35.0-51.0) % MCV (80.0-94.0) fL MCH (27.0-31.0) pg MCHC (33.0-37.0) g/dL RDW (11.5-14.5) % Plt Count (130-400) K/uL MPV (7.2-11.7) fL Neut % (Auto) (50.0-75.0) % Lymph % (Auto) (20.0-40.0) % [place] % (Auto) (0.0-10.0) % Eos % (Auto) (0.0-4.0) % Baso % (Auto) (0.0-2.0) % Neut # (Auto) (1.8-7.0) K/uL Lymph # (Auto) (1.0-4.3) K/uL Est[place] # (Auto) (0.0-0.8) K/uL Eos # (Auto) (0.0-0.7) K/uL Baso # (Auto) (0.0-0.2) K/uL Neutrophils % (Manual) 92 H (50-75) % Lymphocytes % (Manual) 5 L (20-40) % Monocytes % (Manual) 3 (0-10) % Platelet Estimate Normal (NORMAL) Hypochromasia (manual) Slight Poikilocytosis (manual Slight Anisocytosis (manual) Slight Ovalocytes Slight APTT (21-34) SECONDS Sodium (132-148) mmol/L Potassium (3.6-5.2) mmol/L Chloride (98-107) mmol/L Carbon Dioxide (22-30) mmol/L Anion Gap (10-20) BUN (9-20) mg/dL Creatinine (0.8-1.5) mg/dL Est GFR ( Amer) Est GFR (Non-Af Amer) POC Glucose (mg/dL) 150 H (65-110) mg/dL Random Glucose (75-110) mg/dL Calcium (8.6-10.4) mg/dl Phosphorus (2.5-4.5) mg/dL Magnesium (1.6-2.3) mg/dL Total Bilirubin (0.2-1.3) mg/dL AST (17-59) U/L ALT (21-72) U/L Alkaline Phosphatase (38-126) U/L Total Protein (6.3-8.3) g/dL Albumin (3.5-5.0) g/dL Globulin (2.2-3.9) gm/dL Albumin/Globulin Ratio (1.0-2.1) U Random Total Protein (22-128) mg/g creat Urine Creatinine 152 (20-370) mg/dL 08/01/18 Range/Units 08:18 WBC (4.8-10.8) K/uL RBC (4.40-5.90) Mil/uL Hgb (12.0-18.0) g/dL Hct (35.0-51.0) % MCV (80.0-94.0) fL MCH (27.0-31.0) pg MCHC (33.0-37.0) g/dL RDW (11.5-14.5) % Plt Count (130-400) K/uL MPV (7.2-11.7) fL Neut % (Auto) (50.0-75.0) % Lymph % (Auto) (20.0-40.0) % [place] % (Auto) (0.0-10.0) % Eos % (Auto) (0.0-4.0) % Baso % (Auto) (0.0-2.0) % Neut # (Auto) (1.8-7.0) K/uL Lymph # (Auto) (1.0-4.3) K/uL Est[place] # (Auto) (0.0-0.8) K/uL Eos # (Auto) (0.0-0.7) K/uL Baso # (Auto) (0.0-0.2) K/uL Neutrophils % (Manual) (50-75) % Lymphocytes % (Manual) (20-40) % Monocytes % (Manual) (0-10) % Platelet Estimate (NORMAL) Hypochromasia (manual) Poikilocytosis (manual Anisocytosis (manual) Ovalocytes APTT (21-34) SECONDS Sodium (132-148) mmol/L Potassium (3.6-5.2) mmol/L Chloride (98-107) mmol/L Carbon Dioxide (22-30) mmol/L Anion Gap (10-20) BUN (9-20) mg/dL Creatinine (0.8-1.5) mg/dL Est GFR ( Amer) Est GFR (Non-Af Amer) POC Glucose (mg/dL) (65-110) mg/dL Random Glucose (75-110) mg/dL Calcium (8.6-10.4) mg/dl Phosphorus (2.5-4.5) mg/dL Magnesium (1.6-2.3) mg/dL Total Bilirubin (0.2-1.3) mg/dL AST (17-59) U/L ALT (21-72) U/L Alkaline Phosphatase (38-126) U/L Total Protein (6.3-8.3) g/dL Albumin (3.5-5.0) g/dL Globulin (2.2-3.9) gm/dL Albumin/Globulin Ratio (1.0-2.1) U Random Total Protein 371 H (22-128) mg/g creat Urine Creatinine (20-370) mg/dL Laboratory Results - last 24 hr 08/01/18 08/01/18 08/01/18 08:18 08:18 16:14 WBC RBC Hgb Hct MCV MCH MCHC RDW Plt Count MPV Neut % (Auto) Lymph % (Auto) [place] % (Auto) Eos % (Auto) Baso % (Auto) Neut # (Auto) Lymph # (Auto) [place] # (Auto) Eos # (Auto) Baso # (Auto) Neutrophils % (Manual) Lymphocytes % (Manual) Monocytes % (Manual) Platelet Estimate Hypochromasia (manual) Poikilocytosis (manual Anisocytosis (manual) Ovalocytes APTT Sodium Potassium Chloride Carbon Dioxide Anion Gap BUN Creatinine Est GFR ( Amer) Est GFR (Non-Af Amer) POC Glucose (mg/dL) 150 H Random Glucose Calcium Phosphorus Magnesium Total Bilirubin AST ALT Alkaline Phosphatase Total Protein Albumin Globulin Albumin/Globulin Ratio U Random Total Protein 371 H Urine Creatinine 152 08/02/18 08/02/18 08/02/18 06:12 11:32 15:04 WBC RBC Hgb Hct MCV MCH MCHC RDW Plt Count MPV Neut % (Auto) Lymph % (Auto) [place] % (Auto) Eos % (Auto) Baso % (Auto) Neut # (Auto) Lymph # (Auto) [place] # (Auto) Eos # (Auto) Baso # (Auto) Neutrophils % (Manual) 92 H Lymphocytes % (Manual) 5 L Monocytes % (Manual) 3 Platelet Estimate Normal Hypochromasia (manual) Slight Poikilocytosis (manual Slight Anisocytosis (manual) Slight Ovalocytes Slight APTT 50 H D Sodium Potassium Chloride Carbon Dioxide Anion Gap BUN Creatinine Est GFR ( Amer) Est GFR (Non-Af Amer) POC Glucose (mg/dL) 271 H Random Glucose Calcium Phosphorus Magnesium Total Bilirubin AST ALT Alkaline Phosphatase Total Protein Albumin Globulin Albumin/Globulin Ratio U Random Total Protein Urine Creatinine 08/02/18 08/02/18 08/02/18 16:07 21:11 22:11 WBC RBC Hgb Hct MCV MCH MCHC RDW Plt Count MPV Neut % (Auto) Lymph % (Auto) [place] % (Auto) Eos % (Auto) Baso % (Auto) Neut # (Auto) Lymph # (Auto) [place] # (Auto) Eos # (Auto) Baso # (Auto) Neutrophils % (Manual) Lymphocytes % (Manual) Monocytes % (Manual) Platelet Estimate Hypochromasia (manual) Poikilocytosis (manual Anisocytosis (manual) Ovalocytes APTT 42 H D Sodium Potassium Chloride Carbon Dioxide Anion Gap BUN Creatinine Est GFR ( Amer) Est GFR (Non-Af Amer) POC Glucose (mg/dL) 230 H 262 H Random Glucose Calcium Phosphorus Magnesium Total Bilirubin AST ALT Alkaline Phosphatase Total Protein Albumin Globulin Albumin/Globulin Ratio U Random Total Protein Urine Creatinine 08/03/18 08/03/18 08/03/18 06:13 06:18 07:26 WBC 10.3 RBC 4.09 L Hgb 11.1 L Hct 34.0 L MCV 83.2 MCH 27.1 MCHC 32.5 L RDW 15.4 H Plt Count 312 MPV 7.8 Neut % (Auto) 91.9 H Lymph % (Auto) 4.4 L [place] % (Auto) 3.6 Eos % (Auto) 0.0 Baso % (Auto) 0.1 Neut # (Auto) 9.5 H Lymph # (Auto) 0.5 L [place] # (Auto) 0.4 Eos # (Auto) 0.0 Baso # (Auto) 0.0 Neutrophils % (Manual) Lymphocytes % (Manual) Monocytes % (Manual) Platelet Estimate Hypochromasia (manual) Poikilocytosis (manual Anisocytosis (manual) Ovalocytes APTT Sodium 139 Potassium 4.5 Chloride 100 Carbon Dioxide 29 Anion Gap 15 BUN 61 H Creatinine 2.2 H Est GFR ( Amer) 38 Est GFR (Non-Af Amer) 32 POC Glucose (mg/dL) 317 H Random Glucose 309 H Calcium 8.7 Phosphorus 4.7 H Magnesium 2.2 Total Bilirubin 0.3 AST 89 H D ALT 36 Alkaline Phosphatase 83 Total Protein 6.4 Albumin 3.4 L Globulin 2.9 Albumin/Globulin Ratio 1.2 U Random Total Protein Urine Creatinine 08/03/18 07:42 WBC RBC Hgb Hct MCV MCH MCHC RDW Plt Count MPV Neut % (Auto) Lymph % (Auto) [place] % (Auto) Eos % (Auto) Baso % (Auto) Neut # (Auto) Lymph # (Auto) [place] # (Auto) Eos # (Auto) Baso # (Auto) Neutrophils % (Manual) Lymphocytes % (Manual) Monocytes % (Manual) Platelet Estimate Hypochromasia (manual) Poikilocytosis (manual Anisocytosis (manual) Ovalocytes APTT 65 H D Sodium Potassium Chloride Carbon Dioxide Anion Gap BUN Creatinine Est GFR ( Amer) Est GFR (Non-Af Amer) POC Glucose (mg/dL) Random Glucose Calcium Phosphorus Magnesium Total Bilirubin AST ALT Alkaline Phosphatase Total Protein Albumin Globulin Albumin/Globulin Ratio U Random Total Protein Urine Creatinine Fingerstick Blood Sugar Results: 317 Critical Care Progress Note - Nutrition Nutrition: Nutrition Category Date Time Status Heart Healthy Diet [DIET] Diets 08/02/18 Breakfast Active
[2018-08-03] MEDS: Saccharomyces Boulardi 250 mg Cap PO SCH ×2 (09:17→21:59)
[2018-08-03] MEDS: MethylPREDNISolone 40 mg Vial IVP SCH (09:20)
[2018-08-03 09:58] LABS: BANDS 1 % (0-2); LYMPHOCYTE 6 % (20-40); MONOCYTE 4 % (0-10); NEUTROPHIL 89 % (50-75); PLATELET ESTIMATE NORMAL (NORMAL); TOTAL CELLS COUNTED 100
[2018-08-03 09:59] LABS: ANISOCYTOSIS SLIGHT; HYPOCHROMIC SLIGHT; OVALOCYTES SLIGHT
--- NOTE | 2018-08-03 11:00 | RAD ---
Date of service: 08/03/2018 HISTORY: f/u, shortness of breath/CHF COMPARISON: Chest radiograph dated 08/02/2018 FINDINGS: LUNGS: Pulmonary vascular congestion. PLEURA: Questionable small bilateral pleural effusions. No pneumothorax apparent. CARDIOVASCULAR: Cardiomediastinal silhouette unchanged. OSSEOUS STRUCTURES: Unchanged. VISUALIZED UPPER ABDOMEN: Normal. OTHER FINDINGS: None. IMPRESSION: Suboptimal evaluation. Questionable small bilateral pleural effusions.
--- NOTE | 2018-08-03 14:34 | CP.CCUPN ---
CCU Subjective - Physician Review Events Since Last Encounter (Free Text): 08/03/18 14:53 patient is doing better clinically, breathing better, but still orthopneic. CCU Objective - Vital Signs / Intake & Output Vital Signs (Last 4 hours): Vital Signs Pulse Resp BP 08/03/18 14:02 124 H 16 120/66 08/03/18 14:00 121 H 17 08/03/18 13:03 126 H 20 141/97 H 08/03/18 13:00 119 H 16 08/03/18 12:04 117 H 17 104/58 L 08/03/18 12:00 118 H 17 08/03/18 11:03 114 H 24 131/98 H 08/03/18 11:00 114 H 24 08/03/18 10:51 112 H 20 146/99 H Intake and Output (Last 8hrs): Intake & Output 08/02/18 08/03/18 08/03/18 22:59 06:59 14:59 Intake Total 1326.9 921.7 1149.4 Output Total 1500 1350 1550 Balance -173.1 -428.3 -400.6 Intake: IV 350 100 Intake, IV Amount 606.9 271.7 449.4 Left Antecubital 130.4 149.3 152 Right Antecubital 76.5 122.4 122.4 Right Forearm 400 175 Oral 720 300 600 Output: Urine 1500 1350 1550 Urine, Voided 1100 1350 1550 Other: # Voids Urine, Voided 1 # Bowel Movements 1 - Physical Exam Head: Positive for: Atraumatic, Normocephalic Pupils: Positive for: PERRL Extroacular Muscles: Positive for: EOMI Mouth: Positive for: Moist Mucous Membranes Neck: Positive for: Normal Range of Motion Respiratory/Chest: Positive for: Clear to Auscultation, Good Air Exchange, Rales (Bases ). Negative for: Respiratory Distress, Wheezes Cardiovascular: Positive for: Normal S1, S2, Irregular Rhythm, Tachycardic. Negative for: Murmurs Abdomen: Positive for: Normal Bowel Sounds. Negative for: Tenderness, Distention Upper Extremity: Positive for: Normal Inspection. Negative for: Cyanosis, Edema Lower Extremity: Positive for: Edema, Erythema. Negative for: CALF TENDERNESS Neurological: Positive for: CN II-XII Intact Skin: Positive for: Warm, Dry Psychiatric: Positive for: Alert, Oriented x 3 - Medications Active Medications: Active Medications Generic Name Dose Route Start Last Admin Trade Name Freq PRN Reason Stop Dose Admin Albuterol/Ipratropium 3 ml 07/31/18 20:00 08/03/18 11:21 Duoneb 3 Mg/0.5 Mg (3 Ml) Ud INH 3 ml RQ4 DANIE Administration Aspirin 81 mg 08/03/18 10:00 08/03/18 09:17 Aspirin Chewable PO 81 mg DAILY DANIE Administration Bumetanide 2 mg 08/02/18 20:15 08/03/18 11:59 Bumex IVP 2 mg Q8H DANIE Administration Carvedilol 12.5 mg 08/03/18 10:00 08/03/18 09:19 Coreg PO 12.5 mg BID DANIE Administration Ciprofloxacin 500 mg 08/02/18 18:00 08/03/18 10:28 Cipro PO 500 mg BID DANIE Administration Protocol Clopidogrel Bisulfate 75 mg 08/01/18 10:00 08/03/18 09:19 Plavix PO 75 mg DAILY DANIE Administration Dextrose 0 ml 07/31/18 18:03 Dextrose 50% Inj IV STAT PRN Hypoglycemia Protocol Protocol Dextrose 0 gm 07/31/18 18:03 Glutose 15 PO ONCE PRN Hypoglycemia Protocol Protocol Dextrose 0 ml 08/01/18 15:02 Dextrose 50% Inj IV STAT PRN Hypoglycemia Protocol Protocol Dextrose 0 gm 08/01/18 15:02 Glutose 15 PO ONCE PRN Hypoglycemia Protocol Protocol Famotidine 20 mg 08/01/18 10:00 08/03/18 09:20 Pepcid PO 20 mg DAILY DANIE Administration Glucagon 0 mg 07/31/18 18:03 Glucagen Diagnostic Kit IM STAT PRN Hypoglycemia Protocol Protocol Glucagon 0 mg 08/01/18 15:02 Glucagen Diagnostic Kit IM STAT PRN Hypoglycemia Protocol Protocol Dextrose 1,000 mls @ 0 mls/hr 07/31/18 18:03 Dextrose 5% In Water 1000 Ml IV .Q0M PRN Hypoglycemia Protocol Protocol Per Protocol Heparin Sodium/Sodium Chloride 25,000 units in 250 mls @ 16.356 mls/hr 04:16 08/03/18 05:10 Heparin 26183 Units/250ml 1/2 Normal Saline IV 14 units/kg/hr .[id number] PRN 19.082 mls/hr PROTOCOL Administration Protocol 12 UNITS/KG/HR Dextrose 1,000 mls @ 0 mls/hr 08/01/18 15:02 Dextrose 5% In Water 1000 Ml IV .Q0M PRN Hypoglycemia Protocol Protocol Per Protocol Milrinone Lactate/Dextrose 20 100 mls @ 15.33 mls/hr 08/02/18 17:00 08/03/18 07:35 mg/ Dextrose IV 0.375 mcg/kg/min .Q6H32M DANIE 15.33 mls/hr Protocol Administration 0.375 MCG/KG/MIN Albumin Human 500 mls @ 25 mls/hr 08/03/18 10:45 08/03/18 10:47 Albutein 5% 500 Ml IVPB 08/04/18 06:44 Not Given Q20H DANIE Insulin Human Regular 0 unit 07/31/18 22:00 08/03/18 11:59 Novolin R SC 4 units ACHS DANIE Administration Protocol Methylprednisolone 40 mg 07/31/18 22:00 08/03/18 09:20 Solu-Medrol IVP 40 mg Q12 DANIE Administration Metoprolol Tartrate 5 mg 08/02/18 10:30 08/03/18 09:46 Lopressor IVP 5 mg Q6H DANIE Administration Nicotine 1 patch 08/01/18 10:00 08/03/18 09:18 Nicoderm Cq TD Not Given DAILY [facility] Rosuvastatin Calcium 5 mg 08/03/18 22:00 Crestor PO HS DANIE Saccharomyces Boulardii 250 mg 07/31/18 22:00 08/03/18 09:17 Florastor PO 250 mg Q12 DANIE Administration Spironolactone 12.5 mg 08/01/18 10:30 08/03/18 09:18 Aldactone PO 12.5 mg DAILY DANIE Administration - Patient Studies Lab Studies: Microbiology Studies 07/31/18 21:21 Blood Culture - Preliminary Blood NO GROWTH AFTER 48 HOURS 07/31/18 21:21 Blood Culture - Preliminary Blood NO GROWTH AFTER 48 HOURS 08/01/18 07:01 MRSA Culture (Admit) - Final Nose MRSA NOT DETECTED 07/31/18 18:29 Gram Stain - Final Leg - Left Wound 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 Lab Studies 08/03/18 08/03/18 08/03/18 Range/Units 11:41 07:42 07:26 WBC (4.8-10.8) K/uL RBC (4.40-5.90) Mil/uL Hgb (12.0-18.0) g/dL Hct (35.0-51.0) % MCV (80.0-94.0) fL MCH (27.0-31.0) pg MCHC (33.0-37.0) g/dL RDW (11.5-14.5) % Plt Count (130-400) K/uL MPV (7.2-11.7) fL Neut % (Auto) (50.0-75.0) % Lymph % (Auto) (20.0-40.0) % [place] % (Auto) (0.0-10.0) % Eos % (Auto) (0.0-4.0) % Baso % (Auto) (0.0-2.0) % Neut # (Auto) (1.8-7.0) K/uL Lymph # (Auto) (1.0-4.3) K/uL [place] # (Auto) (0.0-0.8) K/uL Eos # (Auto) (0.0-0.7) K/uL Baso # (Auto) (0.0-0.2) K/uL Neutrophils % (Manual) (50-75) % Band Neutrophils % (0-2) % Lymphocytes % (Manual) (20-40) % Monocytes % (Manual) (0-10) % Platelet Estimate (NORMAL) Hypochromasia (manual) Anisocytosis (manual) Ovalocytes APTT 65 H D (21-34) SECONDS Sodium (132-148) mmol/L Potassium (3.6-5.2) mmol/L Chloride (98-107) mmol/L Carbon Dioxide (22-30) mmol/L Anion Gap (10-20) BUN (9-20) mg/dL Creatinine (0.8-1.5) mg/dL Est GFR ( Amer) Est GFR (Non-Af Amer) POC Glucose (mg/dL) 259 H 317 H (65-110) mg/dL Random Glucose (75-110) mg/dL Calcium (8.6-10.4) mg/dl Phosphorus (2.5-4.5) mg/dL Magnesium (1.6-2.3) mg/dL Total Bilirubin (0.2-1.3) mg/dL AST (17-59) U/L ALT (21-72) U/L Alkaline Phosphatase (38-126) U/L Total Protein (6.3-8.3) g/dL Albumin (3.5-5.0) g/dL Globulin (2.2-3.9) gm/dL Albumin/Globulin Ratio (1.0-2.1) U Random Total Protein (22-128) mg/g creat Urine Creatinine (20-370) mg/dL Urine Microalbumin mg/dL Microalb/Creat Ratio (<30) 08/03/18 08/03/18 08/02/18 Range/Units 06:18 06:13 22:11 WBC 10.3 (4.8-10.8) K/uL RBC 4.09 L (4.40-5.90) Mil/uL Hgb 11.1 L (12.0-18.0) g/dL Hct 34.0 L (35.0-51.0) % MCV 83.2 (80.0-94.0) fL MCH 27.1 (27.0-31.0) pg MCHC 32.5 L (33.0-37.0) g/dL RDW 15.4 H (11.5-14.5) % Plt Count 312 (130-400) K/uL MPV 7.8 (7.2-11.7) fL Neut % (Auto) 91.9 H (50.0-75.0) % Lymph % (Auto) 4.4 L (20.0-40.0) % [place] % (Auto) 3.6 (0.0-10.0) % Eos % (Auto) 0.0 (0.0-4.0) % Baso % (Auto) 0.1 (0.0-2.0) % Neut # (Auto) 9.5 H (1.8-7.0) K/uL Lymph # (Auto) 0.5 L (1.0-4.3) K/uL [place] # (Auto) 0.4 (0.0-0.8) K/uL Eos # (Auto) 0.0 (0.0-0.7) K/uL Baso # (Auto) 0.0 (0.0-0.2) K/uL Neutrophils % (Manual) 89 H (50-75) % Band Neutrophils % 1 (0-2) % Lymphocytes % (Manual) 6 L (20-40) % Monocytes % (Manual) 4 (0-10) % Platelet Estimate Normal (NORMAL) Hypochromasia (manual) Slight Anisocytosis (manual) Slight Ovalocytes Slight APTT 42 H D (21-34) SECONDS Sodium 139 (132-148) mmol/L Potassium 4.5 (3.6-5.2) mmol/L Chloride 100 (98-107) mmol/L Carbon Dioxide 29 (22-30) mmol/L Anion Gap 15 (10-20) BUN 61 H (9-20) mg/dL Creatinine 2.2 H (0.8-1.5) mg/dL Est GFR ( Amer) 38 Est GFR (Non-Af Amer) 32 POC Glucose (mg/dL) (65-110) mg/dL Random Glucose 309 H (75-110) mg/dL Calcium 8.7 (8.6-10.4) mg/dl Phosphorus 4.7 H (2.5-4.5) mg/dL Magnesium 2.2 (1.6-2.3) mg/dL Total Bilirubin 0.3 (0.2-1.3) mg/dL AST 89 H D (17-59) U/L ALT 36 (21-72) U/L Alkaline Phosphatase 83 (38-126) U/L Total Protein 6.4 (6.3-8.3) g/dL Albumin 3.4 L (3.5-5.0) g/dL Globulin 2.9 (2.2-3.9) gm/dL Albumin/Globulin Ratio 1.2 (1.0-2.1) U Random Total Protein (22-128) mg/g creat Urine Creatinine (20-370) mg/dL Urine Microalbumin mg/dL Microalb/Creat Ratio (<30) 08/02/18 08/02/18 08/02/18 Range/Units 21:11 16:07 15:04 WBC (4.8-10.8) K/uL RBC (4.40-5.90) Mil/uL Hgb (12.0-18.0) g/dL Hct (35.0-51.0) % MCV (80.0-94.0) fL MCH (27.0-31.0) pg MCHC (33.0-37.0) g/dL RDW (11.5-14.5) % Plt Count (130-400) K/uL MPV (7.2-11.7) fL Neut % (Auto) (50.0-75.0) % Lymph % (Auto) (20.0-40.0) % [place] % (Auto) (0.0-10.0) % Eos % (Auto) (0.0-4.0) % Baso % (Auto) (0.0-2.0) % Neut # (Auto) (1.8-7.0) K/uL Lymph # (Auto) (1.0-4.3) K/uL [place] # (Auto) (0.0-0.8) K/uL Eos # (Auto) (0.0-0.7) K/uL Baso # (Auto) (0.0-0.2) K/uL Neutrophils % (Manual) (50-75) % Band Neutrophils % (0-2) % Lymphocytes % (Manual) (20-40) % Monocytes % (Manual) (0-10) % Platelet Estimate (NORMAL) Hypochromasia (manual) Anisocytosis (manual) Ovalocytes APTT 50 H D (21-34) SECONDS Sodium (132-148) mmol/L Potassium (3.6-5.2) mmol/L Chloride (98-107) mmol/L Carbon Dioxide (22-30) mmol/L Anion Gap (10-20) BUN (9-20) mg/dL Creatinine (0.8-1.5) mg/dL Est GFR ( Amer) Est GFR (Non-Af Amer) POC Glucose (mg/dL) 262 H 230 H (65-110) mg/dL Random Glucose (75-110) mg/dL Calcium (8.6-10.4) mg/dl Phosphorus (2.5-4.5) mg/dL Magnesium (1.6-2.3) mg/dL Total Bilirubin (0.2-1.3) mg/dL AST (17-59) U/L ALT (21-72) U/L Alkaline Phosphatase (38-126) U/L Total Protein (6.3-8.3) g/dL Albumin (3.5-5.0) g/dL Globulin (2.2-3.9) gm/dL Albumin/Globulin Ratio (1.0-2.1) U Random Total Protein (22-128) mg/g creat Urine Creatinine (20-370) mg/dL Urine Microalbumin mg/dL Microalb/Creat Ratio (<30) 08/01/18 08/01/18 Range/Units 08:18 08:18 WBC (4.8-10.8) K/uL RBC (4.40-5.90) Mil/uL Hgb (12.0-18.0) g/dL Hct (35.0-51.0) % MCV (80.0-94.0) fL MCH (27.0-31.0) pg MCHC (33.0-37.0) g/dL RDW (11.5-14.5) % Plt Count (130-400) K/uL MPV (7.2-11.7) fL Neut % (Auto) (50.0-75.0) % Lymph % (Auto) (20.0-40.0) % [place] % (Auto) (0.0-10.0) % Eos % (Auto) (0.0-4.0) % Baso % (Auto) (0.0-2.0) % Neut # (Auto) (1.8-7.0) K/uL Lymph # (Auto) (1.0-4.3) K/uL [place] # (Auto) (0.0-0.8) K/uL Eos # (Auto) (0.0-0.7) K/uL Baso # (Auto) (0.0-0.2) K/uL Neutrophils % (Manual) (50-75) % Band Neutrophils % (0-2) % Lymphocytes % (Manual) (20-40) % Monocytes % (Manual) (0-10) % Platelet Estimate (NORMAL) Hypochromasia (manual) Anisocytosis (manual) Ovalocytes APTT (21-34) SECONDS Sodium (132-148) mmol/L Potassium (3.6-5.2) mmol/L Chloride (98-107) mmol/L Carbon Dioxide (22-30) mmol/L Anion Gap (10-20) BUN (9-20) mg/dL Creatinine (0.8-1.5) mg/dL Est GFR ( Amer) Est GFR (Non-Af Amer) POC Glucose (mg/dL) (65-110) mg/dL Random Glucose (75-110) mg/dL Calcium (8.6-10.4) mg/dl Phosphorus (2.5-4.5) mg/dL Magnesium (1.6-2.3) mg/dL Total Bilirubin (0.2-1.3) mg/dL AST (17-59) U/L ALT (21-72) U/L Alkaline Phosphatase (38-126) U/L Total Protein (6.3-8.3) g/dL Albumin (3.5-5.0) g/dL Globulin (2.2-3.9) gm/dL Albumin/Globulin Ratio (1.0-2.1) U Random Total Protein 371 H (22-128) mg/g creat Urine Creatinine 152 (20-370) mg/dL Urine Microalbumin 26.0 mg/dL Microalb/Creat Ratio 171 H (<30) Laboratory Results - last 24 hr 08/01/18 08/01/18 08/02/18 08:18 08:18 15:04 WBC RBC Hgb Hct MCV MCH MCHC RDW Plt Count MPV Neut % (Auto) Lymph % (Auto) [place] % (Auto) Eos % (Auto) Baso % (Auto) Neut # (Auto) Lymph # (Auto) [place] # (Auto) Eos # (Auto) Baso # (Auto) Neutrophils % (Manual) Band Neutrophils % Lymphocytes % (Manual) Monocytes % (Manual) Platelet Estimate Hypochromasia (manual) Anisocytosis (manual) Ovalocytes APTT 50 H D Sodium Potassium Chloride Carbon Dioxide Anion Gap BUN Creatinine Est GFR ( Amer) Est GFR (Non-Af Amer) POC Glucose (mg/dL) Random Glucose Calcium Phosphorus Magnesium Total Bilirubin AST ALT Alkaline Phosphatase Total Protein Albumin Globulin Albumin/Globulin Ratio U Random Total Protein 371 H Urine Creatinine 152 Urine Microalbumin 26.0 Microalb/Creat Ratio 171 H 08/02/18 08/02/18 08/02/18 16:07 21:11 22:11 WBC RBC Hgb Hct MCV MCH MCHC RDW Plt Count MPV Neut % (Auto) Lymph % (Auto) [place] % (Auto) Eos % (Auto) Baso % (Auto) Neut # (Auto) Lymph # (Auto) [place] # (Auto) Eos # (Auto) Baso # (Auto) Neutrophils % (Manual) Band Neutrophils % Lymphocytes % (Manual) Monocytes % (Manual) Platelet Estimate Hypochromasia (manual) Anisocytosis (manual) Ovalocytes APTT 42 H D Sodium Potassium Chloride Carbon Dioxide Anion Gap BUN Creatinine Est GFR ( Amer) Est GFR (Non-Af Amer) POC Glucose (mg/dL) 230 H 262 H Random Glucose Calcium Phosphorus Magnesium Total Bilirubin AST ALT Alkaline Phosphatase Total Protein Albumin Globulin Albumin/Globulin Ratio U Random Total Protein Urine Creatinine Urine Microalbumin Microalb/Creat Ratio 08/03/18 08/03/18 08/03/18 06:13 06:18 07:26 WBC 10.3 RBC 4.09 L Hgb 11.1 L Hct 34.0 L MCV 83.2 MCH 27.1 MCHC 32.5 L RDW 15.4 H Plt Count 312 MPV 7.8 Neut % (Auto) 91.9 H Lymph % (Auto) 4.4 L [place] % (Auto) 3.6 Eos % (Auto) 0.0 Baso % (Auto) 0.1 Neut # (Auto) 9.5 H Lymph # (Auto) 0.5 L [place] # (Auto) 0.4 Eos # (Auto) 0.0 Baso # (Auto) 0.0 Neutrophils % (Manual) 89 H Band Neutrophils % 1 Lymphocytes % (Manual) 6 L Monocytes % (Manual) 4 Platelet Estimate Normal Hypochromasia (manual) Slight Anisocytosis (manual) Slight Ovalocytes Slight APTT Sodium 139 Potassium 4.5 Chloride 100 Carbon Dioxide 29 Anion Gap 15 BUN 61 H Creatinine 2.2 H Est GFR ( Amer) 38 Est GFR (Non-Af Amer) 32 POC Glucose (mg/dL) 317 H Random Glucose 309 H Calcium 8.7 Phosphorus 4.7 H Magnesium 2.2 Total Bilirubin 0.3 AST 89 H D ALT 36 Alkaline Phosphatase 83 Total Protein 6.4 Albumin 3.4 L Globulin 2.9 Albumin/Globulin Ratio 1.2 U Random Total Protein Urine Creatinine Urine Microalbumin Microalb/Creat Ratio 08/03/18 08/03/18 07:42 11:41 WBC RBC Hgb Hct MCV MCH MCHC RDW Plt Count MPV Neut % (Auto) Lymph % (Auto) [place] % (Auto) Eos % (Auto) Baso % (Auto) Neut # (Auto) Lymph # (Auto) [place] # (Auto) Eos # (Auto) Baso # (Auto) Neutrophils % (Manual) Band Neutrophils % Lymphocytes % (Manual) Monocytes % (Manual) Platelet Estimate Hypochromasia (manual) Anisocytosis (manual) Ovalocytes APTT 65 H D Sodium Potassium Chloride Carbon Dioxide Anion Gap BUN Creatinine Est GFR ( Amer) Est GFR (Non-Af Amer) POC Glucose (mg/dL) 259 H Random Glucose Calcium Phosphorus Magnesium Total Bilirubin AST ALT Alkaline Phosphatase Total Protein Albumin Globulin Albumin/Globulin Ratio U Random Total Protein Urine Creatinine Urine Microalbumin Microalb/Creat Ratio Fingerstick Blood Sugar Results: 259 Review of Systems - Review of Systems All systems: reviewed and no additional remarkable complaints except - Cardiovascular Cardiovascular: Dyspnea on Exertion, Orthopnea Critical Care Progress Note - Nutrition Nutrition: Nutrition Category Date Time Status Heart Healthy Diet [DIET] Diets 08/02/18 Breakfast Active Assessment/Plan (1) NSTEMI (non-ST elevated myocardial infarction) Assessment and plan: 52 M with PMHx of HTN, T2DM, Systolic Heart Failure, COPD, Tobacco Use Disorder , Alcohol Use Disorder who presents to the ED with shortness of breath 2 weeks. Patient admitted for New Onset Atriall Fibrillation, NSTEMI, Acute on Chronic Systolic Heart Failure Exacerbation, Bilateral Lower Extremity Cellulitis, and CINDY. Patient planned for cardiac cath today however it was cancelled due to inc orthopnea and CINDY. Neuro: alert and oriented x 3 Pulm: orthopnea, pulmonary edema improving symptomatically but not radiographically. Continue diuresis with albumin drip, bumex 2mg iv q8h. CV: hemodynamically stable. On Milrinone gtt to increase cardiac output to hopefully improve renal function. systolic congestive heart failure s/p NSTEMI , continue Crestor. Metoprolol IV q6h for afib rate control. Hem: heparin drip for afib stroke prophylaxis, changing to lovenox to reduce fluid intake. NSTEMI, continue ASA and Plavix. Renal: cardiorenal disease with CINDY. diuresing with bumex and spironolactone. Endo: DM type 2, SISS for coverage GI: heart healthy diet ID: MRSA in left leg wound, on Cipro. DVT proph - lovenox GI proph - pepcid Code status - full code Critical Care Time spent 35 minutes Multi-disciplinary rounds were performed with house staff, nursing, speech therapy, respiratory therapy, pharmacy and nutrition with integrated input from the primary team/attending and other consulting services. The documented time is cumulative and includes review of patient data/exams/labs/chart review and examination of the patient on rounds and throughout the day; time is exclusive of any procedures or teaching time. Current Visit: Yes Status: Acute
[2018-08-03] MEDS ORDERED: Dextrose 50% SYRINGE Inj (50 ml) IV PRN (15:31)
[2018-08-03] MEDS ORDERED: Glucagon Recombinant 1 mg Inj IM PRN (15:31)
[2018-08-03] MEDS: Enoxaparin 150 mg Syringe SC SCH (17:10)
[2018-08-03] MEDS: (Novolog) Insulin Aspart, Recombinant 100 u/ml 10 ml vial SC SCH ×2 (17:11→21:42)
--- NOTE | 2018-08-03 17:13 | CP.PCM.PN ---
Subjective - Date & Time of Evaluation Date of Evaluation: 08/03/18 Time of Evaluation: 14:00 - Subjective Subjective: Medical attending note Agents seen this morning. Patient reports some mild improvement from lying down in bed reports able to tolerate couple minutes before he feels her choking sensation back of his throat. Patient denies chest pain denies palpitations denies abdominal pain denies nausea denies vomiting reports that he is urinating he thinks more compared to yesterday. Objective - Vital Signs/Intake and Output Vital Signs (last 24 hours): Temp Pulse Resp BP Pulse Ox 98.7 F 115 H 20 135/100 H 95 08/03/18 16:00 08/03/18 16:02 08/03/18 16:02 08/03/18 16:02 08/02/18 23:01 Intake and Output: 08/03/18 08/03/18 06:59 18:59 Intake Total 1668.1 1258.0 Output Total 2050 2250 Balance -381.9 -992.0 - Medications Medications: Current Medications Albuterol/Ipratropium (Duoneb 3 Mg/0.5 Mg (3 Ml) Ud) 3 ml INH RQ4 [facility] Last Admin: 08/03/18 15:28 Dose: 3 ml Aspirin (Aspirin Chewable) 81 mg PO DAILY [facility] Last Admin: 08/03/18 09:17 Dose: 81 mg Bumetanide (Bumex) 2 mg IVP Q8H [facility] Last Admin: 08/03/18 11:59 Dose: 2 mg Ciprofloxacin (Cipro) 500 mg PO BID [facility] PRN Reason: Protocol Last Admin: 08/03/18 10:28 Dose: 500 mg Clopidogrel Bisulfate (Plavix) 75 mg PO DAILY [facility] Last Admin: 08/03/18 09:19 Dose: 75 mg Dextrose (Dextrose 50% Inj) 0 ml IV STAT PRN; Protocol PRN Reason: Hypoglycemia Protocol Dextrose (Glutose 15) 0 gm PO ONCE PRN; Protocol PRN Reason: Hypoglycemia Protocol Dextrose (Dextrose 50% Inj) 0 ml IV STAT PRN; Protocol PRN Reason: Hypoglycemia Protocol Dextrose (Glutose 15) 0 gm PO ONCE PRN; Protocol PRN Reason: Hypoglycemia Protocol Dextrose (Dextrose 50% Inj) 0 ml IV STAT PRN; Protocol PRN Reason: Hypoglycemia Protocol Dextrose (Glutose 15) 0 gm PO ONCE PRN; Protocol PRN Reason: Hypoglycemia Protocol Enoxaparin Sodium (Lovenox) 140 mg SC DAILY [facility] Famotidine (Pepcid) 20 mg PO DAILY [facility] Last Admin: 08/03/18 09:20 Dose: 20 mg Glucagon (Glucagen Diagnostic Kit) 0 mg IM STAT PRN; Protocol PRN Reason: Hypoglycemia Protocol Glucagon (Glucagen Diagnostic Kit) 0 mg IM STAT PRN; Protocol PRN Reason: Hypoglycemia Protocol Glucagon (Glucagen Diagnostic Kit) 0 mg IM STAT PRN; Protocol PRN Reason: Hypoglycemia Protocol Dextrose (Dextrose 5% In Water 1000 Ml) 1,000 mls @ 0 mls/hr IV .Q0M PRN; Protocol; Per Protocol PRN Reason: Hypoglycemia Protocol Dextrose (Dextrose 5% In Water 1000 Ml) 1,000 mls @ 0 mls/hr IV .Q0M PRN; Protocol; Per Protocol PRN Reason: Hypoglycemia Protocol Milrinone Lactate/Dextrose 20 (mg/ Dextrose) 100 mls @ 15.33 mls/hr IV .Q6H32M [facility]; 0.375 MCG/KG/MIN PRN Reason: Protocol Last Admin: 08/03/18 15:13 Dose: 0.375 mcg/kg/min, 15.33 mls/hr Albumin Human (Albutein 5% 500 Ml) 500 mls @ 25 mls/hr IVPB Q20H [facility] Stop: 08/04/18 06:44 Last Admin: 08/03/18 10:47 Dose: Not Given Dextrose (Dextrose 5% In Water 1000 Ml) 1,000 mls @ 0 mls/hr IV .Q0M PRN; Protocol; Per Protocol PRN Reason: Hypoglycemia Protocol Insulin Aspart (Novolog) 0 unit SC ACHS [facility] PRN Reason: Protocol Insulin Human Regular (Novolin R) 0 unit SC ACHS [facility] PRN Reason: Protocol Last Admin: 08/03/18 11:59 Dose: 4 units Metoprolol Tartrate (Lopressor) 5 mg IVP Q6H [facility] Last Admin: 08/03/18 09:46 Dose: 5 mg Nicotine (Nicoderm Cq) 1 patch TD DAILY [facility] Last Admin: 08/03/18 09:18 Dose: Not Given Rosuvastatin Calcium (Crestor) 5 mg PO HS [facility] Saccharomyces Boulardii (Florastor) 250 mg PO Q12 [facility] Last Admin: 08/03/18 09:17 Dose: 250 mg Fluticasone/Salmeterol (Advair Diskus 500/50) 1 puff INH RQ12 [facility] Spironolactone (Aldactone) 12.5 mg PO DAILY [facility] Last Admin: 08/03/18 09:18 Dose: 12.5 mg - Labs Labs: 08/03/18 06:18 08/03/18 06:13 PT 15.8 SECONDS (9.7-12.2) H 08/01/18 02:07 INR 1.4 08/01/18 02:07 APTT 59 SECONDS (21-34) H D 08/03/18 14:20 - Constitutional Appears: Non-toxic, No Acute Distress, Chronically Ill - Head Exam Head Exam: NORMAL INSPECTION - Eye Exam Eye Exam: EOMI - ENT Exam ENT Exam: Mucous Membranes Moist - Respiratory Exam Respiratory Exam: Decreased Breath Sounds, NORMAL BREATHING PATTERN. absent: Rales, Rhonchi, Stridor - Cardiovascular Exam Cardiovascular Exam: REGULAR RHYTHM, +S1, +S2 - GI/Abdominal Exam GI & Abdominal Exam: Distended (Obese habitus), Firm (Edema pitting up to the umbilicus), Soft, Normal Bowel Sounds. absent: Guarding, Rigid, Tenderness, Rebound - Extremities Exam Extremities Exam: Pedal Edema Additional comments: Noted edema expands from both bilateral legs up until the abdomen. Edema does pit. It has reduced in nature. But still present. Patient does have superficial leg wound and mild weeping which is improved - Neurological Exam Neurological Exam: Alert, Awake, Oriented x3 Neuro motor strength exam: Left Upper Extremity: 5, Right Upper Extremity: 5, Left Lower Extremity: 5, Right Lower Extremity: 5 - Psychiatric Exam Psychiatric exam: Normal Affect, Normal Mood - Skin Skin Exam: Normal Color, Warm Additional comments: Small weeping, erythema, superficial leg wound Assessment and Plan (1) CHF exacerbation Status: Acute (2) NSTEMI (non-ST elevated myocardial infarction) Status: Acute (3) New onset atrial fibrillation Status: Acute (4) Bilateral cellulitis of lower leg Status: Acute (5) Hypertension Status: Acute (6) Newly diagnosed diabetes Status: Acute (7) Prophylactic measure Status: Acute Attending/Attestation - Attestation I have personally seen and examined this patient.: Yes I have fully participated in the care of the patient.: Yes I have reviewed all pertinent clinical information, including history, physical exam and plan: Yes Notes (Text): 1) Shortness of breathe * Contributing factors: morbid obesity, new onset atrial fibrillation, suspected congestive heart failure, jail smoker * Solumderol 40mg IVP Q12H 2) Acute Congestive Heart Failure Systolic Exacerbation Nonstemi * Risk factor: DM, obesity * Pending echocardiogram-->pending official read * Resume Heparin Drip * Lopressor 5mg IVP Q6H * Fluid restriction * Record intake and output * Patient reports shortness of breathe at rest and on exertion * Dr. Krause (Cardiology) pump installation and servicer-->help appreciated * Recommend for milrinone * Recommended for cath was given renal function * Recommended for MADI conversion for atrial fib * Dr. Flannery (nephrology) on case-->help appreciated * Discussion for possible Milirone for the patient if remains orthopneic * Crestor 5mg PoqHS * Plavix 75mg PO daily * Crestor 5mg POqHS * Aldactone 12.5mg PO daily * Aspirin 81mg PO daily * Milrinone drip and on August 03 * Patient is on Bumex drip increased to 3 times a day initially started on 08/02 with albumin 3) New onset Atrial fibrillation * CHADSVASC:3 (if CHF is confirmed then 4) * HASBLED: 1 * pending echocardiogram--> official * pending V/Q to rule out PE-->patient unable to lie flat * Lopressor 5mg IVP Q6H * Resume Heparin Drip * Recommended for MADI cardioversion 4) History of b/l lower extremity edema * Secondary to acute decompensated systolic CHF * venous doppler: negative for DVT * Patient is on diuresis 5) history of weeping leg wounds * wound care on board * discontinue clindamycin stopped 2017 * Wound culture: MRSA * Continue with Cipro 500mg PO BID for MRSA started on 08/02/2018 * Contact isolation 6) Tobacco abuse * Patient counselled at bedside to stop smoking * Nicoderm patch 7) Diabetes, newly diagnosed * influencing factor steroids, morbidly obese * Hgba1c: 7.9 * Patient is on aspirin 81 mg once a day * Will need stuart/arb pending renal function for renoprotection from diabetes * [facility] Clerk referral * diabetic education 8) prolonged QT * QTC: 463? * monitor K and mg2+ 9) Acute Renal Insufficiency * Nephrology (Dr. Pascual) on case-->help appreciated * Creatinine coming up * Discussed between nephro and cardiology, regards milirone * Unable to perform cath today secondary to creatinine rise 10) Prophylactic measure * on heparin drip for Atrial fib/nonstemi * fluid restriction * record in and out * pepcid 20mg PO daily * Bladder scan qshift Disposition: Patient is on diuresis trying to relieve edema and is symptomatically orthopneic unable to lie down to tolerate a cath. Thus case with renal renal function is stable try to relieve the congestion on the kidneys for potential future cath. Presently cath is deferred because her renal status. Patient has echo that he does not want dialysis. Patient remains hopeful that he can be eligible for cath and possible stent placement. I have been very jake with him in terms of his risk for cardiac arrest, heart attack and deadly arrhythmias promote cardiac arrest if he chooses to leave AGAINST MEDICAL ADVICE.
[2018-08-03] MEDS: Fluticasone-Salmeterol 500-50mcg Diskus INH SCH (19:28)
--- NOTE | 2018-08-03 23:02 | CARD ---
APPROVED REPORT Date of service: 08/01/2018 EKG Measurement Heart [id number] MA 200P [id number] <Conclusion> Sinus rhythm with premature atrial complexes ST & T wave abnormality, consider inferior ischemia ST & T wave abnormality, consider anterolateral ischemia Prolonged QT Abnormal ECG
--- NOTE | 2018-08-03 23:36 | CP.PCM.PN ---
Subjective - Date & Time of Evaluation Date of Evaluation: 08/03/18 Time of Evaluation: 15:00 - Subjective Subjective: Patient's dyspnea somewhat improved; urinating more today; adhering to PO fluid restriction; Objective - Vital Signs/Intake and Output Vital Signs (last 24 hours): Temp Pulse Resp BP Pulse Ox 98.7 F 106 H 18 128/81 93 L 08/03/18 16:00 08/03/18 22:02 08/03/18 22:02 08/03/18 22:02 08/03/18 19:37 Intake and Output: 08/03/18 08/04/18 18:59 06:59 Intake Total 1518.6 401.2 Output Total 2250 900 Balance -731.4 -498.8 - Medications Medications: Current Medications Albuterol/Ipratropium (Duoneb 3 Mg/0.5 Mg (3 Ml) Ud) 3 ml INH RQ4 [facility] Last Admin: 08/03/18 19:28 Dose: 3 ml Aspirin (Aspirin Chewable) 81 mg PO DAILY [facility] Last Admin: 08/03/18 09:17 Dose: 81 mg Bumetanide (Bumex) 2 mg IVP Q8H [facility] Last Admin: 08/03/18 19:40 Dose: 2 mg Ciprofloxacin (Cipro) 500 mg PO BID [facility] PRN Reason: Protocol Last Admin: 08/03/18 19:41 Dose: 500 mg Clopidogrel Bisulfate (Plavix) 75 mg PO DAILY [facility] Last Admin: 08/03/18 09:19 Dose: 75 mg Dextrose (Dextrose 50% Inj) 0 ml IV STAT PRN; Protocol PRN Reason: Hypoglycemia Protocol Dextrose (Glutose 15) 0 gm PO ONCE PRN; Protocol PRN Reason: Hypoglycemia Protocol Enoxaparin Sodium (Lovenox) 140 mg SC DAILY [facility] Last Admin: 08/03/18 17:10 Dose: 140 mg Famotidine (Pepcid) 20 mg PO DAILY [facility] Last Admin: 08/03/18 09:20 Dose: 20 mg Glucagon (Glucagen Diagnostic Kit) 0 mg IM STAT PRN; Protocol PRN Reason: Hypoglycemia Protocol Glucagon (Glucagen Diagnostic Kit) 0 mg IM STAT PRN; Protocol PRN Reason: Hypoglycemia Protocol Glucagon (Glucagen Diagnostic Kit) 0 mg IM STAT PRN; Protocol PRN Reason: Hypoglycemia Protocol Milrinone Lactate/Dextrose 20 (mg/ Dextrose) 100 mls @ 15.33 mls/hr IV .Q6H32M [facility]; 0.375 MCG/KG/MIN PRN Reason: Protocol Last Admin: 08/03/18 19:20 Dose: Not Given Albumin Human (Albutein 5% 500 Ml) 500 mls @ 25 mls/hr IVPB Q20H [facility] Stop: 08/04/18 06:44 Last Admin: 08/03/18 10:47 Dose: Not Given Dextrose (Dextrose 5% In Water 1000 Ml) 1,000 mls @ 0 mls/hr IV .Q0M PRN; Protocol; Per Protocol PRN Reason: Hypoglycemia Protocol Insulin Aspart (Novolog) 0 unit SC ACHS [facility] PRN Reason: Protocol Last Admin: 08/03/18 21:42 Dose: Not Given Insulin Human Regular (Novolin R) 0 unit SC ACHS [facility] PRN Reason: Protocol Last Admin: 08/03/18 21:42 Dose: Not Given Metoprolol Tartrate (Lopressor) 5 mg IVP Q6H [facility] Last Admin: 08/03/18 22:00 Dose: 5 mg Nicotine (Nicoderm Cq) 1 patch TD DAILY [facility] Last Admin: 08/03/18 09:18 Dose: Not Given Rosuvastatin Calcium (Crestor) 5 mg PO HS [facility] Last Admin: 08/03/18 21:59 Dose: 5 mg Saccharomyces Boulardii (Florastor) 250 mg PO Q12 [facility] Last Admin: 08/03/18 21:59 Dose: 250 mg Fluticasone/Salmeterol (Advair Diskus 500/50) 1 puff INH RQ12 [facility] Last Admin: 08/03/18 19:28 Dose: 1 puff Spironolactone (Aldactone) 12.5 mg PO DAILY [facility] Last Admin: 08/03/18 09:18 Dose: 12.5 mg - Labs Labs: 08/03/18 06:18 08/03/18 06:13 PT 15.8 SECONDS (9.7-12.2) H 08/01/18 02:07 INR 1.4 08/01/18 02:07 APTT 59 SECONDS (21-34) H D 08/03/18 14:20 - Constitutional Appears: Non-toxic, No Acute Distress - Eye Exam Eye Exam: Normal appearance - Respiratory Exam Respiratory Exam: Clear to Ausculation Bilateral. absent: Respiratory Distress - Cardiovascular Exam Cardiovascular Exam: Tachycardia, +S1, +S2. absent: Gallop - GI/Abdominal Exam GI & Abdominal Exam: Soft. absent: Tenderness - Extremities Exam Additional comments: moderately edematous legs, improved; - Neurological Exam Neurological Exam: Alert, Awake - Psychiatric Exam Psychiatric exam: Normal Mood. absent: Agitated - Skin Skin Exam: Warm. absent: Cyanosis Assessment and Plan (1) CHF exacerbation Assessment & Plan: Acute severely decompensated systolic CHF; started on milrinone drip yesterday with increased dose of IV bumex; diuresing well with improving symptoms; renal function stable despite aggressive diuresis indicating that CINDY is of cardiorenal etiology; Discussed extensively with patient the need to stay and get complete treatment which may include cardiac cath; high risk for sudden if he leaves AMA; -continue milrinone, bumex 2 mg IV q8h; -goal is to achieve at least 1-1.5L net neg daily fluid balance; -need to minimize overall intake; -agree with renal dosing of lovenox for NSTEMI/afib instead of heparin drip; may need to switch to full dose lovenox if renal function improves; -avoid nephrotoxic agents; should delay cardiac cath until renal function close to baseline (unless cath is considered urgent); Status: Acute (2) CINDY (acute kidney injury) Assessment & Plan: CINDY on CKD; CINDY likely cardiorenal; does have mild proteinuria that is likely due to underlying DM; needs to be on GUILHERME inhibitor snf, holding for now until renal function stabilizes; Status: Acute (3) NSTEMI (non-ST elevated myocardial infarction) Assessment & Plan: see above; Status: Acute
[2018-08-04] MEDS: Milrinone 20 MG in Dextrose 5% In Water 80 ML IV SCH ×5 (01:40→20:56)
[2018-08-04] MEDS: Albuterol-Ipratrop 3 mg / 0.5 (3 ml) UD INH SCH ×5 (03:21→19:26)
[2018-08-04] MEDS: Metoprolol 1 mg/ml Inj IVP SCH ×4 (05:30→22:10)
[2018-08-04 06:35] LABS: BASO % 0.1 % (0.0-2.0); LYMPH # 0.7 K/uL (1.0-4.3); LYMPH % 9.1 % (20.0-40.0); MEAN CELL VOLUME 82.3 fL (80.0-94.0); MEAN CORPUSCULAR HEMOGLOBIN 26.8 pg (27.0-31.0); MEAN CORPUSCULAR HGB CONC 32.6 g/dL (33.0-37.0); MEAN PLATELET VOLUME 7.6 fL (7.2-11.7); MONO # 0.8 K/uL (0.0-0.8); MONO % 9.8 % (0.0-10.0); NEUT # 6.6 K/uL (1.8-7.0); PLATELET COUNT 285 K/uL (130-400); RBC 4.09 Mil/uL (4.40-5.90); RED CELL DISTRIBUTION WIDTH 14.9 % (11.5-14.5); WHITE BLOOD COUNT 8.2 K/uL (4.8-10.8)
[2018-08-04 07:02] LABS: ALB/GLOB RATIO 1.2 (1.0-2.1); ALBUMIN 3.5 g/dL (3.5-5.0); CALCIUM 9.1 mg/dl (8.6-10.4)
[2018-08-04] MEDS: Fluticasone-Salmeterol 500-50mcg Diskus INH SCH ×2 (07:41→19:26)
[2018-08-04] MEDS: (Novolog) Insulin Aspart, Recombinant 100 u/ml 10 ml vial SC SCH ×4 (08:10→21:30)
[2018-08-04] MEDS: (Novolin R) Insulin Human Regular 100 units/ml vial SC SCH ×2 (08:10→12:09)
--- NOTE | 2018-08-04 08:26 | CARD ---
APPROVED REPORT Date of service: 07/31/2018 EKG Measurement Heart [id number] <Conclusion> Atrial fibrillation with rapid ventricular response ST & T wave abnormality, consider inferior ischemia Abnormal ECG
--- NOTE | 2018-08-04 08:26 | CARD ---
APPROVED REPORT Date of service: 07/31/2018 EKG Measurement Heart [id number] <Conclusion> Atrial fibrillation with rapid ventricular response ST & T wave abnormality, consider lateral ischemia Abnormal ECG
[2018-08-04] MEDS ORDERED: Albumin Human 5% (12.5 gm/250 ml) IV ONE (08:52)
[2018-08-04 09:14] LABS: ANISOCYTOSIS SLIGHT; LYMPHOCYTE 10 % (20-40); MONOCYTE 7 % (0-10); NEUTROPHIL 83 % (50-75); PLATELET ESTIMATE NORMAL (NORMAL); TOTAL CELLS COUNTED 100
[2018-08-04 09:15] LABS: HYPOCHROMIC SLIGHT; OVALOCYTES SLIGHT
[2018-08-04] MEDS: Enoxaparin 150 mg Syringe SC SCH (09:15)
[2018-08-04] MEDS: Saccharomyces Boulardi 250 mg Cap PO SCH ×2 (09:15→21:03)
--- NOTE | 2018-08-04 11:48 | RAD ---
Date of service: 08/04/2018 HISTORY: chf f/u COMPARISON: Chest radiograph dated 08/03/2018 FINDINGS: LUNGS: Stable pulmonary vascular congestion bibasilar atelectasis. PLEURA: Stable small bilateral pleural effusions. No appreciable pneumothorax. CARDIOVASCULAR: Cardiomediastinal silhouette unchanged. OSSEOUS STRUCTURES: Unchanged. VISUALIZED UPPER ABDOMEN: Normal. OTHER FINDINGS: None. IMPRESSION: Stable small bilateral pleural effusions.
--- NOTE | 2018-08-04 11:57 | CP.CCUPN ---
CCU Subjective - Physician Review Subjective (Free Text): 08/04/18 11:54 Patient is still orthopneic, but overall doing better. CCU Objective - Vital Signs / Intake & Output Vital Signs (Last 4 hours): Vital Signs Temp Pulse Resp BP 08/04/18 10:17 109 H 19 126/75 08/04/18 10:06 15 08/04/18 09:08 137 H 20 157/105 H 08/04/18 09:02 138 H 22 08/04/18 09:00 137 H 19 08/04/18 08:21 147/97 H 08/04/18 08:00 97.3 F L 123 H 16 Intake and Output (Last 8hrs): Intake & Output 08/03/18 08/04/18 08/04/18 22:59 06:59 14:59 Intake Total 770.4 466.15 469.2 Output Total 1600 1200 1200 Balance -829.6 -733.85 -730.8 Weight 289 lb 9.6 oz Intake: IV 0 200 Intake, IV Amount 350.4 266.15 109.2 Left Antecubital 28 50 Right Antecubital 122.4 122.4 59.2 Right Forearm 200 143.75 Oral 420 360 Output: Urine 1600 1200 1200 Urine, Voided 1600 1200 1200 Other: # Voids Urine, Voided 1 - Physical Exam Head: Positive for: Atraumatic, Normocephalic Pupils: Positive for: PERRL Extroacular Muscles: Positive for: EOMI Mouth: Positive for: Moist Mucous Membranes Neck: Positive for: Normal Range of Motion Respiratory/Chest: Positive for: Clear to Auscultation, Good Air Exchange, Decreased Breath Sounds (at bases). Negative for: Respiratory Distress, Wheezes Cardiovascular: Positive for: Normal S1, S2, Irregular Rhythm, Tachycardic. Negative for: Murmurs Abdomen: Positive for: Normal Bowel Sounds. Negative for: Tenderness, Distention Upper Extremity: Positive for: Normal Inspection. Negative for: Cyanosis, Edema Lower Extremity: Positive for: Edema, Erythema. Negative for: CALF TENDERNESS Neurological: Positive for: CN II-XII Intact Skin: Positive for: Warm, Dry Psychiatric: Positive for: Alert, Oriented x 3 - Medications Active Medications: Active Medications Generic Name Dose Route Start Last Admin Trade Name Freq PRN Reason Stop Dose Admin Albuterol/Ipratropium 3 ml 07/31/18 20:00 08/04/18 11:12 Duoneb 3 Mg/0.5 Mg (3 Ml) Ud INH 3 ml RQ4 DANIE Administration Aspirin 81 mg 08/03/18 10:00 08/04/18 09:14 Aspirin Chewable PO 81 mg DAILY DANIE Administration Bumetanide 2 mg 08/02/18 20:15 08/04/18 05:15 Bumex IVP 2 mg Q8H DANIE Administration Ciprofloxacin 500 mg 08/02/18 18:00 08/04/18 09:15 Cipro PO 500 mg BID DANIE Administration Protocol Clopidogrel Bisulfate 75 mg 08/01/18 10:00 08/04/18 09:16 Plavix PO 75 mg DAILY DANIE Administration Dextrose 0 ml 08/03/18 15:31 Dextrose 50% Inj IV STAT PRN Hypoglycemia Protocol Protocol Dextrose 0 gm 08/03/18 15:31 Glutose 15 PO ONCE PRN Hypoglycemia Protocol Protocol Enoxaparin Sodium 140 mg 08/03/18 17:00 08/04/18 09:15 Lovenox SC 140 mg DAILY DANIE Administration Famotidine 20 mg 08/01/18 10:00 08/04/18 09:17 Pepcid PO 20 mg DAILY DANIE Administration Glucagon 0 mg 07/31/18 18:03 Glucagen Diagnostic Kit IM STAT PRN Hypoglycemia Protocol Protocol Glucagon 0 mg 08/01/18 15:02 Glucagen Diagnostic Kit IM STAT PRN Hypoglycemia Protocol Protocol Glucagon 0 mg 08/03/18 15:31 Glucagen Diagnostic Kit IM STAT PRN Hypoglycemia Protocol Protocol Milrinone Lactate/Dextrose 20 100 mls @ 15.33 mls/hr 08/02/18 17:00 08/04/18 05:31 mg/ Dextrose IV 0.375 mcg/kg/min .Q6H32M DANIE 15.33 mls/hr Protocol Administration 0.375 MCG/KG/MIN Dextrose 1,000 mls @ 0 mls/hr 08/03/18 15:31 Dextrose 5% In Water 1000 Ml IV .Q0M PRN Hypoglycemia Protocol Protocol Per Protocol Albumin Human 250 mls @ 25 mls/hr 08/04/18 09:00 08/04/18 10:09 Albumin Human 5% (12.5 Gm/250 Ml) IV 08/04/18 18:59 25 mls/hr ONCE ONE Administration Insulin Aspart 0 unit 08/03/18 16:30 08/04/18 08:10 Novolog SC 3 units ACHS DANIE Administration Protocol Insulin Human Regular 0 unit 07/31/18 22:00 08/04/18 08:10 Novolin R SC 3 units ACHS DANIE Administration Protocol Metoprolol Tartrate 5 mg 08/02/18 10:30 08/04/18 10:09 Lopressor IVP 5 mg Q6H DANIE Administration Nicotine 1 patch 08/01/18 10:00 08/04/18 09:46 Nicoderm Cq TD Not Given DAILY DANIE Rosuvastatin Calcium 5 mg 08/03/18 22:00 08/03/18 21:59 Crestor PO 5 mg HS DANIE Administration Saccharomyces Boulardii 250 mg 07/31/18 22:00 08/04/18 09:15 Florastor PO 250 mg Q12 DANIE Administration Fluticasone/Salmeterol 1 puff 08/03/18 20:00 08/04/18 07:41 Advair Diskus 500/50 INH 1 puff RQ12 DANIE Administration Spironolactone 25 mg 08/04/18 10:00 08/04/18 09:57 Aldactone PO Not Given BID DANIE - Patient Studies Lab Studies: Microbiology Studies 07/31/18 21:21 Blood Culture - Preliminary Blood NO GROWTH AFTER 3 DAYS 07/31/18 21:21 Blood Culture - Preliminary Blood NO GROWTH AFTER 3 DAYS Lab Studies 08/04/18 08/04/18 08/03/18 Range/Units 06:27 06:20 21:32 WBC 8.2 (4.8-10.8) K/uL RBC 4.09 L (4.40-5.90) Mil/uL Hgb 11.0 L (12.0-18.0) g/dL Hct 33.7 L (35.0-51.0) % MCV 82.3 (80.0-94.0) fL MCH 26.8 L (27.0-31.0) pg MCHC 32.6 L (33.0-37.0) g/dL RDW 14.9 H (11.5-14.5) % Plt Count 285 (130-400) K/uL MPV 7.6 (7.2-11.7) fL Neut % (Auto) 81.0 H (50.0-75.0) % Lymph % (Auto) 9.1 L (20.0-40.0) % [place] % (Auto) 9.8 (0.0-10.0) % Eos % (Auto) 0.0 (0.0-4.0) % Baso % (Auto) 0.1 (0.0-2.0) % Neut # (Auto) 6.6 (1.8-7.0) K/uL Lymph # (Auto) 0.7 L (1.0-4.3) K/uL [place] # (Auto) 0.8 (0.0-0.8) K/uL Eos # (Auto) 0.0 (0.0-0.7) K/uL Baso # (Auto) 0.0 (0.0-0.2) K/uL Neutrophils % (Manual) 83 H (50-75) % Lymphocytes % (Manual) 10 L (20-40) % Monocytes % (Manual) 7 (0-10) % Platelet Estimate Normal (NORMAL) Hypochromasia (manual) Slight Anisocytosis (manual) Slight Ovalocytes Slight APTT (21-34) SECONDS Sodium 142 (132-148) mmol/L Potassium 4.2 (3.6-5.2) mmol/L Chloride 100 (98-107) mmol/L Carbon Dioxide 34 H (22-30) mmol/L Anion Gap 12 (10-20) BUN 65 H (9-20) mg/dL Creatinine 1.9 H (0.8-1.5) mg/dL Est GFR ( Amer) 45 Est GFR (Non-Af Amer) 37 POC Glucose (mg/dL) 276 H (65-110) mg/dL Random Glucose 254 H (75-110) mg/dL Calcium 9.1 (8.6-10.4) mg/dl Phosphorus 3.8 (2.5-4.5) mg/dL Magnesium 2.0 (1.6-2.3) mg/dL Total Bilirubin 0.3 (0.2-1.3) mg/dL AST 37 (17-59) U/L ALT 32 (21-72) U/L Alkaline Phosphatase 69 (38-126) U/L Total Protein 6.4 (6.3-8.3) g/dL Albumin 3.5 (3.5-5.0) g/dL Globulin 2.8 (2.2-3.9) gm/dL Albumin/Globulin Ratio 1.2 (1.0-2.1) 08/03/18 08/03/18 Range/Units 16:04 14:20 WBC (4.8-10.8) K/uL RBC (4.40-5.90) Mil/uL Hgb (12.0-18.0) g/dL Hct (35.0-51.0) % MCV (80.0-94.0) fL MCH (27.0-31.0) pg MCHC (33.0-37.0) g/dL RDW (11.5-14.5) % Plt Count (130-400) K/uL MPV (7.2-11.7) fL Neut % (Auto) (50.0-75.0) % Lymph % (Auto) (20.0-40.0) % [place] % (Auto) (0.0-10.0) % Eos % (Auto) (0.0-4.0) % Baso % (Auto) (0.0-2.0) % Neut # (Auto) (1.8-7.0) K/uL Lymph # (Auto) (1.0-4.3) K/uL [place] # (Auto) (0.0-0.8) K/uL Eos # (Auto) (0.0-0.7) K/uL Baso # (Auto) (0.0-0.2) K/uL Neutrophils % (Manual) (50-75) % Lymphocytes % (Manual) (20-40) % Monocytes % (Manual) (0-10) % Platelet Estimate (NORMAL) Hypochromasia (manual) Anisocytosis (manual) Ovalocytes APTT 59 H D (21-34) SECONDS Sodium (132-148) mmol/L Potassium (3.6-5.2) mmol/L Chloride (98-107) mmol/L Carbon Dioxide (22-30) mmol/L Anion Gap (10-20) BUN (9-20) mg/dL Creatinine (0.8-1.5) mg/dL Est GFR ( Amer) Est GFR (Non-Af Amer) POC Glucose (mg/dL) 244 H (65-110) mg/dL Random Glucose (75-110) mg/dL Calcium (8.6-10.4) mg/dl Phosphorus (2.5-4.5) mg/dL Magnesium (1.6-2.3) mg/dL Total Bilirubin (0.2-1.3) mg/dL AST (17-59) U/L ALT (21-72) U/L Alkaline Phosphatase (38-126) U/L Total Protein (6.3-8.3) g/dL Albumin (3.5-5.0) g/dL Globulin (2.2-3.9) gm/dL Albumin/Globulin Ratio (1.0-2.1) Laboratory Results - last 24 hr 08/03/18 08/03/18 08/03/18 14:20 16:04 21:32 WBC RBC Hgb Hct MCV MCH MCHC RDW Plt Count MPV Neut % (Auto) Lymph % (Auto) [place] % (Auto) Eos % (Auto) Baso % (Auto) Neut # (Auto) Lymph # (Auto) [place] # (Auto) Eos # (Auto) Baso # (Auto) Neutrophils % (Manual) Lymphocytes % (Manual) Monocytes % (Manual) Platelet Estimate Hypochromasia (manual) Anisocytosis (manual) Ovalocytes APTT 59 H D Sodium Potassium Chloride Carbon Dioxide Anion Gap BUN Creatinine Est GFR ( Amer) Est GFR (Non-Af Amer) POC Glucose (mg/dL) 244 H 276 H Random Glucose Calcium Phosphorus Magnesium Total Bilirubin AST ALT Alkaline Phosphatase Total Protein Albumin Globulin Albumin/Globulin Ratio 08/04/18 08/04/18 06:20 06:27 WBC 8.2 RBC 4.09 L Hgb 11.0 L Hct 33.7 L MCV 82.3 MCH 26.8 L MCHC 32.6 L RDW 14.9 H Plt Count 285 MPV 7.6 Neut % (Auto) 81.0 H Lymph % (Auto) 9.1 L [place] % (Auto) 9.8 Eos % (Auto) 0.0 Baso % (Auto) 0.1 Neut # (Auto) 6.6 Lymph # (Auto) 0.7 L [place] # (Auto) 0.8 Eos # (Auto) 0.0 Baso # (Auto) 0.0 Neutrophils % (Manual) 83 H Lymphocytes % (Manual) 10 L Monocytes % (Manual) 7 Platelet Estimate Normal Hypochromasia (manual) Slight Anisocytosis (manual) Slight Ovalocytes Slight APTT Sodium 142 Potassium 4.2 Chloride 100 Carbon Dioxide 34 H Anion Gap 12 BUN 65 H Creatinine 1.9 H Est GFR ( Amer) 45 Est GFR (Non-Af Amer) 37 POC Glucose (mg/dL) Random Glucose 254 H Calcium 9.1 Phosphorus 3.8 Magnesium 2.0 Total Bilirubin 0.3 AST 37 ALT 32 Alkaline Phosphatase 69 Total Protein 6.4 Albumin 3.5 Globulin 2.8 Albumin/Globulin Ratio 1.2 Fingerstick Blood Sugar Results: 276 Review of Systems - Review of Systems All systems: reviewed and no additional remarkable complaints except - Cardiovascular Cardiovascular: Orthopnea Critical Care Progress Note - Nutrition Nutrition: Nutrition Category Date Time Status Heart Healthy Diet [DIET] Diets 08/02/18 Breakfast Active Assessment/Plan (1) NSTEMI (non-ST elevated myocardial infarction) Assessment and plan: 52 M with PMHx of HTN, T2DM, Systolic Heart Failure, COPD, Tobacco Use Disorder , Alcohol Use Disorder who presents to the ED with shortness of breath 2 weeks. Patient admitted for New Onset Atriall Fibrillation, NSTEMI, Acute on Chronic Systolic Heart Failure Exacerbation, Bilateral Lower Extremity Cellulitis, and CINDY. Patient planned for cardiac cath today however it was cancelled due to inc orthopnea and CINDY. Neuro: alert and oriented x 3 Pulm: orthopnea, pulmonary edema improving symptomatically but not radiographically. Continue diuresis with albumin drip, bumex 2mg iv q8h. CV: hemodynamically stable. On Milrinone gtt to increase cardiac output to hopefully improve renal function. systolic congestive heart failure s/p NSTEMI , continue Crestor. Metoprolol IV q6h for afib rate control. Hem: afib stroke prophylaxis with lovenox. NSTEMI, continue ASA and Plavix. Renal: cardiorenal disease with CINDY, creatinine now improving. diuresing with bumex and spironolactone. Endo: DM type 2, SISS for coverage GI: heart healthy diet ID: MRSA in left leg wound, on Cipro. DVT proph - therapeutic lovenox GI proph - pepcid Code status - full code Critical Care Time spent 35 minutes Multi-disciplinary rounds were performed with house staff, nursing, speech therapy, respiratory therapy, pharmacy and nutrition with integrated input from the primary team/attending and other consulting services. The documented time is cumulative and includes review of patient data/exams/labs/chart review and examination of the patient on rounds and throughout the day; time is exclusive of any procedures or teaching time. Current Visit: Yes Status: Acute
--- NOTE | 2018-08-04 12:49 | CP.PCM.PN ---
Subjective - Date & Time of Evaluation Date of Evaluation: 08/04/18 Time of Evaluation: 12:30 - Subjective Subjective: Medical attending note Patient seen at bedside. Patient continues to be orthopneic. Patient reports still unable to lie flat unless he sleeps on his side due to choking feeling. Patient denies headache, denies chest pain, denies palpitations, reports shortness breath at rest denies abdominal pain, denies nausea, denies vomiting and reports swelling over the legs is less reports he is urinating. Objective - Vital Signs/Intake and Output Vital Signs (last 24 hours): Temp Pulse Resp BP Pulse Ox 97.3 F L 111 H 18 120/81 93 L 08/04/18 08:00 08/04/18 12:02 08/04/18 12:02 08/04/18 12:02 08/03/18 19:37 Intake and Output: 08/04/18 08/04/18 06:59 18:59 Intake Total 867.35 598.8 Output Total 2100 1200 Balance -1232.65 -601.2 - Medications Medications: Current Medications Albuterol/Ipratropium (Duoneb 3 Mg/0.5 Mg (3 Ml) Ud) 3 ml INH RQ4 [facility] Last Admin: 08/04/18 11:12 Dose: 3 ml Aspirin (Aspirin Chewable) 81 mg PO DAILY [facility] Last Admin: 08/04/18 09:14 Dose: 81 mg Bumetanide (Bumex) 2 mg IVP Q8H [facility] Last Admin: 08/04/18 12:10 Dose: 2 mg Ciprofloxacin (Cipro) 500 mg PO BID DANIE PRN Reason: Protocol Last Admin: 08/04/18 09:15 Dose: 500 mg Clopidogrel Bisulfate (Plavix) 75 mg PO DAILY [facility] Last Admin: 08/04/18 09:16 Dose: 75 mg Dextrose (Dextrose 50% Inj) 0 ml IV STAT PRN; Protocol PRN Reason: Hypoglycemia Protocol Dextrose (Glutose 15) 0 gm PO ONCE PRN; Protocol PRN Reason: Hypoglycemia Protocol Enoxaparin Sodium (Lovenox) 140 mg SC DAILY [facility] Last Admin: 08/04/18 09:15 Dose: 140 mg Famotidine (Pepcid) 20 mg PO DAILY [facility] Last Admin: 08/04/18 09:17 Dose: 20 mg Glucagon (Glucagen Diagnostic Kit) 0 mg IM STAT PRN; Protocol PRN Reason: Hypoglycemia Protocol Glucagon (Glucagen Diagnostic Kit) 0 mg IM STAT PRN; Protocol PRN Reason: Hypoglycemia Protocol Glucagon (Glucagen Diagnostic Kit) 0 mg IM STAT PRN; Protocol PRN Reason: Hypoglycemia Protocol Milrinone Lactate/Dextrose 20 (mg/ Dextrose) 100 mls @ 15.33 mls/hr IV .Q6H32M DANIE; 0.375 MCG/KG/MIN PRN Reason: Protocol Last Admin: 08/04/18 05:31 Dose: 0.375 mcg/kg/min, 15.33 mls/hr Dextrose (Dextrose 5% In Water 1000 Ml) 1,000 mls @ 0 mls/hr IV .Q0M PRN; Protocol; Per Protocol PRN Reason: Hypoglycemia Protocol Albumin Human (Albumin Human 5% (12.5 Gm/250 Ml)) 250 mls @ 25 mls/hr IV ONCE ONE Stop: 08/04/18 18:59 Last Admin: 08/04/18 10:09 Dose: 25 mls/hr Insulin Aspart (Novolog) 0 unit SC ACHS [facility] PRN Reason: Protocol Last Admin: 08/04/18 12:09 Dose: 3 units Insulin Human Regular (Novolin R) 0 unit SC ACHS DANIE PRN Reason: Protocol Last Admin: 08/04/18 12:09 Dose: 3 units Metoprolol Tartrate (Lopressor) 5 mg IVP Q6H [facility] Last Admin: 08/04/18 10:09 Dose: 5 mg Nicotine (Nicoderm Cq) 1 patch TD DAILY [facility] Last Admin: 08/04/18 09:46 Dose: Not Given Rosuvastatin Calcium (Crestor) 5 mg PO HS [facility] Last Admin: 08/03/18 21:59 Dose: 5 mg Saccharomyces Boulardii (Florastor) 250 mg PO Q12 [facility] Last Admin: 08/04/18 09:15 Dose: 250 mg Fluticasone/Salmeterol (Advair Diskus 500/50) 1 puff INH RQ12 [facility] Last Admin: 08/04/18 07:41 Dose: 1 puff Spironolactone (Aldactone) 25 mg PO BID [facility] Last Admin: 08/04/18 09:57 Dose: Not Given - Labs Labs: 08/04/18 06:20 09/16/18 06:27 PT 15.8 SECONDS (9.7-12.2) H 08/01/18 02:07 INR 1.4 08/01/18 02:07 APTT 59 SECONDS (21-34) H D 08/03/18 14:20 - Constitutional Appears: Non-toxic, No Acute Distress - Head Exam Head Exam: NORMAL INSPECTION Additional comments: morbidly obese short neck - Eye Exam Eye Exam: EOMI, PERRL - ENT Exam ENT Exam: Mucous Membranes Moist - Respiratory Exam Respiratory Exam: Decreased Breath Sounds, Wheezes (expiratory wheezing), NORMAL BREATHING PATTERN. absent: Stridor - Cardiovascular Exam Cardiovascular Exam: Tachycardia, +S1, +S2 - GI/Abdominal Exam GI & Abdominal Exam: Distended, Soft, Normal Bowel Sounds. absent: Firm, Guarding, Rigid, Tenderness, Rebound Additional comments: morbidly obese - Extremities Exam Additional comments: bilateral lower extremity edema extending up to the belly It is improving noted superficial erythema peeling skin does pit - Back Exam Back Exam: absent: CVA tenderness (L), CVA tenderness (R) - Neurological Exam Neurological Exam: Alert, Awake, Oriented x3 - Skin Skin Exam: Dry, Warm Additional comments: No weeping noted Assessment and Plan (1) CHF exacerbation Status: Acute (2) NSTEMI (non-ST elevated myocardial infarction) Status: Acute (3) New onset atrial fibrillation Status: Acute (4) Bilateral cellulitis of lower leg Status: Acute (5) Hypertension Status: Acute (6) Newly diagnosed diabetes Status: Acute (7) Prophylactic measure Status: Acute Attending/Attestation - Attestation I have personally seen and examined this patient.: Yes I have fully participated in the care of the patient.: Yes I have reviewed all pertinent clinical information, including history, physical exam and plan: Yes Notes (Text): 1) Shortness of breathe * Contributing factors: morbid obesity, new onset atrial fibrillation, suspected congestive heart failure, residential smoker * Solumderol 40mg IVP Q12H 2) Acute Congestive Heart Failure Systolic Exacerbation Nonstemi * Risk factor: DM, obesity, smoker, hypertension, chf * Pending echocardiogram-->pending official read * therapuetic lovenox * Fluid restriction * Record intake and output * Patient reports shortness of breathe at rest and on exertion * Dr. Krause (Cardiology) dictaphone mechanic-->help appreciated * Recommend for milrinone * Recommended for cath was given renal function * Recommended for MADI conversion for atrial fib * Dr. 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) * Lopressor 5mg IVP Q6H * therapuetic lovenox * Recommended for MADI cardioversion 4) History of b/l lower extremity edema * Secondary to acute decompensated systolic CHF * venous doppler: negative for DVT * Patient is on diuresis 5) history of weeping leg wounds * wound care on board * discontinue clindamycin stopped 2017 * Wound culture: MRSA * Continue with Cipro 500mg PO BID for MRSA started on 08/02/2018 * Contact isolation 6) Tobacco abuse COPD * Patient counselled at bedside to stop smoking * Nicoderm patch daily * Duonebs 3ml INH Q6H * Advair 500/50 1 puff inhaled Q12H 7) Diabetes, newly diagnosed * influencing factor steroids, morbidly obese * Hgba1c: 7.9 * Novolog sliding scale subq * Patient is on aspirin 81 mg once a day * Will need stuart/arb pending renal function for renoprotection from diabetes * Comic Book Designer referral * diabetic education 9) Acute Renal Insufficiency * Nephrology (Dr. Pascual) on case-->help appreciated * Creatinine coming up * Discussed between nephro and cardiology, regards milirone * Unable to perform cath due to renal function * improving 10) Hypertension * Lopressor 5mg IVP Q6H 11) Prophylactic measure * on therapuetic lovenox for Atrial fib/nonstemi * fluid restriction * record in and out * pepcid 20mg PO daily Disposition: Patient is on diuresis trying to relieve edema and is symptomatically orthopneic unable to lie down to tolerate a cath. Presently cath is deferred because his renal status. Patient has echoed that he does not want dialysis. Patient remains hopeful that he can be eligible for cath and possible stent placement. I have been very jake with him in terms of his risk for cardiac arrest, heart attack and deadly arrhythmias promote cardiac arrest if he chooses to leave AGAINST MEDICAL ADVICE. We are awaiting official report, but noted ef is low per discussion with cardiology
--- NOTE | 2018-08-04 14:02 | CP.PCM.PN ---
Subjective - Date & Time of Evaluation Date of Evaluation: 08/04/18 Time of Evaluation: 13:20 - Subjective Subjective: I had a long discussion with the patient about his clinical status. I exaplained that he has sever cardiomyopathy and is still volume overlaoded. he is fixated on having cardiac cath, and being discharged toorrow. I explained that cardiac cath lion will nto happen tomorrow as he is still in failure, renal function is still elevated, and he is still not medically stable for cath. I have also explained that cardiac cath alone will not be curative and there is still significant work that needs to be done to medically staiblize. He is insistent that he is going to sign out. I have advised the patient of the significant risk involved. He expressed understanding but states he will sign out. Risks again explained in detail. Coreg added. Objective - Vital Signs/Intake and Output Vital Signs (last 24 hours): Temp Pulse Resp BP Pulse Ox 97.3 F L 129 H 18 114/90 93 L 08/04/18 08:00 08/04/18 13:03 08/04/18 13:03 08/04/18 13:12 08/03/18 19:37 Intake and Output: 08/04/18 08/04/18 06:59 18:59 Intake Total 867.35 763.6 Output Total 2100 1800 Balance -1232.65 -1036.4 - Medications Medications: Current Medications Albuterol/Ipratropium (Duoneb 3 Mg/0.5 Mg (3 Ml) Ud) 3 ml INH RQ4 [facility] Last Admin: 08/04/18 11:12 Dose: 3 ml Aspirin (Aspirin Chewable) 81 mg PO DAILY [facility] Last Admin: 08/04/18 09:14 Dose: 81 mg Bumetanide (Bumex) 2 mg IVP Q8H [facility] Last Admin: 08/04/18 12:10 Dose: 2 mg Carvedilol (Coreg) 6.25 mg PO BID [facility] Last Admin: 08/04/18 13:53 Dose: 6.25 mg Ciprofloxacin (Cipro) 500 mg PO BID [facility] PRN Reason: Protocol Last Admin: 08/04/18 09:15 Dose: 500 mg Clopidogrel Bisulfate (Plavix) 75 mg PO DAILY [facility] Last Admin: 08/04/18 09:16 Dose: 75 mg Dextrose (Dextrose 50% Inj) 0 ml IV STAT PRN; Protocol PRN Reason: Hypoglycemia Protocol Dextrose (Glutose 15) 0 gm PO ONCE PRN; Protocol PRN Reason: Hypoglycemia Protocol Enoxaparin Sodium (Lovenox) 140 mg SC DAILY [facility] Last Admin: 08/04/18 09:15 Dose: 140 mg Famotidine (Pepcid) 20 mg PO DAILY [facility] Last Admin: 08/04/18 09:17 Dose: 20 mg Glucagon (Glucagen Diagnostic Kit) 0 mg IM STAT PRN; Protocol PRN Reason: Hypoglycemia Protocol Glucagon (Glucagen Diagnostic Kit) 0 mg IM STAT PRN; Protocol PRN Reason: Hypoglycemia Protocol Glucagon (Glucagen Diagnostic Kit) 0 mg IM STAT PRN; Protocol PRN Reason: Hypoglycemia Protocol Milrinone Lactate/Dextrose 20 (mg/ Dextrose) 100 mls @ 15.33 mls/hr IV .Q6H32M DANIE; 0.375 MCG/KG/MIN PRN Reason: Protocol Last Admin: 08/04/18 13:12 Dose: 0.375 mcg/kg/min, 15.33 mls/hr Dextrose (Dextrose 5% In Water 1000 Ml) 1,000 mls @ 0 mls/hr IV .Q0M PRN; Protocol; Per Protocol PRN Reason: Hypoglycemia Protocol Albumin Human (Albumin Human 5% (12.5 Gm/250 Ml)) 250 mls @ 25 mls/hr IV ONCE ONE Stop: 08/04/18 18:59 Last Admin: 08/04/18 10:09 Dose: 25 mls/hr Insulin Aspart (Novolog) 0 unit SC ACHS [facility] PRN Reason: Protocol Last Admin: 08/04/18 12:09 Dose: 3 units Metoprolol Tartrate (Lopressor) 5 mg IVP Q6H [facility] Last Admin: 08/04/18 10:09 Dose: 5 mg Nicotine (Nicoderm Cq) 1 patch TD DAILY [facility] Last Admin: 08/04/18 09:46 Dose: Not Given Rosuvastatin Calcium (Crestor) 5 mg PO HS [facility] Last Admin: 08/03/18 21:59 Dose: 5 mg Saccharomyces Boulardii (Florastor) 250 mg PO Q12 [facility] Last Admin: 08/04/18 09:15 Dose: 250 mg Fluticasone/Salmeterol (Advair Diskus 500/50) 1 puff INH RQ12 [facility] Last Admin: 08/04/18 07:41 Dose: 1 puff Spironolactone (Aldactone) 25 mg PO BID [facility] Last Admin: 08/04/18 09:57 Dose: Not Given - Labs Labs: 08/04/18 06:20 08/04/18 06:27 PT 15.8 SECONDS (9.7-12.2) H 08/01/18 02:07 INR 1.4 08/01/18 02:07 APTT 59 SECONDS (21-34) H D 08/03/18 14:20 Assessment and Plan (1) CHF exacerbation Status: Acute (2) NSTEMI (non-ST elevated myocardial infarction) Status: Acute (3) New onset atrial fibrillation Status: Acute
--- NOTE | 2018-08-04 19:58 | CP.PCM.PN ---
Objective - Vital Signs/Intake and Output Vital Signs (last 24 hours): Temp Pulse Resp BP Pulse Ox 97.6 F 116 H 18 148/93 H 93 L 08/04/18 12:00 08/04/18 19:02 08/04/18 19:02 08/04/18 19:02 08/03/18 19:37 Intake and Output: 08/04/18 08/05/18 18:59 06:59 Intake Total 1847.6 14.8 Output Total 3000 550 Balance -1152.4 -535.2 - Medications Medications: Current Medications Albuterol/Ipratropium (Duoneb 3 Mg/0.5 Mg (3 Ml) Ud) 3 ml INH RQ4 [facility] Last Admin: 08/04/18 19:26 Dose: 3 ml Aspirin (Aspirin Chewable) 81 mg PO DAILY [facility] Last Admin: 08/04/18 09:14 Dose: 81 mg Bumetanide (Bumex) 2 mg IVP Q8H [facility] Last Admin: 08/04/18 12:10 Dose: 2 mg Carvedilol (Coreg) 6.25 mg PO BID [facility] Last Admin: 08/04/18 17:17 Dose: 6.25 mg Ciprofloxacin (Cipro) 500 mg PO BID [facility] PRN Reason: Protocol Last Admin: 08/04/18 17:17 Dose: 500 mg Clopidogrel Bisulfate (Plavix) 75 mg PO DAILY [facility] Last Admin: 08/04/18 09:16 Dose: 75 mg Dextrose (Dextrose 50% Inj) 0 ml IV STAT PRN; Protocol PRN Reason: Hypoglycemia Protocol Dextrose (Glutose 15) 0 gm PO ONCE PRN; Protocol PRN Reason: Hypoglycemia Protocol Enoxaparin Sodium (Lovenox) 140 mg SC DAILY [facility] Last Admin: 08/04/18 09:15 Dose: 140 mg Famotidine (Pepcid) 20 mg PO DAILY [facility] Last Admin: 08/04/18 09:17 Dose: 20 mg Glucagon (Glucagen Diagnostic Kit) 0 mg IM STAT PRN; Protocol PRN Reason: Hypoglycemia Protocol Glucagon (Glucagen Diagnostic Kit) 0 mg IM STAT PRN; Protocol PRN Reason: Hypoglycemia Protocol Glucagon (Glucagen Diagnostic Kit) 0 mg IM STAT PRN; Protocol PRN Reason: Hypoglycemia Protocol Milrinone Lactate/Dextrose 20 (mg/ Dextrose) 100 mls @ 15.33 mls/hr IV .Q6H32M [facility]; 0.375 MCG/KG/MIN PRN Reason: Protocol Last Admin: 08/04/18 16:55 Dose: Not Given Dextrose (Dextrose 5% In Water 1000 Ml) 1,000 mls @ 0 mls/hr IV .Q0M PRN; Protocol; Per Protocol PRN Reason: Hypoglycemia Protocol Insulin Aspart (Novolog) 0 unit SC ACHS [facility] PRN Reason: Protocol Last Admin: 08/04/18 17:18 Dose: 2 units Metoprolol Tartrate (Lopressor) 5 mg IVP Q6H [facility] Last Admin: 08/04/18 17:17 Dose: 5 mg Nicotine (Nicoderm Cq) 1 patch TD DAILY [facility] Last Admin: 08/04/18 09:46 Dose: Not Given Rosuvastatin Calcium (Crestor) 5 mg PO HS [facility] Last Admin: 08/03/18 21:59 Dose: 5 mg Saccharomyces Boulardii (Florastor) 250 mg PO Q12 [facility] Last Admin: 08/04/18 09:15 Dose: 250 mg Fluticasone/Salmeterol (Advair Diskus 500/50) 1 puff INH RQ12 [facility] Last Admin: 08/04/18 19:26 Dose: 1 puff Spironolactone (Aldactone) 25 mg PO BID [facility] Last Admin: 08/04/18 17:17 Dose: 25 mg - Labs Labs: 08/04/18 06:20 08/04/18 06:27 PT 15.8 SECONDS (9.7-12.2) H 08/01/18 02:07 INR 1.4 08/01/18 02:07 APTT 59 SECONDS (21-34) H D 08/03/18 14:20 Assessment and Plan (1) CHF exacerbation Status: Acute (2) CINDY (acute kidney injury) Status: Acute (3) NSTEMI (non-ST elevated myocardial infarction) Status: Acute
[2018-08-05] MEDS: Albuterol-Ipratrop 3 mg / 0.5 (3 ml) UD INH SCH ×6 (00:53→19:27)
[2018-08-05] MEDS: Milrinone 20 MG in Dextrose 5% In Water 80 ML IV SCH ×3 (04:22→18:17)
[2018-08-05] MEDS: Metoprolol 1 mg/ml Inj IVP SCH ×2 (04:26→10:35)
[2018-08-05 06:25] LABS: BASO % 0.2 % (0.0-2.0); EOS # 0.1 K/uL (0.0-0.7); EOS % 0.8 % (0.0-4.0); HEMOGLOBIN 11.1 g/dL (12.0-18.0); LYMPH # 1.6 K/uL (1.0-4.3); LYMPH % 19.3 % (20.0-40.0); MEAN CELL VOLUME 82.1 fL (80.0-94.0); MEAN CORPUSCULAR HEMOGLOBIN 26.7 pg (27.0-31.0); MEAN CORPUSCULAR HGB CONC 32.5 g/dL (33.0-37.0); MEAN PLATELET VOLUME 7.1 fL (7.2-11.7); MONO # 0.8 K/uL (0.0-0.8); MONO % 10.2 % (0.0-10.0); NEUT # 5.6 K/uL (1.8-7.0); NEUT % 69.5 % (50.0-75.0); RBC 4.17 Mil/uL (4.40-5.90); RED CELL DISTRIBUTION WIDTH 15.1 % (11.5-14.5)
[2018-08-05 06:33] LABS: ALB/GLOB RATIO 1.2 (1.0-2.1); ALBUMIN 3.3 g/dL (3.5-5.0)
[2018-08-05] MEDS: Fluticasone-Salmeterol 500-50mcg Diskus INH SCH ×2 (07:43→19:29)
[2018-08-05] MEDS: (Novolog) Insulin Aspart, Recombinant 100 u/ml 10 ml vial SC SCH ×4 (08:25→21:40)
--- NOTE | 2018-08-05 08:44 | CP.CCUPN ---
CCU Subjective - Physician Review Subjective (Free Text): Critical care progress note: Pt seen and examined at bedside. No acute events overnight. Pt still orthopneic however states that his breathing has mildly improved. He currently denies any chest pain or sob. 12 Point ROS performed and neg other than stated above. CCU Objective - Vital Signs / Intake & Output Vital Signs (Last 4 hours): Vital Signs Pulse Resp BP 08/05/18 07:00 116 H 18 08/05/18 06:02 117 H 19 129/81 08/05/18 06:00 113 H 20 08/05/18 05:06 107 H 14 121/72 08/05/18 05:00 108 H 16 08/05/18 04:56 109 H 12 121/63 Intake and Output (Last 8hrs): Intake & Output 08/04/18 08/05/18 08/05/18 22:59 06:59 14:59 Intake Total 1318.4 218.4 29.6 Output Total 2100 3080 1080 Balance -781.6 -2861.6 -1050.4 Weight 279 lb 278 lb 6.4 oz Intake: IV 100 100 Intake, IV Amount 218.4 118.4 29.6 Left Antecubital 100 Right Antecubital 118.4 118.4 29.6 Oral 1000 Output: Urine 2100 3080 1080 Urine, Voided 2100 3080 1080 Other: # Voids Urine, Voided 1 - Physical Exam Head: Positive for: Atraumatic, Normocephalic Pupils: Positive for: PERRL Extroacular Muscles: Positive for: EOMI Mouth: Positive for: Moist Mucous Membranes Neck: Positive for: Normal Range of Motion Respiratory/Chest: Positive for: Clear to Auscultation, Good Air Exchange, Decreased Breath Sounds (at bases). Negative for: Respiratory Distress, Wheezes Cardiovascular: Positive for: Normal S1, S2, Irregular Rhythm, Tachycardic. Negative for: Murmurs Abdomen: Positive for: Normal Bowel Sounds. Negative for: Tenderness, Distention Upper Extremity: Positive for: Normal Inspection. Negative for: Cyanosis, Edema Lower Extremity: Positive for: Edema, Erythema. Negative for: CALF TENDERNESS Neurological: Positive for: CN II-XII Intact Skin: Positive for: Warm, Dry Psychiatric: Positive for: Alert, Oriented x 3 - Medications Active Medications: Active Medications Generic Name Dose Route Start Last Admin Trade Name Freq PRN Reason Stop Dose Admin Albuterol/Ipratropium 3 ml 07/31/18 20:00 08/05/18 07:05 Duoneb 3 Mg/0.5 Mg (3 Ml) Ud INH 3 ml RQ4 [facility] Administration Aspirin 81 mg 08/03/18 10:00 08/04/18 09:14 Aspirin Chewable PO 81 mg DAILY [facility] Administration Bumetanide 2 mg 08/02/18 20:15 08/05/18 04:25 Bumex IVP 2 mg Q8H [facility] Administration Carvedilol 6.25 mg 08/04/18 13:15 08/04/18 17:17 Coreg PO 6.25 mg BID [facility] Administration Ciprofloxacin 500 mg 08/02/18 18:00 08/04/18 17:17 Cipro PO 500 mg BID [facility] Administration Protocol Clopidogrel Bisulfate 75 mg 08/01/18 10:00 08/04/18 09:16 Plavix PO 75 mg DAILY [facility] Administration Dextrose 0 ml 08/03/18 15:31 Dextrose 50% Inj IV STAT PRN Hypoglycemia Protocol Protocol Dextrose 0 gm 08/03/18 15:31 Glutose 15 PO ONCE PRN Hypoglycemia Protocol Protocol Enoxaparin Sodium 140 mg 08/03/18 17:00 08/04/18 09:15 Lovenox SC 140 mg DAILY [facility] Administration Famotidine 20 mg 08/01/18 10:00 08/04/18 09:17 Pepcid PO 20 mg DAILY [facility] Administration Glucagon 0 mg 07/31/18 18:03 Glucagen Diagnostic Kit IM STAT PRN Hypoglycemia Protocol Protocol Glucagon 0 mg 08/01/18 15:02 Glucagen Diagnostic Kit IM STAT PRN Hypoglycemia Protocol Protocol Glucagon 0 mg 08/03/18 15:31 Glucagen Diagnostic Kit IM STAT PRN Hypoglycemia Protocol Protocol Milrinone Lactate/Dextrose 20 100 mls @ 15.33 mls/hr 08/02/18 17:00 08/05/18 04:22 mg/ Dextrose IV 0.375 mcg/kg/min .Q6H32M [facility] 15.33 mls/hr Protocol Administration 0.375 MCG/KG/MIN Dextrose 1,000 mls @ 0 mls/hr 08/03/18 15:31 Dextrose 5% In Water 1000 Ml IV .Q0M PRN Hypoglycemia Protocol Protocol Per Protocol Insulin Aspart 0 unit 08/03/18 16:30 08/05/18 08:25 Novolog SC 3 units ACHS [facility] Administration Protocol Metoprolol Tartrate 5 mg 08/02/18 10:30 08/05/18 04:26 Lopressor IVP 5 mg Q6H [facility] Administration Nicotine 1 patch 08/01/18 10:00 08/04/18 09:46 Nicoderm Cq TD Not Given DAILY [facility] Rosuvastatin Calcium 5 mg 08/03/18 22:00 08/04/18 21:03 Crestor PO 5 mg HS [facility] Administration Saccharomyces Boulardii 250 mg 07/31/18 22:00 08/04/18 21:03 Florastor PO 250 mg Q12 [facility] Administration Fluticasone/Salmeterol 1 puff 08/03/18 20:00 08/05/18 07:43 Advair Diskus 500/50 INH Not Given RQ12 [facility] Spironolactone 25 mg 08/04/18 10:00 08/04/18 17:17 Aldactone PO 25 mg BID [facility] Administration - Patient Studies Lab Studies: Microbiology Studies 07/31/18 21:21 Blood Culture - Preliminary Blood NO GROWTH AFTER 4 DAYS 07/31/18 21:21 Blood Culture - Preliminary Blood NO GROWTH AFTER 4 DAYS Lab Studies 08/05/18 08/05/18 08/05/18 Range/Units 07:26 06:07 06:07 WBC 8.0 (4.8-10.8) K/uL RBC 4.17 L (4.40-5.90) Mil/uL Hgb 11.1 L (12.0-18.0) g/dL Hct 34.2 L (35.0-51.0) % MCV 82.1 (80.0-94.0) fL MCH 26.7 L (27.0-31.0) pg MCHC 32.5 L (33.0-37.0) g/dL RDW 15.1 H (11.5-14.5) % Plt Count 281 (130-400) K/uL MPV 7.1 L (7.2-11.7) fL Neut % (Auto) 69.5 (50.0-75.0) % Lymph % (Auto) 19.3 L (20.0-40.0) % [place] % (Auto) 10.2 H (0.0-10.0) % Eos % (Auto) 0.8 (0.0-4.0) % Baso % (Auto) 0.2 (0.0-2.0) % Neut # (Auto) 5.6 (1.8-7.0) K/uL Lymph # (Auto) 1.6 (1.0-4.3) K/uL [place] # (Auto) 0.8 (0.0-0.8) K/uL Eos # (Auto) 0.1 (0.0-0.7) K/uL Baso # (Auto) 0.0 (0.0-0.2) K/uL Neutrophils % (Manual) (50-75) % Lymphocytes % (Manual) (20-40) % Monocytes % (Manual) (0-10) % Platelet Estimate (NORMAL) Hypochromasia (manual) Anisocytosis (manual) Ovalocytes Sodium 141 (132-148) mmol/L Potassium 4.0 (3.6-5.2) mmol/L Chloride 96 L (98-107) mmol/L Carbon Dioxide 36 H (22-30) mmol/L Anion Gap 13 (10-20) BUN 60 H (9-20) mg/dL Creatinine 1.7 H (0.8-1.5) mg/dL Est GFR ( Amer) 51 Est GFR (Non-Af Amer) 43 POC Glucose (mg/dL) 200 H (65-110) mg/dL Random Glucose 283 H (75-110) mg/dL Calcium 9.0 (8.6-10.4) mg/dl Phosphorus 3.5 (2.5-4.5) mg/dL Magnesium 1.8 (1.6-2.3) mg/dL Total Bilirubin 0.3 (0.2-1.3) mg/dL AST 21 (17-59) U/L ALT 27 (21-72) U/L Alkaline Phosphatase 63 (38-126) U/L Total Protein 6.0 L (6.3-8.3) g/dL Albumin 3.3 L (3.5-5.0) g/dL Globulin 2.7 (2.2-3.9) gm/dL Albumin/Globulin Ratio 1.2 (1.0-2.1) 08/04/18 08/04/18 08/04/18 Range/Units 21:05 16:51 11:17 WBC (4.8-10.8) K/uL RBC (4.40-5.90) Mil/uL Hgb (12.0-18.0) g/dL Hct (35.0-51.0) % MCV (80.0-94.0) fL MCH (27.0-31.0) pg MCHC (33.0-37.0) g/dL RDW (11.5-14.5) % Plt Count (130-400) K/uL MPV (7.2-11.7) fL Neut % (Auto) (50.0-75.0) % Lymph % (Auto) (20.0-40.0) % [place] % (Auto) (0.0-10.0) % Eos % (Auto) (0.0-4.0) % Baso % (Auto) (0.0-2.0) % Neut # (Auto) (1.8-7.0) K/uL Lymph # (Auto) (1.0-4.3) K/uL [place] # (Auto) (0.0-0.8) K/uL Eos # (Auto) (0.0-0.7) K/uL Baso # (Auto) (0.0-0.2) K/uL Neutrophils % (Manual) (50-75) % Lymphocytes % (Manual) (20-40) % Monocytes % (Manual) (0-10) % Platelet Estimate (NORMAL) Hypochromasia (manual) Anisocytosis (manual) Ovalocytes Sodium (132-148) mmol/L Potassium (3.6-5.2) mmol/L Chloride (98-107) mmol/L Carbon Dioxide (22-30) mmol/L Anion Gap (10-20) BUN (9-20) mg/dL Creatinine (0.8-1.5) mg/dL Est GFR ( Amer) Est GFR (Non-Af Amer) POC Glucose (mg/dL) 222 H 196 H 211 H (65-110) mg/dL Random Glucose (75-110) mg/dL Calcium (8.6-10.4) mg/dl Phosphorus (2.5-4.5) mg/dL Magnesium (1.6-2.3) mg/dL Total Bilirubin (0.2-1.3) mg/dL AST (17-59) U/L ALT (21-72) U/L Alkaline Phosphatase (38-126) U/L Total Protein (6.3-8.3) g/dL Albumin (3.5-5.0) g/dL Globulin (2.2-3.9) gm/dL Albumin/Globulin Ratio (1.0-2.1) 08/04/18 08/04/18 Range/Units 07:36 06:20 WBC (4.8-10.8) K/uL RBC (4.40-5.90) Mil/uL Hgb (12.0-18.0) g/dL Hct (35.0-51.0) % MCV (80.0-94.0) fL MCH (27.0-31.0) pg MCHC (33.0-37.0) g/dL RDW (11.5-14.5) % Plt Count (130-400) K/uL MPV (7.2-11.7) fL Neut % (Auto) (50.0-75.0) % Lymph % (Auto) (20.0-40.0) % [place] % (Auto) (0.0-10.0) % Eos % (Auto) (0.0-4.0) % Baso % (Auto) (0.0-2.0) % Neut # (Auto) (1.8-7.0) K/uL Lymph # (Auto) (1.0-4.3) K/uL [place] # (Auto) (0.0-0.8) K/uL Eos # (Auto) (0.0-0.7) K/uL Baso # (Auto) (0.0-0.2) K/uL Neutrophils % (Manual) 83 H (50-75) % Lymphocytes % (Manual) 10 L (20-40) % Monocytes % (Manual) 7 (0-10) % Platelet Estimate Normal (NORMAL) Hypochromasia (manual) Slight Anisocytosis (manual) Slight Ovalocytes Slight Sodium (132-148) mmol/L Potassium (3.6-5.2) mmol/L Chloride (98-107) mmol/L Carbon Dioxide (22-30) mmol/L Anion Gap (10-20) BUN (9-20) mg/dL Creatinine (0.8-1.5) mg/dL Est GFR ( Amer) Est GFR (Non-Af Amer) POC Glucose (mg/dL) 245 H (65-110) mg/dL Random Glucose (75-110) mg/dL Calcium (8.6-10.4) mg/dl Phosphorus (2.5-4.5) mg/dL Magnesium (1.6-2.3) mg/dL Total Bilirubin (0.2-1.3) mg/dL AST (17-59) U/L ALT (21-72) U/L Alkaline Phosphatase (38-126) U/L Total Protein (6.3-8.3) g/dL Albumin (3.5-5.0) g/dL Globulin (2.2-3.9) gm/dL Albumin/Globulin Ratio (1.0-2.1) Laboratory Results - last 24 hr 08/04/18 08/04/18 08/04/18 06:20 07:36 11:17 WBC RBC Hgb Hct MCV MCH MCHC RDW Plt Count MPV Neut % (Auto) Lymph % (Auto) [place] % (Auto) Eos % (Auto) Baso % (Auto) Neut # (Auto) Lymph # (Auto) [place] # (Auto) Eos # (Auto) Baso # (Auto) Neutrophils % (Manual) 83 H Lymphocytes % (Manual) 10 L Monocytes % (Manual) 7 Platelet Estimate Normal Hypochromasia (manual) Slight Anisocytosis (manual) Slight Ovalocytes Slight Sodium Potassium Chloride Carbon Dioxide Anion Gap BUN Creatinine Est GFR ( Amer) Est GFR (Non-Af Amer) POC Glucose (mg/dL) 245 H 211 H Random Glucose Calcium Phosphorus Magnesium Total Bilirubin AST ALT Alkaline Phosphatase Total Protein Albumin Globulin Albumin/Globulin Ratio 08/04/18 08/04/18 08/05/18 16:51 21:05 06:07 WBC 8.0 RBC 4.17 L Hgb 11.1 L Hct 34.2 L MCV 82.1 MCH 26.7 L MCHC 32.5 L RDW 15.1 H Plt Count 281 MPV 7.1 L Neut % (Auto) 69.5 Lymph % (Auto) 19.3 L [place] % (Auto) 10.2 H Eos % (Auto) 0.8 Baso % (Auto) 0.2 Neut # (Auto) 5.6 Lymph # (Auto) 1.6 [place] # (Auto) 0.8 Eos # (Auto) 0.1 Baso # (Auto) 0.0 Neutrophils % (Manual) Lymphocytes % (Manual) Monocytes % (Manual) Platelet Estimate Hypochromasia (manual) Anisocytosis (manual) Ovalocytes Sodium Potassium Chloride Carbon Dioxide Anion Gap BUN Creatinine Est GFR ( Amer) Est GFR (Non-Af Amer) POC Glucose (mg/dL) 196 H 222 H Random Glucose Calcium Phosphorus Magnesium Total Bilirubin AST ALT Alkaline Phosphatase Total Protein Albumin Globulin Albumin/Globulin Ratio 08/05/18 08/05/18 06:07 07:26 WBC RBC Hgb Hct MCV MCH MCHC RDW Plt Count MPV Neut % (Auto) Lymph % (Auto) [place] % (Auto) Eos % (Auto) Baso % (Auto) Neut # (Auto) Lymph # (Auto) [place] # (Auto) Eos # (Auto) Baso # (Auto) Neutrophils % (Manual) Lymphocytes % (Manual) Monocytes % (Manual) Platelet Estimate Hypochromasia (manual) Anisocytosis (manual) Ovalocytes Sodium 141 Potassium 4.0 Chloride 96 L Carbon Dioxide 36 H Anion Gap 13 BUN 60 H Creatinine 1.7 H Est GFR ( Amer) 51 Est GFR (Non-Af Amer) 43 POC Glucose (mg/dL) 200 H Random Glucose 283 H Calcium 9.0 Phosphorus 3.5 Magnesium 1.8 Total Bilirubin 0.3 AST 21 ALT 27 Alkaline Phosphatase 63 Total Protein 6.0 L Albumin 3.3 L Globulin 2.7 Albumin/Globulin Ratio 1.2 Fingerstick Blood Sugar Results: 200 Critical Care Progress Note - Nutrition Nutrition: Nutrition Category Date Time Status Heart Healthy Diet [DIET] Diets 08/02/18 Breakfast Active Assessment/Plan - Assessment and Plan (Free Text) Assessment: 52 M with PMHx of HTN, T2DM, Systolic Heart Failure, COPD, Tobacco Use Disorder , Alcohol Use Disorder who presents to the ED with shortness of breath 2 weeks. Patient admitted for New Onset Atriall Fibrillation, NSTEMI, Acute on Chronic Systolic Heart Failure Exacerbation, Bilateral Lower Extremity Cellulitis, and CINDY. Patient planned for cardiac cath today however it was cancelled due to inc orthopnea and CINDY. Neuro: -AAO x 3 Pulm: -Orthopnea, pulmonary edema improving symptomatically but not radiographically. -bumex 2mg iv q8h - Cont duonebs CV: -Heart rate in 140's this am and started digoxin 0.25 daily -hemodynamically stable -On Milrinone gtt to increase cardiac output to hopefully improve renal function -continue Crestor -Metoprolol IV q6h for afib rate, and coreg 6.125 BID -continue ASA and Plavix -Cardiology consulted for recs Hem: - afib stroke prophylaxis with lovenox Renal: - cardiorenal disease with CINDY, creatinine now improving - diuresing with bumex and spironolactone - Avoid nephrotoxic drugs - MOnitor I and O - Replete electrolytes as needed Endo: - SISS for coverage - Maintain BS [id number] GI: - heart healthy diet - GI ppx ID: - MRSA in left leg wound - Cont Cipro. DVT proph - therapeutic lovenox GI proph - pepcid Code status - full code Case and plan was reviewed and discussed with Dr Lemus.
[2018-08-05] MEDS: Saccharomyces Boulardi 250 mg Cap PO SCH ×2 (10:00→21:28)
[2018-08-05] MEDS: Enoxaparin 150 mg Syringe SC SCH ×2 (10:03→21:29)
[2018-08-05] MEDS: Acetylcysteine 20% Inhal Soln (4ml) PO SCH ×2 (12:17→21:27)
[2018-08-05] MEDS ORDERED: Metoprolol 1 mg/ml Inj IVP PRN (14:11)
--- NOTE | 2018-08-05 15:06 | CP.PCM.PN ---
<Tejas Cassidy - Last Filed: 08/05/18 15:03> Subjective - Date & Time of Evaluation Date of Evaluation: 08/05/18 Time of Evaluation: 09:15 - Subjective Subjective: Trevor Cassidy PGY2 - Nephrology Progress Note Dr. Pascual Patient seen and examined this AM. Patient indicates he feels much better than on presentation. Requests information on when he can go home and why he is remains in hospital. Extensive conversation was conducted with patient regarding importance of remaining in hospital for further evaluation and monitoring of his current medical condition. Patient in understanding of seriousness of his condition and appears to be agreeable to stay for further evaluation. Objective - Vital Signs/Intake and Output Vital Signs (last 24 hours): Temp Pulse Resp BP Pulse Ox 97.7 F 120 H 20 114/72 93 L 08/05/18 08:15 08/05/18 08:15 08/05/18 08:14 08/05/18 11:45 08/03/18 19:37 Intake and Output: 08/05/18 08/05/18 06:59 18:59 Intake Total 777.6 474.0 Output Total 4480 1580 Balance -3702.4 -1106.0 - Medications Medications: Current Medications Acetylcysteine (Acetylcysteine 20%) 6 ml PO Q12 [facility] [place] Last Admin: 08/05/18 12:17 Dose: 6 ml Albuterol/Ipratropium (Duoneb 3 Mg/0.5 Mg (3 Ml) Ud) 3 ml INH RQ4 [facility] Last Admin: 08/05/18 13:33 Dose: 3 ml Aspirin (Aspirin Chewable) 81 mg PO DAILY [facility] Last Admin: 08/05/18 10:00 Dose: 81 mg Bumetanide (Bumex) 1 mg IVP Q8H [facility] Last Admin: 08/05/18 12:18 Dose: 1 mg Carvedilol (Coreg) 12.5 mg PO BID [facility] Ciprofloxacin (Cipro) 500 mg PO BID [facility] PRN Reason: Protocol Last Admin: 08/05/18 10:02 Dose: 500 mg Clopidogrel Bisulfate (Plavix) 75 mg PO DAILY [facility] Last Admin: 08/05/18 10:00 Dose: 75 mg Dextrose (Dextrose 50% Inj) 0 ml IV STAT PRN; Protocol PRN Reason: Hypoglycemia Protocol Dextrose (Glutose 15) 0 gm PO ONCE PRN; Protocol PRN Reason: Hypoglycemia Protocol Digoxin (Lanoxin) 0.25 mg IVP DAILY@1800 [facility] Enoxaparin Sodium (Lovenox) 125 mg SC Q12H [facility] Famotidine (Pepcid) 20 mg PO DAILY [facility] Last Admin: 08/05/18 10:04 Dose: 20 mg Glucagon (Glucagen Diagnostic Kit) 0 mg IM STAT PRN; Protocol PRN Reason: Hypoglycemia Protocol Glucagon (Glucagen Diagnostic Kit) 0 mg IM STAT PRN; Protocol PRN Reason: Hypoglycemia Protocol Glucagon (Glucagen Diagnostic Kit) 0 mg IM STAT PRN; Protocol PRN Reason: Hypoglycemia Protocol Milrinone Lactate/Dextrose 20 (mg/ Dextrose) 100 mls @ 15.33 mls/hr IV .Q6H32M DANIE; 0.375 MCG/KG/MIN PRN Reason: Protocol Last Admin: 08/05/18 11:45 Dose: 0.375 mcg/kg/min, 15.33 mls/hr Dextrose (Dextrose 5% In Water 1000 Ml) 1,000 mls @ 0 mls/hr IV .Q0M PRN; Protocol; Per Protocol PRN Reason: Hypoglycemia Protocol Insulin Aspart (Novolog) 0 unit SC ACHS [facility] [place] PRN Reason: Protocol Last Admin: 08/05/18 12:17 Dose: 3 units Lactic Acid (Lac-Hydrin 12% Lotion (225 G)) 0 gm EXT BID [facility] [place] Metoprolol Tartrate (Lopressor) 5 mg IVP Q6H PRN PRN Reason: Other Nicotine (Nicoderm Cq) 1 patch TD DAILY [facility] [place] Last Admin: 08/05/18 11:08 Dose: Not Given Rosuvastatin Calcium (Crestor) 5 mg PO HS [facility] [place] Last Admin: 08/04/18 21:03 Dose: 5 mg Saccharomyces Boulardii (Florastor) 250 mg PO Q12 [facility] [place] Last Admin: 08/05/18 10:00 Dose: 250 mg Fluticasone/Salmeterol (Advair Diskus 500/50) 1 puff INH RQ12 [facility] [place] Last Admin: 08/05/18 07:43 Dose: Not Given Spironolactone (Aldactone) 25 mg PO BID [facility] [place] Last Admin: 08/05/18 10:00 Dose: 25 mg - Labs Labs: 08/05/18 06:07 09/17/18 06:07 PT 15.8 SECONDS (9.7-12.2) H 08/01/18 02:07 INR 1.4 08/01/18 02:07 APTT 59 SECONDS (21-34) H D 08/03/18 14:20 - Constitutional Appears: No Acute Distress - Head Exam Head Exam: ATRAUMATIC, NORMOCEPHALIC - Eye Exam Eye Exam: EOMI, PERRL - ENT Exam ENT Exam: Mucous Membranes Moist - Neck Exam Neck Exam: Full ROM - Respiratory Exam Respiratory Exam: Clear to Ausculation Bilateral, NORMAL BREATHING PATTERN - Cardiovascular Exam Cardiovascular Exam: Tachycardia, +S1, +S2 - GI/Abdominal Exam GI & Abdominal Exam: Normal Bowel Sounds Additional comments: softness appreciated in UQ b/l, some firmness appreciated in lower quad b/l, patient denies tenderness to palpation - Extremities Exam Extremities Exam: Full ROM Additional comments: patient with skin discoloration and skin peeling likely secondary to his venous insufficiency vs cellulitis both chronic issues - Back Exam Back Exam: absent: CVA tenderness (L), CVA tenderness (R) - Neurological Exam Neurological Exam: Alert, Awake, Normal Gait, Oriented x3 Neuro motor strength exam: Left Upper Extremity: 5, Right Upper Extremity: 5, Left Lower Extremity: 5, Right Lower Extremity: 5 - Psychiatric Exam Psychiatric exam: Normal Affect, Normal Mood - Skin Skin Exam: Dry, Warm Assessment and Plan - Assessment and Plan (Free Text) Assessment: 52 year old male with a PMH of HTN, DM2, HFrEF, COPD, tobacco and alcohol abuse who presented to ER with shortness of breath for 2 weeks, found to have new onset afib and acute on chronic CHF exacerbation with BL lower extremity cellulitis and now CINDY. Nephrology consultation was requested for his CINDY. Patient continues to undergo diuresis with close to ~20 lb weight loss over admission. Plan: CINDY KIDIGO II with oliguria - Etiology: Cardiorenal type I vs III - In setting of potential CKD with proteinuria - UOP is good with continual diuresis with bumex - Over past 24 hour patietn has had increased levels of UOP will adjust bumex to 1mg Q8H - Patient showing alkalosis with diuresis, will continue with aldactone in effort to balance - Avoid nephrotoxic agents - Regarding cath patient appears to be improving with diuresis and milrinone gtt , will start acetylcysteine today in attempt to prepare for contrast for potential cath in coming days - Monitor I/Os Chronic Kidney Disease - Proteinuric with albuminuria - CKD stage 3A in 01/2018 - Patient primary contacted regarding Cr function - Labs from 01/2018 show 2.4 and 03/2018 show 2.76 - Continue to monitor Patient seen, case and plan discussed with attending <Silvio Pascual - Last Filed: 08/06/18 06:46> Objective - Vital Signs/Intake and Output Vital Signs (last 24 hours): Temp Pulse Resp BP Pulse Ox 98.1 F 111 H 20 138/70 83 L 08/06/18 04:00 08/06/18 04:00 08/06/18 04:00 08/06/18 02:59 08/05/18 19:00 Intake and Output: 08/05/18 08/06/18 18:59 06:59 Intake Total 1037.6 396.8 Output Total 3540 2200 Balance -2502.4 -1803.2 - Medications Medications: Current Medications Acetylcysteine (Acetylcysteine 20%) 6 ml PO Q12 [facility] [place] Last Admin: 08/05/18 21:27 Dose: 6 ml Albuterol/Ipratropium (Duoneb 3 Mg/0.5 Mg (3 Ml) Ud) 3 ml INH RQ4 [facility] [place] Last Admin: 08/06/18 04:33 Dose: Not Given Aspirin (Aspirin Chewable) 81 mg PO DAILY [facility] [place] Last Admin: 08/05/18 10:00 Dose: 81 mg Bumetanide (Bumex) 1 mg IVP Q8H [facility] [place] Last Admin: 08/05/18 20:30 Dose: 1 mg Carvedilol (Coreg) 25 mg PO BID [facility] [place] Ciprofloxacin (Cipro) 500 mg PO BID [facility] PRN Reason: Protocol Last Admin: 08/05/18 17:06 Dose: 500 mg Clopidogrel Bisulfate (Plavix) 75 mg PO DAILY [facility] [place] Last Admin: 08/05/18 10:00 Dose: 75 mg Dextrose (Dextrose 50% Inj) 0 ml IV STAT PRN; Protocol PRN Reason: Hypoglycemia Protocol Dextrose (Glutose 15) 0 gm PO ONCE PRN; Protocol PRN Reason: Hypoglycemia Protocol Digoxin (Lanoxin) 0.25 mg IVP DAILY@1800 [facility] [place] Last Admin: 08/05/18 17:06 Dose: 0.25 mg Enoxaparin Sodium (Lovenox) 125 mg SC Q12H [facility] [place] Last Admin: 08/05/18 21:29 Dose: 125 mg Famotidine (Pepcid) 20 mg PO DAILY [facility] [place] Last Admin: 08/05/18 10:04 Dose: 20 mg Glucagon (Glucagen Diagnostic Kit) 0 mg IM STAT PRN; Protocol PRN Reason: Hypoglycemia Protocol Glucagon (Glucagen Diagnostic Kit) 0 mg IM STAT PRN; Protocol PRN Reason: Hypoglycemia Protocol Glucagon (Glucagen Diagnostic Kit) 0 mg IM STAT PRN; Protocol PRN Reason: Hypoglycemia Protocol Dextrose (Dextrose 5% In Water 1000 Ml) 1,000 mls @ 0 mls/hr IV .Q0M PRN; Protocol; Per Protocol PRN Reason: Hypoglycemia Protocol Milrinone Lactate/Dextrose 20 (mg/ Dextrose) 100 mls @ 14.2 mls/hr IV .Q7H3M DANIE; 0.375 MCG/KG/MIN PRN Reason: Protocol Last Admin: 08/06/18 02:59 Dose: 0.375 mcg/kg/min, 14.2 mls/hr Insulin Aspart (Novolog) 0 unit SC ACHS [facility] [place] PRN Reason: Protocol Last Admin: 08/05/18 21:40 Dose: Not Given Lactic Acid (Lac-Hydrin 12% Lotion (225 G)) 0 gm EXT BID [facility] [place] Last Admin: 08/05/18 18:32 Dose: 225 gm Metoprolol Tartrate (Lopressor) 5 mg IVP Q6H PRN PRN Reason: Other Nicotine (Nicoderm Cq) 1 patch TD DAILY [facility] [place] Last Admin: 08/05/18 11:08 Dose: Not Given Rosuvastatin Calcium (Crestor) 5 mg PO HS [facility] [place] Last Admin: 08/05/18 21:29 Dose: 5 mg Saccharomyces Boulardii (Florastor) 250 mg PO Q12 [facility] [place] Last Admin: 08/05/18 21:28 Dose: 250 mg Fluticasone/Salmeterol (Advair Diskus 500/50) 1 puff INH RQ12 [facility] [place] Last Admin: 08/05/18 19:29 Dose: Not Given Spironolactone (Aldactone) 25 mg PO BID [facility] [place] Last Admin: 08/05/18 17:06 Dose: 25 mg - Labs Labs: 08/06/18 06:06 08/05/18 06:07 PT 15.8 SECONDS (9.7-12.2) H 08/01/18 02:07 INR 1.4 08/01/18 02:07 APTT 59 SECONDS (21-34) H D 08/03/18 14:20 Assessment and Plan (1) CHF exacerbation Status: Acute (2) CINDY (acute kidney injury) Status: Acute (3) NSTEMI (non-ST elevated myocardial infarction) Status: Acute Attending/Attestation - Attestation I have personally seen and examined this patient.: Yes I have fully participated in the care of the patient.: Yes I have reviewed all pertinent clinical information, including history, physical exam and plan: Yes Notes (Text): Patient seen and examined; I agree with the resident's note as above with the following additions/edits: Patient with mild underlying CKD, CHF w/ systolic dysfunction, admitted with acute severely decompensated systolic CHF and CINDY; Cardiorenal etiology of CINDY with renal function improving as patient is continued on aggressive diuresis and inotropic support; CHF signs/symptoms also improving; is able to lie flat now; Patient in need of cardiac cath with concern for underlying ischemic process; should preferably wait till serum creatinine closer to baseline (unless cath deemed urgent); may be ready in the coming 1-2 days; starting acetylcysteine for contrast prophylaxis; Metabolic alkalosis increasing despite increasing aldactone dose; decreasing IV bumex to 1 mg q8h; continue aldactone 25 mg bid; Coreg restarted by cardio, will help with BP/HR control; Thank you for this referral, we will be following up closely.
--- NOTE | 2018-08-05 17:00 | CP.PCM.PN ---
Subjective - Date & Time of Evaluation Date of Evaluation: 08/05/18 Time of Evaluation: 16:45 - Subjective Subjective: Hospitalist Progress Note Patient was seen and examined at 4:45 PM Explained that he had concerns about his jobs and bills that he had to pay and that is why he was considering signing AMA. He stated that he would be rather sick and work. I explained to him that considering his multiple comorbidies, that likelihood of a quick and severe cardiac event likely leading to his was extremely high and this would result in him no longer having to worry about his job or bills as he would be . I explained to him that everyone here was trying to help so that he could get back to work in the best possible condition. He has decided to stay. Plan is for Cardiac Cath once renal function has improved and cleared to do so by Nephrology Upon FULL ROS: Breathing is much better and stated that he was able to lay flat for about 45 to 60 minutes today NO chest pain NO abdominal pain NO n/v/d/c: last normal bowel movement was 08/04/18 morning NO dysphagia/odynophagia NO burning/pain with urination: "urinating a lot" Feels like the swelling in his lower legs has improved NO lightheadedness/dizziness NO headache NO new changes in vision NO new changes in hearing General: AAOX3, NAD HEENT: NCA, EOMI, PERRLA, NO lymphadenopathy, NO thyromegaly, NO pharyngeal erythema Cardio: Irregularly irregular Resp: Few scattered rales in the bilateral lower lobes GI: Centeral Obesity, palpation of Liver and Spleen were not attempted, BS x4, Soft, NT, NO guarding/rebound tenderness Ext: 1+ Pitting edema from feet to the just below the knees, Pulses are strong and equal bilateral UE and LE, Bilateral Lower leg skin peeling with erythema but no warmth noted, capillary refill is 2 seconds Neuro: CN II through XII are grossly intact 1) Shortness of breathe * Contributing factors: morbid obesity, new onset atrial fibrillation, suspected congestive heart failure, 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 Krause (Cardiology) internal consultant-->help appreciated * Recommend for milrinone * Recommended for cath but on hold due to renal function * Recommended for MADI conversion for atrial fib * Dr. 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) * Lopressor 5mg IVP Q6H * Therapuetic lovenox * Recommended for MADI cardioversion 4) History of b/l lower extremity edema * Secondary to acute decompensated systolic CHF * Venous doppler: negative for DVT * Patient is on diuresis: Aldactone and Bumex 5) History of weeping leg wounds * Wound care on board * Clindamycin stopped 2017 * Wound culture: MRSA * Continue with Cipro 500mg PO BID for MRSA started on 08/02/2018 * Contact isolation 6) Tobacco abuse COPD * Patient counselled at bedside to stop smoking * Nicoderm patch daily * Duonebs 3ml INH Q6H * Advair 500/50 1 puff inhaled Q12H 7) Diabetes, newly diagnosed * Influencing factor steroids and obesity * Hgba1c: 7.9 * Novolog sliding scale subq * Patient is on aspirin 81 mg once a day * Will need stuart/arb pending renal function for renoprotection from diabetes * Residential Monitor referral * Diabetic education 9) Acute Renal Insufficiency * Nephrology (Dr. Pascual) on case-->help appreciated * Discussed between nephro and cardiology, regards milirone * Unable to perform cath due to renal function * improving 10) Hypertension * Lopressor 5mg IVP Q6H PRN SBP > 160 * Coreg 12.5 mg PO 2x/day * Aldactone 12.5 mg PO 1x/day * Bumex 1 mg IV Q8H 11) Prophylactic measure * On therapuetic lovenox for Atrial fib/nonstemi * Fluid restriction * Record in and out * Pepcid 20mg PO daily * Florastor 250 mg PO Q12H Negro Valdez D.O. Objective - Vital Signs/Intake and Output Vital Signs (last 24 hours): Temp Pulse Resp BP Pulse Ox 97.5 F L 116 H 22 150/90 92 L 08/05/18 15:30 08/05/18 15:30 08/05/18 15:30 08/05/18 15:30 08/05/18 12:06 Intake and Output: 08/05/18 08/05/18 06:59 18:59 Intake Total 777.6 808.0 Output Total 4480 3160 Balance -3702.4 -2352.0 - Medications Medications: Current Medications Acetylcysteine (Acetylcysteine 20%) [address] [facility] Last Admin: 08/05/18 12:17 Dose: 6 ml Albuterol/Ipratropium (Duoneb 3 Mg/0.5 Mg (3 Ml) Ud) [address] [facility] Last Admin: 08/05/18 16:16 Dose: Not Given Aspirin (Aspirin Chewable) [address] [facility] Last Admin: 08/05/18 10:00 Dose: 81 mg Bumetanide (Bumex) [address] [facility] Last Admin: 08/05/18 12:18 Dose: 1 mg Carvedilol (Coreg) 12.[address] [facility] Ciprofloxacin (Cipro) [address] [facility] PRN Reason: Protocol Last Admin: 08/05/18 10:02 Dose: 500 mg Clopidogrel Bisulfate (Plavix) [address] [facility] Last Admin: 08/05/18 10:00 Dose: 75 mg Dextrose (Dextrose 50% Inj) 0 ml IV STAT PRN; Protocol PRN Reason: Hypoglycemia Protocol Dextrose (Glutose 15) 0 gm PO ONCE PRN; Protocol PRN Reason: Hypoglycemia Protocol Digoxin (Lanoxin) 0.25 mg IVP DAILY@1800 [facility] Enoxaparin Sodium (Lovenox) [address] [facility] Famotidine (Pepcid) [address] [facility] Last Admin: 08/05/18 10:04 Dose: 20 mg Glucagon (Glucagen Diagnostic Kit) 0 mg IM STAT PRN; Protocol PRN Reason: Hypoglycemia Protocol Glucagon (Glucagen Diagnostic Kit) 0 mg IM STAT PRN; Protocol PRN Reason: Hypoglycemia Protocol Glucagon (Glucagen Diagnostic Kit) 0 mg IM STAT PRN; Protocol PRN Reason: Hypoglycemia Protocol Milrinone Lactate/Dextrose 20 (mg/ Dextrose) 100 mls @ 15.33 mls/hr IV .Q6H32M DANIE; 0.375 MCG/KG/MIN PRN Reason: Protocol Last Admin: 08/05/18 11:45 Dose: 0.375 mcg/kg/min, 15.33 mls/hr Dextrose (Dextrose 5% In Water 1000 Ml) 1,000 mls @ 0 mls/hr IV .Q0M PRN; Protocol; Per Protocol PRN Reason: Hypoglycemia Protocol Insulin Aspart (Novolog) 0 unit SC ACHS [facility] PRN Reason: Protocol Last Admin: 08/05/18 16:37 Dose: 2 units Lactic Acid (Lac-Hydrin 12% Lotion (225 G)) [address] [facility] Last Admin: 08/02/18 14:30 Dose: 225 gm Metoprolol Tartrate (Lopressor) 5 mg IVP Q6H PRN PRN Reason: Other Nicotine (Nicoderm Cq) [address] [facility] Last Admin: 08/05/18 11:08 Dose: Not Given Rosuvastatin Calcium (Crestor) [address] [facility] Last Admin: 08/04/18 21:03 Dose: 5 mg Saccharomyces Boulardii (Florastor) [address] [facility] Last Admin: 08/05/18 10:00 Dose: 250 mg Fluticasone/Salmeterol (Advair Diskus 500/50) [address] [facility] Last Admin: 08/05/18 07:43 Dose: Not Given Spironolactone (Aldactone) [address] [facility] Last Admin: 08/05/18 10:00 Dose: 25 mg - Labs Labs: 08/05/18 06:07 08/05/18 06:07 PT 15.8 SECONDS (9.7-12.2) H 08/01/18 02:07 INR 1.4 08/01/18 02:07 APTT 59 SECONDS (21-34) H D 08/03/18 14:20
[2018-08-05] MEDS: Digoxin 500 mcg/2ml (0.5 mg/2ml) Inj IVP SCH (17:06)
[2018-08-05] MEDS: Ammonium Lactate 12% Lotion (225 g) EXT SCH (18:32)
--- NOTE | 2018-08-05 19:49 | CP.PCM.PN ---
Subjective - Date & Time of Evaluation Date of Evaluation: 08/05/18 Time of Evaluation: 19:45 - Subjective Subjective: I AGAIN had a discussion with patient regarding goals of care. His heart rate remains tachycardic. I explained his tachcyardia can also increase risk of complication. I AGAIN reiterated that patient will need further therapy including medication titration, to assist with medical stabilization. He is not sure if he wants to say. This seems to be a recurring theme with this patient. I understand that he wants to leave the hospital and keeps threatening to sign out against medical advice. I AGAIN have reiterated to the patient that we are all working hard to improve his clinical status, and it is evident that upon every clincian's note there is a discussion with this patient about the risks of signing out. will reevaluate if it is safe for any procedures to be performed tomorrow. Discussed with nursing staff. Coreg increased. Objective - Vital Signs/Intake and Output Vital Signs (last 24 hours): Temp Pulse Resp BP Pulse Ox 97.5 F L 116 H 22 138/70 92 L 08/05/18 15:30 08/05/18 15:30 08/05/18 15:30 08/05/18 18:17 08/05/18 12:06 Intake and Output: 08/05/18 08/06/18 18:59 06:59 Intake Total 808.0 Output Total 3160 Balance -2352.0 - Medications Medications: Current Medications Acetylcysteine (Acetylcysteine 20%) 6 ml PO Q12 [facility] Last Admin: 08/05/18 12:17 Dose: 6 ml Albuterol/Ipratropium (Duoneb 3 Mg/0.5 Mg (3 Ml) Ud) 3 ml INH RQ4 [facility] Last Admin: 08/05/18 19:27 Dose: 3 ml Aspirin (Aspirin Chewable) 81 mg PO DAILY [facility] Last Admin: 08/05/18 10:00 Dose: 81 mg Bumetanide (Bumex) 1 mg IVP Q8H [facility] Last Admin: 08/05/18 12:18 Dose: 1 mg Carvedilol (Coreg) 25 mg PO BID [facility] Ciprofloxacin (Cipro) 500 mg PO BID [facility] PRN Reason: Protocol Last Admin: 08/05/18 17:06 Dose: 500 mg Clopidogrel Bisulfate (Plavix) 75 mg PO DAILY [facility] Last Admin: 08/05/18 10:00 Dose: 75 mg Dextrose (Dextrose 50% Inj) 0 ml IV STAT PRN; Protocol PRN Reason: Hypoglycemia Protocol Dextrose (Glutose 15) 0 gm PO ONCE PRN; Protocol PRN Reason: Hypoglycemia Protocol Digoxin (Lanoxin) 0.25 mg IVP DAILY@1800 [facility] Last Admin: 08/05/18 17:06 Dose: 0.25 mg Enoxaparin Sodium (Lovenox) 125 mg SC Q12H [facility] Famotidine (Pepcid) 20 mg PO DAILY [facility] Last Admin: 08/05/18 10:04 Dose: 20 mg Glucagon (Glucagen Diagnostic Kit) 0 mg IM STAT PRN; Protocol PRN Reason: Hypoglycemia Protocol Glucagon (Glucagen Diagnostic Kit) 0 mg IM STAT PRN; Protocol PRN Reason: Hypoglycemia Protocol Glucagon (Glucagen Diagnostic Kit) 0 mg IM STAT PRN; Protocol PRN Reason: Hypoglycemia Protocol Dextrose (Dextrose 5% In Water 1000 Ml) 1,000 mls @ 0 mls/hr IV .Q0M PRN; Protocol; Per Protocol PRN Reason: Hypoglycemia Protocol Insulin Aspart (Novolog) 0 unit SC ACHS [facility] PRN Reason: Protocol Last Admin: 08/05/18 16:37 Dose: 2 units Lactic Acid (Lac-Hydrin 12% Lotion (225 G)) 0 gm EXT BID [facility] Last Admin: 08/05/18 18:32 Dose: 225 gm Metoprolol Tartrate (Lopressor) 5 mg IVP Q6H PRN PRN Reason: Other Nicotine (Nicoderm Cq) 1 patch TD DAILY [facility] Last Admin: 08/05/18 11:08 Dose: Not Given Rosuvastatin Calcium (Crestor) 5 mg PO HS [facility] Last Admin: 08/04/18 21:03 Dose: 5 mg Saccharomyces Boulardii (Florastor) 250 mg PO Q12 [facility] Last Admin: 08/05/18 10:00 Dose: 250 mg Fluticasone/Salmeterol (Advair Diskus 500/50) 1 puff INH RQ12 [facility] Last Admin: 08/05/18 19:29 Dose: Not Given Spironolactone (Aldactone) 25 mg PO BID [facility] Last Admin: 08/05/18 17:06 Dose: 25 mg - Labs Labs: 08/05/18 06:07 08/05/18 06:07 PT 15.8 SECONDS (9.7-12.2) H 08/01/18 02:07 INR 1.4 08/01/18 02:07 APTT 59 SECONDS (21-34) H D 08/03/18 14:20 Assessment and Plan (1) CHF exacerbation Status: Acute (2) NSTEMI (non-ST elevated myocardial infarction) Status: Acute (3) New onset atrial fibrillation Status: Acute
[2018-08-06] MEDS: Albuterol-Ipratrop 3 mg / 0.5 (3 ml) UD INH SCH ×6 (00:46→20:10)
[2018-08-06] MEDS ORDERED: Milrinone 20 MG in Dextrose 5% In Water 80 ML IV SCH (01:30)
[2018-08-06 06:10] LABS: BASO % 0.2 % (0.0-2.0); EOS # 0.2 K/uL (0.0-0.7); EOS % 2.3 % (0.0-4.0); HEMOGLOBIN 11.7 g/dL (12.0-18.0); LYMPH # 1.8 K/uL (1.0-4.3); LYMPH % 21.8 % (20.0-40.0); MEAN CELL VOLUME 81.5 fL (80.0-94.0); MEAN CORPUSCULAR HEMOGLOBIN 26.3 pg (27.0-31.0); MEAN CORPUSCULAR HGB CONC 32.2 g/dL (33.0-37.0); MEAN PLATELET VOLUME 7.1 fL (7.2-11.7); MONO % 12.1 % (0.0-10.0); NEUT # 5.4 K/uL (1.8-7.0); NEUT % 63.6 % (50.0-75.0); RBC 4.47 Mil/uL (4.40-5.90); WHITE BLOOD COUNT 8.4 K/uL (4.8-10.8)
[2018-08-06 06:43] LABS: ALB/GLOB RATIO 1.2 (1.0-2.1); ALBUMIN 3.3 g/dL (3.5-5.0); CALCIUM 9.3 mg/dl (8.6-10.4)
[2018-08-06] MEDS: Fluticasone-Salmeterol 500-50mcg Diskus INH SCH ×2 (07:30→20:10)
--- NOTE | 2018-08-06 08:15 | CP.CCUPN ---
Addendum entered and electronically signed by Jose Luis Christiansen DO 08/06/18 14:38 : Patient went for cardiac cath showing multivessel dx with results below: 1. L Main: Patent 2. LAD: Proximal to mid long 70-85% stenosis, Diags patent 3. L Cx: Distal 85%, OM1 Ostial 90% 4. RCA: Mid distal 70%. Dominant Right system 5. EF: 30%, Dilated LV with global hypokinesis, EDP 22, No AV gradient I spoke to Dr Krause which recommend aggressive medical management at this time and starting anticoagulation (Eliquis 5mg BID started). Will cont to monitor. Original Note: <Jose Luis Christiansen - Last Filed: 08/06/18 11:50> CCU Subjective - Physician Review Subjective (Free Text): Critical care progress note: Pt seen and examined at bedside. No acute events overnight. Pt is NPO for possible cardiac cath. Currently denies any chest pain or sob. 12 Point ROS performed and neg other than stated above. CCU Objective - Vital Signs / Intake & Output Vital Signs (Last 4 hours): Vital Signs Pulse Resp BP 08/06/18 08:00 114 H 20 08/06/18 07:00 114 H 18 08/06/18 06:00 108 H 22 08/06/18 05:00 108 H 19 08/06/18 04:50 105 H 19 149/94 H Intake and Output (Last 8hrs): Intake & Output 08/05/18 08/06/18 08/06/18 22:59 06:59 14:59 Intake Total 568.4 115.4 28.4 Output Total 2360 1999 600 Balance -1791.6 -1884.6 -571.6 Weight 267 lb 8 oz Intake: IV 0 Intake, IV Amount 118.4 115.4 28.4 Right Antecubital 118.4 115.4 28.4 Oral 450 Output: Urine 2360 1999 600 Urine, Voided 2360 1999 600 Stool 0 0 Other: # Voids Urine, Voided 1 - Physical Exam Head: Positive for: Atraumatic, Normocephalic Pupils: Positive for: PERRL Extroacular Muscles: Positive for: EOMI Mouth: Positive for: Moist Mucous Membranes Neck: Positive for: Normal Range of Motion Respiratory/Chest: Positive for: Clear to Auscultation, Good Air Exchange, Decreased Breath Sounds (at bases). Negative for: Respiratory Distress, Wheezes Cardiovascular: Positive for: Normal S1, S2, Irregular Rhythm, Tachycardic. Negative for: Murmurs Abdomen: Positive for: Normal Bowel Sounds. Negative for: Tenderness, Distention Upper Extremity: Positive for: Normal Inspection. Negative for: Cyanosis, Edema Lower Extremity: Positive for: Edema, Erythema. Negative for: CALF TENDERNESS Neurological: Positive for: CN II-XII Intact Skin: Positive for: Warm, Dry Psychiatric: Positive for: Alert, Oriented x 3 - Medications Active Medications: Active Medications Generic Name Dose Route Start Last Admin Trade Name Freq PRN Reason Stop Dose Admin Acetylcysteine 6 ml 08/05/18 11:30 08/05/18 21:27 Acetylcysteine 20% PO 6 ml Q12 DANIE Administration Albuterol/Ipratropium 3 ml 07/31/18 20:00 08/06/18 07:30 Duoneb 3 Mg/0.5 Mg (3 Ml) Ud INH Not Given RQ4 [facility] Aspirin 81 mg 08/03/18 10:00 08/05/18 10:00 Aspirin Chewable PO 81 mg DAILY DANIE Administration Bumetanide 1 mg 08/05/18 12:00 08/06/18 04:30 Bumex IVP 1 mg Q8H DANIE Administration Carvedilol 25 mg 08/05/18 19:28 Coreg PO BID DANIE Ciprofloxacin 500 mg 08/02/18 18:00 08/05/18 17:06 Cipro PO 500 mg BID DANIE Administration Protocol Clopidogrel Bisulfate 75 mg 08/01/18 10:00 08/05/18 10:00 Plavix PO 75 mg DAILY DANIE Administration Dextrose 0 ml 08/03/18 15:31 Dextrose 50% Inj IV STAT PRN Hypoglycemia Protocol Protocol Dextrose 0 gm 08/03/18 15:31 Glutose 15 PO ONCE PRN Hypoglycemia Protocol Protocol Digoxin 0.25 mg 08/05/18 18:00 08/05/18 17:06 Lanoxin IVP 0.25 mg DAILY@1800 DANIE Administration Diltiazem HCl 60 mg 08/06/18 12:00 Cardizem PO Q6H DANIE Enoxaparin Sodium 125 mg 08/05/18 22:00 08/05/18 21:29 Lovenox SC 125 mg Q12H DANIE Administration Famotidine 20 mg 08/01/18 10:00 08/05/18 10:04 Pepcid PO 20 mg DAILY DANIE Administration Glucagon 0 mg 07/31/18 18:03 Glucagen Diagnostic Kit IM STAT PRN Hypoglycemia Protocol Protocol Glucagon 0 mg 08/01/18 15:02 Glucagen Diagnostic Kit IM STAT PRN Hypoglycemia Protocol Protocol Glucagon 0 mg 08/03/18 15:31 Glucagen Diagnostic Kit IM STAT PRN Hypoglycemia Protocol Protocol Dextrose 1,000 mls @ 0 mls/hr 08/03/18 15:31 Dextrose 5% In Water 1000 Ml IV .Q0M PRN Hypoglycemia Protocol Protocol Per Protocol Insulin Aspart 0 unit 08/03/18 16:30 08/05/18 21:40 Novolog SC Not Given ACHS DANIE Protocol Lactic Acid 0 gm 08/05/18 12:00 08/05/18 18:32 Lac-Hydrin 12% Lotion (225 G) EXT 225 gm BID DANIE Administration Metoprolol Tartrate 5 mg 08/05/18 14:11 Lopressor IVP Q6H PRN Other Nicotine 1 patch 08/01/18 10:00 08/05/18 11:08 Nicoderm Cq TD Not Given DAILY DANIE Rosuvastatin Calcium 5 mg 08/03/18 22:00 08/05/18 21:29 Crestor PO 5 mg HS DANIE Administration Saccharomyces Boulardii 250 mg 07/31/18 22:00 08/05/18 21:28 Florastor PO 250 mg Q12 DANIE Administration Fluticasone/Salmeterol 1 puff 08/03/18 20:00 08/06/18 07:30 Advair Diskus 500/50 INH Not Given RQ12 DANIE Spironolactone 25 mg 08/04/18 10:00 08/05/18 17:06 Aldactone PO 25 mg BID DANIE Administration - Patient Studies Lab Studies: Microbiology Studies 07/31/18 21:21 Blood Culture - Final Blood NO GROWTH AFTER 5 DAYS Gram Stain - Final TEST NOT PERFORMED 07/31/18 21:21 Blood Culture - Final Blood NO GROWTH AFTER 5 DAYS Gram Stain - Final TEST NOT PERFORMED Lab Studies 08/06/18 08/06/18 08/06/18 Range/Units 07:18 06:06 06:06 WBC 8.4 (4.8-10.8) K/uL RBC 4.47 (4.40-5.90) Mil/uL Hgb 11.7 L (12.0-18.0) g/dL Hct 36.4 (35.0-51.0) % MCV 81.5 (80.0-94.0) fL MCH 26.3 L (27.0-31.0) pg MCHC 32.2 L (33.0-37.0) g/dL RDW 15.0 H (11.5-14.5) % Plt Count 280 (130-400) K/uL MPV 7.1 L (7.2-11.7) fL Neut % (Auto) 63.6 (50.0-75.0) % Lymph % (Auto) 21.8 (20.0-40.0) % [place] % (Auto) 12.1 H (0.0-10.0) % Eos % (Auto) 2.3 (0.0-4.0) % Baso % (Auto) 0.2 (0.0-2.0) % Neut # (Auto) 5.4 (1.8-7.0) K/uL Lymph # (Auto) 1.8 (1.0-4.3) K/uL [place] # (Auto) 1.0 H (0.0-0.8) K/uL Eos # (Auto) 0.2 (0.0-0.7) K/uL Baso # (Auto) 0.0 (0.0-0.2) K/uL Sodium 143 (132-148) mmol/L Potassium 3.8 (3.6-5.2) mmol/L Chloride 95 L (98-107) mmol/L Carbon Dioxide 39 H (22-30) mmol/L Anion Gap 13 (10-20) BUN 54 H (9-20) mg/dL Creatinine 1.5 (0.8-1.5) mg/dL Est GFR ( Amer) 59 Est GFR (Non-Af Amer) 49 POC Glucose (mg/dL) 167 H (65-110) mg/dL Random Glucose 171 H (75-110) mg/dL Calcium 9.3 (8.6-10.4) mg/dl Phosphorus 3.9 (2.5-4.5) mg/dL Magnesium 1.8 (1.6-2.3) mg/dL Total Bilirubin 0.4 (0.2-1.3) mg/dL AST 17 (17-59) U/L ALT 33 (21-72) U/L Alkaline Phosphatase 67 (38-126) U/L Total Protein 6.0 L (6.3-8.3) g/dL Albumin 3.3 L (3.5-5.0) g/dL Globulin 2.7 (2.2-3.9) gm/dL Albumin/Globulin Ratio 1.2 (1.0-2.1) 08/05/18 08/05/18 08/05/18 Range/Units 21:09 16:34 11:56 WBC (4.8-10.8) K/uL RBC (4.40-5.90) Mil/uL Hgb (12.0-18.0) g/dL Hct (35.0-51.0) % MCV (80.0-94.0) fL MCH (27.0-31.0) pg MCHC (33.0-37.0) g/dL RDW (11.5-14.5) % Plt Count (130-400) K/uL MPV (7.2-11.7) fL Neut % (Auto) (50.0-75.0) % Lymph % (Auto) (20.0-40.0) % [place] % (Auto) (0.0-10.0) % Eos % (Auto) (0.0-4.0) % Baso % (Auto) (0.0-2.0) % Neut # (Auto) (1.8-7.0) K/uL Lymph # (Auto) (1.0-4.3) K/uL [place] # (Auto) (0.0-0.8) K/uL Eos # (Auto) (0.0-0.7) K/uL Baso # (Auto) (0.0-0.2) K/uL Sodium (132-148) mmol/L Potassium (3.6-5.2) mmol/L Chloride (98-107) mmol/L Carbon Dioxide (22-30) mmol/L Anion Gap (10-20) BUN (9-20) mg/dL Creatinine (0.8-1.5) mg/dL Est GFR ( Amer) Est GFR (Non-Af Amer) POC Glucose (mg/dL) 262 H 187 H 226 H (65-110) mg/dL Random Glucose (75-110) mg/dL Calcium (8.6-10.4) mg/dl Phosphorus (2.5-4.5) mg/dL Magnesium (1.6-2.3) mg/dL Total Bilirubin (0.2-1.3) mg/dL AST (17-59) U/L ALT (21-72) U/L Alkaline Phosphatase (38-126) U/L Total Protein (6.3-8.3) g/dL Albumin (3.5-5.0) g/dL Globulin (2.2-3.9) gm/dL Albumin/Globulin Ratio (1.0-2.1) Laboratory Results - last 24 hr 08/05/18 08/05/18 08/05/18 11:56 16:34 21:09 WBC RBC Hgb Hct MCV MCH MCHC RDW Plt Count MPV Neut % (Auto) Lymph % (Auto) [place] % (Auto) Eos % (Auto) Baso % (Auto) Neut # (Auto) Lymph # (Auto) [place] # (Auto) Eos # (Auto) Baso # (Auto) Sodium Potassium Chloride Carbon Dioxide Anion Gap BUN Creatinine Est GFR ( Amer) Est GFR (Non-Af Amer) POC Glucose (mg/dL) 226 H 187 H 262 H Random Glucose Calcium Phosphorus Magnesium Total Bilirubin AST ALT Alkaline Phosphatase Total Protein Albumin Globulin Albumin/Globulin Ratio 08/06/18 08/06/18 08/06/18 06:06 06:06 07:18 WBC 8.4 RBC 4.47 Hgb 11.7 L Hct 36.4 MCV 81.5 MCH 26.3 L MCHC 32.2 L RDW 15.0 H Plt Count 280 MPV 7.1 L Neut % (Auto) 63.6 Lymph % (Auto) 21.8 [place] % (Auto) 12.1 H Eos % (Auto) 2.3 Baso % (Auto) 0.2 Neut # (Auto) 5.4 Lymph # (Auto) 1.8 [place] # (Auto) 1.0 H Eos # (Auto) 0.2 Baso # (Auto) 0.0 Sodium 143 Potassium 3.8 Chloride 95 L Carbon Dioxide 39 H Anion Gap 13 BUN 54 H Creatinine 1.5 Est GFR ( Amer) 59 Est GFR (Non-Af Amer) 49 POC Glucose (mg/dL) 167 H Random Glucose 171 H Calcium 9.3 Phosphorus 3.9 Magnesium 1.8 Total Bilirubin 0.4 AST 17 ALT 33 Alkaline Phosphatase 67 Total Protein 6.0 L Albumin 3.3 L Globulin 2.7 Albumin/Globulin Ratio 1.2 Fingerstick Blood Sugar Results: 262 Review of Systems - Review of Systems All systems: reviewed and no additional remarkable complaints except Critical Care Progress Note - Nutrition Nutrition: Nutrition Category Date Time Status Heart Healthy Diet [DIET] Diets 08/02/18 Breakfast Active Assessment/Plan - Assessment and Plan (Free Text) Assessment: 52 M with PMHx of HTN, T2DM, Systolic Heart Failure, COPD, Tobacco Use Disorder , Alcohol Use Disorder who presents to the ED with shortness of breath 2 weeks. Patient admitted for New Onset Atriall Fibrillation, NSTEMI, Acute on Chronic Systolic Heart Failure Exacerbation, Bilateral Lower Extremity Cellulitis, and CINDY. Plan for possible cardiac cath today. Neuro: -AAO x 3 Pulm: -Orthopnea, pulmonary edema improving symptomatically but not radiographically. -bumex 1mg iv q8h -Cont duonebs CV: -Cont digoxin 0.25 daily -hemodynamically stable -Cont Milrinone gtt -continue Crestor -Metoprolol 5mg IV q6h PRN - coreg increased to 25mg BID -continue ASA and Plavix -Cardiology consulted for recs - possible cardiac cath today Hem: - afib stroke prophylaxis with lovenox - Monitor H/H Renal: - creatinine now improving, Cr 1.5 this am - diuresing with bumex and spironolactone - Avoid nephrotoxic drugs - MOnitor I and O - Replete electrolytes as needed Endo: - ISS for coverage - Maintain BS [id number] GI: - heart healthy diet - GI ppx ID: - MRSA in left leg wound - Cont Cipro DVT proph - therapeutic lovenox GI proph - pepcid Code status - full code Case and plan was reviewed and discussed with Dr Emery. <Ernesto Emery - Last Filed: 08/06/18 18:08> CCU Subjective - Physician Review Critical Care Time Spent (in minutes): 30 CCU Objective - Vital Signs / Intake & Output Vital Signs (Last 4 hours): Vital Signs Pulse Resp BP Pulse Ox 08/06/18 17:50 133/86 08/06/18 17:00 91 H 16 08/06/18 16:57 90 18 133/86 08/06/18 16:20 78 21 105/72 08/06/18 16:00 68 22 08/06/18 15:00 80 21 08/06/18 14:56 91 H 15 118/79 08/06/18 14:32 69 24 117/73 89 L 08/06/18 14:17 91 H 19 117/79 98 Intake and Output (Last 8hrs): Intake & Output 08/06/18 08/06/18 08/06/18 06:59 14:59 22:59 Intake Total 115.4 688.4 400 Output Total 1999 900 500 Balance -1884.6 -211.6 -100 Weight 267 lb 8 oz Intake: Intake, IV Amount 115.4 28.4 Right Antecubital 115.4 28.4 Oral 660 400 Output: Urine 1999 900 500 Urine, Voided 1999 900 500 Stool 0 - Medications Active Medications: Active Medications Generic Name Dose Route Start Last Admin Trade Name Freq PRN Reason Stop Dose Admin Acetylcysteine 6 ml 08/05/18 11:30 08/06/18 12:58 Acetylcysteine 20% PO 6 ml Q12 DANIE Administration Albuterol/Ipratropium 3 ml 07/31/18 20:00 08/06/18 16:26 Duoneb 3 Mg/0.5 Mg (3 Ml) Ud INH 3 ml RQ4 DANIE Administration Apixaban 5 mg 08/06/18 16:00 08/06/18 16:35 Eliquis PO 5 mg BID DANIE Administration Aspirin 81 mg 08/03/18 10:00 08/06/18 12:59 Aspirin Chewable PO 81 mg DAILY DANIE Administration Bumetanide 1 mg 08/06/18 16:00 08/06/18 16:35 Bumex IVP 1 mg Q12H DANIE Administration Carvedilol 25 mg 08/05/18 19:28 08/06/18 17:50 Coreg PO 25 mg BID DANIE Administration Ciprofloxacin 500 mg 08/02/18 18:00 08/06/18 17:50 Cipro PO 500 mg BID DANIE Administration Protocol Clopidogrel Bisulfate 75 mg 08/01/18 10:00 08/06/18 13:02 Plavix PO 75 mg DAILY DANIE Administration Dextrose 0 ml 08/03/18 15:31 Dextrose 50% Inj IV STAT PRN Hypoglycemia Protocol Protocol Dextrose 0 gm 08/03/18 15:31 Glutose 15 PO ONCE PRN Hypoglycemia Protocol Protocol Digoxin 0.25 mg 08/05/18 18:00 08/06/18 17:50 Lanoxin IVP 0.25 mg DAILY@1800 DANIE Administration Diltiazem HCl 60 mg 08/06/18 12:00 08/06/18 17:50 Cardizem PO 60 mg Q6H DANIE Administration Famotidine 20 mg 08/01/18 10:00 08/06/18 13:02 Pepcid PO 20 mg DAILY DANIE Administration Glucagon 0 mg 07/31/18 18:03 Glucagen Diagnostic Kit IM STAT PRN Hypoglycemia Protocol Protocol Glucagon 0 mg 08/01/18 15:02 Glucagen Diagnostic Kit IM STAT PRN Hypoglycemia Protocol Protocol Glucagon 0 mg 08/03/18 15:31 Glucagen Diagnostic Kit IM STAT PRN Hypoglycemia Protocol Protocol Insulin Aspart 0 unit 08/03/18 16:30 08/06/18 16:35 Novolog SC 3 units ACHS DANIE Administration Protocol Lactic Acid 0 gm 08/05/18 12:00 08/06/18 17:51 Lac-Hydrin 12% Lotion (225 G) EXT 1 gm BID DANIE Administration Metoprolol Tartrate 5 mg 08/05/18 14:11 Lopressor IVP Q6H PRN Other Nicotine 1 patch 08/01/18 10:00 08/06/18 09:24 Nicoderm Cq TD Not Given DAILY [facility] Rosuvastatin Calcium 20 mg 08/06/18 17:06 Crestor PO HS [facility] Saccharomyces Boulardii 250 mg 07/31/18 22:00 08/06/18 13:00 Florastor PO 250 mg Q12 DANIE Administration Fluticasone/Salmeterol 1 puff 08/03/18 20:00 08/06/18 07:30 Advair Diskus 500/50 INH Not Given RQ12 [facility] Spironolactone 50 mg 08/06/18 10:00 08/06/18 17:50 Aldactone PO 50 mg BID DANIE Administration - Patient Studies Lab Studies: Microbiology Studies 07/31/18 21:21 Blood Culture - Final Blood NO GROWTH AFTER 5 DAYS Gram Stain - Final TEST NOT PERFORMED 07/31/18 21:21 Blood Culture - Final Blood NO GROWTH AFTER 5 DAYS Gram Stain - Final TEST NOT PERFORMED Lab Studies 08/06/18 08/06/18 08/06/18 Range/Units 16:17 07:18 06:06 WBC (4.8-10.8) K/uL RBC (4.40-5.90) Mil/uL Hgb (12.0-18.0) g/dL Hct (35.0-51.0) % MCV (80.0-94.0) fL MCH (27.0-31.0) pg MCHC (33.0-37.0) g/dL RDW (11.5-14.5) % Plt Count (130-400) K/uL MPV (7.2-11.7) fL Neut % (Auto) (50.0-75.0) % Lymph % (Auto) (20.0-40.0) % [place] % (Auto) (0.0-10.0) % Eos % (Auto) (0.0-4.0) % Baso % (Auto) (0.0-2.0) % Neut # (Auto) (1.8-7.0) K/uL Lymph # (Auto) (1.0-4.3) K/uL [place] # (Auto) (0.0-0.8) K/uL Eos # (Auto) (0.0-0.7) K/uL Baso # (Auto) (0.0-0.2) K/uL Sodium 143 (132-148) mmol/L Potassium 3.8 (3.6-5.2) mmol/L Chloride 95 L (98-107) mmol/L Carbon Dioxide 39 H (22-30) mmol/L Anion Gap 13 (10-20) BUN 54 H (9-20) mg/dL Creatinine 1.5 (0.8-1.5) mg/dL Est GFR ( Amer) 59 Est GFR (Non-Af Amer) 49 POC Glucose (mg/dL) 233 H 167 H (65-110) mg/dL Random Glucose 171 H (75-110) mg/dL Calcium 9.3 (8.6-10.4) mg/dl Phosphorus 3.9 (2.5-4.5) mg/dL Magnesium 1.8 (1.6-2.3) mg/dL Total Bilirubin 0.4 (0.2-1.3) mg/dL AST 17 (17-59) U/L ALT 33 (21-72) U/L Alkaline Phosphatase 67 (38-126) U/L Total Protein 6.0 L (6.3-8.3) g/dL Albumin 3.3 L (3.5-5.0) g/dL Globulin 2.7 (2.2-3.9) gm/dL Albumin/Globulin Ratio 1.2 (1.0-2.1) 08/06/18 08/05/18 Range/Units 06:06 21:09 WBC 8.4 (4.8-10.8) K/uL RBC 4.47 (4.40-5.90) Mil/uL Hgb 11.7 L (12.0-18.0) g/dL Hct 36.4 (35.0-51.0) % MCV 81.5 (80.0-94.0) fL MCH 26.3 L (27.0-31.0) pg MCHC 32.2 L (33.0-37.0) g/dL RDW 15.0 H (11.5-14.5) % Plt Count 280 (130-400) K/uL MPV 7.1 L (7.2-11.7) fL Neut % (Auto) 63.6 (50.0-75.0) % Lymph % (Auto) 21.8 (20.0-40.0) % [place] % (Auto) 12.1 H (0.0-10.0) % Eos % (Auto) 2.3 (0.0-4.0) % Baso % (Auto) 0.2 (0.0-2.0) % Neut # (Auto) 5.4 (1.8-7.0) K/uL Lymph # (Auto) 1.8 (1.0-4.3) K/uL [place] # (Auto) 1.0 H (0.0-0.8) K/uL Eos # (Auto) 0.2 (0.0-0.7) K/uL Baso # (Auto) 0.0 (0.0-0.2) K/uL Sodium (132-148) mmol/L Potassium (3.6-5.2) mmol/L Chloride (98-107) mmol/L Carbon Dioxide (22-30) mmol/L Anion Gap (10-20) BUN (9-20) mg/dL Creatinine (0.8-1.5) mg/dL Est GFR ( Amer) Est GFR (Non-Af Amer) POC Glucose (mg/dL) 262 H (65-110) mg/dL Random Glucose (75-110) mg/dL Calcium (8.6-10.4) mg/dl Phosphorus (2.5-4.5) mg/dL Magnesium (1.6-2.3) mg/dL Total Bilirubin (0.2-1.3) mg/dL AST (17-59) U/L ALT (21-72) U/L Alkaline Phosphatase (38-126) U/L Total Protein (6.3-8.3) g/dL Albumin (3.5-5.0) g/dL Globulin (2.2-3.9) gm/dL Albumin/Globulin Ratio (1.0-2.1) Laboratory Results - last 24 hr 08/05/18 08/06/18 08/06/18 21:09 06:06 06:06 WBC 8.4 RBC 4.47 Hgb 11.7 L Hct 36.4 MCV 81.5 MCH 26.3 L MCHC 32.2 L RDW 15.0 H Plt Count 280 MPV 7.1 L Neut % (Auto) 63.6 Lymph % (Auto) 21.8 [place] % (Auto) 12.1 H Eos % (Auto) 2.3 Baso % (Auto) 0.2 Neut # (Auto) 5.4 Lymph # (Auto) 1.8 [place] # (Auto) 1.0 H Eos # (Auto) 0.2 Baso # (Auto) 0.0 Sodium 143 Potassium 3.8 Chloride 95 L Carbon Dioxide 39 H Anion Gap 13 BUN 54 H Creatinine 1.5 Est GFR ( Amer) 59 Est GFR (Non-Af Amer) 49 POC Glucose (mg/dL) 262 H Random Glucose 171 H Calcium 9.3 Phosphorus 3.9 Magnesium 1.8 Total Bilirubin 0.4 AST 17 ALT 33 Alkaline Phosphatase 67 Total Protein 6.0 L Albumin 3.3 L Globulin 2.7 Albumin/Globulin Ratio 1.2 08/06/18 08/06/18 07:18 16:17 WBC RBC Hgb Hct MCV MCH MCHC RDW Plt Count MPV Neut % (Auto) Lymph % (Auto) [place] % (Auto) Eos % (Auto) Baso % (Auto) Neut # (Auto) Lymph # (Auto) [place] # (Auto) Eos # (Auto) Baso # (Auto) Sodium Potassium Chloride Carbon Dioxide Anion Gap BUN Creatinine Est GFR ( Amer) Est GFR (Non-Af Amer) POC Glucose (mg/dL) 167 H 233 H Random Glucose Calcium Phosphorus Magnesium Total Bilirubin AST ALT Alkaline Phosphatase Total Protein Albumin Globulin Albumin/Globulin Ratio Critical Care Progress Note - Nutrition Nutrition: Nutrition Category Date Time Status Heart Healthy Diet [DIET] Diets 08/02/18 Breakfast Active Attending/Attestation - Attestation I have personally seen and examined this patient.: Yes I have fully participated in the care of the patient.: Yes I have reviewed all pertinent clinical information: Yes Notes (Text): 08/06/18 18:07 patient seen and examined in the intensive care unit. Patient went for cardiac cath 1. L Main: Patent 2. LAD: Proximal to mid long 70-85% stenosis, Diags patent 3. L Cx: Distal 85%, OM1 Ostial 90% 4. RCA: Mid distal 70%. Dominant Right system 5. EF: 30%, Dilated LV with global hypokinesis, EDP 22, No AV gradient For medical management
[2018-08-06] MEDS: (Novolog) Insulin Aspart, Recombinant 100 u/ml 10 ml vial SC SCH ×4 (09:24→21:45)
--- NOTE | 2018-08-06 10:33 | CP.PCM.PN ---
<Tejas Cassidy - Last Filed: 08/06/18 13:39> Subjective - Date & Time of Evaluation Date of Evaluation: 08/06/18 Time of Evaluation: 08:30 - Subjective Subjective: Trevor Cassidy PGY 2 - Nephrology Progress Note Dr. Pascual Patient seen and examined this AM. Patient continues to be without complaints. Patient was informed of his current medical treatment plan as well as potential risks for leaving the hospital against medical advice. Patient verbalized understanding of conversation. Patient is able to lay flat and is tolerating diet. Continues to undergo further diuresis. Objective - Vital Signs/Intake and Output Vital Signs (last 24 hours): Temp Pulse Resp BP Pulse Ox 97.5 F L 95 H 21 122/80 83 L 08/06/18 08:00 08/06/18 09:00 08/06/18 09:00 08/06/18 08:32 08/05/18 19:00 Intake and Output: 08/06/18 08/06/18 06:59 18:59 Intake Total 424.6 28.4 Output Total 2900 600 Balance -2475.4 -571.6 - Medications Medications: Current Medications Acetylcysteine (Acetylcysteine 20%) 6 ml PO Q12 [facility] Last Admin: 08/05/18 21:27 Dose: 6 ml Albuterol/Ipratropium (Duoneb 3 Mg/0.5 Mg (3 Ml) Ud) 3 ml INH RQ4 [facility] Last Admin: 08/06/18 07:30 Dose: Not Given Aspirin (Aspirin Chewable) 81 mg PO DAILY [facility] Last Admin: 08/05/18 10:00 Dose: 81 mg Bumetanide (Bumex) 1 mg IVP Q12H [facility] Carvedilol (Coreg) 25 mg PO BID [facility] Last Admin: 08/06/18 09:24 Dose: Not Given Ciprofloxacin (Cipro) 500 mg PO BID [facility] PRN Reason: Protocol Last Admin: 08/05/18 17:06 Dose: 500 mg Clopidogrel Bisulfate (Plavix) 75 mg PO DAILY [facility] Last Admin: 08/05/18 10:00 Dose: 75 mg Dextrose (Dextrose 50% Inj) 0 ml IV STAT PRN; Protocol PRN Reason: Hypoglycemia Protocol Dextrose (Glutose 15) 0 gm PO ONCE PRN; Protocol PRN Reason: Hypoglycemia Protocol Digoxin (Lanoxin) 0.25 mg IVP DAILY@1800 [facility] Last Admin: 08/05/18 17:06 Dose: 0.25 mg Diltiazem HCl (Cardizem) 60 mg PO Q6H [facility] Enoxaparin Sodium (Lovenox) 125 mg SC Q12H [facility] Last Admin: 08/05/18 21:29 Dose: 125 mg Famotidine (Pepcid) 20 mg PO DAILY [facility] Last Admin: 08/05/18 10:04 Dose: 20 mg Glucagon (Glucagen Diagnostic Kit) 0 mg IM STAT PRN; Protocol PRN Reason: Hypoglycemia Protocol Glucagon (Glucagen Diagnostic Kit) 0 mg IM STAT PRN; Protocol PRN Reason: Hypoglycemia Protocol Glucagon (Glucagen Diagnostic Kit) 0 mg IM STAT PRN; Protocol PRN Reason: Hypoglycemia Protocol Dextrose (Dextrose 5% In Water 1000 Ml) 1,000 mls @ 0 mls/hr IV .Q0M PRN; Protocol; Per Protocol PRN Reason: Hypoglycemia Protocol Insulin Aspart (Novolog) 0 unit SC ACHS [facility] PRN Reason: Protocol Last Admin: 08/06/18 09:24 Dose: Not Given Lactic Acid (Lac-Hydrin 12% Lotion (225 G)) 0 gm EXT BID [facility] Last Admin: 08/05/18 18:32 Dose: 225 gm Metoprolol Tartrate (Lopressor) 5 mg IVP Q6H PRN PRN Reason: Other Nicotine (Nicoderm Cq) 1 patch TD DAILY [facility] Last Admin: 08/06/18 09:24 Dose: Not Given Rosuvastatin Calcium (Crestor) 5 mg PO HS [facility] Last Admin: 08/05/18 21:29 Dose: 5 mg Saccharomyces Boulardii (Florastor) 250 mg PO Q12 [facility] Last Admin: 08/05/18 21:28 Dose: 250 mg Fluticasone/Salmeterol (Advair Diskus 500/50) 1 puff INH RQ12 [facility] Last Admin: 08/06/18 07:30 Dose: Not Given Spironolactone (Aldactone) 50 mg PO BID [facility] - Labs Labs: 08/06/18 06:06 08/06/18 06:06 PT 15.8 SECONDS (9.7-12.2) H 08/01/18 02:07 INR 1.4 08/01/18 02:07 APTT 59 SECONDS (21-34) H D 08/03/18 14:20 - Constitutional Appears: No Acute Distress - Head Exam Head Exam: ATRAUMATIC, NORMOCEPHALIC - Eye Exam Eye Exam: EOMI, PERRL - ENT Exam ENT Exam: Mucous Membranes Moist - Respiratory Exam Respiratory Exam: Clear to Ausculation Bilateral, NORMAL BREATHING PATTERN. absent: Rales, Rhonchi, Wheezes - Cardiovascular Exam Cardiovascular Exam: REGULAR RHYTHM, +S1, +S2 - GI/Abdominal Exam GI & Abdominal Exam: Soft, Normal Bowel Sounds - Extremities Exam Extremities Exam: Pedal Edema - Back Exam Back Exam: absent: CVA tenderness (L), CVA tenderness (R) - Neurological Exam Neurological Exam: Alert, Awake, Normal Gait, Oriented x3 Neuro motor strength exam: Left Upper Extremity: 5, Right Upper Extremity: 5, Left Lower Extremity: 5, Right Lower Extremity: 5 - Psychiatric Exam Psychiatric exam: Normal Affect, Normal Mood - Skin Skin Exam: Dry, Warm Additional comments: venous insufficiency/cellulitis changes apparent on lower extremities b/l Assessment and Plan - Assessment and Plan (Free Text) Assessment: 52 year old male with a PMH of HTN, DM2, HFrEF, COPD, tobacco and alcohol abuse who presented to ER with shortness of breath for 2 weeks, found to have new onset afib and acute on chronic CHF exacerbation with BL lower extremity cellulitis and now CINDY. Nephrology consultation was requested for his CINDY. Patient continues to undergo diuresis with 20+ lb weight loss over admission. Plan: CINDY in setting of CKD - improving - Etiology: Cardiorenal type I vs III - In setting of potential CKD with proteinuria - Creatinine improved on today's labs - UOP is good with continual diuresis with bumex - Patient with elevated diuresis over past 48 hours, bumex changed to 1mg BID - Patient currently with acetylcystiene for contrast dye prophylaxis - Cath possible for today, renal function showing improvement - Monitor I/Os Chronic Kidney Disease - Proteinuric with albuminuria - CKD stage 3A in 01/2018 - Patient primary contacted regarding Cr function - Labs from 01/2018 show 2.4 and 03/2018 show 2.76 - Continue to monitor Metabolic Alkalosis - Etiology: 12/21 diuresis - Bumex was changed to 1mg TID yesterday, today 1mg BID - Continues to have elevated diruesis of at least 9L over past 48 hours CAD in setting of systolic CHF - Patient went for cath this AM - Preliminary report indicates multivessel(3) disease and EF of ~30% - Cardiology stopped milrinone gtt - Cardiology is following, look for recs going forward Patient seen, case and plan discussed with attending, Dr. Pascual <Silvio Pascual - Last Filed: 08/07/18 06:25> Objective - Vital Signs/Intake and Output Vital Signs (last 24 hours): Temp Pulse Resp BP Pulse Ox 97.3 F L 63 19 108/69 95 08/07/18 04:00 08/07/18 03:29 08/07/18 03:29 08/07/18 03:29 08/06/18 20:00 Intake and Output: 08/06/18 08/07/18 18:59 06:59 Intake Total 1088.4 320 Output Total 1400 1800 Balance -311.6 -1480 - Medications Medications: Current Medications Acetylcysteine (Acetylcysteine 20%) 6 ml PO Q12 [facility] Last Admin: 08/06/18 22:05 Dose: Not Given Albuterol/Ipratropium (Duoneb 3 Mg/0.5 Mg (3 Ml) Ud) 3 ml INH RQ4 [facility] Last Admin: 08/07/18 04:30 Dose: Not Given Apixaban (Eliquis) 5 mg PO BID [facility] Last Admin: 08/06/18 16:35 Dose: 5 mg Aspirin (Aspirin Chewable) 81 mg PO DAILY [facility] Last Admin: 08/06/18 12:59 Dose: 81 mg Bumetanide (Bumex) 1 mg IVP Q12H [facility] Last Admin: 08/06/18 16:35 Dose: 1 mg Carvedilol (Coreg) 25 mg PO BID [facility] Last Admin: 08/06/18 17:50 Dose: 25 mg Ciprofloxacin (Cipro) 500 mg PO BID [facility] PRN Reason: Protocol Last Admin: 08/06/18 17:50 Dose: 500 mg Clopidogrel Bisulfate (Plavix) 75 mg PO DAILY [facility] Last Admin: 08/06/18 13:02 Dose: 75 mg Dextrose (Dextrose 50% Inj) 0 ml IV STAT PRN; Protocol PRN Reason: Hypoglycemia Protocol Dextrose (Glutose 15) 0 gm PO ONCE PRN; Protocol PRN Reason: Hypoglycemia Protocol Digoxin (Lanoxin) 0.25 mg IVP DAILY@1800 [facility] Last Admin: 08/06/18 17:50 Dose: 0.25 mg Diltiazem HCl (Cardizem) 60 mg PO Q6H [facility] Last Admin: 08/06/18 23:30 Dose: 60 mg Famotidine (Pepcid) 20 mg PO DAILY [facility] Last Admin: 08/06/18 13:02 Dose: 20 mg Glucagon (Glucagen Diagnostic Kit) 0 mg IM STAT PRN; Protocol PRN Reason: Hypoglycemia Protocol Glucagon (Glucagen Diagnostic Kit) 0 mg IM STAT PRN; Protocol PRN Reason: Hypoglycemia Protocol Glucagon (Glucagen Diagnostic Kit) 0 mg IM STAT PRN; Protocol PRN Reason: Hypoglycemia Protocol Insulin Aspart (Novolog) 0 unit SC ACHS [facility] PRN Reason: Protocol Last Admin: 08/06/18 21:45 Dose: Not Given Lactic Acid (Lac-Hydrin 12% Lotion (225 G)) 0 gm EXT BID [facility] Last Admin: 08/06/18 17:51 Dose: 1 gm Metoprolol Tartrate (Lopressor) 5 mg IVP Q6H PRN PRN Reason: Other Nicotine (Nicoderm Cq) 1 patch TD DAILY [facility] Last Admin: 08/06/18 09:24 Dose: Not Given Rosuvastatin Calcium (Crestor) 20 mg PO HS [facility] Last Admin: 08/06/18 21:48 Dose: 20 mg Saccharomyces Boulardii (Florastor) 250 mg PO Q12 [facility] Last Admin: 08/06/18 21:45 Dose: 250 mg Fluticasone/Salmeterol (Advair Diskus 500/50) 1 puff INH RQ12 [facility] Last Admin: 08/06/18 20:10 Dose: Not Given Spironolactone (Aldactone) 50 mg PO BID [facility] Last Admin: 08/06/18 17:50 Dose: 50 mg - Labs Labs: 08/06/18 06:06 08/06/18 06:06 PT 15.8 SECONDS (9.7-12.2) H 08/01/18 02:07 INR 1.4 08/01/18 02:07 APTT 59 SECONDS (21-34) H D 08/03/18 14:20 Assessment and Plan (1) CHF exacerbation Status: Acute (2) CINDY (acute kidney injury) Status: Acute (3) NSTEMI (non-ST elevated myocardial infarction) Status: Acute Attending/Attestation - Attestation I have personally seen and examined this patient.: Yes I have fully participated in the care of the patient.: Yes I have reviewed all pertinent clinical information, including history, physical exam and plan: Yes Notes (Text): Patient seen and examined; I agree with the resident's note as above with the following additions/edits: Patient admitted htn, dm, CKD, CHF w/ systolic dysfunction, admitted with acute severely decompensated CHF, CINDY; s/p cardiac cath today after progressive improvement in renal function; showing multi-vessel disease; awaiting further cardiology recs for PCI v CABG; need to monitor for worsening of renal function post cath; CHF signs/symptoms much improved; milriinone stopped; decreasing IV bumex further to 1 mg q12h as metabolic alkalosis is progressing; increasing aldactone to 50 mg bid to off set alkalaosis; Started on cardizem in addition to coreg by cardio for HR control; will need to monitor BP as patient eventually needs to be on GUILHERME inhibitor as well (for both proteinuria and CHF);
[2018-08-06] MEDS: Enoxaparin 150 mg Syringe SC SCH (11:07)
[2018-08-06] MEDS ORDERED: Verapamil 2 ML ONE (11:40)
[2018-08-06] MEDS ORDERED: Midazolam 2 MG/2 ML VIAL ONE (11:45)
--- NOTE | 2018-08-06 12:39 | CP.PCM.PN ---
Subjective - Date & Time of Evaluation Date of Evaluation: 08/06/18 Time of Evaluation: 12:33 - Subjective Subjective: patient s/p cath Right radial access 1. L Main: Patent 2. LAD: Proximal to mid long 70-85% stenosis, Diags patent 3. L Cx: Distal 85%, OM1 Ostial 90% 4. RCA: Mid distal 70%. Dominant Right system 5. EF: 30%, Dilated LV with global hypokinesis, EDP 22, No AV gradient A/P: Multi vessel disease, Low EF Further management as per Dr. Krause Objective - Vital Signs/Intake and Output Vital Signs (last 24 hours): Temp Pulse Resp BP Pulse Ox 97.5 F L 99 H 19 122/80 83 L 08/06/18 08:00 08/06/18 10:00 08/06/18 10:00 08/06/18 08:32 08/05/18 19:00 Intake and Output: 08/06/18 08/06/18 06:59 18:59 Intake Total 424.6 28.4 Output Total 2900 900 Balance -2475.4 -871.6 - Medications Medications: Current Medications Acetylcysteine (Acetylcysteine 20%) 6 ml PO Q12 [facility] Last Admin: 08/05/18 21:27 Dose: 6 ml Albuterol/Ipratropium (Duoneb 3 Mg/0.5 Mg (3 Ml) Ud) 3 ml INH RQ4 [facility] Last Admin: 08/06/18 07:30 Dose: Not Given Aspirin (Aspirin Chewable) 81 mg PO DAILY [facility] Last Admin: 08/05/18 10:00 Dose: 81 mg Bumetanide (Bumex) 1 mg IVP Q12H [facility] Carvedilol (Coreg) 25 mg PO BID [facility] Last Admin: 08/06/18 09:24 Dose: Not Given Ciprofloxacin (Cipro) 500 mg PO BID [facility] PRN Reason: Protocol Last Admin: 08/05/18 17:06 Dose: 500 mg Clopidogrel Bisulfate (Plavix) 75 mg PO DAILY [facility] Last Admin: 08/05/18 10:00 Dose: 75 mg Dextrose (Dextrose 50% Inj) 0 ml IV STAT PRN; Protocol PRN Reason: Hypoglycemia Protocol Dextrose (Glutose 15) 0 gm PO ONCE PRN; Protocol PRN Reason: Hypoglycemia Protocol Digoxin (Lanoxin) 0.25 mg IVP DAILY@1800 [facility] Last Admin: 08/05/18 17:06 Dose: 0.25 mg Diltiazem HCl (Cardizem) 60 mg PO Q6H [facility] Enoxaparin Sodium (Lovenox) 125 mg SC Q12H [facility] Last Admin: 08/06/18 11:07 Dose: Not Given Famotidine (Pepcid) 20 mg PO DAILY [facility] Last Admin: 08/05/18 10:04 Dose: 20 mg Glucagon (Glucagen Diagnostic Kit) 0 mg IM STAT PRN; Protocol PRN Reason: Hypoglycemia Protocol Glucagon (Glucagen Diagnostic Kit) 0 mg IM STAT PRN; Protocol PRN Reason: Hypoglycemia Protocol Glucagon (Glucagen Diagnostic Kit) 0 mg IM STAT PRN; Protocol PRN Reason: Hypoglycemia Protocol Dextrose (Dextrose 5% In Water 1000 Ml) 1,000 mls @ 0 mls/hr IV .Q0M PRN; Protocol; Per Protocol PRN Reason: Hypoglycemia Protocol Insulin Aspart (Novolog) 0 unit SC ACHS [facility] PRN Reason: Protocol Last Admin: 08/06/18 09:24 Dose: Not Given Lactic Acid (Lac-Hydrin 12% Lotion (225 G)) 0 gm EXT BID [facility] Last Admin: 08/05/18 18:32 Dose: 225 gm Metoprolol Tartrate (Lopressor) 5 mg IVP Q6H PRN PRN Reason: Other Nicotine (Nicoderm Cq) 1 patch TD DAILY [facility] Last Admin: 08/06/18 09:24 Dose: Not Given Rosuvastatin Calcium (Crestor) 5 mg PO HS [facility] Last Admin: 08/05/18 21:29 Dose: 5 mg Saccharomyces Boulardii (Florastor) 250 mg PO Q12 [facility] Last Admin: 08/05/18 21:28 Dose: 250 mg Fluticasone/Salmeterol (Advair Diskus 500/50) 1 puff INH RQ12 [facility] Last Admin: 08/06/18 07:30 Dose: Not Given Spironolactone (Aldactone) 50 mg PO BID [facility] - Labs Labs: 08/06/18 06:06 08/06/18 06:06 PT 15.8 SECONDS (9.7-12.2) H 08/01/18 02:07 INR 1.4 08/01/18 02:07 APTT 59 SECONDS (21-34) H D 08/03/18 14:20
[2018-08-06] MEDS: Acetylcysteine 20% Inhal Soln (4ml) PO SCH ×3 (12:58→22:05)
[2018-08-06] MEDS: Saccharomyces Boulardi 250 mg Cap PO SCH ×2 (13:00→21:45)
[2018-08-06] MEDS: Ammonium Lactate 12% Lotion (225 g) EXT SCH ×2 (13:09→17:51)
--- NOTE | 2018-08-06 16:58 | CP.PCM.PN ---
Subjective - Date & Time of Evaluation Date of Evaluation: 08/06/18 Time of Evaluation: 16:45 - Subjective Subjective: Hospitalist Progress Note Patient was seen and examined at 4:45 PM 08/06/18 ICU 2 Patient is S/P Cardiac Cath via Right Radial Artery with Dr. Scott earlier today and this showed the following: LAD proximal to mid long 70-85% stenosis Left Circumflex distal 85% and OM1 Ostial 90% stenosis RCA mid distal 70% EF 30% with dilated Left Ventricle with global hypokinesis Follow up with Dr. Krause for further recommendations for best course of management for the 3 vessel disease Upon FULL ROS: Breathing continues to improve NO chest pain NO abdominal pain NO n/v/d/c: last normal bowel movement was 08/05/18 NO dysphagia/odynophagia NO burning/pain with urination Feels like the swelling in his lower legs is continuing to improve NO lightheadedness/dizziness NO headache NO new changes in vision NO new changes in hearing General: AAOX3, NAD HEENT: NCA, EOMI, PERRLA, NO lymphadenopathy, NO thyromegaly, NO pharyngeal erythema Cardio: Irregularly irregular Resp: Few scattered rales in the bilateral lower lobes GI: Centeral Obesity, palpation of Liver and Spleen were not attempted, BS x4, Soft, NT, NO guarding/rebound tenderness Ext: 1+ Pitting edema from feet to the just below the knees, Pulses are strong and equal bilateral UE and LE, Bilateral Lower leg skin peeling with blanchable erythema but no warmth noted, capillary refill is 2 seconds Neuro: CN II through XII are grossly intact 1) Shortness of breathe * Contributing factors: morbid obesity, new onset atrial fibrillation, congestive heart failure, skilled nursing smoker 2) Acute Congestive Heart Failure Systolic Exacerbation NonSTEMI Multivessel CAD * Risk factor: DM, obesity, smoker, hypertension, chf * Pending echocardiogram-->pending official read * therapuetic lovenox * Fluid restriction * Record intake and output * Patient reports shortness of breathe at rest and on exertion * Dr. Krause (Cardiology) registration representative-->help appreciated * Recommend for milrinone * Recommended Cardiac Cath and this was performed on 08/06/18 after improvement in renal function (see results below) * Recommended for MADI conversion for atrial fib * Dr. Flannery (nephrology) on case-->help appreciated * Discussion for possible Milirone for the patient if remains orthopneic * Patient is S/P Cardiac Cath via Right Radial Artery with Dr. 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) * Lopressor 5mg IVP Q6H * Coreg 25 mg PO 2x/day * Therapuetic lovenox through 08/06/18 and switched to Eliquis 5 mg PO 2x/day * Recommended for MADI cardioversion 4) History of b/l lower extremity edema * Secondary to acute decompensated systolic CHF * Venous doppler: negative for DVT * Patient is on diuresis: Aldactone and Bumex 5) History of weeping leg wounds * Wound care on board * Clindamycin stopped 2017 * Wound culture: MRSA * Continue with Cipro 500mg PO BID for MRSA started on 08/02/2018 * Contact isolation 6) Tobacco abuse COPD * Patient counselled at bedside to stop smoking * Nicoderm patch daily * Duonebs 3ml INH Q6H * Advair 500/50 1 puff inhaled Q12H 7) Diabetes, newly diagnosed * Influencing factor steroids and obesity * Hgba1c: 7.9 * Novolog sliding scale subq * Patient is on aspirin 81 mg once a day * Will need stuart/arb pending renal function for renoprotection from diabetes * Technical Intern referral * Diabetic education 9) Acute Renal Insufficiency * Nephrology (Dr. Pascual) on case-->help appreciated * Discussed between nephro and cardiology, regards milirone * Cardiac Catheterization performance was delayed due to Acute Renal Insufficiency * improving 10) Hypertension * Lopressor 5mg IVP Q6H PRN SBP > 160 * Coreg 25 mg PO 2x/day * Aldactone 50 mg PO 2x/day * Bumex 1 mg IV Q12H 11) Prophylactic measure * On Eliquis for Atrial Fib * Fluid restriction * Record in and out * Pepcid 20mg PO daily * Florastor 250 mg PO Q12H Negro Valdez D.O. Objective - Vital Signs/Intake and Output Vital Signs (last 24 hours): Temp Pulse Resp BP Pulse Ox 97.7 F 68 22 118/79 89 L 08/06/18 12:00 08/06/18 16:00 08/06/18 16:00 08/06/18 14:56 08/06/18 14:32 Intake and Output: 08/06/18 08/06/18 06:59 18:59 Intake Total 424.6 688.4 Output Total 2900 1400 Balance -2475.4 -711.6 - Medications Medications: Current Medications Acetylcysteine (Acetylcysteine 20%) 6 ml PO Q12 [facility] Last Admin: 08/06/18 12:58 Dose: 6 ml Albuterol/Ipratropium (Duoneb 3 Mg/0.5 Mg (3 Ml) Ud) 3 ml INH RQ4 [facility] Last Admin: 08/06/18 16:26 Dose: 3 ml Apixaban (Eliquis) 5 mg PO BID [facility] Last Admin: 08/06/18 16:35 Dose: 5 mg Aspirin (Aspirin Chewable) 81 mg PO DAILY [facility] Last Admin: 08/06/18 12:59 Dose: 81 mg Bumetanide (Bumex) 1 mg IVP Q12H [facility] Last Admin: 08/06/18 16:35 Dose: 1 mg Carvedilol (Coreg) 25 mg PO BID [facility] Last Admin: 08/06/18 09:24 Dose: Not Given Ciprofloxacin (Cipro) 500 mg PO BID [facility] PRN Reason: Protocol Last Admin: 08/06/18 13:00 Dose: 500 mg Clopidogrel Bisulfate (Plavix) 75 mg PO DAILY [facility] Last Admin: 08/06/18 13:02 Dose: 75 mg Dextrose (Dextrose 50% Inj) 0 ml IV STAT PRN; Protocol PRN Reason: Hypoglycemia Protocol Dextrose (Glutose 15) 0 gm PO ONCE PRN; Protocol PRN Reason: Hypoglycemia Protocol Digoxin (Lanoxin) 0.25 mg IVP DAILY@1800 [facility] Last Admin: 08/05/18 17:06 Dose: 0.25 mg Diltiazem HCl (Cardizem) 60 mg PO Q6H [facility] Last Admin: 08/06/18 12:59 Dose: 60 mg Famotidine (Pepcid) 20 mg PO DAILY [facility] Last Admin: 08/06/18 13:02 Dose: 20 mg Glucagon (Glucagen Diagnostic Kit) 0 mg IM STAT PRN; Protocol PRN Reason: Hypoglycemia Protocol Glucagon (Glucagen Diagnostic Kit) 0 mg IM STAT PRN; Protocol PRN Reason: Hypoglycemia Protocol Glucagon (Glucagen Diagnostic Kit) 0 mg IM STAT PRN; Protocol PRN Reason: Hypoglycemia Protocol Insulin Aspart (Novolog) 0 unit SC ACHS [facility] PRN Reason: Protocol Last Admin: 08/06/18 16:35 Dose: 3 units Lactic Acid (Lac-Hydrin 12% Lotion (225 G)) 0 gm EXT BID [facility] Last Admin: 08/06/18 13:09 Dose: 1 gm Metoprolol Tartrate (Lopressor) 5 mg IVP Q6H PRN PRN Reason: Other Nicotine (Nicoderm Cq) 1 patch TD DAILY [facility] Last Admin: 08/06/18 09:24 Dose: Not Given Rosuvastatin Calcium (Crestor) 5 mg PO HS [facility] Last Admin: 08/05/18 21:29 Dose: 5 mg Saccharomyces Boulardii (Florastor) 250 mg PO Q12 [facility] Last Admin: 08/06/18 13:00 Dose: 250 mg Fluticasone/Salmeterol (Advair Diskus 500/50) 1 puff INH RQ12 [facility] Last Admin: 08/06/18 07:30 Dose: Not Given Spironolactone (Aldactone) 50 mg PO BID [facility] Last Admin: 08/06/18 12:59 Dose: 50 mg - Labs Labs: 08/06/18 06:06 08/06/18 06:06 PT 15.8 SECONDS (9.7-12.2) H 08/01/18 02:07 INR 1.4 08/01/18 02:07 APTT 59 SECONDS (21-34) H D 08/03/18 14:20
[2018-08-06] MEDS: Digoxin 500 mcg/2ml (0.5 mg/2ml) Inj IVP SCH (17:50)
[2018-08-07] MEDS: Albuterol-Ipratrop 3 mg / 0.5 (3 ml) UD INH SCH ×6 (00:56→19:52)
--- NOTE | 2018-08-07 05:30 | CARD ---
APPROVED REPORT Date of service: 08/01/2018 EXAM: Two-dimensional and M-mode echocardiogram with Doppler and color Doppler. Other Information INDICATION Dyspnea Chest Pain COPD RISK FACTORS Hypertension Obesity Diabetes Smoking 2D DIMENSIONS IVSd1.2 (0.7-1.1cm)LVDd5.7 (3.9-5.9cm) PWd1.1 (0.7-1.1cm)LVDs5.6 (2.5-4.0cm) FS (%) 2.1 % M-Mode DIMENSIONS Left Atrium (MM)5.44 (2.5-4.0cm)Aortic Root1.96 (2.2-3.7cm) Aortic Cusp Exc.1.43 (1.5-2.0cm) Mitral Valve MV E Pwcmsmyh12.1cm/sMV A Famrjqss06.2cm/sE/A ratio2.6 TDI E/Lateral E'0.0E/Medial E'0.0 Tricuspid Valve TR Peak [id number]/sTR Peak Gr.[id number] LEFT VENTRICLE The left ventricle is normal size. There is normal left ventricular wall thickness. Left ventricle systolic function is borderline. The Ejection Fraction is 45-50%. There is mild global hypokinesis of the left ventricle. The left ventricular diastolic function is normal. Apical echoes consistent with trabeculae are noted. Cannot rule out associated thrombi. Suggest repeat echo with DEFINITY contrast. RIGHT VENTRICLE The right ventricle is normal size. There is normal right ventricular wall thickness. Systolic function is borderline reduced. ATRIA The left atrium is moderately dilated. The right atrium size is normal. The interatrial septum is intact with no evidence for an atrial septal defect. AORTIC VALVE The aortic valve is mildly to moderately nodular sclerotic. No aortic regurgitation is present. There is no aortic valvular stenosis. MITRAL VALVE The mitral valve is normal in structure. There is no evidence of mitral valve prolapse. There is no mitral valve stenosis. Mitral regurgitation is mild. TRICUSPID VALVE The tricuspid valve is normal in structure. There is mild tricuspid regurgitation. Right ventricular systolic pressure is estimated at less than 30 mmHg. There is no pulmonary hypertension. PULMONIC VALVE The pulmonic valve is not well visualized. There is mild pulmonic valvular regurgitation. GREAT VESSELS The aortic root is normal in size. PERICARDIAL EFFUSION There is no significant pericardial effusion. <Conclusion> Left ventricle systolic function is borderline. The Ejection Fraction is 45-50%. There is mild global hypokinesis of the left ventricle. Apical echoes consistent with trabeculae are noted. Cannot rule out associated thrombi. Suggest repeat echo with DEFINITY contrast. No aortic regurgitation is present. Mitral regurgitation is mild. There is mild tricuspid regurgitation. There is no pulmonary hypertension. There is mild pulmonic valvular regurgitation.
[2018-08-07 06:37] LABS: BASO % 0.3 % (0.0-2.0); EOS # 0.3 K/uL (0.0-0.7); HEMOGLOBIN 11.6 g/dL (12.0-18.0); LYMPH # 1.4 K/uL (1.0-4.3); LYMPH % 15.9 % (20.0-40.0); MEAN CELL VOLUME 81.9 fL (80.0-94.0); MEAN CORPUSCULAR HEMOGLOBIN 26.8 pg (27.0-31.0); MEAN CORPUSCULAR HGB CONC 32.7 g/dL (33.0-37.0); MEAN PLATELET VOLUME 7.2 fL (7.2-11.7); MONO # 1.1 K/uL (0.0-0.8); MONO % 12.6 % (0.0-10.0); NEUT # 5.9 K/uL (1.8-7.0); NEUT % 68.2 % (50.0-75.0); RBC 4.34 Mil/uL (4.40-5.90); RED CELL DISTRIBUTION WIDTH 14.9 % (11.5-14.5); WHITE BLOOD COUNT 8.6 K/uL (4.8-10.8)
[2018-08-07 06:59] LABS: ALBUMIN 3.1 g/dL (3.5-5.0); BLOOD UREA NITROGEN 44 mg/dL (9-20); GFR NON-AFRICAN AMERICAN 53
[2018-08-07 07:00] LABS: ALB/GLOB RATIO 1.1 (1.0-2.1); ALT/SGPT 28 U/L (21-72); AST/SGOT 17 U/L (17-59)
[2018-08-07] MEDS: Fluticasone-Salmeterol 500-50mcg Diskus INH SCH ×2 (08:03→19:52)
--- NOTE | 2018-08-07 08:27 | CP.PCM.PN ---
Subjective - Date & Time of Evaluation Date of Evaluation: 08/07/18 Time of Evaluation: 08:24 - Subjective Subjective: Trevor Cassidy PGY2 - Nephrology Progress Note Patient seen and examined this AM. Patient denies any complaints. Denies shortness of breath, chest pain, abdominal pain, nausea, vomiting, fever, chills. He indicates that he feels much better than from his initial presentation. Discussion regarding medical treatments and results conducted with patient. He voices understanding of seriousness of his condition and the need for further treatment and evaluation. Patient insists on information pertaining to his eventual discharge from hospital. Objective - Vital Signs/Intake and Output Vital Signs (last 24 hours): Temp Pulse Resp BP Pulse Ox 97.3 F L 76 21 118/71 95 08/07/18 04:00 08/07/18 07:00 08/07/18 07:00 08/07/18 06:33 08/06/18 20:00 Intake and Output: 08/07/18 08/07/18 06:59 18:59 Intake Total 620 0 Output Total 1800 0 Balance -1180 0 - Medications Medications: Current Medications Acetylcysteine (Acetylcysteine 20%) 6 ml PO Q12 [facility] Last Admin: 08/06/18 22:05 Dose: Not Given Albuterol/Ipratropium (Duoneb 3 Mg/0.5 Mg (3 Ml) Ud) 3 ml INH RQ4 [facility] Last Admin: 08/07/18 08:03 Dose: Not Given Apixaban (Eliquis) 5 mg PO BID [facility] Last Admin: 08/06/18 16:35 Dose: 5 mg Aspirin (Aspirin Chewable) 81 mg PO DAILY [facility] Last Admin: 08/06/18 12:59 Dose: 81 mg Bumetanide (Bumex) 1 mg IVP Q12H [facility] Last Admin: 08/07/18 05:00 Dose: 1 mg Carvedilol (Coreg) 25 mg PO BID [facility] Last Admin: 08/06/18 17:50 Dose: 25 mg Ciprofloxacin (Cipro) 500 mg PO BID [facility] PRN Reason: Protocol Last Admin: 08/06/18 17:50 Dose: 500 mg Clopidogrel Bisulfate (Plavix) 75 mg PO DAILY [facility] Last Admin: 08/06/18 13:02 Dose: 75 mg Dextrose (Dextrose 50% Inj) 0 ml IV STAT PRN; Protocol PRN Reason: Hypoglycemia Protocol Dextrose (Glutose 15) 0 gm PO ONCE PRN; Protocol PRN Reason: Hypoglycemia Protocol Digoxin (Lanoxin) 0.25 mg IVP DAILY@1800 [facility] Last Admin: 08/06/18 17:50 Dose: 0.25 mg Diltiazem HCl (Cardizem) 60 mg PO Q6H [facility] Last Admin: 08/07/18 05:00 Dose: Not Given Famotidine (Pepcid) 20 mg PO DAILY [facility] Last Admin: 08/06/18 13:02 Dose: 20 mg Glucagon (Glucagen Diagnostic Kit) 0 mg IM STAT PRN; Protocol PRN Reason: Hypoglycemia Protocol Glucagon (Glucagen Diagnostic Kit) 0 mg IM STAT PRN; Protocol PRN Reason: Hypoglycemia Protocol Glucagon (Glucagen Diagnostic Kit) 0 mg IM STAT PRN; Protocol PRN Reason: Hypoglycemia Protocol Insulin Aspart (Novolog) 0 unit SC ACHS [facility] PRN Reason: Protocol Last Admin: 08/06/18 21:45 Dose: Not Given Lactic Acid (Lac-Hydrin 12% Lotion (225 G)) 0 gm EXT BID [facility] Last Admin: 08/06/18 17:51 Dose: 1 gm Metoprolol Tartrate (Lopressor) 5 mg IVP Q6H PRN PRN Reason: Other Nicotine (Nicoderm Cq) 1 patch TD DAILY [facility] Last Admin: 08/06/18 09:24 Dose: Not Given Rosuvastatin Calcium (Crestor) 20 mg PO HS [facility] Last Admin: 08/06/18 21:48 Dose: 20 mg Saccharomyces Boulardii (Florastor) 250 mg PO Q12 [facility] Last Admin: 08/06/18 21:45 Dose: 250 mg Fluticasone/Salmeterol (Advair Diskus 500/50) 1 puff INH RQ12 [facility] Last Admin: 08/07/18 08:03 Dose: Not Given Spironolactone (Aldactone) 50 mg PO BID [facility] Last Admin: 08/06/18 17:50 Dose: 50 mg - Labs Labs: 08/07/18 06:33 08/07/18 06:33 PT 15.8 SECONDS (9.7-12.2) H 08/01/18 02:07 INR 1.4 08/01/18 02:07 APTT 59 SECONDS (21-34) H D 08/03/18 14:20 - Constitutional Appears: Non-toxic, No Acute Distress - Head Exam Head Exam: ATRAUMATIC, NORMOCEPHALIC - Eye Exam Eye Exam: EOMI, PERRL - ENT Exam ENT Exam: Mucous Membranes Moist - Neck Exam Neck Exam: Full ROM - Respiratory Exam Respiratory Exam: Clear to Ausculation Bilateral, NORMAL BREATHING PATTERN. absent: Rhonchi, Wheezes - Cardiovascular Exam Cardiovascular Exam: Irregular Rhythm, +S1, +S2 - GI/Abdominal Exam GI & Abdominal Exam: Normal Bowel Sounds - Extremities Exam Extremities Exam: Pedal Edema. absent: Calf Tenderness - Neurological Exam Neurological Exam: Alert, Awake, Normal Gait, Oriented x3 Neuro motor strength exam: Left Upper Extremity: 5, Right Upper Extremity: 5, Left Lower Extremity: 5, Right Lower Extremity: 5 - Psychiatric Exam Psychiatric exam: Normal Affect, Normal Mood - Skin Skin Exam: Dry, Warm Assessment and Plan - Assessment and Plan (Free Text) Assessment: 52 year old male with a PMH of HTN, DM2, HFrEF, COPD, tobacco and alcohol abuse who presented to ER with shortness of breath for 2 weeks, found to have new onset afib and acute on chronic CHF exacerbation with BL lower extremity cellulitis and now CINDY. Nephrology consultation was requested for his CINDY. Patient continues to undergo diuresis with 25+ lb weight loss over admission. Patient is s/p cath with cardiology showing multivessel disease. Renal function remains stable. Plan: CINDY in setting of CKD - improving - Etiology: Cardiorenal type I vs III - In setting of potential CKD with proteinuria - Creatinine 1.5 today, improvement of Cr in setting of heart cath yesterday - UOP is good with continual diuresis with bumex - Monitor I/Os Chronic Kidney Disease - Proteinuric with albuminuria - CKD stage 3A in 01/2018 - Patient primary contacted regarding Cr function - Labs from 01/2018 show 2.4 and 03/2018 show 2.76 - Continue to monitor Metabolic Alkalosis - Etiology: 2/ diuresis - Bumex 1mg PO BID, Aldactone increased to 50mg BID - Patient still has elevated HCO3 will get ABG to confirm acid base status - Diuresis was closer to goal of 1.5L past 24 hours HTN - Improving over admission - Patient currently on cardizem, coreg, aldactone, bumex - Will need to titrate appropriately with cardio as patient will likely require GUILHERME for renal protection in setting of DM, proteinuria, and chf CAD in setting of systolic CHF - heart cath yesterday showing multivessel(3) disease and EF of ~30% - Will look to cardio for recs going forward PCI vs. CABG - Cardio following, f/u recs - Continue fluid limitation of ~1.5L - Diuresis over past 24 hours closer to goal of -1.5L Patient seen, case and plan discussed with attending, Dr. Pascual
[2018-08-07] MEDS: (Novolog) Insulin Aspart, Recombinant 100 u/ml 10 ml vial SC SCH ×4 (08:43→21:30)
[2018-08-07] MEDS: Saccharomyces Boulardi 250 mg Cap PO SCH ×2 (09:59→21:22)
[2018-08-07] MEDS ORDERED: diltiaZEM 240 mg/24 Hours CD Cap PO SCH (10:00)
[2018-08-07] MEDS: Ammonium Lactate 12% Lotion (225 g) EXT SCH (10:03)
[2018-08-07] MEDS: Acetylcysteine 20% Inhal Soln (4ml) PO SCH (11:00)
--- NOTE | 2018-08-07 16:23 | CP.PCM.PN ---
Subjective - Date & Time of Evaluation Date of Evaluation: 08/07/18 Time of Evaluation: 14:45 - Subjective Subjective: Hospitalist Progress Note Patient was seen and examined at 2:45 PM 08/07/18 ICU 2 Patient is S/P Cardiac Cath via Right Radial Artery with Dr. Scott on 08/06/18 and this showed the following: LAD proximal to mid long 70-85% stenosis Left Circumflex distal 85% and OM1 Ostial 90% stenosis RCA mid distal 70% EF 30% with dilated Left Ventricle with global hypokinesis Spoke with Photographic Technician Dr. Ngoc Krause 08/07/18 and patient will need CABG. I spoke with patient at time of my exam and he is adamant that he does not want CABG at this point in time as he has to get to work. Again, I explained to him the risks to his health with this course of action and he stated that he understood the risks and he is currently agreeing to medical management with medication at this time. He unfortunately can afford most of the medications that he needs to be on, therefore I have spoken to Medicine Man Nunu on 3T and she will try to procure 30 day supply of medications for patient. Patient understands that he will have to follow up with our [facility] for further prescriptions and coordination of his health care: These are the following medications that patient will be discharged on: Eliquis 5 mg, 1 tablet by mouth 2 times a day (8 AM and 8 PM) Aspirin 81 mg, 1 tablet by mouth 1 time a day (8 AM) Bumex 1 mg, 1 tablet by mouth 1 time a day (2 PM) Coreg 25 mg, 1 tablet bymouth 2 times a day (8 AM and 8 PM) Plavix 75 mg, 1 tablet by mouth 1 time a day (8 AM) Digoxin 0.25 mg, 1 tablet by mouth 1 time a day (2 PM) Cardizem CD 240 mg, 1 tablet by mouth 1 time a day (2 PM) Advair 500/50 mcg 1 PO INH 2 time a day (8 AM and 8 PM) Cozaar 25 mg, 1 tablet by mouth 1 time a day (8 PM) Crestor 20 mg, 1 tablet by mouth 1 time a day (8 PM) Aldactone 50 mg, 1 tablet by mouth 2 times a day (8 AM and 8 PM) Ciprofloxacin 500 mg, 1 tablet by mouth 2 times a day (8 AM and 8 PM) Once medications are obtained will discharge patient, hopefully 08/08/18 Upon FULL ROS: Breathing continues to improve NO chest pain NO abdominal pain NO n/v/d/c: last normal bowel movement was 08/06/18 NO dysphagia/odynophagia NO burning/pain with urination Feels like the swelling in his lower legs is continuing to improve NO lightheadedness/dizziness NO headache NO new changes in vision NO new changes in hearing General: AAOX3, NAD HEENT: NCA, EOMI, PERRLA, NO lymphadenopathy, NO thyromegaly, NO pharyngeal erythema Cardio: Irregularly irregular Resp: Few scattered rales in the bilateral lower lobes GI: Centeral Obesity, palpation of Liver and Spleen were not attempted, BS x4, Soft, NT, NO guarding/rebound tenderness Ext: 1+ Pitting edema from feet to the just below the knees, Pulses are strong and equal bilateral UE and LE, Bilateral Lower leg skin peeling with blanchable erythema but no warmth noted, capillary refill is 2 seconds Neuro: CN II through XII are grossly intact 1) Shortness of breathe * Contributing factors: morbid obesity, new onset atrial fibrillation, congestive heart failure, 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 Krause (Cardiology) technical consultant-->help appreciated * Recommend for milrinone * Recommended Cardiac Cath and this was performed on 08/06/18 after improvement in renal function (see results below) * Recommended for MADI conversion for atrial fib * Dr. Flannery (nephrology) on case-->help appreciated * Discussion for possible Milirone for the patient if remains orthopneic * Patient is S/P Cardiac Cath via Right Radial Artery with Dr. 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) * Lopressor 5mg IVP Q6H * Coreg 25 mg PO 2x/day * Therapuetic lovenox through 08/06/18 and switched to Eliquis 5 mg PO 2x/day * Recommended for MADI cardioversion 4) History of b/l lower extremity edema * Secondary to acute decompensated systolic CHF * Venous doppler: negative for DVT * Patient is on diuresis: Aldactone and Bumex 5) History of weeping leg wounds * Wound care on board * Clindamycin stopped 2017 * Wound culture: MRSA * Continue with Cipro 500mg PO BID for MRSA started on 08/02/2018 and we will continue through 08/16/18 * Contact isolation 6) Tobacco abuse COPD * Patient counselled at bedside to stop smoking * Nicoderm patch daily * Duonebs 3ml INH Q6H * Advair 500/50 1 puff inhaled Q12H 7) Diabetes, newly diagnosed * Influencing factor steroids and obesity * Hgba1c: 7.9 * Novolog sliding scale subq * Patient is on aspirin 81 mg once a day * Will need stuart/arb pending renal function for renoprotection from diabetes * Supervisor Stitching Department referral * Diabetic education 9) Acute Renal Insufficiency * Nephrology (Dr. Pascual) on case-->help appreciated * Discussed between nephro and cardiology, [facility] * Cardiac Catheterization performance was delayed due to Acute Renal Insufficiency * improving 10) Hypertension * Lopressor 5mg IVP Q6H PRN SBP > 160 * Coreg 25 mg PO 2x/day * Aldactone 50 mg PO 2x/day * Bumex 1 mg IV Q12H 11) Prophylactic measure * On Eliquis for Atrial Fib * Fluid restriction * Record in and out * Pepcid 20mg PO daily * Florastor 250 mg PO Q12H Negro Valdez D.O. Objective - Vital Signs/Intake and Output Vital Signs (last 24 hours): Temp Pulse Resp BP Pulse Ox 97.5 F L 58 L 19 117/73 99 08/07/18 12:00 08/07/18 15:00 08/07/18 15:00 08/07/18 13:15 08/07/18 12:00 Intake and Output: 08/07/18 08/07/18 06:59 18:59 Intake Total 620 700 Output Total 1800 1250 Balance -1180 -550 - Medications Medications: Current Medications Acetylcysteine (Acetylcysteine 20%) 6 ml PO Q12 [facility] Last Admin: 08/07/18 11:00 Dose: Not Given Albuterol/Ipratropium (Duoneb 3 Mg/0.5 Mg (3 Ml) Ud) 3 ml INH RQ4 [facility] Last Admin: 08/07/18 12:50 Dose: Not Given Apixaban (Eliquis) 5 mg PO BID [facility] Last Admin: 08/07/18 09:59 Dose: 5 mg Aspirin (Aspirin Chewable) 81 mg PO DAILY [facility] Last Admin: 08/07/18 09:59 Dose: 81 mg Bumetanide (Bumex) 1 mg PO BID [facility] Carvedilol (Coreg) 25 mg PO BID [facility] Last Admin: 08/07/18 10:12 Dose: 25 mg Ciprofloxacin (Cipro) 500 mg PO BID [facility] PRN Reason: Protocol Last Admin: 08/07/18 10:00 Dose: 500 mg Clopidogrel Bisulfate (Plavix) 75 mg PO DAILY [facility] Last Admin: 08/07/18 09:59 Dose: 75 mg Dextrose (Dextrose 50% Inj) 0 ml IV STAT PRN; Protocol PRN Reason: Hypoglycemia Protocol Dextrose (Glutose 15) 0 gm PO ONCE PRN; Protocol PRN Reason: Hypoglycemia Protocol Digoxin (Lanoxin) 0.25 mg IVP DAILY@1800 [facility] Last Admin: 08/06/18 17:50 Dose: 0.25 mg Diltiazem HCl (Cardizem Cd) 240 mg PO DAILY [facility] Last Admin: 08/07/18 10:01 Dose: 240 mg Famotidine (Pepcid) 20 mg PO DAILY [facility] Last Admin: 08/07/18 09:59 Dose: 20 mg Glucagon (Glucagen Diagnostic Kit) 0 mg IM STAT PRN; Protocol PRN Reason: Hypoglycemia Protocol Glucagon (Glucagen Diagnostic Kit) 0 mg IM STAT PRN; Protocol PRN Reason: Hypoglycemia Protocol Glucagon (Glucagen Diagnostic Kit) 0 mg IM STAT PRN; Protocol PRN Reason: Hypoglycemia Protocol Insulin Aspart (Novolog) 0 unit SC ACHS [facility] PRN Reason: Protocol Last Admin: 08/07/18 12:30 Dose: 4 units Lactic Acid (Lac-Hydrin 12% Lotion (225 G)) 0 gm EXT BID [facility] Last Admin: 08/07/18 10:03 Dose: 1 gm Losartan Potassium (Cozaar) 25 mg PO DAILY [facility] Last Admin: 08/07/18 09:59 Dose: 25 mg Metoprolol Tartrate (Lopressor) 5 mg IVP Q6H PRN PRN Reason: Other Nicotine (Nicoderm Cq) 1 patch TD DAILY [facility] Last Admin: 08/07/18 10:02 Dose: Not Given Rosuvastatin Calcium (Crestor) 20 mg PO HS [facility] Last Admin: 08/06/18 21:48 Dose: 20 mg Saccharomyces Boulardii (Florastor) 250 mg PO Q12 [facility] Last Admin: 08/07/18 09:59 Dose: 250 mg Fluticasone/Salmeterol (Advair Diskus 500/50) 1 puff INH RQ12 [facility] Last Admin: 08/07/18 08:03 Dose: Not Given Spironolactone (Aldactone) 50 mg PO BID [facility] Last Admin: 08/07/18 10:00 Dose: 50 mg - Labs Labs: 08/07/18 06:33 08/07/18 06:33 PT 15.8 SECONDS (9.7-12.2) H 08/01/18 02:07 INR 1.4 08/01/18 02:07 APTT 59 SECONDS (21-34) H D 08/03/18 14:20
[2018-08-07] MEDS: Digoxin 500 mcg/2ml (0.5 mg/2ml) Inj IVP SCH (17:19)
[2018-08-07 17:20] VITALS: PULSE 56
--- NOTE | 2018-08-07 18:21 | CP.PCM.PN ---
Subjective - Date & Time of Evaluation Date of Evaluation: 08/07/18 Time of Evaluation: 18:00 - Subjective Subjective: discussed cardiac cath findings with patient. All questions answered. stable on medical tehrapy at present. Discussed the possibility of CABG. Patient seems to understand but reiterates that he wants to go home. D/c cardizem due to bradycardia. maintain all other meds. clarify with renal whether BID aldactone is necessary. can d/c from my standpoint. Patient to follow up in clinic for medical management and further options Objective - Vital Signs/Intake and Output Vital Signs (last 24 hours): Temp Pulse Resp BP Pulse Ox 97.8 F 58 L 11 L 86/47 L 99 08/07/18 16:00 08/07/18 16:00 08/07/18 16:00 08/07/18 17:16 08/07/18 12:00 Intake and Output: 08/07/18 08/07/18 06:59 18:59 Intake Total 620 960 Output Total 1800 1390 Balance -1180 -430 - Medications Medications: Current Medications Albuterol/Ipratropium (Duoneb 3 Mg/0.5 Mg (3 Ml) Ud) 3 ml INH RQ4 [facility] Last Admin: 08/07/18 12:50 Dose: Not Given Apixaban (Eliquis) 5 mg PO BID [facility] Last Admin: 08/07/18 17:16 Dose: 5 mg Aspirin (Aspirin Chewable) 81 mg PO DAILY [facility] Last Admin: 08/07/18 09:59 Dose: 81 mg Bumetanide (Bumex) 1 mg PO BID [facility] Last Admin: 08/07/18 17:16 Dose: 1 mg Carvedilol (Coreg) 25 mg PO BID [facility] Last Admin: 08/07/18 17:16 Dose: Not Given Ciprofloxacin (Cipro) 500 mg PO BID [facility] PRN Reason: Protocol Last Admin: 08/07/18 17:16 Dose: 500 mg Clopidogrel Bisulfate (Plavix) 75 mg PO DAILY [facility] Last Admin: 08/07/18 09:59 Dose: 75 mg Dextrose (Dextrose 50% Inj) 0 ml IV STAT PRN; Protocol PRN Reason: Hypoglycemia Protocol Dextrose (Glutose 15) 0 gm PO ONCE PRN; Protocol PRN Reason: Hypoglycemia Protocol Digoxin (Lanoxin) 0.25 mg IVP DAILY@1800 [facility] Last Admin: 08/07/18 17:19 Dose: Not Given Famotidine (Pepcid) 20 mg PO DAILY [facility] Last Admin: 08/07/18 09:59 Dose: 20 mg Glucagon (Glucagen Diagnostic Kit) 0 mg IM STAT PRN; Protocol PRN Reason: Hypoglycemia Protocol Glucagon (Glucagen Diagnostic Kit) 0 mg IM STAT PRN; Protocol PRN Reason: Hypoglycemia Protocol Glucagon (Glucagen Diagnostic Kit) 0 mg IM STAT PRN; Protocol PRN Reason: Hypoglycemia Protocol Insulin Aspart (Novolog) 0 unit SC ACHS [facility] PRN Reason: Protocol Last Admin: 08/07/18 16:30 Dose: Not Given Lactic Acid (Lac-Hydrin 12% Lotion (225 G)) 0 gm EXT BID [facility] Last Admin: 08/07/18 10:03 Dose: 1 gm Losartan Potassium (Cozaar) 25 mg PO DAILY [facility] Last Admin: 08/07/18 09:59 Dose: 25 mg Metoprolol Tartrate (Lopressor) 5 mg IVP Q6H PRN PRN Reason: Other Nicotine (Nicoderm Cq) 1 patch TD DAILY [facility] Last Admin: 08/07/18 10:02 Dose: Not Given Rosuvastatin Calcium (Crestor) 20 mg PO HS [facility] Last Admin: 08/06/18 21:48 Dose: 20 mg Saccharomyces Boulardii (Florastor) 250 mg PO Q12 [facility] Last Admin: 08/07/18 09:59 Dose: 250 mg Fluticasone/Salmeterol (Advair Diskus 500/50) 1 puff INH RQ12 [facility] Last Admin: 08/07/18 08:03 Dose: Not Given Spironolactone (Aldactone) 25 mg PO BID [facility] - Labs Labs: 08/07/18 06:33 08/07/18 06:33 PT 15.8 SECONDS (9.7-12.2) H 08/01/18 02:07 INR 1.4 08/01/18 02:07 APTT 59 SECONDS (21-34) H D 08/03/18 14:20 Assessment and Plan (1) CHF exacerbation Status: Acute (2) NSTEMI (non-ST elevated myocardial infarction) Status: Acute (3) New onset atrial fibrillation Status: Acute
[2018-08-08] MEDS: Albuterol-Ipratrop 3 mg / 0.5 (3 ml) UD INH SCH ×4 (01:12→11:15)
[2018-08-08 04:21] VITALS: TEMP 97.9
[2018-08-08 05:10] VITALS: RESP 20
[2018-08-08 06:29] LABS: HEMOGLOBIN 12.1 g/dL (12.0-18.0); MEAN CORPUSCULAR HEMOGLOBIN 26.4 pg (27.0-31.0); MEAN CORPUSCULAR HGB CONC 32.2 g/dL (33.0-37.0); MEAN PLATELET VOLUME 7.2 fL (7.2-11.7); RBC 4.57 Mil/uL (4.40-5.90); WHITE BLOOD COUNT 10.2 K/uL (4.8-10.8)
[2018-08-08 06:43] LABS: ALB/GLOB RATIO 1.1 (1.0-2.1); ALBUMIN 3.5 g/dL (3.5-5.0); CALCIUM 9.1 mg/dl (8.6-10.4)
[2018-08-08] MEDS: (Novolog) Insulin Aspart, Recombinant 100 u/ml 10 ml vial SC SCH ×2 (08:22→12:03)
--- NOTE | 2018-08-08 08:37 | CP.PCM.PN ---
Subjective - Date & Time of Evaluation Date of Evaluation: 08/08/18 Time of Evaluation: 08:00 - Subjective Subjective: Trevor Cassidy PGY2 - Nephrology Progress Note Dr. Pascual Patient seen and examined this AM. Patient is noted to be laying on his side resting comfortably upon entering the room. Over past 24 hours patient noted to be bradycardic, cardizem was discontinued. Patient continues to have adequate diuresis with negative fluid status over past 24 hours. Patient denies chest pain, shortness of breath, abdominal pain, nausea, vomiting, fever, chills. Objective - Vital Signs/Intake and Output Vital Signs (last 24 hours): Temp Pulse Resp BP Pulse Ox 97.9 F 76 20 132/88 94 L 08/08/18 04:00 08/08/18 04:00 08/08/18 04:00 08/08/18 04:00 08/07/18 20:00 Intake and Output: 08/08/18 08/08/18 06:59 18:59 Intake Total 0 0 Output Total 850 Balance -850 0 - Medications Medications: Current Medications Albuterol/Ipratropium (Duoneb 3 Mg/0.5 Mg (3 Ml) Ud) 3 ml INH RQ4 [facility] Last Admin: 08/08/18 04:52 Dose: Not Given Apixaban (Eliquis) 5 mg PO BID [facility] Last Admin: 08/07/18 17:16 Dose: 5 mg Aspirin (Aspirin Chewable) 81 mg PO DAILY [facility] Last Admin: 08/07/18 09:59 Dose: 81 mg Bumetanide (Bumex) 1 mg PO BID [facility] Last Admin: 08/07/18 17:16 Dose: 1 mg Carvedilol (Coreg) 25 mg PO BID [facility] Last Admin: 08/07/18 17:16 Dose: Not Given Clopidogrel Bisulfate (Plavix) 75 mg PO DAILY [facility] Last Admin: 08/07/18 09:59 Dose: 75 mg Dextrose (Dextrose 50% Inj) 0 ml IV STAT PRN; Protocol PRN Reason: Hypoglycemia Protocol Dextrose (Glutose 15) 0 gm PO ONCE PRN; Protocol PRN Reason: Hypoglycemia Protocol Digoxin (Lanoxin) 0.25 mg IVP DAILY@1800 [facility] Last Admin: 08/07/18 17:19 Dose: Not Given Famotidine (Pepcid) 20 mg PO DAILY [facility] Last Admin: 08/07/18 09:59 Dose: 20 mg Glucagon (Glucagen Diagnostic Kit) 0 mg IM STAT PRN; Protocol PRN Reason: Hypoglycemia Protocol Glucagon (Glucagen Diagnostic Kit) 0 mg IM STAT PRN; Protocol PRN Reason: Hypoglycemia Protocol Glucagon (Glucagen Diagnostic Kit) 0 mg IM STAT PRN; Protocol PRN Reason: Hypoglycemia Protocol Insulin Aspart (Novolog) 0 unit SC ACHS DANIE PRN Reason: Protocol Last Admin: 08/08/18 08:22 Dose: Not Given Lactic Acid (Lac-Hydrin 12% Lotion (225 G)) 0 gm EXT BID [facility] Last Admin: 08/07/18 10:03 Dose: 1 gm Losartan Potassium (Cozaar) 25 mg PO DAILY [facility] Last Admin: 08/07/18 09:59 Dose: 25 mg Metoprolol Tartrate (Lopressor) 5 mg IVP Q6H PRN PRN Reason: Other Nicotine (Nicoderm Cq) 1 patch TD DAILY [facility] Last Admin: 08/07/18 10:02 Dose: Not Given Rosuvastatin Calcium (Crestor) 20 mg PO HS [facility] Last Admin: 08/07/18 21:22 Dose: 20 mg Saccharomyces Boulardii (Florastor) 250 mg PO Q12 [facility] Last Admin: 08/07/18 21:22 Dose: 250 mg Fluticasone/Salmeterol (Advair Diskus 500/50) 1 puff INH RQ12 [facility] Last Admin: 08/07/18 19:52 Dose: Not Given Spironolactone (Aldactone) 25 mg PO BID [facility] - Labs Labs: 08/08/18 06:17 08/08/18 06:17 PT 15.8 SECONDS (9.7-12.2) H 08/01/18 02:07 INR 1.4 08/01/18 02:07 APTT 59 SECONDS (21-34) H D 08/03/18 14:20 - Constitutional Appears: Non-toxic, No Acute Distress - Head Exam Head Exam: ATRAUMATIC, NORMAL INSPECTION, NORMOCEPHALIC - Eye Exam Eye Exam: EOMI, PERRL - Neck Exam Neck Exam: Full ROM - Respiratory Exam Respiratory Exam: NORMAL BREATHING PATTERN. absent: Rhonchi, Wheezes - Cardiovascular Exam Cardiovascular Exam: Irregular Rhythm, +S1, +S2 - GI/Abdominal Exam GI & Abdominal Exam: Normal Bowel Sounds. absent: Tenderness Additional comments: abdomen is slightly firm in lower quadrants bilaterally likely fluid collection remaining from anasarca on admission, NTTP - Extremities Exam Additional comments: edema bilaterally, improved from initial presentation scarring and erythema secondary to cellulitis vs. venous insufficiency - Back Exam Back Exam: CVA tenderness (R). absent: CVA tenderness (L) - Neurological Exam Neurological Exam: Alert, Awake, Normal Gait, Oriented x3 Neuro motor strength exam: Left Upper Extremity: 5 - Psychiatric Exam Psychiatric exam: Normal Affect, Normal Mood - Skin Skin Exam: Dry, Warm Assessment and Plan - Assessment and Plan (Free Text) Assessment: 52 year old male with a PMH of HTN, DM2, HFrEF, COPD, tobacco and alcohol abuse who presented to ER with shortness of breath for 2 weeks, found to have new onset afib and acute on chronic CHF exacerbation with BL lower extremity cellulitis and now CINDY. Nephrology consultation was requested for his CINDY. Patient continues to undergo diuresis with 40+ lb weight loss over admission. Patient is s/p cath with cardiology showing multivessel disease. Renal function remains stable. Plan: CINDY in setting of CKD - resolved - Etiology: Cardiorenal type I vs III - In setting of potential CKD with proteinuria - Creatinine 1.5 again today, new baseline - EF improved from admission showing to be 30% from cath report - UOP is good with continual diuresis with bumex - Monitor I/Os Chronic Kidney Disease - Proteinuric with albuminuria - CKD stage 3A in 01/2018 - Patient primary contacted regarding Cr function - Labs from 01/2018 show 2.4 and 03/2018 show 2.76 - Continue to monitor Metabolic Alkalosis - Etiology: 2/2 diuresis - Slight improvement on today's labs - ABG pending - Bumex 1mg PO BID, Aldactone increased to 50mg BID - Diuresis was closer to goal of 1.5L past 24 hours HTN - Improving over admission - Patient currently on coreg, Cozaar, aldactone, bumex - Cardizem discontinued by cardiology - Will need to titrate appropriately with cardio as patient will likely require GUILHERME for renal protection in setting of DM, proteinuria, and chf CAD in setting of systolic CHF - heart cath yesterday showing multivessel(3) disease and EF of ~30% - Will look to cardio for recs going forward PCI vs. CABG - Cardio following, patient opting for medical management instead of rec CABG - Continue fluid limitation of ~1.5L - Diuresis over past 24 hours is -1.5L * Instructed patient that upon discharge he must weigh himself daily with a standing scale and that if he notices a gain of 3 to 4 pounds he should take an extra 0.5mg dose of bumex and to notify either Dr. Pascual, his tape coater, or his primary care physician *Patient also instructed that if he begins to notice he only has a limited amount of medication that he is to call either Dr. Pascual, tape coater, or his primary care physician. Office numbers for Dr. Pascual were provided to patient Patient seen, case and plan discussed with attending, Dr. Pascual
--- NOTE | 2018-08-08 08:39 | CP.PCM.DIS ---
Provider - Provider Date of Admission: 07/31/18 20:15 Attending physician: Negro Valdez MD Primary care physician: None Consults: Cardiology Dr. Ngoc Krause Nephrology Dr. Sheila Pascual Time Spent in preparation of Discharge (in minutes): 40 Hospital Course - Lab Results Lab Results: Micro Results 07/31/18 21:21 Blood Blood Culture - Final NO GROWTH AFTER 5 DAYS 07/31/18 21:21 Blood Gram Stain - Final TEST NOT PERFORMED 07/31/18 21:21 Blood Blood Culture - Final NO GROWTH AFTER 5 DAYS 07/31/18 21:21 Blood Gram Stain - Final TEST NOT PERFORMED 08/01/18 07:01 Nose MRSA Culture (Admit) - Final MRSA NOT DETECTED 07/31/18 18:29 Leg - Left Gram Stain - Final 07/31/18 18:29 Leg - Left Wound 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 07/31/18 18:27 Urine,[place] Urine Culture - Final No Growth (<1,000 CFU/ML) Most Recent Lab Values WBC 10.2 K/uL (4.8-10.8) 08/08/18 06:17 RBC 4.57 Mil/uL (4.40-5.90) 08/08/18 06:17 Hgb 12.1 g/dL (12.0-18.0) 08/08/18 06:17 Hct 37.5 % (35.0-51.0) 08/08/18 06:17 MCV 82.0 fL (80.0-94.0) 08/08/18 06:17 MCH 26.4 pg (27.0-31.0) L 08/08/18 06:17 MCHC 32.2 g/dL (33.0-37.0) L 08/08/18 06:17 RDW 15.0 % (11.5-14.5) H 08/08/18 06:17 Plt Count 283 K/uL (130-400) 08/08/18 06:17 MPV 7.2 fL (7.2-11.7) 08/08/18 06:17 Neut % (Auto) 68.2 % (50.0-75.0) 08/07/18 06:33 Lymph % (Auto) 15.9 % (20.0-40.0) L 08/07/18 06:33 [place] % (Auto) 12.6 % (0.0-10.0) H 08/07/18 06:33 Eos % (Auto) 3.0 % (0.0-4.0) 08/07/18 06:33 Baso % (Auto) 0.3 % (0.0-2.0) 08/07/18 06:33 Neut # (Auto) 5.9 K/uL (1.8-7.0) 08/07/18 06:33 Lymph # (Auto) 1.4 K/uL (1.0-4.3) 08/07/18 06:33 [place] # (Auto) 1.1 K/uL (0.0-0.8) H 08/07/18 06:33 Eos # (Auto) 0.3 K/uL (0.0-0.7) 08/07/18 06:33 Baso # (Auto) 0.0 K/uL (0.0-0.2) 08/07/18 06:33 Neutrophils % (Manual) 83 % (50-75) H 08/04/18 06:20 Band Neutrophils % 1 % (0-2) 08/03/18 06:18 Lymphocytes % (Manual) 10 % (20-40) L 08/04/18 06:20 Monocytes % (Manual) 7 % (0-10) 08/04/18 06:20 Platelet Estimate Normal (NORMAL) 08/04/18 06:20 Hypochromasia (manual) Slight 08/04/18 06:20 Poikilocytosis (manual Slight 08/02/18 06:12 Anisocytosis (manual) Slight 08/04/18 06:20 Ovalocytes Slight 08/04/18 06:20 PT 15.8 SECONDS (9.7-12.2) H 08/01/18 02:07 INR 1.4 08/01/18 02:07 APTT 59 SECONDS (21-34) H D 08/03/18 14:20 pO2 31 mm/Hg (30-55) 07/31/18 15:50 VBG pH 7.39 (7.32-7.43) 07/31/18 15:50 VBG pCO2 48 mmHg (40-60) 07/31/18 15:50 VBG HCO3 26.5 mmol/L 07/31/18 15:50 VBG Total CO2 30.6 mmol/L (22-28) H 07/31/18 15:50 VBG O2 Sat (Calc) 59.4 % (40-65) 07/31/18 15:50 VBG Base Excess 3.3 mmol/L (0.0-2.0) H 07/31/18 15:50 VBG Potassium 3.9 mmol/L (3.6-5.2) 07/31/18 15:50 Sodium 138.0 mmol/l (132-148) 07/31/18 15:50 Chloride 102.0 mmol/L (98-107) 07/31/18 15:50 Glucose 130 mg/dl (75-110) H 07/31/18 15:50 Lactate 1.2 mmol/L (0.7-2.1) 07/31/18 15:50 FiO2 21.0 % 07/31/18 15:50 Sodium 145 mmol/L (132-148) 08/08/18 06:17 Potassium 3.9 mmol/L (3.6-5.2) 08/08/18 06:17 Chloride 99 mmol/L (98-107) 08/08/18 06:17 Carbon Dioxide 36 mmol/L (22-30) H 08/08/18 06:17 Anion Gap 14 (10-20) 08/08/18 06:17 BUN 41 mg/dL (9-20) H 08/08/18 06:17 Creatinine 1.5 mg/dL (0.8-1.5) 08/08/18 06:17 Est GFR ( Amer) 59 08/08/18 06:17 Est GFR (Non-Af Amer) 49 08/08/18 06:17 POC Glucose (mg/dL) 142 mg/dL (65-110) H 08/08/18 07:20 Random Glucose 146 mg/dL (75-110) H 08/08/18 06:17 Hemoglobin A1c 7.9 % (4.2-6.5) H 07/31/18 18:46 Calcium 9.1 mg/dl (8.6-10.4) 08/08/18 06:17 Phosphorus 3.5 mg/dL (2.5-4.5) 08/08/18 06:17 Magnesium 2.0 mg/dL (1.6-2.3) 08/08/18 06:17 Iron 27 ug/dL (49-181) L 08/02/18 06:12 TIBC 374 ug/dL (250-450) 08/02/18 06:12 % Saturation 7 (20-55) L 08/02/18 06:12 Ferritin 30.1 ng/mL 08/02/18 06:12 Total Bilirubin 0.6 mg/dL (0.2-1.3) 08/08/18 06:17 AST 22 U/L (17-59) 08/08/18 06:17 ALT 30 U/L (21-72) 08/08/18 06:17 Alkaline Phosphatase 74 U/L (38-126) 08/08/18 06:17 Total Creatine Kinase 214 U/L (55-170) H 08/01/18 08:19 CK-MB (Mass) 1.98 ng/mL (0.0-3.38) 08/01/18 08:19 Troponin I 0.3690 ng/mL (0.00-0.120) H* 08/01/18 08:19 NT-Pro-B Natriuret Pep 14202 pg/mL (0-900) H 07/31/18 16:02 Total Protein 6.6 g/dL (6.3-8.3) 08/08/18 06:17 Albumin 3.5 g/dL (3.5-5.0) 08/08/18 06:17 Globulin 3.1 gm/dL (2.2-3.9) 08/08/18 06:17 Albumin/Globulin Ratio 1.1 (1.0-2.1) 08/08/18 06:17 Triglycerides 127 mg/dL (0-149) D 07/31/18 18:46 Cholesterol 170 mg/dL (0-199) 07/31/18 18:46 LDL Cholesterol Direct 110 mg/dL (0-129) 07/31/18 18:46 HDL Cholesterol 36 mg/dL (30-70) 07/31/18 18:46 Free T4 1.55 ng/dL (0.78-2.19) 07/31/18 18:46 TSH 3rd Generation 0.98 mIU/L (0.46-4.68) 07/31/18 18:46 Venous Blood Potassium 3.9 mmol/L (3.6-5.2) 07/31/18 15:50 Urine Color Straw (YELLOW) 07/31/18 18:27 Urine Clarity Clear (Clear) 07/31/18 18:27 Urine pH 6.0 (5.0-8.0) 07/31/18 18:27 Ur Specific [place] 1.004 (1.003-1.030) 07/31/18 18:27 Urine Protein 1+ mg/dL (NEGATIVE) H 07/31/18 18:27 Urine Glucose (UA) Normal mg/dL (Normal) 07/31/18 18:27 Urine Ketones Negative mg/dL (NEGATIVE) 07/31/18 18:27 Urine Blood Trace (NEGATIVE) H 07/31/18 18:27 Urine Nitrate Negative (NEGATIVE) 07/31/18 18:27 Urine Bilirubin Negative (NEGATIVE) 07/31/18 18:27 Urine Urobilinogen Normal mg/dL (0.2-1.0) 07/31/18 18:27 Ur Leukocyte Esterase Neg Belinda/uL (Negative) 07/31/18 18:27 Urine WBC (Auto) < 1 /hpf (0-5) 07/31/18 18:27 Urine RBC (Auto) < 1 /hpf (0-3) 07/31/18 18:27 U Random Total Protein 371 mg/g creat (22-128) H 08/01/18 08:18 Urine Creatinine 152 mg/dL (20-370) 08/01/18 08:18 Urine Microalbumin 26.0 mg/dL 08/01/18 08:18 Microalb/Creat Ratio 171 (<30) H 08/01/18 08:18 Random Vancomycin 8.1 ug/mL 08/01/18 02:07 Urine Opiates Screen Negative (NEGATIVE) 07/31/18 18:27 Urine Methadone Screen Negative (NEGATIVE) 07/31/18 18:27 Ur Barbiturates Screen Negative (NEGATIVE) 07/31/18 18:27 Ur Phencyclidine Scrn Negative (NEGATIVE) 07/31/18 18:27 Ur Amphetamines Screen Negative (NEGATIVE) 07/31/18 18:27 U Benzodiazepines Scrn Negative (NEGATIVE) 07/31/18 18:27 U Oth Cocaine Metabols Negative (NEGATIVE) 09/12/18 18:27 U Cannabinoids Screen Negative (NEGATIVE) 07/31/18 18:27 Hepatitis A IgM Ab Negative (NEGATIVE) 08/01/18 02:07 Hep Bs Antigen Negative (NEGATIVE) 08/01/18 02:07 Hep B Core IgM Ab Negative (NEGATIVE) 08/01/18 02:07 Hepatitis C Antibody Negative (NEGATIVE) 08/01/18 02:07 H.influenzae Type B Ag Negative (NEGATIVE) 08/01/18 11:14 Ur L.pneumophila Ag Negative (NEGATIVE) 08/01/18 11:14 Mycoplasma pneumon IgM Negative (NEGATIVE) 08/01/18 11:14 N.meningitidis ACY/W135 Negative (NEGATIVE) 08/01/18 11:14 N.meningi B/E.coli K1 Ag Negative (NEGATIVE) 08/01/18 11:14 Group B Strep Antigen Negative (NEGATIVE) 08/01/18 11:14 S. pneumoniae Antigen Negative (NEGATIVE) 08/01/18 11:14 Blood Type A POSITIVE 07/31/18 16:02 Antibody Screen Negative 07/31/18 16:02 - Hospital Course Hospital Course: Hospitalist Discharge Summary Patient was seen and examined at 8:30 AM 08/08/18 ICU Bed #2 This is a 52 year old male with PMHx of HTN, T2DM, Systolic Heart Failure, COPD , Tobacco Use Disorder, Alcohol Use Disorder who presented to the ED 07/31/18 with shortness of breath and chest pain x 2 weeks which was getting progressively worse. He was admitted to the ICU for further treatment and evaluation. Please see Assessment and Plans below for further details regarding his diagnosises, interventions, and treatment. Please note that throughout this admission patient threatened to sign out AMA despite multiple individuals explaining to him the seriousness of his condition. He fully understands the risks to his health for declining further intervention (CABG, Life Vest). Cardizem was discontinued due to bradycardia Spoke with Industrial Gas Fitter Helper Dr. Sheila Pascual and he has recommend that Aldactone be given at 25 mg 2x/day These are the following medications that patient will be discharged on and were obtained through outpatient pharmacy and paid for by the Medicine Team: Eliquis 5 mg, 1 tablet by mouth 2 times a day (8 AM and 8 PM) (samples were provided for a total of 7 weeks) Aspirin 81 mg, 1 tablet by mouth 1 time a day (8 AM) Bumex 1 mg, 1 tablet by mouth 1 time a day (2 PM) Coreg 25 mg, 1 tablet bymouth 2 times a day (8 AM and 8 PM) Plavix 75 mg, 1 tablet by mouth 1 time a day (8 AM) Digoxin 0.25 mg, 1 tablet by mouth 1 time a day (2 PM) Advair 500/50 mcg 1 PO INH 2 time a day (8 AM and 8 PM) Cozaar 25 mg, 1 tablet by mouth 1 time a day (8 PM) Crestor 20 mg, 1 tablet by mouth 1 time a day (8 PM) Aldactone 50 mg, half tablet by mouth 2 times a day (8 AM and 8 PM) Ciprofloxacin 500 mg, 1 tablet by mouth 2 times a day (8 AM and 8 PM) Upon FULL ROS: Breathing continues to improve NO chest pain NO abdominal pain NO n/v/d/c: last bowel movement was on 08/07/18 NO dysphagia/odynophagia NO burning/pain with urination Feels like the swelling in his lower legs is continuing to improve NO lightheadedness/dizziness NO headache NO new changes in vision NO new changes in hearing General: AAOX3, NAD HEENT: NCA, EOMI, PERRLA, NO lymphadenopathy, NO thyromegaly, NO pharyngeal erythema Cardio: Irregularly irregular Resp: Few scattered rales in the bilateral lower lobes GI: Centeral Obesity, palpation of Liver and Spleen were not attempted, BS x4, Soft, NT, NO guarding/rebound tenderness Ext: 1+ Pitting edema from feet to the just below the knees, Pulses are strong and equal bilateral UE and LE, Bilateral Lower leg skin peeling with blanchable erythema but no warmth noted, capillary refill is 2 seconds Neuro: CN II through XII are grossly intact 1) Shortness of breathe * Contributing factors: morbid obesity, new onset atrial fibrillation, congestive heart failure, intermediate card tender smoker 2) Acute Congestive Heart Failure Systolic Exacerbation NonSTEMI Multivessel CAD * Risk factor: DM, obesity, smoker, hypertension, chf * Pending echocardiogram-->pending official read * therapuetic lovenox * Fluid restriction * Record intake and output * Patient reports shortness of breathe at rest and on exertion * Dr. Krause (Cardiology) regional telecommunications specialist-->help appreciated * Recommend for milrinone * Recommended Cardiac Cath and this was performed on 08/06/18 after improvement in renal function (see results below) * Recommended for MADI conversion for atrial fib * Dr. Flannery (nephrology) on case-->help appreciated * Discussion for possible Milirone for the patient if remains orthopneic * Patient is S/P Cardiac Cath via Right Radial Artery with Dr. 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) * Lopressor 5mg IVP Q6H * Coreg 25 mg PO 2x/day * Cardizem 240 mg CD was discontinued upon discharge * Therapuetic lovenox through 08/06/18 and switched to Eliquis 5 mg PO 2x/day * Recommended for MADI cardioversion 4) History of b/l lower extremity edema * Secondary to acute decompensated systolic CHF * Venous doppler: negative for DVT * Patient is on diuresis: Aldactone and Bumex 5) History of weeping leg wounds * Wound care on board * Clindamycin stopped 2017 * Wound culture: MRSA * Continue with Cipro 500mg PO BID for MRSA started on 08/02/2018 and we will continue through 08/16/18 * Contact isolation 6) Tobacco abuse COPD * Patient counselled at bedside to stop smoking * Nicoderm patch daily * Duonebs 3ml INH Q6H * Advair 500/50 1 puff inhaled Q12H 7) Diabetes, newly diagnosed * Influencing factor steroids and obesity * Hgba1c: 7.9 * Novolog sliding scale subq * Patient is on aspirin 81 mg once a day * Will need stuart/arb pending renal function for renoprotection from diabetes * Visual Effects Artist referral * Diabetic education 9) Acute Renal Insufficiency * Nephrology (Dr. Pascual) on case-->help appreciated * Discussed between nephro and cardiology, regards [facility] * Cardiac Catheterization performance was delayed due to Acute Renal Insufficiency * improving 10) Hypertension * Lopressor 5mg IVP Q6H PRN SBP > 160 * Coreg 25 mg PO 2x/day * Aldactone 50 mg PO 2x/day * Bumex 1 mg IV Q12H 11) Prophylactic measure * On Eliquis for Atrial Fib * Fluid restriction * Record in and out * Pepcid 20mg PO daily * Florastor 250 mg PO Q12H The following instructions were explained to the patient and copy will need to be provided to him upon discharge: 1). You will need to have your health care coordinated and to help you obtain future prescriptions. Please schedule follow up to take place in the next 7 days with either one of the following clinics, whichever one will provide you with the earliest appointment: [facility] [address] [place] [address] [phone] 2). You were provided with a 30 day supply of the following medications. Please use as directed. You must follow up with either one of the clinics mentioned above to help arrange for future prescriptions. NO refills will be provided by the hospital: Eliquis 5 mg, 1 tablet by mouth 2 times a day (8 AM and 8 PM) Aspirin 81 mg, 1 tablet by mouth 1 time a day (8 AM) Bumex 1 mg, 1 tablet by mouth 1 time a day (2 PM) Coreg 25 mg, 1 tablet bymouth 2 times a day (8 AM and 8 PM) Plavix 75 mg, 1 tablet by mouth 1 time a day (8 AM) Digoxin 0.25 mg, 1 tablet by mouth 1 time a day (2 PM) Advair 500/50 mcg 1 PO INH 2 time a day (8 AM and 8 PM) Cozaar 25 mg, 1 tablet by mouth 1 time a day (8 PM) Crestor 20 mg, 1 tablet by mouth 1 time a day (8 PM) Aldactone 50 mg, take half tablet by mouth 2 times a day (8 AM and 8 PM), Make sure that you are safely using a pill cutter that you can purchase at your pharmacy and taking only half tablet by mouth 2 times a day Ciprofloxacin 500 mg, 1 tablet by mouth 2 times a day (8 AM and 8 PM) through 3). Please make sure that you are eating a low in sugar Taiwanese Yogurt containing probiotics every day with lunch through 09/15/18. 4). If your symptoms of shortness of breath or chest pain come back, return to the nearest emergency room. 5). Failure to follow the above instructions will likely lead to worsening of your health and/or . Negro Valdez D.O. Discharge Exam - Head Exam Head Exam: ATRAUMATIC, NORMOCEPHALIC Discharge Plan - Discharge Medications Prescriptions: Apixaban [Eliquis] 5 mg PO BID #60 tab Aspirin [Aspirin Chewable] 81 mg PO DAILY #30 chew Bumetanide [Bumex] 1 mg PO BID #60 tab Carvedilol [Coreg] 25 mg PO BID #60 tab Ciprofloxacin HCl [Cipro] 500 mg PO BID 9 Days #18 tablet Clopidogrel [Plavix] 75 mg PO DAILY #30 tab Digoxin [Digitek] 0.25 mg PO DAILY #30 tab diltiaZEM CD [Cardizem CD] 240 mg PO DAILY #30 cap Fluticasone/Salmeterol 500/50 [Advair Diskus 500/50] 1 puff INH RQ12 30 Days #1 inhaler Losartan [Cozaar] 25 mg PO DAILY #30 tab Rosuvastatin Calcium [Crestor] 20 mg PO HS #30 tab Spironolactone [Aldactone] 50 mg PO BID #60 tab - Follow Up Plan Condition: SERIOUS Disposition: HOME/ ROUTINE Additional Instructions: Eliquis 5 mg, 1 tablet by mouth 2 times a day (8 AM and 8 PM) Aspirin 81 mg, 1 tablet by mouth 1 time a day (8 AM) Bumex 1 mg, 1 tablet by mouth 1 time a day (2 PM) Coreg 25 mg, 1 tablet bymouth 2 times a day (8 AM and 8 PM) Plavix 75 mg, 1 tablet by mouth 1 time a day (8 AM) Digoxin 0.25 mg, 1 tablet by mouth 1 time a day (2 PM) Cardizem CD 240 mg, 1 tablet by mouth 1 time a day (2 PM) Advair 500/50 mcg 1 PO INH 2 time a day (8 AM and 8 PM) Cozaar 25 mg, 1 tablet by mouth 1 time a day (8 PM) Crestor 20 mg, 1 tablet by mouth 1 time a day (8 PM) Aldactone 50 mg, 1 tablet by mouth 2 times a day (8 AM and 8 PM) Ciprofloxacin 500 mg, 1 tablet by mouth 2 times a day (8 AM and 8 PM)
[2018-08-08] MEDS: Fluticasone-Salmeterol 500-50mcg Diskus INH SCH (08:48)
[2018-08-08] MEDS: Saccharomyces Boulardi 250 mg Cap PO SCH (10:10)
[2018-08-08] MEDS: Ammonium Lactate 12% Lotion (225 g) EXT SCH (10:14)
[2018-08-08 10:19] VITALS: BP 140/82; PULSE 88; O2SAT 96
== END 2018-08-08 14:21 | disposition home or self-care (01) | DRG 121 ==
LOC: C.ER 14:08 → C.9I 20:15
PROVIDERS: ADMIT Family Medicine; ATTEND Family Medicine
PROC: 4A023N7 Measurement of Cardiac Sampling and Pressure, Left Heart, Percutaneous Approach (ICD-10-PCS; principal; 2018-08-06)
PROC: B2151ZZ Fluoroscopy of Left Heart using Low Osmolar Contrast (ICD-10-PCS; 2018-08-06)
PROC: B2111ZZ Fluoroscopy of Multiple Coronary Arteries using Low Osmolar Contrast (ICD-10-PCS; 2018-08-06)
DX: I21.4 Non-ST elevation (NSTEMI) myocardial infarction (principal); I50.23 Acute on chronic systolic (congestive) heart failure; I48.91 Unspecified atrial fibrillation; I13.0 Hypertensive heart and chronic kidney disease with heart failure and stage 1 through stage 4 chronic kidney disease, or unspecified chronic kidney disease; N17.9 Acute kidney failure, unspecified; J44.9 Chronic obstructive pulmonary disease, unspecified; L03.115 Cellulitis of right lower limb; L03.116 Cellulitis of left lower limb; I42.9 Cardiomyopathy, unspecified; N18.9 Chronic kidney disease, unspecified; E87.3 Alkalosis; E11.22 Type 2 diabetes mellitus with diabetic chronic kidney disease; I87.2 Venous insufficiency (chronic) (peripheral); E66.01 Morbid (severe) obesity due to excess calories; D64.9 Anemia, unspecified; F17.210 Nicotine dependence, cigarettes, uncomplicated; Z96.1 Presence of intraocular lens; Z85.840 Personal history of malignant neoplasm of eye; Z79.02 Long term (current) use of antithrombotics/antiplatelets; Z79.82 Long term (current) use of aspirin; Z79.01 Long term (current) use of anticoagulants; Z86.14 Personal history of Methicillin resistant Staphylococcus aureus infection; Z82.3 Family history of stroke

== ENCOUNTER 2018-09-25 14:44 | Observation (INO) | payer OTHER ==
[2018-09-25 15:08] VITALS: BMI 29.2
--- NOTE | 2018-09-25 15:57 | C.PDOC ---
History Of Present Illness 52 year old male with a history of CHF, atrial fibrillation, heart failure, leg swelling, and venous stasis presents to the ED for evaluation of worsening leg swelling and shortness of breath that began last night. He denies associated chest pain or lightheadedness. Patient reports prior admission in July 2018 for new onset atrial fibrillation and CHF, admitted for several days then discharged home with digoxin, eliquis, aspirin, plavix, and bumex for heart failure/hypertension medications. Patient also complains of a rash and diagnosed with dermatitis Nov 2016. He notes the rash was localized to both legs, now the rash is generalized throughout the body, noticed improvement when taking oral Prednisone, and worsened now that he is no longer taking Prednisone. Denies fever, chills, nausea, vomiting, and any other associated symptoms. Time Seen by Provider: 09/25/18 15:03 Chief Complaint (Nursing): Shortness Of Breath History Per: Patient History/Exam Limitations: no limitations Onset/Duration Of Symptoms: Hrs Current Symptoms Are (Timing): Still Present Past Medical History Reviewed: Historical Data, Nursing Documentation, Vital Signs Vital Signs: Last Vital Signs Temp 98.6 F 09/25/18 15:08 Pulse 89 09/25/18 15:08 Resp 19 09/25/18 15:15 BP Pulse Ox 97 09/25/18 15:15 - Medical History PMH: CHF, COPD, HTN Denies: Chronic Kidney Disease - [facility] Procedures FLUOROSCOPY OF LEFT HEART USING LOW OSMOLAR CONTRAST (07/31/18) FLUOROSCOPY OF MULT COR ART USING L OSM CONTRAST (07/31/18) MEASURE OF CARDIAC SAMPL & PRESSURE, L HEART, PERC APPROACH (07/31/18) Family History: States: Unknown Family Hx - Social History Hx Alcohol Use: No Hx Substance Use: No - Immunization History Hx Tetanus Toxoid Vaccination: No Hx Influenza Vaccination: No Hx Pneumococcal Vaccination: No Review Of Systems Constitutional: Negative for: Fever, Chills Cardiovascular: Positive for: Other (worsening vein stasis.) Respiratory: Positive for: Cough, Shortness of Breath Gastrointestinal: Negative for: Nausea, Vomiting Musculoskeletal: Positive for: Other (bilateral leg swelling.) Skin: Positive for: Rash (generalized throughout the body.) Physical Exam - Physical Exam Appears: Non-toxic, Other (mild discomfort. ) Skin: Warm, Dry, Rash (generalized), Other (several areas of excoriations with possible infection. skin covered with dry excoriated-plaque like dermitis/rash, left lateral thigh: lesion purulent drainage ) Head: Atraumatic, Normacephalic Eye(s): bilateral: Normal Inspection Oral Mucosa: Moist Neck: Normal ROM, Supple Chest: Symmetrical, No Deformity Cardiovascular: Rhythm Irregular (tachycardic), No Murmur Respiratory: Rales (tachycardic.), No Rhonchi, No Wheezing, Other (speaking 3-4 word sentences.) Gastrointestinal/Abdominal: Normal Exam, Soft, No Tenderness Extremity: Normal ROM, No Tenderness, No Calf Tenderness, Capillary Refill (less than 2 seconds.), No Deformity, Swelling (bilaterally, swelling below the knees.) Neurological/Psych: Oriented x3, Normal Motor, Normal Sensation, Normal Reflexes, Other (speaking 3-4 sentences.) ED Course And Treatment - Laboratory Results Result Diagrams: 09/25/18 16:18 09/25/18 16:18 Lab Interpretation: Abnormal (BNP 4400, normal Troponin, BUN 36, Cr 1.4,) ECG: Interpreted By Me ECG Rhythm: Atrial Flutter, ST/T Changes (depression inferior lateral) ECG Interpretation: Abnormal O2 Sat by Pulse Oximetry: 97 (RA) Pulse Ox Interpretation: Normal - Other Rad CXR X-Ray: Viewed By Me, Read By Radiologist Interpretation: FINDINGS: LUNGS: Clear. PLEURA: No pneumothorax or pleural fluid seen. CARDIOVASCULAR: Normal. OSSEOUS STRUCTURES: No significant abnormalities. VISUALIZED UPPER ABDOMEN: Normal. OTHER FINDINGS: None. IMPRESSION: No active disease. Reevaluation Time: 17:59 Reassessment Condition: Improved - Physician Consult Information Time Consulting Physician Contacted: 17:59 Physician Contacted: Shirin Gomes Outcome Of Conversation: Patient to be admitted to [facility] for CHF and rapid atrial flutter.. Medical Decision Making Medical Decision Making: Plan: -EKG -Blood sent. -CXR -Urinalysis Disposition - Disposition Disposition: HOSPITALIZED Disposition Time: 17:59 Condition: STABLE - POA Present On Arrival: None - Clinical Impression Clinical Impression: CHF exacerbation, Atrial fibrillation/flutter, Bilateral lower leg cellulitis - Scribe Statement The provider has reviewed the documentation as recorded by the Scribe (Dorcas Carcamo) Provider Attestation: All medical record entries made by the Scribe were at my direction and personally dictated by me. I have reviewed the chart and agree that the record accurately reflects my personal performance of the history, physical exam, medical decision making, and the department course for this patient. I have also personally directed, reviewed, and agree with the discharge instructions and disposition.
[2018-09-25 16:30] LABS: BASO # 0.1 K/uL (0.0-0.2); BASO % 0.6 % (0.0-2.0); EOS # 0.9 K/uL (0.0-0.7); EOS % 9.3 % (0.0-4.0); HEMOGLOBIN 11.9 g/dL (12.0-18.0); LYMPH # 1.4 K/uL (1.0-4.3); MEAN CELL VOLUME 84.2 fL (80.0-94.0); MEAN CORPUSCULAR HEMOGLOBIN 27.5 pg (27.0-31.0); MEAN CORPUSCULAR HGB CONC 32.7 g/dL (33.0-37.0); MEAN PLATELET VOLUME 6.4 fL (7.2-11.7); MONO # 0.7 K/uL (0.0-0.8); MONO % 7.5 % (0.0-10.0); NEUT # 6.2 K/uL (1.8-7.0); NEUT % 67.6 % (50.0-75.0); NRBC % 0.1 % (0.0-2.0); RBC 4.31 Mil/uL (4.40-5.90); WHITE BLOOD COUNT 9.3 K/uL (4.8-10.8)
[2018-09-25 16:35] LABS: ALB/GLOB RATIO 0.9 (1.0-2.1); ALBUMIN 3.4 g/dL (3.5-5.0); BLOOD UREA NITROGEN 36 mg/dL (9-20); CALCIUM 8.6 mg/dl (8.6-10.4); GFR NON-AFRICAN AMERICAN 53
[2018-09-25 16:37] LABS: ALT/SGPT 16 U/L (21-72); AST/SGOT 21 U/L (17-59)
--- NOTE | 2018-09-25 16:39 | RAD ---
Date of service: 09/25/2018 PROCEDURE: CHEST RADIOGRAPH, 1 VIEW HISTORY: SOB COMPARISON: 08/04/2018 FINDINGS: LUNGS: Clear. PLEURA: No pneumothorax or pleural fluid seen. CARDIOVASCULAR: Normal. OSSEOUS STRUCTURES: No significant abnormalities. VISUALIZED UPPER ABDOMEN: Normal. OTHER FINDINGS: None. IMPRESSION: No active disease.
[2018-09-25 16:49] LABS: B-TYPE NATRIURETIC PEPTIDE 4400 pg/mL (0-900)
[2018-09-25 17:06] LABS: SQUAMOUS EPITHIAL < 1 /hpf (0-5); URINE BACTERIA RARE (<OCC); URINE BILIRUBIN NEGATIVE (NEGATIVE); URINE BLOOD NEGATIVE (NEGATIVE); URINE CLARITY Clear (Clear); URINE COLOR Yellow (YELLOW); URINE GLUCOSE (UA) NORMAL (Normal); URINE LEUKOCYTE ESTERASE NEG Leu/uL (Negative); URINE PROTEIN 2+ mg/dL (NEGATIVE)
[2018-09-25] MEDS ORDERED: Digoxin 250 mcg (0.25 mg) Tab PO STA (17:37)
[2018-09-25] MEDS ORDERED: Digoxin 250 mcg (0.25 mg) Tab ONE (17:54)
[2018-09-25 17:55] VITALS: PULSE 98
--- NOTE | 2018-09-25 18:54 | CP.PCM.HP ---
History of Present Illness - History of Present Illness History of Present Illness: CC: shortness of breath, rash, lower leg swelling This is a 52 year old male with PMHx of HTN, T2DM, A.fib, Systolic Heart Failure, COPD, Tobacco Use Disorder, Alcohol Use Disorder who presents to the ED with shortness of breath x2 days. He reports SOB with any activity and at rest. He also reports b/l lower leg swelling x2 days, with associated clear drainage. He also complains of rash for the past week, which has been intermittent. He reports associated itch for which he took benadryl with minimal relief. He was last admitted 07/2018 for CHF exacerbation and was found to have new onset A.fib, s/p cath with Dr. Scott 08/06 (LAD 80% stenosis, LCA 85% stenosis, RCA 70% stenosis). He says he takes some of his medications but is not compliant with all of them. Pt reports chills. He denies chest pain, abdominal pain, dizziness, palpitations, nausea, vomiting, diarrhea, dysuria. PMD: [place] PMHx: HTN, T2DM, , A.fib, Systolic Heart Failure, COPD, Tobacco Use Disorder, Alcohol Use Disorder PSHx: right knee arthroscopy in 1993, left eye sarcoma 1994, left eye MRSA infection 2014, left eye lens transplant 2014 Allergies: penicillin- does not know reaction, aztreonam Social Hx: smokes 1 pack/day for 40+ years, occasional alcohol consumption, denies daily use; denies current drug use used to use cocaine >20 years ago; works as [employer] FamHx: mother had stroke age 40, grandmother with psoriasis Present on Admission - Present on Admission Any Indicators Present on Admission: Yes History of Uncontrolled Diabetes: Yes Review of Systems - Review of Systems Review of Systems: as per HPI Past Patient History - Infectious Disease Hx of Infectious Diseases: None - Past Medical History & Family History Past Medical History?: Yes - Past Social History Smoking Status: Heavy Smoker > 10 Cigarettes Daily - CARDIAC Hx Congestive Heart Failure: Yes Hx Hypertension: Yes - PULMONARY Hx Chronic Obstructive Pulmonary Disease (COPD): Yes - NEUROLOGICAL Hx Neurological Disorder: No - HEENT Hx HEENT Problems: No - RENAL Hx Chronic Kidney Disease: No - ENDOCRINE/METABOLIC Hx Endocrine Disorders: Yes Hx Diabetes Mellitus Type 2: Yes - HEMATOLOGICAL/ONCOLOGICAL Other/Comment: hx of ca to left eye corrected to surgery. with tranplant with hxof mrsa to it. - INTEGUMENTARY Hx Dermatological Problems: Yes Hx Cellulitis: Yes (BLE) Other/Comment: Venous insufficiency - MUSCULOSKELETAL/RHEUMATOLOGICAL Hx Musculoskeletal Disorders: No - GASTROINTESTINAL Hx Gastrointestinal Disorders: No - GENITOURINARY/GYNECOLOGICAL Hx Genitourinary Disorders: No - PSYCHIATRIC Hx Substance Use: No - SURGICAL HISTORY Hx Surgeries: Yes Hx Cataract Extraction: Yes Hx Eye Surgery: Yes Hx Orthopedic Surgery: Yes (right knee) - ANESTHESIA Hx Anesthesia: Yes Hx Anesthesia Reactions: No Hx Malignant Hyperthermia: No Meds Allergies/Adverse Reactions: Allergies Allergy/AdvReac Type Severity Reaction Status Date / Time aztreonam [From Azactam] Allergy RASH Verified 09/25/18 15:07 Penicillins Allergy RASH Verified 09/25/18 15:07 Physical Exam - Constitutional Appears: Well, No Acute Distress, Chronically Ill - Head Exam Head Exam: ATRAUMATIC, NORMOCEPHALIC - Eye Exam Eye Exam: EOMI, Normal appearance, PERRL Pupil Exam: NORMAL ACCOMODATION - ENT Exam ENT Exam: Mucous Membranes Moist - Respiratory Exam Respiratory Exam: Decreased Breath Sounds, Rhonchi, NORMAL BREATHING PATTERN. absent: Rales, Wheezes - Cardiovascular Exam Cardiovascular Exam: Irregular Rhythm, +S1, +S2. absent: Gallop, Rubs, Systolic Murmur - GI/Abdominal Exam GI & Abdominal Exam: Normal Bowel Sounds, Soft. absent: Distended, Tenderness - Extremities Exam Extremities exam: Positive for: pedal edema Additional comments: clear drainage, chronic venous stasis changes. b/l pedal edema. - Neurological Exam Neurological exam: Alert, Oriented x3 - Psychiatric Exam Psychiatric exam: Normal Affect, Normal Mood - Skin Additional comments: erythematous papules coalescing into plaques, edematous with some areas of lichenification. Results - Vital Signs Recent Vital Signs: Last Vital Signs Temp 98.6 F 09/25/18 15:08 Pulse 98 H 09/25/18 17:55 Resp 18 09/25/18 17:55 BP 130/68 09/25/18 17:55 Pulse Ox 97 09/25/18 18:00 - Labs Result Diagrams: 09/25/18 16:18 09/25/18 16:18 Labs: Laboratory Results - last 24 hr 09/25/18 09/25/18 09/25/18 16:18 16:18 16:18 WBC 9.3 RBC 4.31 L Hgb 11.9 L Hct 36.3 MCV 84.2 D MCH 27.5 MCHC 32.7 L RDW 20.0 H Plt Count 355 MPV 6.4 L Neut % (Auto) 67.6 Lymph % (Auto) 15.0 L [place] % (Auto) 7.5 Eos % (Auto) 9.3 H Baso % (Auto) 0.6 Neut # (Auto) 6.2 Lymph # (Auto) 1.4 [place] # (Auto) 0.7 Eos # (Auto) 0.9 H Baso # (Auto) 0.1 Sodium 140 Potassium 4.3 Chloride 103 Carbon Dioxide 29 Anion Gap 12 BUN 36 H Creatinine 1.4 Est GFR ( Amer) > 60 Est GFR (Non-Af Amer) 53 Random Glucose 149 H Calcium 8.6 Magnesium 2.0 Total Bilirubin 0.5 AST 21 ALT 16 L D Alkaline Phosphatase 64 Troponin I 0.0490 NT-Pro-B Natriuret Pep 4400 H Total Protein 7.0 Albumin 3.4 L Globulin 3.7 Albumin/Globulin Ratio 0.9 L Urine Color Urine Clarity Urine pH Ur Specific [place] Urine Protein Urine Glucose (UA) Urine Ketones Urine Blood Urine Nitrate Urine Bilirubin Urine Urobilinogen Ur Leukocyte Esterase Urine WBC (Auto) Urine RBC (Auto) Ur Squamous Epith Cells Urine Bacteria Hyaline Casts Digoxin 0.7 L 09/25/18 16:50 WBC RBC Hgb Hct MCV MCH MCHC RDW Plt Count MPV Neut % (Auto) Lymph % (Auto) [place] % (Auto) Eos % (Auto) Baso % (Auto) Neut # (Auto) Lymph # (Auto) [place] # (Auto) Eos # (Auto) Baso # (Auto) Sodium Potassium Chloride Carbon Dioxide Anion Gap BUN Creatinine Est GFR ( Amer) Est GFR (Non-Af Amer) Random Glucose Calcium Magnesium Total Bilirubin AST ALT Alkaline Phosphatase Troponin I NT-Pro-B Natriuret Pep Total Protein Albumin Globulin Albumin/Globulin Ratio Urine Color Yellow Urine Clarity Clear Urine pH 6.0 Ur Specific [place] 1.021 Urine Protein 2+ H Urine Glucose (UA) Normal Urine Ketones Negative Urine Blood Negative Urine Nitrate Negative Urine Bilirubin Negative Urine Urobilinogen 4.0 Ur Leukocyte Esterase Neg Urine WBC (Auto) 1 Urine RBC (Auto) 1 Ur Squamous Epith Cells < 1 Urine Bacteria Rare Hyaline Casts 3-5 H Digoxin Assessment & Plan - Assessment and Plan (Free Text) Assessment: 52 year old male with PMHx of HTN, T2DM, A.fib, Systolic Heart Failure, COPD, Tobacco Use Disorder, Alcohol Use Disorder who presents to the ED with shortness of breath x2 days, admitted for acute on chronic CHF exacerbation. Plan: Acute on Chronic systolic CHF - CXR: no active disease - BNP: 4400 - I/Os - daily weights - lasix 20mg IV BID CAD - s/p cath 08/06: LAD 80% stenosis, LCA 85% stenosis, RCA 70% stenosis - plavix 75mg PO daily - digoxin 0.25mg PO daily - crestor 20mg PO daily - Cardio consulted, Dr. Tyler Cabrerafib - EKG - ASA 81 PO daily - plavix 75mg PO daily - Cardio consulted, Dr. Scott HTN - coreg 25mg PO BID - losartan 25mg PO daily - lasix 20mg IV BID COPD - duoneb 3INH q4h PRN - prednisone 20mg PO daily - NC 2L PRN Cellulitis of L - likely secondary to venous stasis - Clinda 450 PO q6h - prednisone 20mg PO daily - f/u BCx Rash - prednisone 20mg PO daily - benadryl 25mg PO q6h PRN - clobetasol ointment DM - ISS - hypoglycemia protocol - accuchecks ACHS - HbA1c 08/06 7.9 PPX: DVT: pt on eliquis GI: pepcid 20mg PO BID HHD Pt contact: Sapna Taylor [phone] Patient seen and case reviewed with Dr. Gomes
[2018-09-25] MEDS ORDERED: Oxycodone/Acetaminophen 5/325 mg Tab PO PRN (19:41)
[2018-09-25 19:43] VITALS: RESP 20
[2018-09-25] MEDS ORDERED: Enoxaparin 40 mg Syringe SC SCH (20:00)
[2018-09-25] MEDS ORDERED: Enoxaparin 100 mg Syringe SC SCH (21:00)
[2018-09-25] MEDS: (Novolin R) Insulin Human Regular 100 units/ml vial SC SCH (21:41)
[2018-09-25] MEDS: Albuterol-Ipratrop 3 mg / 0.5 (3 ml) UD INH SCH (22:29)
--- NOTE | 2018-09-25 23:36 | CP.PCM.CON ---
History of Present Illness - History of Present Illness History of Present Illness: 52 M with Triple vessel CAD Recommend CABG Continue ASA, Statins, B blcockers GI and DVT prophylaxis Past Patient History - Infectious Disease Hx of Infectious Diseases: None - Past Medical History & Family History Past Medical History?: Yes - Past Social History Smoking Status: Heavy Smoker > 10 Cigarettes Daily - CARDIAC Hx Congestive Heart Failure: Yes Hx Hypertension: Yes - PULMONARY Hx Chronic Obstructive Pulmonary Disease (COPD): Yes - NEUROLOGICAL Hx Neurological Disorder: No - HEENT Hx HEENT Problems: No - RENAL Hx Chronic Kidney Disease: No - ENDOCRINE/METABOLIC Hx Endocrine Disorders: Yes Hx Diabetes Mellitus Type 2: Yes - HEMATOLOGICAL/ONCOLOGICAL Other/Comment: hx of ca to left eye corrected to surgery. with tranplant with hxof mrsa to it. - INTEGUMENTARY Hx Dermatological Problems: Yes Hx Cellulitis: Yes (BLE) Other/Comment: Venous insufficiency - MUSCULOSKELETAL/RHEUMATOLOGICAL Hx Musculoskeletal Disorders: No - GASTROINTESTINAL Hx Gastrointestinal Disorders: No - GENITOURINARY/GYNECOLOGICAL Hx Genitourinary Disorders: No - PSYCHIATRIC Hx Substance Use: No - SURGICAL HISTORY Hx Surgeries: Yes Hx Cataract Extraction: Yes Hx Eye Surgery: Yes Hx Orthopedic Surgery: Yes (right knee) - ANESTHESIA Hx Anesthesia: Yes Hx Anesthesia Reactions: No Hx Malignant Hyperthermia: No Meds Allergies/Adverse Reactions: Allergies Allergy/AdvReac Type Severity Reaction Status Date / Time aztreonam [From Azactam] Allergy RASH Verified 09/25/18 15:07 Penicillins Allergy RASH Verified 09/25/18 15:07 - Medications Medications: Current Medications Albuterol/Ipratropium (Duoneb 3 Mg/0.5 Mg (3 Ml) Ud) 3 ml INH RQ4 PENDING SALE TO [facility] Last Admin: 09/25/18 22:29 Dose: 3 ml Aspirin (Aspirin Chewable) 81 mg PO DAILY PENDING SALE TO [facility] Carvedilol (Coreg) 25 mg PO BID PENDING SALE TO [facility] Clindamycin HCl (Cleocin) 450 mg PO Q6H PENDING SALE TO [facility]; Protocol Last Admin: 09/25/18 21:40 Dose: 450 mg Clobetasol Propionate (Temovate 0.05% Ointment) 1 applic TOP BID PENDING SALE TO [facility] Last Admin: 09/25/18 21:37 Dose: 1 applic Clopidogrel Bisulfate (Plavix) 75 mg PO DAILY PENDING SALE TO [facility] Digoxin (Lanoxin) 0.25 mg PO DAILY@1800 PENDING SALE TO [facility] Diphenhydramine HCl (Benadryl) 25 mg PO Q6 PRN PRN Reason: Itching / Pruritus Last Admin: 09/25/18 21:39 Dose: 25 mg Enoxaparin Sodium (Lovenox) 100 mg SC Q12H PENDING SALE TO [facility] Famotidine (Pepcid) 20 mg PO BID PENDING SALE TO [facility] Furosemide (Lasix) 20 mg IVP BID PENDING SALE TO [facility] Last Admin: 09/25/18 21:39 Dose: 20 mg Insulin Human Regular (Novolin R) 0 unit SC [facility] PEND[facility]; Protocol Last Admin: 09/25/18 21:41 Dose: Not Given Losartan Potassium (Cozaar) 25 mg PO DAILY PENDING SALE TO [facility] Oxycodone/Acetaminophen (Percocet 5/325 Mg Tab) 1 tab PO Q6H PRN PRN Reason: Pain, moderate (4-7) Stop: 09/28/18 19:42 Last Admin: 09/25/18 22:43 Dose: 1 tab Pneumococcal Polyvalent Vaccine (Pneumovax 23 Vaccine) 0.5 ml IM .ONCE ONE Stop: 09/27/18 10:01 Prednisone (Prednisone Tab) 20 mg PO DAILY PENDING SALE TO [facility] Rosuvastatin Calcium (Crestor) 20 mg PO HS PENDING SALE TO [facility] Last Admin: 09/25/18 21:39 Dose: 20 mg Results - Vital Signs Recent Vital Signs: Last Vital Signs Temp 97.7 F 09/25/18 21:34 Pulse 118 H 09/25/18 22:29 Resp 20 09/25/18 21:34 BP 125/71 09/25/18 21:39 Pulse Ox 96 09/25/18 21:34 - Labs Result Diagrams: 09/25/18 16:18 09/25/18 16:18 Labs: Laboratory Results - last 24 hr 09/25/18 09/25/18 09/25/18 16:18 16:18 16:18 WBC 9.3 RBC 4.31 L Hgb 11.9 L Hct 36.3 MCV 84.2 D MCH 27.5 MCHC 32.7 L RDW 20.0 H Plt Count 355 MPV 6.4 L Neut % (Auto) 67.6 Lymph % (Auto) 15.0 L [place] % (Auto) 7.5 Eos % (Auto) 9.3 H Baso % (Auto) 0.6 Neut # (Auto) 6.2 Lymph # (Auto) 1.4 [place] # (Auto) 0.7 Eos # (Auto) 0.9 H Baso # (Auto) 0.1 Sodium 140 Potassium 4.3 Chloride 103 Carbon Dioxide 29 Anion Gap 12 BUN 36 H Creatinine 1.4 Est GFR ( Amer) > 60 Est GFR (Non-Af Amer) 53 POC Glucose (mg/dL) Random Glucose 149 H Calcium 8.6 Magnesium 2.0 Total Bilirubin 0.5 AST 21 ALT 16 L D Alkaline Phosphatase 64 Troponin I 0.0490 NT-Pro-B Natriuret Pep 4400 H Total Protein 7.0 Albumin 3.4 L Globulin 3.7 Albumin/Globulin Ratio 0.9 L Urine Color Urine Clarity Urine pH Ur Specific [place] Urine Protein Urine Glucose (UA) Urine Ketones Urine Blood Urine Nitrate Urine Bilirubin Urine Urobilinogen Ur Leukocyte Esterase Urine WBC (Auto) Urine RBC (Auto) Ur Squamous Epith Cells Urine Bacteria Hyaline Casts Digoxin 0.7 L 09/25/18 09/25/18 16:50 21:36 WBC RBC Hgb Hct MCV MCH MCHC RDW Plt Count MPV Neut % (Auto) Lymph % (Auto) [place] % (Auto) Eos % (Auto) Baso % (Auto) Neut # (Auto) Lymph # (Auto) [place] # (Auto) Eos # (Auto) Baso # (Auto) Sodium Potassium Chloride Carbon Dioxide Anion Gap BUN Creatinine Est GFR ( Amer) Est GFR (Non-Af Amer) POC Glucose (mg/dL) 123 H Random Glucose Calcium Magnesium Total Bilirubin AST ALT Alkaline Phosphatase Troponin I NT-Pro-B Natriuret Pep Total Protein Albumin Globulin Albumin/Globulin Ratio Urine Color Yellow Urine Clarity Clear Urine pH 6.0 Ur Specific [place] 1.021 Urine Protein 2+ H Urine Glucose (UA) Normal Urine Ketones Negative Urine Blood Negative Urine Nitrate Negative Urine Bilirubin Negative Urine Urobilinogen 4.0 Ur Leukocyte Esterase Neg Urine WBC (Auto) 1 Urine RBC (Auto) 1 Ur Squamous Epith Cells < 1 Urine Bacteria Rare Hyaline Casts 3-5 H Digoxin
[2018-09-26] MEDS: Albuterol-Ipratrop 3 mg / 0.5 (3 ml) UD INH SCH (07:30)
[2018-09-26] MEDS: (Novolin R) Insulin Human Regular 100 units/ml vial SC SCH (08:00)
[2018-09-26 08:15] LABS: BASO % 0.5 % (0.0-2.0); EOS # 0.6 K/uL (0.0-0.7); EOS % 9.6 % (0.0-4.0); HEMOGLOBIN 10.3 g/dL (12.0-18.0); LYMPH # 1.2 K/uL (1.0-4.3); LYMPH % 17.2 % (20.0-40.0); MEAN CELL VOLUME 84.2 fL (80.0-94.0); MEAN CORPUSCULAR HEMOGLOBIN 28.1 pg (27.0-31.0); MEAN CORPUSCULAR HGB CONC 33.4 g/dL (33.0-37.0); MONO # 0.6 K/uL (0.0-0.8); MONO % 8.7 % (0.0-10.0); NEUT # 4.3 K/uL (1.8-7.0); RBC 3.67 Mil/uL (4.40-5.90); RED CELL DISTRIBUTION WIDTH 20.1 % (11.5-14.5); WHITE BLOOD COUNT 6.8 K/uL (4.8-10.8)
[2018-09-26 08:27] LABS: INR 1.4; PROTHROMBIN TIME 15.7 SECONDS (9.7-12.2)
[2018-09-26 08:35] VITALS: PULSE 90; TEMP 98.3; O2SAT 99
[2018-09-26 08:49] LABS: ALT/SGPT 17 U/L (21-72); AST/SGOT 11 U/L (17-59); BLOOD UREA NITROGEN 25 mg/dL (9-20); CALCIUM 7.8 mg/dl (8.6-10.4); GFR NON-AFRICAN AMERICAN > 60
[2018-09-26 11:14] VITALS: BP 122/77
--- NOTE | 2018-09-26 16:07 | CP.PCM.DIS ---
Provider - Provider Date of Admission: 09/25/18 18:00 Attending physician: Shirin Gomes MD Consults: Cardio - [facility] CT Surgery - Hall Time Spent in preparation of Discharge (in minutes): 70 Hospital Course - Lab Results Lab Results: Most Recent Lab Values WBC 6.8 K/uL (4.8-10.8) 09/26/18 08:06 RBC 3.67 Mil/uL (4.40-5.90) L 09/26/18 08:06 Hgb 10.3 g/dL (12.0-18.0) L 09/26/18 08:06 Hct 30.9 % (35.0-51.0) L 09/26/18 08:06 MCV 84.2 fL (80.0-94.0) 09/26/18 08:06 MCH 28.1 pg (27.0-31.0) 09/26/18 08:06 MCHC 33.4 g/dL (33.0-37.0) 09/26/18 08:06 RDW 20.1 % (11.5-14.5) H 09/26/18 08:06 Plt Count 308 K/uL (130-400) 09/26/18 08:06 MPV 6.0 fL (7.2-11.7) L 09/26/18 08:06 Neut % (Auto) 64.0 % (50.0-75.0) 09/26/18 08:06 Lymph % (Auto) 17.2 % (20.0-40.0) L 09/26/18 08:06 [place]minn % (Auto) 8.7 % (0.0-10.0) 09/26/18 08:06 Eos % (Auto) 9.6 % (0.0-4.0) H 09/26/18 08:06 Baso % (Auto) 0.5 % (0.0-2.0) 09/26/18 08:06 Neut # (Auto) 4.3 K/uL (1.8-7.0) 09/26/18 08:06 Lymph # (Auto) 1.2 K/uL (1.0-4.3) 09/26/18 08:06 Mcminn # (Auto) 0.6 K/uL (0.0-0.8) 09/26/18 08:06 Eos # (Auto) 0.6 K/uL (0.0-0.7) 09/26/18 08:06 Baso # (Auto) 0.0 K/uL (0.0-0.2) 09/26/18 08:06 PT 15.7 SECONDS (9.7-12.2) H 09/26/18 08:06 INR 1.4 09/26/18 08:06 APTT 39 SECONDS (21-34) H 09/26/18 08:06 Sodium 141 mmol/L (132-148) 09/26/18 08:06 Potassium 3.9 mmol/L (3.6-5.2) 09/26/18 08:06 Chloride 107 mmol/L (98-107) 09/26/18 08:06 Carbon Dioxide 27 mmol/L (22-30) 09/26/18 08:06 Anion Gap 10 (10-20) 09/26/18 08:06 BUN 25 mg/dL (9-20) H 09/26/18 08:06 Creatinine 1.2 mg/dL (0.8-1.5) 09/26/18 08:06 Est GFR ( Amer) > 60 09/26/18 08:06 Est GFR (Non-Af Amer) > 60 09/26/18 08:06 POC Glucose (mg/dL) 114 mg/dL (65-110) H 09/26/18 06:38 Random Glucose 116 mg/dL (75-110) H 09/26/18 08:06 Calcium 7.8 mg/dl (8.6-10.4) L 09/26/18 08:06 Magnesium 2.0 mg/dL (1.6-2.3) 09/25/18 16:18 Total Bilirubin 0.3 mg/dL (0.2-1.3) 09/26/18 08:06 AST 11 U/L (17-59) L D 09/26/18 08:06 ALT 17 U/L (21-72) L 09/26/18 08:06 Alkaline Phosphatase 67 U/L (38-126) 09/26/18 08:06 Troponin I 0.0490 ng/mL (0.00-0.120) 09/25/18 16:18 NT-Pro-B Natriuret Pep 4400 pg/mL (0-900) H 09/25/18 16:18 Total Protein 6.0 g/dL (6.3-8.3) L 09/26/18 08:06 Albumin 3.0 g/dL (3.5-5.0) L 09/26/18 08:06 Globulin 3.0 gm/dL (2.2-3.9) 09/26/18 08:06 Albumin/Globulin Ratio 1.0 (1.0-2.1) 09/26/18 08:06 Urine Color Yellow (YELLOW) 09/25/18 16:50 Urine Clarity Clear (Clear) 09/25/18 16:50 Urine pH 6.0 (5.0-8.0) 09/25/18 16:50 Ur Specific [place] 1.021 (1.003-1.030) 09/25/18 16:50 Urine Protein 2+ mg/dL (NEGATIVE) H 09/25/18 16:50 Urine Glucose (UA) Normal mg/dL (Normal) 09/25/18 16:50 Urine Ketones Negative mg/dL (NEGATIVE) 09/25/18 16:50 Urine Blood Negative (NEGATIVE) 09/25/18 16:50 Urine Nitrate Negative (NEGATIVE) 09/25/18 16:50 Urine Bilirubin Negative (NEGATIVE) 09/25/18 16:50 Urine Urobilinogen 4.0 mg/dL (0.2-1.0) 09/25/18 16:50 Ur Leukocyte Esterase Neg Belinda/uL (Negative) 09/25/18 16:50 Urine WBC (Auto) 1 /hpf (0-5) 09/25/18 16:50 Urine RBC (Auto) 1 /hpf (0-3) 09/25/18 16:50 Ur Squamous Epith Cells < 1 /hpf (0-5) 09/25/18 16:50 Urine Bacteria Rare (<OCC) 09/25/18 16:50 Hyaline Casts 3-5 /lpf (0-2) H 09/25/18 16:50 Digoxin 0.7 ng/mL (0.8-2.0) L 09/25/18 16:18 - Hospital Course Hospital Course: Upon Admission This is a 52 year old male with PMHx of HTN, T2DM, A.fib, Systolic Heart Failure, COPD, Tobacco Use Disorder, Alcohol Use Disorder who presents to the ED with shortness of breath x2 days. He reports SOB with any activity and at rest. He also reports b/l lower leg swelling x2 days, with associated clear drainage. He also complains of rash for the past week, which has been intermittent. He reports associated itch for which he took benadryl with minimal relief. He was last admitted 07/2018 for CHF exacerbation and was found to have new onset A.fib, s/p cath with Dr. Scott 08/06 (LAD 80% stenosis, LCA 85% stenosis, RCA 70% stenos is). He says he takes some of his medications but is not compliant with all of them. Pt reports chills. He denies chest pain, abdominal pain, dizziness, palpitations, nausea, vomiting, diarrhea, dysuria. In the ED, CXR showed no active disease. EKG showed a flutter. Pt was admitted for further evaluation and treatment. Hospital course: Pt was restarted on home blood pressure and anticoagulant medications: eliquis, ASA, coreg, digoxin, losartan, crestor. He was given duonebs for shortness of breath. He was given lasix for lower extremity edema. He was given clindamycin PO for cellulitis. He was given prednisone 20mg PO and topical clobetasol ointment for atopic dermatitis flare-up. Cardiology was consulted, Dr. Scott - he recommended continuation of medications and consultation of CT surgery for CABG consideration. CT surgery was consulted, Dr. Hall - he recommended CABG and accepted pt for transfer to [facility] [place]. Upon Discharge: Pt was transferred to [facility] and accepted by Dr. Hall for CABG. Pt understood plan and was agreeable. Discharge Exam - Head Exam Head Exam: NORMOCEPHALIC - Eye Exam Eye Exam: EOMI, Normal appearance Pupil Exam: NORMAL ACCOMODATION - ENT Exam ENT Exam: Mucous Membranes Moist - Neck Exam Neck exam: Normal Inspection - Respiratory Exam Respiratory Exam: Rhonchi, NORMAL BREATHING PATTERN. absent: Clear to PA & Lateral, Rales, Wheezes - Cardiovascular Exam Cardiovascular Exam: REGULAR RHYTHM, +S1, +S2. absent: Gallop, Rubs, Systolic Murmur - GI/Abdominal Exam GI & Abdominal Exam: Normal Bowel Sounds, Soft. absent: Distended, Tenderness - Extremities Exam Extremities exam: pedal edema Additional comments: clear liquid drainage from b/l lower extremities b/l pedal edema chronic stasis changes - Neurological Exam Neurological exam: Alert, Oriented x3 - Psychiatric Exam Psychiatric exam: Normal Affect, Normal Mood - Skin Additional comments: erythematous papules coalescing into plaques, edematous, with some areas of lichenification Discharge Plan - Discharge Medications Prescriptions: Apixaban [Eliquis] 5 mg PO BID #60 tab Aspirin [Aspirin Chewable] 81 mg PO DAILY #30 chew Carvedilol [Coreg] 25 mg PO BID #60 tab Clopidogrel [Plavix] 75 mg PO DAILY #30 tab Digoxin [Digitek] 0.25 mg PO DAILY #30 tab Rosuvastatin Calcium [Crestor] 20 mg PO HS #30 tab - Follow Up Plan Condition: STABLE Disposition: Trans to Other Acute Care Hosp
[2018-09-26] MEDS ORDERED: Digoxin 250 mcg (0.25 mg) Tab PO SCH (18:00)
--- NOTE | 2018-09-26 21:43 | CARD ---
APPROVED REPORT Date of service: 09/25/2018 EKG Measurement Heart [id number] <Conclusion> Atrial flutter with variable AV block ST & T wave abnormality, consider inferior ischemia Abnormal ECG
[2018-09-27] MEDS ORDERED: Pneumococcal 23-Valent Vaccine IM ONE (10:00)
== END 2018-09-26 11:25 | disposition short-term general hospital (02) ==
LOC: C.ER 14:44 → C.6T 18:00
PROVIDERS: ADMIT Internal Medicine; ATTEND Internal Medicine
DX: I11.0 Hypertensive heart disease with heart failure (principal); I50.22 Chronic systolic (congestive) heart failure; I25.10 Atherosclerotic heart disease of native coronary artery without angina pectoris; I48.91 Unspecified atrial fibrillation; J44.9 Chronic obstructive pulmonary disease, unspecified; L03.116 Cellulitis of left lower limb; E11.9 Type 2 diabetes mellitus without complications; F17.210 Nicotine dependence, cigarettes, uncomplicated; L20.9 Atopic dermatitis, unspecified; L03.115 Cellulitis of right lower limb; I87.8 Other specified disorders of veins; I87.2 Venous insufficiency (chronic) (peripheral); Z82.3 Family history of stroke; Z85.840 Personal history of malignant neoplasm of eye; Z86.14 Personal history of Methicillin resistant Staphylococcus aureus infection; Z95.1 Presence of aortocoronary bypass graft
CPT/HCPCS: 36415; 71045; 80053; 80162; 81001; 82948; 83735; 83880; 84484; 85025; 85610; 85730; 87040; 93005; 94640; 96374; 99285; G0378; J1940